=== PATIENT | female | born 1990 | race Caucasian/White ===

== ENCOUNTER → 2024-01-05 | Outpatient (CLI) | payer BC, SELFPAY ==
[2024-01-07 21:07] LABS: Chlamydia By Nucleic Acid AMP Negative (Negative); Gonococcus By Nucleic Acid AMP Negative (Negative)
== END | disposition home or self-care (01) ==
PROVIDERS: Visit Provider Obstetrics & Gynecology
DX: O09.299 Supervision of pregnancy with other poor reproductive or obstetric history, unspecified trimester (principal); Z86.32 Personal history of gestational diabetes; Z3A.00 Weeks of gestation of pregnancy not specified
CPT/HCPCS: 87086; 87491; 87591

== ENCOUNTER → 2024-01-30 | Outpatient (CLI) | payer BC, SELFPAY ==
[2024-01-30 10:55] LABS: Absolute Lymphocyte Count 1.87 X10^3/uL (0.83-4.51); Basophil# 0.04 X10^3/uL; Basophil% 0.4 % (0-1); Eosinophil# 0.13 X10^3/uL; Eosinophils% 1.4 % (0-5); Hematocrit 34.5 % (37-47); Hemoglobin 11.4 g/dL (12.0-15.0); Lymphocyte # 1.87 X10^3/ul (0.83-4.51); Lymphocyte % 19.8 % (19-41); Mean Corpuscular Hgb 28.4 pg (27.0-32.0); Mean Corpuscular Volume 85.8 fL (81-99); Mean Platelet Vol. 11.8 fl (6.2-12.0); Monocyte# 0.35 X10^3/uL; Monocyte% 3.7 % (0-10); NRBC Flagged by Analyzer 0 % (0-5); Neutrophil % 74.2 % (47-70); Platelet Count 212 K/mm3 (150-450); RBC Distribution Width CV 13.5 % (11.6-14.6); RBC Distribution Width SD 41.8 fl (35.1-43.9); Red Blood Count 4.02 M/mm3 (4.2-5.4); White Blood Count 9.4 K/mm3 (4.4-11.0)
[2024-01-30 11:11] LABS: Protein, Urine (Random) 12.5 mg/dL (<11.9); Protein:Creat Ratio 166 mg/g CRE (0-200)
[2024-01-30 11:25] LABS: ALB/GLOB Ratio 0.8 RATIO (0.9-2.4); AST(SGOT) 9 U/L (15-37); Alanine Aminotransfer ALT/SGPT 10 U/L (13-56); Albumin, Serum 3.2 g/dL (3.2-5.0); Alkaline Phosphatase 60 U/L (45-117); Anion Gap 8 (5-15); BUN 9 mg/dL (7-18); BUN/Creat Ratio 14.7 RATIO (10-20); Chloride 106 mmol/L (98-107); Creatinine, Serum 0.61 mg/dL (0.55-1.02); EST Glomerular Filtration Rate 118 mL/min (>60); Est Glom Filt Rate - Afr Amer 143 mL/min (>60); Globulin 3.9 g/dL (2.2-4.2); Glucose 146 mg/dL (74-106); Potassium 3.6 mmol/L (3.5-5.1); Protein, Total 7.1 g/dL (6.4-8.2); Sodium Level 135 mmol/L (136-145)
[2024-01-30 11:51] LABS: Hemoglobin A1c 5.2 % (3.8-5.6)
[2024-01-30 12:00] LABS: HIV - WCH Non-Reactive (Nonreactive); Hepatitis B Surface Antigen Non-Reactive (Nonreactive); Hepatitis C Antibody Non-Reactive (Nonreactive); Rubella IgG Reactive (Nonreactive); Syphilis Antibodies Non-reactive
== END | disposition home or self-care (01) ==
LOC: LAB 09:43
PROVIDERS: PCP Nurse Practitioner Family; Referring Provider Obstetrics & Gynecology; Visit Provider Obstetrics & Gynecology
DX: O09.90 Supervision of high risk pregnancy, unspecified, unspecified trimester (principal); O09.299 Supervision of pregnancy with other poor reproductive or obstetric history, unspecified trimester; Z86.32 Personal history of gestational diabetes
CPT/HCPCS: 36415; 80053; 82570; 83036; 84156; 85025; 86703; 86762; 86780; 86803; 86850; 86900; 86901; 87340

== ENCOUNTER → 2024-05-07 | Outpatient (CLI) | payer BC, SELFPAY ==
[2024-05-07 07:30] LABS: Absolute Lymphocyte Count 1.61 X10^3/uL (0.83-4.51); Absolute Neutrophil Count 7.7 X10^3/uL (2.0-7.7); Basophil# 0.02 X10^3/uL; Basophil% 0.2 % (0-1); Eosinophil# 0.07 X10^3/uL; Eosinophils% 0.7 % (0-5); Hematocrit 34.3 % (37-47); Lymphocyte # 1.61 X10^3/ul (0.83-4.51); Lymphocyte % 16.3 % (19-41); Mean Corp Hgb Conc 32.1 g/dL (32-36); Mean Corpuscular Hgb 28.4 pg (27.0-32.0); Mean Corpuscular Volume 88.6 fL (81-99); Mean Platelet Vol. 11.4 fl (6.2-12.0); Monocyte# 0.43 X10^3/uL; Monocyte% 4.3 % (0-10); NRBC Flagged by Analyzer 0 % (0-5); Neutrophil % 77.9 % (47-70); Platelet Count 181 K/mm3 (150-450); RBC Distribution Width CV 12.9 % (11.6-14.6); RBC Distribution Width SD 41.4 fl (35.1-43.9); Red Blood Count 3.87 M/mm3 (4.2-5.4); White Blood Count 9.9 K/mm3 (4.4-11.0)
[2024-05-07 07:50] LABS: Glucose GTT-Gestation. Fasting 105 mg/dL (<105)
[2024-05-07 08:28] LABS: HIV - WCH Non-Reactive (Nonreactive); Syphilis Antibodies Non-reactive
[2024-05-07 08:58] LABS: Glucose GTT-Gestational 1 Hr 250 mg/dL (<190)
[2024-05-07 11:10] LABS: Glucose GTT-Gestational 3 Hr 178 L (<145)
[2024-05-07 11:21] LABS: Glucose GTT-Gestational 2 Hr 213 mg/dL (<165)
== END | disposition home or self-care (01) ==
LOC: LAB 06:51
PROVIDERS: PCP Nurse Practitioner Family; Referring Provider Advanced Practice Midwife; Visit Provider Advanced Practice Midwife
DX: O09.92 Supervision of high risk pregnancy, unspecified, second trimester (principal); Z13.1 Encounter for screening for diabetes mellitus; Z3A.00 Weeks of gestation of pregnancy not specified
CPT/HCPCS: 36415; 82951; 82952; 85025; 86703; 86780

== ENCOUNTER → 2024-07-06 | Outpatient (CLI) | payer BC, MEDICAID, SELFPAY | END | disposition home or self-care (01) | LOC: BWCLAB 10:51 | PROVIDERS: PCP Nurse Practitioner Family; Referring Provider Obstetrics & Gynecology; Visit Provider Obstetrics & Gynecology | DX: O09.92 Supervision of high risk pregnancy, unspecified, second trimester (principal); Z3A.00 Weeks of gestation of pregnancy not specified | CPT/HCPCS: 87081 ==

== ENCOUNTER 2024-07-09 13:15 | Outpatient (CLI) | payer BC, MEDICAID, SELFPAY ==
[2024-07-09 13:30] VITALS: RESP 16; TEMP 37.2; O2SAT 98
[2024-07-09 13:34] VITALS: BP 131/74; PULSE 107; O2SAT 98
[2024-07-09 13:55] VITALS: BMI 31.5
[2024-07-09] MEDS: Lactated Ringers 1,000 ML 999 ML IV (14:00)
[2024-07-09] MEDS: Ondansetron 4 MG/2 ML Vial IV (14:14)
--- NOTE | 2024-07-09 17:03 | OB.TRI.HP_ITS ---
HPI - General General Date of Service: 07/09/24 HPI Narrative VICENTA BLANCHARD, is a 34 F who presents at 36.6 for nausea/vomiting and cramping. son with illness at home. active fetus, no contractions, no lof. Maternal Data Information FEDERICO Calculator Estimated Delivery Date Method Current WG Current Estimate 07/31/24 Ultrasound #1 36w 6d Other Estimates 08/07/24 LMP (Certain) 35w 6d PFSH PFSH Medical History Hx of vaginal delivery Seasonal allergies Home Medications ?Medication ?Instructions ?Recorded ?Last Taken ?Type epinephrine 0.3 mg/0.3 mL 0.3 mg (0.3 mL) IM X1 #2 syringes 11/06/16 Unknown Rx injection, auto-injector albuterol sulfate 90 mcg/actuation 2 puff inhalation Q6H PRN asthma 12/30/23 Unknown History aerosol inhaler multivitamin no.47-iron fum 27 1 cap PO 12/30/23 07/08/24 21:00 History mg-folate no.1 1 mg-dha 300 mg capsule (PNV-DHA) umeclidinium 62.5 mcg-vilanterol 1 inh inhalation DAILY 12/30/23 07/08/24 09:00 History 25 mcg/actuation powdr for inhalation (Anoro Ellipta) blood sugar diagnostic (Blood #120 ea 05/07/24 Unknown Rx Glucose Test strips) blood-glucose meter #1 ea 05/07/24 Unknown Rx lancets #200 ea 05/07/24 Unknown Rx aspirin 81 mg capsule 81 mg PO DAILY 07/09/24 07/08/24 21:00 History Allergy/AdvReac Type Severity Reaction Status Date / Time peanut Allergy Angioedema Verified 07/09/24 14:06 sesame seed Allergy Anaphylaxis Verified 07/09/24 14:06 tree nut (tree nuts) AdvReac Severe Anaphylaxis Verified 07/09/24 14:06 Family History Mother Diabetes Grandmother Diabetes maternal Aunt Diabetes maternal Uncle Diabetes Maternal Father Hypertension Surgical History [place] teeth extracted H/O LEEP Social History adopted: No household members: significant other number of children: 1 current occupational status: employed 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 current occupational exposures/hazards: No pets and animals: No history of recent travel: No sexually active: Yes Smoking Status: Never smoker alcohol intake: current alcohol intake frequency: holidays/special occasions only details: Not while substance use type: does not use well-balanced diet: daily or most days caffeine: Yes Type: coffee Number of servings: 1 eating out: 1-3 times/week during the past year weight has: remained stable what type of physical activity do you participate in: none morgan/advent: None seatbelt use: always do you feel safe at home: Yes additional social history: Partner [employer] History 2 Elective abortions Hx Para 1 Spontaneous abortions Hx # Term Pregnancies Ectopic pregnancies Hx # Pregnancies Multiple births # of living children 1 Past Pregnancies Del. Date Name GA/Weeks Outcome Route Bth Weight Gen Labor Lgth Anesthesia Del Locatn Provider FOB 08/18/22 Jorge 37 live - full term vacuum 7#14oz Male ep idural Doug Hernandez Delivery Date: 08/18/22 Last Updated by: Klaudia Chance HTN, GDM Visit Details Expected Delivery Route/Plan Labor Preferences- CB/BF classes: no labor support person: David labor intervention preferences: [] pain management options preferred: epidural cut cord/dad catch: cord : yes PP control planned: discussed discussed possible routes of delivery and associated risks: [] special requests: [] Plans Covid status: unvaccinated Flu vaccine: unvaccinated Tdap vaccine: got tdap first Rhogam: [] LARC form signed: [] Problem list reviewed and updated with the most current plan of care details and appropriate orders placed. Relevant counseling for the gestational age provided. Continue routine care and follow up unless otherwise noted in visit notes/problem list details OB Flowsheet Initial Weight: Not Recorded Date -?-?-?-?-?-?-?-?-?-?-?-?- EGA Weight BP Urine Prot -?-?-?-?-?-?-?-?-?-?-?-?- Glucose FHR FuHt Pres Dilation -?-?-?-?-?-?-?-?-?-?-?-?- Effaced St Visit Note 01/05/24 -?-?-?-?-?-?-?-?-?-?-?-?- 10w 2d 165 lb 131/83 -?-?-?-?-?-?-?-?-?-?-?-?- 171 -?-?-?-?-?-?-?-?-?-?-?-?- JV- CRL is off b y a week. new federico given. h/o fast labor with first baby. Declines NIPT. 02/02/24 -?-?-?-?-?-?-?-?-?-?-?-?- 14w 2d 172 lb 6 oz 126/72 Nega tive -?-?-?-?-?-?-?-?-?-?-?-?- Negative 153 -?-?-?-?-?-?-?-?-?-?-?-?- MH-No VB. Nausea improving. Denies concerns. 03/03/24 -?-?-?-?-?-?-?-?-?-?-?-?- 18w 4d 173 lb 142/83 Negative -?-?-?-?-?-?-?--?-?-?-?-?- Negative 150 -?-?-?-?-?-?-?-?-?-?-?-?- SM- n ovb lof cr salvador had anatomy scan- per patient she has previa and it's a boy 04/02/24 -?-?-?-?-?-?-?-?-?-?-?-?- 22w 6d 179 lb 126/76 Negative -?-?-?-?-?-?-?-?-?-?-?-?- Negative 145 23 -?-?-?-?-?-?-?-?-?-?-?-?- KW- no vb/lof/ct x. good fm. would like to do 3 hour gct instead of 1 hour 05/04/24 -?-?-?-?-?-?-?-?-?-?-?-?- 27w 3d 180 lb 6 oz 116/72 Nega tive -?-?-?-?-?-?-?-?-?-?-?-?- Negative 154 27 -?-?-?-?-?-?-?-?-?-?-?-?- MH-No VB, lof. G ood FM. Larc. 3hr GTT this week 05/17/24 -?-?-?-?-?-?-?-?-?-?-?-?- 29w 2d 182 lb 122/78 Negative -?-?-?-?-?-?-?-?-?-?-?-?- Negative 145 30 -?-?-?-?-?-?-?-?-?-?-?-?- KW- no vb/lof/ct x. arjun fm. BS reviewed and WNL. previa resolved. 06/03/24 -?-?-?-?-?-?-?-?-?-?-?-?- 31w 5d 184 lb 6 oz 124/71 Nega tive -?-?-?-?-?-?-?-?-?-?-?-?- Negative 156 31 -?-?-?-?-?-?-?-?-?-?-?-?- JV- log revie wed and has 10% abnormal numbers. If this goes up will need to start metfomin. pt understands. 06/14/24 -?-?-?-?-?-?-?-?-?-?-?-?- 33w 2d 183 lb 135/84 Negative -?-?-?-?-?-?-?-?-?-?-?-?- Negative 145 32 -?-?-?-?-?-?-?-?-?-?-?-?- KW- BS reviewed and doing well with controlling numbers. no vb/lof/ctx. arjun joshua. 07/02/24 -?-?-?-?-?-?-?-?-?-?-?-?- 35w 6d 184 lb 8 oz 132/79 Nega tive -?-?-?-?-?-?-?-?-?-?-?-?- Negative 115 36 -?-?-?-?-?-?-?-?-?-?-?-?- SM- no vb lof go od fm no regular ctx, BS reviewed 07/06/24 -?-?-?-?-?-?-?-?-?-?-?-?- 36w 3d 184 lb 6 oz 136/88 Nega tive -?-?-?-?-?-?-?-?-?-?-?-?- Negative 144 37 Cephalic 3 -?-?-?-?-?-?-?-?-?-?-?-?- 70 -2 JV- no lof , vaginal bleeding, or dec fm. no complaints. has another growth scan next week. Cleared by [facility] peds to deliver at [place]. will be seeing urologist outpatient 48 hrs after delivery. NST FHR Rate Baby A Baseline: 140 Variability:: Moderate Accelerations:: 15 x 15 Decelerations:: None NST Reactive:: Yes FHR Category:: Category I Uterine Activity:: irreg. Assessment & Plan (1) Nausea and vomiting during : COMMENT: s/p LR bolus and IV zofran. reactive NST, unchanged cervical exam. enc PO hydration. PLAN: Plan Patient presents for triage evaluation secondary to nausea, vomiting, diarrhea. reactive nst. unchanged cervical exam. s/p LR bolus and zofran. FHT: Moderate variability reactive no decelerations category I tracing Honalo: irreg Contractions Assessment and plan: Reactive NST, reassuring maternal and status patient discharged to home to follow-up prn and office appt. See problem list details for additional plan information. Charges/Coding Multi Select Codes Urinary/Genital Urinary/Genital CPT Codes: 92832-14 non-stress test Interp
== END 2024-07-09 15:00 | disposition home or self-care (01) ==
LOC: WPOUT 13:22 → WP 13:22
PROVIDERS: PCP Nurse Practitioner Family; Referring Provider Registered Nurse; Visit Provider Registered Nurse
DX: O21.9 Vomiting of pregnancy, unspecified (principal); Z3A.36 36 weeks gestation of pregnancy; Z79.82 Long term (current) use of aspirin
CPT/HCPCS: 96374; 96361; 59025; 59050; 99221; G0378; J2405

== ENCOUNTER 2024-07-20 18:08 | Inpatient (IN) | payer BC, MEDICAID, SELFPAY ==
[2024-07-20] VITALS (47 sets, daily range): BP systolic 117–143; BP diastolic 58–97; PULSE 85–115; RESP 16–17; TEMP 36.5–36.9; O2SAT 95–100; BMI 32.2
[2024-07-20] MEDS: Lactated Ringers 1,000 ML 50 ML IV (18:00)
[2024-07-20 18:52] LABS: Absolute Lymphocyte Count 1.73 X10^3/uL (0.83-4.51); Absolute Neutrophil Count 11.5 X10^3/uL (2.0-7.7); Basophil# 0.03 X10^3/uL; Basophil% 0.2 % (0-1); Eosinophil# 0.08 X10^3/uL; Eosinophils% 0.6 % (0-5); Hematocrit 34.5 % (37-47); Hemoglobin 11.1 g/dL (12.0-15.0); Lymphocyte # 1.73 X10^3/ul (0.83-4.51); Lymphocyte % 12.2 % (19-41); Mean Corp Hgb Conc 32.2 g/dL (32-36); Mean Corpuscular Hgb 26.9 pg (27.0-32.0); Mean Corpuscular Volume 83.7 fL (81-99); Mean Platelet Vol. 11.8 fl (6.2-12.0); Monocyte# 0.75 X10^3/uL; Monocyte% 5.3 % (0-10); NRBC Flagged by Analyzer 0 % (0-5); Neutrophil # 11.46 X10^3/uL (2.7-7.7); Platelet Count 220 K/mm3 (150-450); RBC Distribution Width SD 39.1 fl (35.1-43.9); Red Blood Count 4.12 M/mm3 (4.2-5.4); White Blood Count 14.2 K/mm3 (4.4-11.0)
--- NOTE | 2024-07-20 18:58 | HP.PCM.OB_ITS ---
HPI - General General Date of Admission: 07/20/24 HPI Narrative VICENTA BLANCHARD, is a 34 y/o @ 38 weeks 3 days who presents to L&D with rupture of membranes and mild contractions. She has gestational diabetes, controlled with diet and her fetus has pyelectasis and has been followed by MFM and pediatric urology. Per the labor and delivery nurse, she is 6 cm dilated and very stretch. She is currently sitting up in bed and appears to be in minimal distress with contractions. She is requesting to get her epidural now before the pain gets worse. Maternal Data Information FEDERICO Calculator Estimated Delivery Date Method Current WG Current Estimate 07/31/24 Ultrasound #1 38w 3d Other Estimates 08/07/24 LMP (Certain) 37w 3d PFSH PFSH Medical History Hx of vaginal delivery Seasonal allergies Home Medications ?Medication ?Instructions ?Recorded ?Last Taken ?Type epinephrine 0.3 mg/0.3 mL 0.3 mg (0.3 mL) IM X1 food allergy 11/06/16 Unknown Rx injection, auto-injector #2 syringes albuterol sulfate 90 mcg/actuation 2 puff inhalation Q6H PRN asthma 12/30/23 Unknown History aerosol inhaler multivitamin no.47-iron fum 27 1 cap PO 12/30/23 07/08/24 21:00 History mg-folate no.1 1 mg-dha 300 mg capsule (PNV-DHA) umeclidinium 62.5 mcg-vilanterol 1 inh inhalation DAILY asthma 12/30/23 07/20/24 History 25 mcg/actuation powdr for inhalation (Anoro Ellipta) blood sugar diagnostic (Blood #120 ea 05/07/24 Unknown Rx Glucose Test strips) blood-glucose meter #1 ea 05/07/24 Unknown Rx lancets #200 ea 05/07/24 Unknown Rx aspirin 81 mg capsule 81 mg PO DAILY 07/09/24 07/08/24 21:00 History Allergy/AdvReac Type Severity Reaction Status Date / Time peanut Allergy Angioedema Verified 07/20/24 18:32 sesame seed Allergy Anaphylaxis Verified 07/20/24 18:32 tree nut (tree nuts) AdvReac Severe Anaphylaxis Verified 07/20/24 18:32 Family History Mother Diabetes Grandmother Diabetes maternal Aunt Diabetes maternal Uncle Diabetes Maternal Father Hypertension Surgical History [place] teeth extracted H/O LEEP Social History adopted: No household members: significant other number of children: 1 current occupational status: employed 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 current occupational exposures/hazards: No pets and animals: No history of recent travel: No sexually active: Yes Smoking Status: Never smoker alcohol intake: current alcohol intake frequency: holidays/special occasions only details: Not while substance use type: does not use well-balanced diet: daily or most days caffeine: Yes Type: coffee Number of servings: 1 eating out: 1-3 times/week during the past year weight has: remained stable what type of physical activity do you participate in: none morgan/scientologist: None seatbelt use: always do you feel safe at home: Yes additional social history: Partner [employer] History 2 Elective abortions Hx Para 1 Spontaneous abortions Hx # Term Pregnancies Ectopic pregnancies Hx # Pregnancies Multiple births # of living children 1 Past Pregnancies Del. Date Name GA/Weeks Outcome Route Bth Weight Infant Gen Labor Lgth Anesthesia Del Locatn Provider FOB 08/18/22 Jorge 37 live - full term vacuum 7#14oz Male ep idural Doug Hernandez Delivery Date: 08/18/22 Last Updated by: Klaudia Chance HTN, GDM Visit Details Expected Delivery Route/Plan Labor Preferences- CB/BF classes: no labor support person: David labor intervention preferences: [] pain management options preferred: epidural cut cord/dad catch: cord : yes PP control planned: discussed discussed possible routes of delivery and associated risks: [] special requests: [] Plans Covid status: unvaccinated Flu vaccine: unvaccinated Tdap vaccine: got tdap first Rhogam: [] LARC form signed: [] Problem list reviewed and updated with the most current plan of care details and appropriate orders placed. Relevant counseling for the gestational age provided. Continue routine care and follow up unless otherwise noted in visit notes/problem list details OB Flowsheet Initial Weight: Not Recorded Date -?-?-?-?-?-?-?-?-?-?-?-?- EGA Weight BP Urine Prot -?-?-?-?-?-?-?-?-?-?-?-?- Glucose FHR FuHt Pres Dilation -?-?-?-?--?-?-?-?-?-?-?-?- Effaced St Visit Note 01/05/24 -?-?-?-?-?-?-?-?-?-?-?-?- 10w 2d 165 lb 131/83 -?-?-?-?-?-?-?-?-?-?-?-?- 171 -?-?-?-?-?-?-?-?-?-?-?-?- JV- CRL is off b y a week. new federico given. h/o fast labor with first baby. Declines NIPT. 02/02/24 -?-?-?-?-?-?-?-?-?-?-?-?- 14w 2d 172 lb 6 oz 126/72 Nega tive -?-?-?-?-?-?-?-?-?-?-?-?- Negative 153 -?-?-?-?-?-?-?-?-?-?-?-?- MH-No VB. Nausea improving. Denies concerns. 03/03/24 -?-?-?-?-?-?-?-?-?-?-?-?- 18w 4d 173 lb 142/83 Negative -?-?-?-?-?-?-?-?-?-?-?-?- Negative 150 -?-?-?-?-?-?-?-?-?-?-?-?- SM- n ovb lof nela franco had anatomy scan- per patient she has previa and it's a boy 04/02/24 -?-?-?-?-?-?-?-?-?-?-?-?- 22w 6d 179 lb 126/76 Negative -?-?-?-?-?-?-?-?-?-?-?-?- Negative 145 23 -?-?-?-?-?-?-?-?-?-?-?-?- KW- no vb/lof/ct x. good fm. would like to do 3 hour gct instead of 1 hour 05/04/24 -?-?-?-?-?-?-?-?-?-?-?-?- 27w 3d 180 lb 6 oz 116/72 Nega tive -?-?-?-?-?-?-?-?-?-?-?-?- Negative 154 27 -?-?-?-?-?-?-?-?-?-?-?-?- MH-No VB, lof. G ood FM. Larc. 3hr GTT this week 05/17/24 -?-?-?-?-?-?-?-?-?-?-?-?- 29w 2d 182 lb 122/78 Negative -?-?-?-?-?-?-?-?-?--?-?-?- Negative 145 30 -?-?-?-?-?-?-?-?-?-?-?-?- KW- no vb/lof/ct x. good fm. BS reviewed and WNL. previa resolved. 06/03/24 -?-?-?-?-?-?-?-?-?-?-?-?- 31w 5d 184 lb 6 oz 124/71 Nega tive -?-?-?-?-?-?-?-?-?-?-?-?- Negative 156 31 -?-?-?-?-?-?-?-?-?-?-?-?- JV- BS log revie wed and has 10% abnormal numbers. If this goes up will need to start metfomin. pt understands. 06/14/24 -?-?-?-?-?-?-?-?-?-?-?-?- 33w 2d 183 lb 135/84 Negative -?-?-?-?-?-?-?-?-?--?-?-?- Negative 145 32 -?-?-?-?-?-?-?-?-?-?-?-?- KW- BS reviewed and doing well with controlling numbers. no vb/lof/ctx. good fm. 07/02/24 -?-?-?-?-?-?-?-?-?-?-?-?- 35w 6d 184 lb 8 oz 132/79 Nega tive -?-?-?-?-?-?-?-?-?-?-?-?- Negative 115 36 -?-?-?-?-?-?-?-?-?-?-?-?- SM- no vb lof go od fm no regular ctx, BS reviewed 07/06/24 -?-?-?-?-?-?-?-?-?-?-?-?- 36w 3d 184 lb 6 oz 136/88 Nega tive -?-?-?-?-?-?-?-?-?-?-?-?- Negative 144 37 Cephalic 3 -?-?-?-?-?-?-?-?-?-?-?-?- 70 -2 JV- no lof , vaginal bleeding, or dec fm. no complaints. has another growth scan next week. Cleared by [facility] peds to deliver at [place]. will be seeing urologist outpatient 48 hrs after delivery. 07/12/24 -?-?-?-?-?-?-?-?-?-?-?-?- 37w 2d 184 lb 134/79 Negative -?-?-?-?-?-?-?-?-?-?-?-?- Negative 140 37 Cephalic -?-?-?-?-?-?-?-?-?-?-?-?- KW- no vb/lof/ct x. good fm. FMLA paper given to pt. declined need for vaginal exam today. was checked on WP on friday and was still 3 cm ROS Constitutional Constitutional: Denies change in weight, fatigue, fever(s), headache(s), poor appetite or weakness Eyes Eyes: Denies blurry vision, change in vision, seeing flashes or spots in vision ENT HEENT: Denies dizziness, headache(s), loss taste/smell or sore throat Cardiovascular Cardiovascular: Denies chest pain, dizziness, dyspnea, irregular heart rhythm, leg edema, palpitations, rapid heart rate or vomiting Respiratory/Chest Respiratory/Chest: Denies chest tightness, cough, dyspnea or breast pain Gastrointestinal Gastrointestinal: Denies abdominal pain, anorexia, constipation, cramping, diarrhea, hemorrhoids, vomiting or weight changes Genitourinary Genitourinary: Denies dysuria, flank pain, genital lesions, genital pain, urinary frequency or urinary urgency Musculoskeletal Musculoskeletal: Denies back pain, difficulty walking, joint pain, limited range of motion, muscle cramps or numbness Integumentary Integumentary: Denies lesions or unusual bruising Neurologic Neurologic: Denies abnormal movements, abnormal speech, dizziness, numbness, seizure-like activity or syncope Psychiatric Psychiatric: Denies anxiety, behavioral changes, change in appetite, change in libido, cognitive impairment, confusion, depression, difficulty concentrating, hallucinations or suicidal thoughts Endocrine Endocrinology: Denies excessive sweating, polydipsia or polyuria Hematologic/Lymphatic Hematologic/Lymphatic: Denies easy bleeding, easy bruising or lymphadenopathy Allergic/Immunologic Allergic/Immunologic: Denies itchy eyes, lip swelling, seasonal rhinorrhea, rhinitis, throat swelling, tongue swelling, eczemia, wheezing or asthma Vital Signs Vital Signs Vital Signs: 07/20/24 18:14 07/20/24 18:14 07/20/24 18:14 Temperature 98.4 F Pulse Rate 98 Blood Pressure 131/87 H BP Systolic 131 BP Diastolic 87 Weight Weight: 182 lb Body Mass Index (BMI) 32.2 Physical Exam Const alert, oriented x3, no apparent distress and healthy appearing General Appearance: cooperative; Negative for anxious HEENT normocephalic Face and Sinus: normal facial exam Eyes EOMs intact bilaterally and no scleral icterus General Eye: normal appearance of both eyes Neck full ROM and supple Lymph Lymphatic: no lymphadenopathy noted Chest Chest: abnormal inspection of the chest Resp normal respiratory effort Effort and Inspection: able to speak in complete sentences Cardio regular rate GI soft to palpation and non-tender Inspection: gravid Palpation: soft; Negative for tender external exam normal Amniotic Fluid: ROM+plus Back/Spine no CVA tenderness Extremity normal to inspection, full ROM and no clubbing, cyanosis or edema General Extremity: Negative for calf tenderness or edema Skin Lesions: no lesions Rashes: no rashes Psych mental status grossly normal Labs Labs Labs: Blood Type O POSITIVE Antibody Screen NEGATIVE Hct 34.5 % (37-47) L Hgb 11.1 g/dL (12.0-15.0) L Pap Smear Negative Syphilis Total Ab Non-reactive Rubella IgG Antibody Reactive (Nonreactive) Hep Bs Antigen Non-Reactive (Nonreactive) Hepatitis C Antibody Non-Reactive (Nonreactive) Chlamydia DNA (LEONARDO) Negative (Negative) N.gonorrhoeae DNA (LEONARDO) Negative (Negative) HIV 1&2 Antibody Non-Reactive (Nonreactive) Gest Glucose Tolerance MG/DL Assessment & Plan (1) Nausea and vomiting during : COMMENT: s/p LR bolus and IV zofran. reactive NST, unchanged cervical exam. enc PO hydration. (2) Pyelectasis of fetus on ultrasound: COMMENT: left. US Q4wk MFM; 28w:51% EFW, AC 27%. declined NIPT, see last MFM US for A/P details (3) Gestational diabetes mellitus (GDM) affecting , antepartum: COMMENT: start testing QID and bring log to next appt (4) AMA (advanced maternal age) multigravida 35+: QUALIFIERS: Trimester: second trimester Qualified Code(s): O09.522 - Supervision of elderly multigravida, second trimester COMMENT: declines genetic screening, plan 36 week growth US and delivery by 40 weeks (5) Asthma: COMMENT: Anoro Elipta daily, albuterol PRN (6) Hx of abnormal cervical Pap smear: COMMENT: +HPV, LEEP 2020 (7) History of gestational hypertension: COMMENT: basleine labs WNL, baby asa recommended. (8) H/O gestational diabetes in prior , currently : COMMENT: nl HgA1c in 1 TM (9) Supervision of high-risk : QUALIFIERS: Trimester: second trimester Qualified Code(s): O09.92 - Supervision of high risk , unspecified, second trimester COMMENT: PRR, , FEDERICO 08/07/24, boy latisha PC Jorge Partner David (10) Cystic fibrosis carrier: COMMENT: Partner is not a carrier of CF (11) : QUALIFIERS: Weeks of gestation: 36 weeks Qualified Code(s): Z3A.36 - 36 weeks gestation of COMMENT: GBS neg, declines genetic & carrier testing PLAN: Plan Patient presents IAL, plan expectant management for , pitocin PRN Pain management: plans epidural. GBS negative . Management of any complications: see above I have reviewed the [facility] and made any clinically relevant updates.
[2024-07-20] MEDS: fentaNYL-bupivacaine (epidural) 100 ML BAG EPIDURAL (19:40)
[2024-07-20 19:49] LABS: Syphilis Antibodies Non-reactive
[2024-07-20] MEDS: Lactated Ringers 1,000 ML 200 ML IV (19:49)
[2024-07-20 20:44] LABS: Bedside Glucose 89 mg/dL (74-106)
[2024-07-20 20:56] LABS: Bedside Glucose 86 mg/dL (74-106)
[2024-07-20] MEDS: Oxytocin 10 UNITS/ML Vial IM (22:32)
[2024-07-20] MEDS: Oxytocin 15 Units/NS 250ml 15 UNITS/250 ML IV.SOLN 83 UNITS IV (22:36)
--- NOTE | 2024-07-20 22:48 | EX.PCM.OBVAG ---
Assessment & Plan (1) Pyelectasis of fetus on ultrasound: COMMENT: left. US Q4wk MFM; 28w:51% EFW, AC 27%. declined NIPT, see last MFM US for A/P details (2) Gestational diabetes mellitus (GDM) affecting , antepartum: COMMENT: start testing QID and bring log to next appt (3) AMA (advanced maternal age) multigravida 35+: QUALIFIERS: Trimester: second trimester Qualified Code(s): O09.522 - Supervision of elderly multigravida, second trimester COMMENT: declines genetic screening, plan 36 week growth US and delivery by 40 weeks (4) Asthma: COMMENT: Anoro Elipta daily, albuterol PRN (5) Hx of abnormal cervical Pap smear: COMMENT: +HPV, LEEP 2020 (6) History of gestational hypertension: COMMENT: basleine labs WNL, baby asa recommended. (7) H/O gestational diabetes in prior , currently : COMMENT: nl HgA1c in 1 TM (8) Supervision of high-risk : QUALIFIERS: Trimester: second trimester Qualified Code(s): O09.92 - Supervision of high risk , unspecified, second trimester COMMENT: PRR, , FEDERICO 08/07/24, jos ealfredo PEREZ Jorge Partner David (9) Cystic fibrosis carrier: COMMENT: Partner is not a carrier of CF (10) : QUALIFIERS: Weeks of gestation: 36 weeks Qualified Code(s): Z3A.36 - 36 weeks gestation of COMMENT: GBS neg, declines genetic & carrier testing Maternal Data Information FEDERICO Calculator Estimated Delivery Date Method Current WG Current Estimate 07/31/24 Ultrasound #1 38w 3d Other Estimates 08/07/24 LMP (Certain) 37w 3d Final FEDERICO: 08/07/24 Gestational age: 38 weeks 3 days Vaginal Delivery Maternal Presentation Maternal Presentation: Active Labor and Spontaneous Rupture of Membranes Vaginal Delivery Information Procedure Performed: Spontaneous Vaginal Delivery Surgeon/Practitioner: Rocio Rivera Date of Procedure: 07/20/24 Pre-Procedure Diagnosis: 34 y/o @ 38 weeks 3 days, SROM and active labor Post-Procedure Diagnosis: 34 y/o @ 38 weeks 3 days, SROM and active labor Type of anesthesia: Epidural Estimated Blood Loss: 100cc Time of Delivery: 22:29 Findings Description of procedure: Patient began pushing and delivered the head in the EDWIN presentation. The head was delivered atraumatically and a loose nuchal cord ?1 was identified and easily reduced over the infant's head. The anterior and posterior shoulders delivered without complication followed by the rest of the and the infant was placed on the maternal abdomen. Delayed cord clamping was employed for approximately 60 seconds. Cord was clamped and cut and gentle traction was applied to the cord and the placenta delivered spontaneously immediately following it was noted to be intact with three-vessel cord. The perineum and vagina were inspected and noted to have no laceration. EBL was 100 cc. Patient and infant tolerated delivery well. Procedure findings: viable male infant Junaid Presentation: Vertex Amniotic Membrane Rupture Type: Spontaneous Amniotic Fluid Description: Clear Placental Delivery Description: Spontaneous Placenta Disposition: [facility] Specimen collected: No Cord Vessel Description: 3 Vessels Cord Entanglement: Around neck x 1, loose Infant A Gender: Male (1 minute): 9 (5 minute): 9 Delayed Cord Clamping: Yes Nipple Machine Operator solution developer: No Post Vaginal Deli Medications given after delivery: IM Pitocin Episiotomy Description: None Laceration: None Complication Complications: No Procedures Urinary/Genital [id number]: [id number] Vaginal Delivery Only
--- NOTE | 2024-07-20 22:51 | DCINST_ITS ---
Discharge Instructions Diet Discharge Diet: No restrictions DC O2, CPAP, BIPAP needs Home O2 Discharge instructions: No Dressing / Incision Discharge Activity: Return to Normal Activity, May Not Drive (while taking narcotic pain medications.) and May Shower May resume sexual activity in: 4-6 weeks Dressing / Incision Call your doctor if your incision/area has: Continuous Slow Oozing, Sudden Increased Bleeding, Increased Pain/ Swelling, Increased Redness and Foul Smelling Discharge Follow Up Care Please Follow Up With: Rocio Rivera DO When: Call [phone] to make an appointment with your doctor in 6 weeks. If you had elevated blood pressure or 4th degree laceration, you will need to be seen in 2 weeks. Test Results: Test results from this visit will be discussed in further detail at your follow- up appointment, if applicable. Discharge Plan Admission Admit Date/Time: 07/20/24 18:08 Attending Provider: Rocio Rivera Primary Care Provider: Nandini Mayorga NP Discharge Orders/Prescriptions Prescriptions: No Action PNV-DHA 27 mg iron-1 mg -300 mg capsule 1 cap PO Anoro Ellipta 62.5-25 mcg/actuation blister with device 1 inh inhalation DAILY albuterol sulfate 90 mcg/actuation HFA aerosol inhaler 2 puff inhalation Q6H PRN (Reason: asthma) epinephrine 0.3 MG syringe 0.3 mg IM X1 Qty: 2 2RF aspirin 81 mg capsule 81 mg PO DAILY (DME) Blood Glucose Test Strip See Rx Instructions .MEDSUPPLY Qty: 120 5RF Rx Instructions: As directed-fasting & 2 hr post meals (DME) blood-glucose meter Misc See Rx Instructions .MEDSUPPLY Qty: 1 0RF Rx Instructions: As directed- Test fasting and 2 hours after meals (DME) lancets Misc See Rx Instructions .MEDSUPPLY Qty: 200 5RF Rx Instructions: As directed-fasting & 2 hr post meals Referrals / Follow Up: Nandini Mayorga NP, HOTBED TRANSFER OPERATOR-C [Primary Care Provider] -
[2024-07-20 23:52] LABS: Bedside Glucose 98 mg/dL (74-106)
[2024-07-20 23:52] LABS: Bedside Glucose 93 mg/dL (74-106)
[2024-07-21] VITALS (11 sets, daily range): BP systolic 115–135; BP diastolic 60–89; PULSE 79–116; RESP 16–18; TEMP 36.6–37.1; O2SAT 97–99
[2024-07-21 06:08] LABS: Bedside Glucose 95 mg/dL (74-106)
[2024-07-21] MEDS: Acetaminophen 500 MG Tablet 1000 MG PO ×2 (08:05→23:23)
--- NOTE | 2024-07-21 08:26 | PCM.PN.OB ---
Subjective Subjective Patient doing well without complaints. Tolerating PO. Ambulating and voiding without difficulty. Feeding well. Denies chest pain, shortness of breath, calf pain/swelling, fevers, chills, lightheadedness. Objective Data Objective Data Vital Signs: Vital Signs Temp Pulse Resp BP Pulse Ox O2 Del Method 98.2 F 86 16 131/78 H 99 Room Air 07/21/24 07:32 07/21/24 07:32 07/21/24 07:32 07/21/24 07:32 07/21/24 07:32 07/21/24 07:32 Oxygen Delivery Method Room Air Weight: 182 lb Body Mass Index (BMI) 32.2 Intake & Output: Intake and Output for Last 24 Hours 07/19/24 07/20/24 07/21/24 23:59 23:59 23:59 Intake Total 1683.33 / 1683.33 250 / 250 Output Total 600 / 600 800 / 800 Balance 1083.33 / 1083.33 -550 / -550 Lab / Micro Data 07/20/24 18:30 Labs: Laboratory Results - last 24 hr 07/20/24 18:30: WBC 14.2 H, RBC 4.12 L, Hgb 11.1 L, Hct 34.5 L, MCV 83.7, MCH 26.9 L, MCHC 32.2, RDW Std Deviation 39.1, RDW Coeff of Elian 13.0, Plt Count 220, MPV 11.8, Immature Gran % (Auto) 0.700, Neut % (Auto) 81.0 H, Lymph % (Auto) 12.2 L, [place]bot % (Auto) 5.3, Eos % (Auto) 0.6, Baso % (Auto) 0.2, Absolute Neuts (auto) 11.5 H, Absolute Lymphs (auto) 1.73, Nucleated RBC % 0, Syphilis Total Ab Non-reactive, Blood Type O POSITIVE, Antibody Screen NEGATIVE 07/20/24 19:28: POC Glucose 89 07/20/24 20:35: POC Glucose 86 07/20/24 21:43: POC Glucose 93 07/20/24 22:43: POC Glucose 98 07/21/24 05:45: POC Glucose 95 ROS Constitutional Constitutional: Reports systems reviewed and no addt'l complaints, except as documented; Denies anorexia or headache(s) Cardiovascular Cardiovascular: Reports systems reviewed and no addt'l complaints, except as documented; Denies dizziness, dyspnea, nausea or tachypnea Respiratory/Chest Respiratory/Chest: Reports systems reviewed and no addt'l complaints, except as documented; Denies cough, dyspnea, shortness of breath at rest or tachypnea Gastrointestinal Gastrointestinal: Reports systems reviewed and no addt'l complaints, except as documented; Denies abdominal pain, constipation or nausea Genitourinary Genitourinary: Reports systems reviewed and no addt'l complaints, except as documented; Denies burning urination, difficulty urinating, dysuria, urinary frequency or urinary incontinence Musculoskeletal Musculoskeletal: Reports systems reviewed and no addt'l complaints, except as documented Integumentary Integumentary: Reports systems reviewed and no addt'l complaints, except as documented Neurologic Neurologic: Reports systems reviewed and no addt'l complaints, except as documented; Denies abnormal speech, dizziness or headache(s) Psychiatric Psychiatric: Reports systems reviewed and no addt'l complaints, except as documented Endocrine Endocrinology: Reports systems reviewed and no addt'l complaints, except as documented Hematologic/Lymphatic Hematologic/Lymphatic: Reports systems reviewed and no addt'l complaints, except as documented Physical Exam Const alert, oriented x3 and no apparent distress Neck full ROM Resp normal respiratory effort, normal air movement and no retractions Effort and Inspection: able to speak in complete sentences and symmetric chest movement GI soft to palpation Bladder / Kidney Exam: bladder normal to palpation Uterus Palpation: uterus fundus firm Extremity normal to inspection and full ROM Psych mental status grossly normal, thought process normal and cooperative Assessment & Plan (1) Vaginal delivery: COMMENT: ANNA PLAN: s/p PPD # 1 1. routine post delivery care 2. breast feeding- support given 3. rh positive 4. rubella immune Charges/Coding Multi Select Codes Urinary/Genital Urinary/Genital CPT Codes: No Charge
[2024-07-22 02:07] VITALS: BP 121/87; PULSE 85; RESP 16; TEMP 36.4; O2SAT 99
[2024-07-22 08:01] VITALS: BP 126/86; PULSE 84; RESP 16; TEMP 36.7; O2SAT 98
--- NOTE | 2024-07-22 08:40 | PCM.PN.OB ---
Subjective Subjective Patient doing well without complaints. Tolerating PO. Ambulating and voiding without difficulty. Feeding well. Denies chest pain, shortness of breath, calf pain/swelling, fevers, chills, lightheadedness. Objective Data Objective Data Vital Signs: Vital Signs Temp Pulse Resp BP Pulse Ox O2 Del Method 98.1 F 84 16 126/86 H 98 Room Air 07/22/24 08:01 07/22/24 08:01 07/22/24 08:01 07/22/24 08:01 07/22/24 08:01 07/22/24 08:01 Oxygen Delivery Method Room Air Weight: 182 lb Body Mass Index (BMI) 32.2 Intake & Output: Intake and Output for Last 24 Hours 07/20/24 07/21/24 07/22/24 23:59 23:59 23:59 Intake Total 1683.33 / 1683.33 250 / 250 Output Total 600 / 600 800 / 800 Balance 1083.33 / 1083.33 -550 / -550 Lab / Micro Data 07/20/24 18:30 ROS Constitutional Constitutional: Denies chills, fatigue, fever(s), poor appetite or weakness Eyes Eyes: Denies blurry vision, change in vision, seeing flashes or spots in vision ENT HEENT: Denies dizziness, headache(s), loss taste/smell or sore throat Cardiovascular Cardiovascular: Denies chest pain, dizziness, dyspnea, irregular heart rhythm, palpitations or rapid heart rate Respiratory/Chest Respiratory/Chest: Denies chest tightness, cough, dyspnea or breast pain Gastrointestinal Gastrointestinal: Denies abdominal pain, constipation or vomiting Genitourinary Genitourinary: Denies dysuria or flank pain Musculoskeletal Musculoskeletal: Denies difficulty walking, joint pain, limited range of motion or numbness Neurologic Neurologic: Denies abnormal movements, abnormal speech, dizziness, numbness, seizure-like activity or syncope Psychiatric Psychiatric: Denies anxiety, behavioral changes, change in appetite, confusion, depression or suicidal thoughts Physical Exam Const alert, oriented x3 and no apparent distress General Appearance: cooperative and comfortable Resp normal respiratory effort Cardio regular rate GI normal to inspection, nondistended, normoactive bowel sounds GI Narrative: uterus is firm below umbilicus Palpation: soft Back/Spine no CVA tenderness and thoraco-lumbar ROM normal Extremity normal to inspection, no clubbing, cyanosis or edema, no calf tenderness and no pedal edema Psych mental status grossly normal, thought process normal, cooperative, affect normal, speech normal, activity/motor behavior normal, denies homicidal ideation and denies suicidal ideation Assessment & Plan (1) Vaginal delivery: COMMENT: ANNA (2) Pyelectasis of fetus on ultrasound: COMMENT: left. US Q4wk MFM; 28w:51% EFW, AC 27%. declined NIPT, see last MFM US for A/P details PLAN: Plan s/p PPD # 2 1. routine post delivery care 2. breast feeding- support given 3. rh positive 4. rubella immune 5. dc to home today
== END 2024-07-22 12:50 | disposition home or self-care (01) | DRG 807 ==
LOC: WPOUT 18:25 → WP 18:25
PROVIDERS: Admitting Provider Obstetrics & Gynecology; PCP Nurse Practitioner Family; Visit Provider Obstetrics & Gynecology
DX: O24.420 Gestational diabetes mellitus in childbirth, diet controlled (principal); Z37.0 Single live birth; J45.909 Unspecified asthma, uncomplicated; Z3A.36 36 weeks gestation of pregnancy; O99.52 Diseases of the respiratory system complicating childbirth; O69.81X0 Labor and delivery complicated by cord around neck, without compression, not applicable or unspecified; Z14.1 Cystic fibrosis carrier; Z79.82 Long term (current) use of aspirin
CPT/HCPCS: 59025; 59050; 82962; 85025; 86780; 86850; 86900; 86901; 99221; G0378

== ENCOUNTER → 2024-09-08 | Outpatient (CLI) | payer BC, MEDICAID, SELFPAY ==
[2024-09-11 15:07] LABS: HPV APTIMA, High Risk Negative (Negative)
== END | disposition home or self-care (01) ==
LOC: LABSPEC 11:46
PROVIDERS: PCP Nurse Practitioner Family; Referring Provider Nurse Practitioner Women's Health; Visit Provider Nurse Practitioner Women's Health
DX: Z12.4 Encounter for screening for malignant neoplasm of cervix (principal); Z87.42 Personal history of other diseases of the female genital tract
CPT/HCPCS: 87624; 88175; G0145

== ENCOUNTER 2024-12-24 00:49 | Day surgery (SDC) | payer OTHER, MEDICAID, SELFPAY ==
[2024-12-24] VITALS (18 sets, daily range): BP systolic 111–156; BP diastolic 69–84; PULSE 74–113; RESP 14–18; TEMP 36.3–36.8; O2SAT 88–99; BMI 30.1
--- OUTSIDE RECORDS SUMMARY | 2024-12-24 01:15 | XMS RPT_ITS | CCD ---
Author Organization [facility] CliniSymi Care Team Providers Care Card Dealer Name Role Phone LORSON HOCKEY INSTRUCTOR-MINES SAFETY ENGINEER, [place] Primary Care Physician TAMERA JAG Attending Unavailable LORSON HOCKEY INSTRUCTOR-MINES SAFETY ENGINEER, [place] Primary Care Unavail able TAMERA, JAG Attending Unavailable LORSON HOCKEY INSTRUCTOR-MINES SAFETY ENGINEER, [facility] Care Unavail able PAYAL ROSE MD Attending Unavailable LORSON HOCKEY INSTRUCTOR-MINES SAFETY ENGINEER, [facility] Care Unavail able LORSON HOCKEY INSTRUCTOR-MINES SAFETY ENGINEER, [facility] Unavail able PAYAL ROSE MD Admitting Unavailable PAYAL ROSE MD Attending Unavailable TAMERA, JAG Attending Unavailable LORSON HOCKEY INSTRUCTOR-MINES SAFETY ENGINEER, [facility] Care Unavail able ATMERA, JAG Attending Unavailable LORSON HOCKEY INSTRUCTOR-MINES SAFETY ENGINEER, [place] Primary Care Unavail able WALTER BROUSSARD MD Attending Unavailable LORSON HOCKEY INSTRUCTOR-MINES SAFETY ENGINEER, [facility] Unavail able TAMERA, JAG Attending Unavailable LORSON HOCKEY INSTRUCTOR-MINES SAFETY ENGINEER, [facility] Care Unavail able MARGARET SHAW Attending Unavailable LORSON HOCKEY INSTRUCTOR-MINES SAFETY ENGINEER, [facility] Unavail able NO PRIMARY CAREMD Primary Care Unavailable JAYDON GREEN Attending Unavailable TIM SANCHEZ Referring Unavailable NANDINI MAYORGA Primary Care Unavailable JAYDON GREEN Attending Unavailable TIM SANCHEZ Referring Unavailable MELINA SWAIN Primary Care Unavailable MELINA SWAIN Attending Unavailable JULIETA LUA Referring UnavailMELINA [place] Admitting Unavailable MELINA SWAIN Primary Care Unavailable JULIETA LUA Referring Unavailabl ANDREW Arias Attending Unavailable MELINA SWAIN Admitting Unavailable SADIA LEPE Attending Unavailable MELINA SWAIN Admitting Unavailable JAYDON GREEN Referring Unavailable MELINA SWAIN Primary Care Unavailable JULIETA ULA Referring Unavailabl e ANDREW MEEK Attending Unavailable MELINA SWAIN Primary Care Unavailable Lorson ELECTRICAL LINEWORKER-C, [place] Primary Care Provider [phone] Lorson ELECTRICAL LINEWORKER-C, Nandini Referring Provider [phone] Charly Gallegos DO, Dr. Chan Attending Provider Mauricio CNChristy, Aminata Attending Provider [phone] Brianna MOLINA, Dr. Rendon Attending Provider Dr. Rocio Rivera DO Referring Provider Rolando CNM, Jaiden Attending Provider [phone] Rolando CNM, Jaiden Referring Provider [phone] Rolando CNM, Jaiden Other Provider [phone] Charly Gallegos DO, Dr. Chan Admit Provider [phone] Charly Gallegos DO, Dr. Chan Other Provider [phone] Laura ELECTRICAL LINEWORKER-C, Tim Attending Provider [phone] Laura ELECTRICAL LINEWORKER-C, Tim Referring Provider [phone] [place] ELECTRICAL LINEWORKER, Tim Attending Unavailable Lorson ELECTRICAL LINEWORKER, [place] Referring Unavailable Lorson ELECTRICAL LINEWORKER, [facility] Unavailable Lorson ELECTRICAL LINEWORKER, [place] Referring Unavailable Aminata Martínez Attending Unavailable Lorson ELECTRICAL LINEWORKER, [facility] Care Unavailable Rocio Rivera Consulting Unavailabl e Rocio Rivera Admitting Unavailabl e Rocio Rivera Attending Unavailabl e Lorson ELECTRICAL LINEWORKER, [facility] Unavailable Rocio Rivera Attending Unavailabl e [place] Rocio Gallegos Referring Unavailabl e Lorson ELECTRICAL LINEWORKER, [facility] Unavailable Laura ELECTRICAL LINEWORKERTim Attending Unavailable Lorson ELECTRICAL LINEWORKER, [facility] Care Unavailable Laura ELECTRICAL LINEWORKER, Tim Referring Unavailable Rocio Rivera Admitting Unavailabl e [place] Rocio Gallegos Referring Unavailabl e Rocio Rivera Attending Unavailabl e Lorson ELECTRICAL LINEWORKER, [facility] Unavailable Jaiden Marshall Referring Unavailable Jaiden Marshall Attending Unavailable Lorson ELECTRICAL LINEWORKER, [facility] Care Unavailable Aminata Martínez Attending Unavailable Marshall, Jaiden Referring Unavailable Jaiden Marshall Attending Unavailable Jaiden Marshall Consulting Unavailable Lorson ELECTRICAL LINEWORKER, [place] Primary Care Unavailable Rocio Rivera Attending Unavailabl e Lorson ELECTRICAL LINEWORKER, [place] Referring Unavailable Lorson ELECTRICAL LINEWORKER, [place] Primary Care Unavailable Lorson ELECTRICAL LINEWORKER, [place] Referring Unavailable Aminata Martínez Attending Unavailable Lorson ELECTRICAL LINEWORKER, [facility] Care Unavailable Lorson ELECTRICAL LINEWORKER, [place] Primary Care Unavailable Lorson ELECTRICAL LINEWORKER, [place] Referring Unavailable Aminata Martínez Attending Unavailable Rocio Rivera Attending Unavailabl e Vande VelRocio zhao Attending Unavailabl e Lorson ELECTRICAL LINEWORKER, [place] Referring Unavailable Lorson ELECTRICAL LINEWORKER, [facility] Care Unavailable Lorson ELECTRICAL LINEWORKER, [place] Primary Care Unavailable Lorson ELECTRICAL LINEWORKER, [place] Referring Unavailable Aminata Martínez Attending Unavailable [place] ELECTRICAL LINEWORKERTim Attending Unavailable Lorson ELECTRICAL LINEWORKER, [facility] Care Unavailable Lorson ELECTRICAL LINEWORKER, [place] Referring Unavailable [place] Rocio Gallegos Attending Unavailabl e Lorson ELECTRICAL LINEWORKER, [place] Referring Unavailable Lorson ELECTRICAL LINEWORKER, [facility] Care Unavailable Aminata Martínez Attending Unavailable Lorson ELECTRICAL LINEWORKER, [place] Primary Care Unavailable Aminata Martínez Referring Unavailable Rocio Rivera Attending Unavailabl e Vande Velde, Rocio Referring Unavailabl e Lorson ELECTRICAL LINEWORKER, [facility] Care Unavailable Lorson ELECTRICAL LINEWORKER, [place] Referring Unavailable Lorson ELECTRICAL LINEWORKER, [facility] Care Unavailable Aminata Martínez Attending Unavailable Rocio Rivera Attending Unavailabl e Care Physician, Primary Primary Care Unava ilable Lorson ELECTRICAL LINEWORKER, [place] Referring Unavailable Lorson ELECTRICAL LINEWORKER, [facility] Care Unavailable Julieta Lua Attending Unavailable Lorson ELECTRICAL LINEWORKER, [facility] Care Unavailable Lorson ELECTRICAL LINEWORKER, [place] Referring Unavailable Tim Sanchez NP Attending Unavailable Lorson ELECTRICAL LINEWORKER, [place] Primary Care Unavailable Lorson ELECTRICAL LINEWORKER, [place] Referring Unavailable Aminata Martínez Attending Unavailable Lorson ELECTRICAL LINEWORKER, [place] Referring Unavailable Lorson ELECTRICAL LINEWORKER, [place] Primary Care Unavailable Julieta Lua Attending Unavailable Lorson ELECTRICAL LINEWORKER-C, [place] Primary Care Provider [phone] Prernason ELECTRICAL LINEWORKER-C, [place] Referring Provider [phone] Aminata Martínez CNM Attending Provider Allergies Allergy Classification Reported Allergen(s) Allergy Type Date of Onset Reaction(s) Facility (12 sources) Nuts (not including peanuts) Food allergy Pharyngeal swelling (finding), Vomiting (disorder) [facility] (12 sources) Sesame seed Oil Food allergy Nausea (finding) [facility] (1 source) peanut; Translations: [PEANUT ALLERGY] Propensity to adverse reactions to drug (disorder) 4 [facility] (4 sources) sesame seed extract; Translations: [SESAME SEED] Drug Allergy 4 Anaphylaxis [facility] (1 source) tree nut, unspecified; Translations: [TREE NUT ALLERGY] Propensity to adverse reactions to drug (disorder) 4 [facility] (2 sources) peanut allergenic extract Drug Allergy 5 Angioedema [facility] (3 sources) tree nut, unspecified; Translations: [tree nut] Propensity to adverse reactions 5 Anaphylaxis [facility] (1 source) peanut allergenic extract Drug Allergy 5 [facility] Medications Current Medications Medication Drug Class(es) Dates Sig (Normalized) Sig (Original) acetaminophen 325 mg oral capsule (1 source) Start: 05-18-2021 take 1 capsule by mouth every six hours acetaminophen 325 mg oral capsule Dose : 650 mg =, Oral, q6h, # 20 cap(s), 0 Refill(s), Pharmacy: [facility], 160, cm, 05/18/21 12:15:00 EST, Height, kg, 05/18/21 12:15:00 EST, Dosing Weight Start Date: 05/18/21 Status: Ordered [id number] 200 actuat albuterol 0.09 mg/actuat metered dose inhaler (14 sources) beta2-Adrenergic Agonist Start: 12-30-2023 Albuterol Sulfate 90 mcg/actuation HFA aerosol inhaler Active 2 NMA INHALATION EVERY 6 HOURS as needed for asthma December 30, 2023 12:00am Start: 02-24-2023 take 2 puff(s) by in halation four times daily as needed for wheezing Ventolin HFA MDI (90 mcg/inh) inhalation aerosol 2 puff(s), Inhalation, QID, PRN as needed for wheezing, # 1 EA, 0 Refill(s), Pharmacy: [facility], 160, cm, 08/18/22 16:22:00 EST, Height, kg, 09/30/22 10:52:00 EDT, Dosing Weight Start Date: 02/24/23 Status: Ordered Start: 02-20-2021 take 2 puff(s) by in halation four times daily as needed for wheezing Ventolin HFA MDI (90 mcg/inh) inhalation aerosol 2 puff(s), Inhalation, QID, PRN as needed for wheezing, # 1 EA, 0 Refill(s), Pharmacy: [facility], 160, cm, 02/20/21 13:55:00 EDT, Height, kg, 02/20/21 13:55:00 EDT, Dosing Weight Start Date: 02/20/21 Status: Ordered Alcohol Swabs (3 sources) Start: 06-11-2022 Alcohol Swabs See Instructions, Dispense 100 Use 4x daily Diagnosis: Gestational Diabetes, # 100 EA, 5 Refill(s), Pharmacy: [facility], 28 weeks gestation of Gestational diabetes, 161, cm, 06/11/22 9:01:00 EST, Height, 74.3 Start Date: 06/11/22 Status: Ordered Blood Glucose Test Machine (3 sources) Start: 06-11-2022 Blood Glucose Test Machine See Instructions, Use as directed Brand type per insurance or patient preference Diagnosis: Gestational Diabetes, # 1 EA, 0 Refill(s), Pharmacy: [facility], 28 weeks gestation of Gestational diabetes, 161, cm, 06/11/22 9:0... Start Date: 06/11/22 Status: Ordered cetirizine hydrochloride 10 mg oral tablet (8 sources) Histamine-1 Receptor Antagonist Start: 02-16-2019 Zyrtec 10 mg oral tablet Dose : 10 mg = 1 tab(s), Oral, qDay, # 30 tab(s), 0 Refill(s) Start Date: 02/16/19 Status: Ordered Start: 11-06-2016 End: 07-09-2024 take 1 capsule by mouth once daily Cetirizine (Zyrtec) 10 MG capsule Discontinued 10 mg PO DAILY November 06, 2016 12:00am July 09, 2024 3:07pm EPINEPHrine (13 sources) alpha-Adrenergic Agonist, beta-Adrenergic Agonist, Catecholamine Start: 03-21-2021 EPINEPHrine 0.3 mg injectable kit use DIRECTED Inject one syringe in the outer thigh as needed for allergic reaction Start Date: 03/21/21 Status: Ordered Start: 11-06-2016 inject 0.3 mg by int ramuscular injection once Epinephrine 0.3 MG syringe Active 0.3 mg IM ONE TIME 2 November 06, 2016 12:00am {21 (Ethinyl Estradiol 0.035 MG / norgestimate 0.25 MG Oral Tablet) / 7 (Inert Ingredients 1 MG Oral Tablet) } Pack [Estill-Linyah 28 Day] (1 source) Progestin, Estrogen Start: 04-07-2023 End: 03-08-2024 take 1 tablet by mouth once daily Estill-Linyah 0.25 mg-35 mcg oral tablet Dose = 1 tab(s), Oral, qDay, # 84 tab(s), 3 Refill(s), Pharmacy: [facility], 160.2, cm, 04/07/23 8:24:00 EDT, Height, kg, 04/07/23 8:24:00 EDT, Dosing Weight Start Date: 04/07/23 Stop Date: 03/08/24 Status: Ordered ibuprofen 600 mg oral tablet (2 sources) Nonsteroidal Anti-inflammatory Drug Start: 08-18-2022 End: 09-07-2022 ibuprofen 600 mg oral tablet Dose : 600 mg = 1 tab(s), Oral, q6h, PRN for pain, Take with food or milk., X 10 day(s), # 30 tab(s), 1 Refill(s), 09/07/22 19:16:00 EST, Pharmacy: [facility], 160, cm, 08/18/22 16:22:00 EST, Height Start Date: 08/18/22 Stop Date: 09/07/22 Status: Ordered Start: 05-18-2021 IBU 600 mg ora l tablet Dose : 600 mg = 1 tab(s), Oral, q6h, # 20 tab(s), 0 Refill(s), Pharmacy: [facility], 160, cm, 05/18/21 12:15:00 EST, Height, kg, 05/18/21 12:15:00 EST, Dosing Weight Start Date: 05/18/21 Status: Ordered Estill-Linyah 0.25 mg-35 mcg oral tablet (2 sources) Start: 02-20-2021 End: 01-22-2022 take 1 tablet by mouth once daily, then take 1 tablet by mouth once daily Estill-Linyah 0.25 mg-35 mcg oral tablet Dose = 1 tab(s), Oral, qDay, TAKE 1 TABLET BY MOUTH DAILY, # 28 tab(s), 11 Refill(s), Pharmacy: [facility], 160, cm, 02/20/21 13:55:00 EDT, Height, kg, 02/20/21 13:55:00 EDT, Dosing Weight Start Date: 02/20/21 Stop Date: 01/22/22 Status: Ordered Multivit 59-Jqim-Prijrj 1-Dha (Pnv-Dha) 27 mg iron-1 mg -300 mg capsule (2 sources) Start: 12-30-2023 Multivit 87-Oirp-Rzbfbd 1-Dha (Pnv-Dha) 27 mg iron-1 mg -300 mg capsule Active 1 NMA PO December 30, 2023 12:00am NIFEdipine 30 mg oral tablet (7 sources) Dihydropyridine Calcium Channel Ilda Start: 03-18-2022 NIFEdipine (Eqv-Adalat CC) 30 mg oral tablet, extended release Dose : 30 mg = 1 tab(s), Oral, qDay, # 30 tab(s), 5 Refill(s), Pharmacy: [facility], 16 weeks gestation of Hypertension, 161, cm, 03/18/22 9:05:00 EDT, Height Start Date: 03/18/22 Status: Ordered Multivitamins with Vitamin B Complex, Vitamin C, Minerals and L-Methylfolate oral capsule (8 sources) Start: 01-21-2022 take 1 capsule by mouth once daily Multivitamins with Vitamin B Complex, Vitamin C, Minerals and L-Methylfolate oral capsule Dose = 1 cap(s), Oral, Daily, 0 Refill(s) Start Date: 01/21/22 Status: Ordered 7 actuat umeclidinium 0.0625 mg/actuat / vilanterol 0.025 mg/actuat dry powder inhaler (2 sources) Anticholinergic, beta2-Adrenergic Agonist Start: 12-30-2023 Umeclidinium-Vilan terol (Anoro Ellipta) 62.5-25 mcg/actuation blister with device Active 1 NMA INHALATION DAILY December 30, 2023 12:00am Completed/Discontinued Medications Medication Drug Class(es) Dates Sig (Normalized) Sig (Original) Arnuity Ellipta 100 mcg inhalation powder (11 sources) Start: 01-01-2022 take 1 puff(s) by inhalation once daily Arnuity Ellipta 100 mcg inhalation powder Dose : 100 mcg =, Inhalation, q24h, Inhale 1 puff once daily, # 1 EA, 11 Refill(s), Pharmacy: [facility], 161.2, cm, 01/01/22 14:49:00 EDT, Height, kg, 01/01/22 14:49:00 EDT, Dosing Weight Start Date: 01/01/22 Status: Ordered Start: 02-20-2021 take 1 puff(s) by in halation once daily Arnuity Ellipta 100 mcg inhalation powder Dose : 100 mcg =, Inhalation, q24h, Inhale 1 puff once daily, # 1 EA, 11 Refill(s), Pharmacy: [facility], 160, cm, 02/20/21 13:55:00 EDT, Height, kg, 02/20/21 13:55:00 EDT, Dosing Weight Start Date: 02/20/21 Status: Ordered aspirin 81 mg oral tablet (8 sources) Platelet Aggregation Inhibitor, Nonsteroidal Anti-inflammatory Drug Start: 07-09-2024 End: 10-21-2024 take 1 capsule by mouth once daily Aspirin 81 mg capsule Discontinued 81 mg PO DAILY July 09, 2024 1:00am October 21, 2024 11:44am Start: 04-02-2022 End: 09-29-2022 aspirin 81 mg oral tablet, c hewable Dose : 81 mg = 1 tab(s), Chewed, qDay, # 90 tab(s), 1 Refill(s), Pharmacy: [facility], 18 weeks gestation of Chronic hypertension, 161, cm, 04/02/22 9:03:00 EDT, Height Start Date: 04/02/22 Stop Date: 09/29/22 Status: Ordered Blood-Glucose Meter misc (2 sources) Start: 2024 End: 10-21-2024 Blood-Glucose Meter misc Dis continued 0 .MEDSUPPLY 2024 1:00am October 21, 2024 11:44am As directed- Test fasting and 2 hours after meals Start: 2024 Blood-Glucose Meter misc Active 0 .MEDSUPPLY 2024 1:00am As directed- Test fasting and 2 hours after meals predniSONE 20 mg oral tablet (2 sources) Start: 11-06-2016 End: 12-30-2023 take 3 tablets by mouth once daily Prednisone 20 MG tablet Discontinued 60 mg PO DAILY November 06, 2016 12:00am December 30, 2023 9:01am Problems Active Problems Problem Classification Problem Date Documented Date Episodic/Chronic Abdominal pain (1 source) Right upper quadrant pain; Translations: [Right upper quadrant pain] Episodic Allergic reactions (14 sources) Allergy to food; Translations: [Allergic reaction] 02-20-2021 Episodic Asthma (20 sources) Asthma; Translations: [Unspecified asthma, uncomplicated] Onset: 06-14-2024 02-11-2019 Chronic Comment on above: Anoro Elipta daily, albuterol PRN Contraceptive and procreative management (4 sources) Encounter for contraceptive management, unspecified; Translations: [Encounter for insertion of intrauterine contraceptive device] Onset: 10-21-2024 12-02-2024 Episodic Essential hypertension (11 sources) Hypertensive disorder; Translations: [Essential hypertension] Onset: 08-07-2022 03-26-2022 Chronic Menstrual disorders (3 sources) Missed period 01-01-2022 Chronic Nonmalignant breast conditions (5 sources) Pain of breast 09-19-2020 Episodic Other complications of (1 source) ; Translations: [Outcome of delivery, unspecified] Onset: 08-18-2022 Episodic Other complications of (8 sources) History of gestational diabetes mellitus; Translations: [Supervision of with other poor reproductive or obstetric history, unspecified trimester] 09-08-2024 Episodic Comment on above: nl HgA1c in 1 TM Other complications of (8 sources) Multigravida of advanced maternal age; Translations: [Supervision of elderly multigravida, unspecified trimester] 09-08-2024 Episodic Comment on above: declines genetic scr eening, plan 36 week growth US and delivery by 40 weeks Other complications of (8 sources) High risk ; Translations: [Supervision of high risk , unspecified, unspecified trimester] 09-08-2024 Episodic Comment on above: PRR, , NESS 5, boy junaid PC Jorge Partner David Other female genital disorders (8 sources) History of abnormal cervical Papanicolaou smear ; Translations: [Personal history of other diseases of the female genital tract] 09-08-2024 Episodic Comment on above: +HPV, LEEP 2020; neg. 2024: Other female genital disorders (2 sources) Personal history of other diseases of the female genital tract; Translations: [Personal history of other diseases of the female genital tract] Onset: 07-31-2024 Episodic Other screening for suspected conditions (not mental disorders or infectious disease) (1 source) Encounter for screening for malignant neoplasm of cervix; Translations: [Encounter for screening for malignant neoplasm of cervix] Onset: 09-15-2024 Episodic Residual codes; unclassified (1 source) Gestation period, 22 weeks; Translations: [22 weeks gestation of ] Episodic Residual codes; unclassified (3 sources) Patient encounter status; Translations: [Other specified health status] Episodic Comment on above: Yanet Residual codes; unclassified (1 source) History of complication of , childbirth and/or puerperium; Translations: [Personal history of other complications of , childbirth and the puerperium] Onset: 08-18-2022 Episodic Residual codes; unclassified (8 sources) Carrier of cystic fibrosis gene mutation; Translations: [Cystic fibrosis carrier] 09-08-2024 Episodic Comment on above: Partner is not a car rier of CF Residual codes; unclassified (8 sources) ultrasound scan abnormal; Translations: [Pyelectasis of fetus on ultrasound] 09-08-2024 Episodic Comment on above: left. US Q4wk MFM; 2 8w:51% EFW, AC 27%. declined NIPT, see last [facility] US for A/P details Residual codes; unclassified (8 sources) History of gestational hypertension; Translations: [Personal history of other complications of , childbirth and the puerperium] 09-08-2024 Episodic Unclassified (5 sources) Cancer cervix screening status 02-20-2021 Unclassified (16 sources) Patient encounter status 02-20-2021 Unclassified (2 sources) Maternal care for other (suspected) abnormality and damage, genitourinary anomalies, not applicable or unspecified; Translations: [Maternal care for other (suspected) abnormality and damage, genitourinary anomalies, not applicable or unspecified] Onset: 06-14-2024 Past or Other Problems Problem Classification Problem Date Documented Date Episodic/Chronic Diabetes or abnormal glucose tolerance complicating ; childbirth; or the puerperium (20 sources) Gestational diabetes mellitus; Translations: [Gestational diabetes mellitus complicating ] Onset: 08-07-2022 06-11-2022 Episodic Comment on above: start testing QID an d bring log to next appt Hemorrhage during ; abruptio placenta; placenta previa (5 sources) Placenta previa; Translations: [Complete placenta previa NOS or without hemorrhage, unspecified trimester] Onset: 06-14-2024 06-20-2024 Episodic Comment on above: RESOLVED. complete,p elvic rest, repeat us at 28 weeks- Immunizations and screening for infectious disease (9 sources) Rubella non-immune; Translations: [Encounter for immunization] Onset: 05-17-2024 02-05-2022 Episodic Other complications of (5 sources) Vomiting of , unspecified; Translations: [Nausea and vomiting during ] Onset: 07-16-2024 07-09-2024 Episodic Other complications of (2 sources) Supervision of elderly multigravida, second trimester; Translations: [Supervision of elderly multigravida, second trimester] Onset: 06-14-2024 Episodic Other complications of (2 sources) Supervision of with other poor reproductive or obstetric history, unspecified trimester; Translations: [Supervision of with other poor reproductive or obstetric history, unspecified trimester] Onset: 06-14-2024 Episodic Other complications of (2 sources) Supervision of high risk , unspecified, second trimester; Translations: [Supervision of high risk , unspecified, second trimester] Onset: 07-28-2024 Episodic Other complications of (1 source) Supervision of elderly multigravida, third trimester; Translations: [Supervision of elderly multigravida, third trimester] Onset: 07-31-2024 Episodic Other complications of (1 source) Supervision of elderly multigravida, unspecified trimester; Translations: [Supervision of elderly multigravida, unspecified trimester] Onset: 03-03-2024 Episodic Other complications of (1 source) Supervision of high risk , unspecified, unspecified trimester; Translations: [Supervision of high risk , unspecified, unspecified trimester] Onset: 03-03-2024 Episodic Other and delivery including normal (20 sources) ; Translations: [History of past delivery] Onset: 11-26-2021 01-07-2022 Episodic Comment on above: ANNA Quiroga GBS neg, declines ge netic & carrier testing Residual codes; unclassified (3 sources) 36 weeks gestation of ; Translations: [36 weeks gestation of ] Onset: 08-07-2022 Episodic Residual codes; unclassified (2 sources) Other specified health status; Translations: [Other specified health status] Onset: 08-07-2022 Episodic Residual codes; unclassified (2 sources) Personal history of other complications of , childbirth and the puerperium; Translations: [Personal history of other complications of , childbirth and the puerperium] Onset: 06-14-2024 Episodic Residual codes; unclassified (2 sources) Cystic fibrosis carrier; Translations: [Cystic fibrosis carrier] Onset: 06-14-2024 Episodic Residual codes; unclassified (1 source) 33 weeks gestation of ; Translations: [33 weeks gestation of ] Onset: 06-14-2024 Episodic Residual codes; unclassified (1 source) 29 weeks gestation of ; Translations: [29 weeks gestation of ] Onset: 05-17-2024 Episodic Residual codes; unclassified (1 source) 27 weeks gestation of ; Translations: [27 weeks gestation of ] Onset: 05-04-2024 Episodic Residual codes; unclassified (1 source) 18 weeks gestation of ; Translations: [18 weeks gestation of ] Onset: 03-03-2024 Episodic Residual codes; unclassified (1 source) 9 weeks gestation of ; Translations: [9 weeks gestation of ] Onset: 01-05-2024 Episodic Results Test Name Value Interpretation Reference Range Facility Processing Technician Office Visit Reporton 12-02-2024 Processing Technician Office Visit Report [facility] [address], [address] [place] [address] OFFICE VISIT Date of Service: 12/02/24 MR#: [id number] Acct: [id number] Name: VICENTA BLANCHARD Rep #: [id number] : 1990 Provider: MATEUS Lucero ams Age/Sex: 34/F Location: [facility] [place] Status: Signed Intake Vital Signs 10/21/24 11:39 12/02/24 11:19 Height 5 ft 3 in 5 ft 3 in Weight: 170 lb 171 lb 6 oz BMI 30.1 30.3 BP 132/85 H 119/85 H Intake Visit Reasons: IUD check 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 Is patient in pain?: No Allergies peanut Allergy (Verified 12/02/24 11:20) Angioedema sesame seed Allergy (Verified 12/02/24 11:20) Anaphylaxis tree nut (tree nuts) Adverse Reaction (Severe, Verified 12/02/24 11:20) Anaphylaxis Medications ???Medication ???Instructions ???Recorded ???Confirmed ???Type epinephrine 0.3 mg/0.3 mL 0.3 mg (0.3 mL) IM X1 food allergy 11/06/16 12/02/24 Rx injection, auto-injector #2 syringes albuterol sulfate 90 mcg/actuation 2 puff inhalation Q6H PRN asthma 12/30/23 12/02/24 History aerosol inhaler multivitamin no.47-iron fum 27 1 cap PO 12/30/23 History mg-folate no.1 1 mg-dha 300 mg capsule (PNV-DHA) umeclidinium 62.5 mcg-vilanterol 1 inh inhalation DAILY asthma 08/2312/02/24 History 25 mcg/actuation powdr for inhalation (Anoro Ellipta) Post menopausal: No Patient : No : No PFSH Medical History Cystic fibrosis carrier History of gestational hypertension History of gestational diabetes Hx of vaginal delivery Seasonal allergies Surgical History Jones teeth extracted H/O LEEP Family History Mother Diabetes Grandmother Diabetes maternal Aunt Diabetes maternal Uncle Diabetes Maternal Father Hypertension Social History adopted: No household members: significant other number of children: 1 current occupational status: employed current occupation: [employer] current occupational exposures/hazards: No pets and animals: No history of recent travel: No sexually active: Yes Smoking Status: Never smoker alcohol intake: current alcohol intake frequency: holidays/special occasions only details: Not while substance use type: does not use well-balanced diet: daily or most days caffeine: Yes Type: coffee Number of servings: 1 eating out: 1-3 times/week during the past year weight has: remained stable what type of physical activity do you participate in: none morgan/confucianism: None seatbelt use: always do you feel safe at home: Yes additional social history: Partner [employer] HPI IUD check Details: VICENTA BLANCHARD is a 34 year old who presents for IUD string check. No pain or bleeding with IUD. No concerns with string length-checking strings occasionally. Female Reproductive History Last Menstrual Period: 12/02/24 Questions: sexually active: Yes, dyspareunia: No and PCB: No History 2 Elective abortions Hx Para 2 Spontaneous abortions Hx # Term Pregnancies Ectopic pregnancies Hx # Pregnancies Multiple births # of living children 2 Past Pregnancies Del. Date Name GA/Weeks Outcome Route Bth Weight Gen Labor Lgth Anesthesia Del Locatn Provider FOB 08/18/22 Jorge 37 live - full term vacuum 7#14oz Male epidural Doug S eals David 07/20/24 Junaid 38 live - full term Male epidural [facility] Mary kim Charly Gallegos David Delivery Date: 08/18/22 Last Updated by: Klaudia Chance HTN, GDM Delivery Date: 07/20/24 Last Updated by: Klaudia Chance see problem list for complications. ROS Const Constitutional: Reports system reviewed and no additional complaints, except as documented Cardio Card: Reports system reviewed and no additional complaints, except as documented Resp Resp: Reports system reviewed and no additional complaints, except as documented GI GI: Reports system reviewed and no additional complaints, except as documented : Reports system reviewed and no additional complaints, except as documented; Denies difficulty voiding, dysuria or urinary frequency Skin Skin/Breast: Reports system reviewed and no additional complaints, except as documented Neuro Neuro: Reports system reviewed and no additional complaints, except as documented Psych Psych: Reports system reviewed and no additional complaints, except as documented; Denies anhedonia, anxiety or depression Exam Const General: cooperative, healthy appearing, comfortable and no acute distress Orientation: alert (more content not included)... Normal [facility] Laboratory - Chemistry and C hemistry - challengeOrdered By: Aminata Martínez on 10-21-2024 HCG ( test) Ql (U) Negative [facility] Processing Technician Office Visit Reporton 10-21-2024 Processing Technician Office Visit Report [facility] [address], [address] [place] [address] OFFICE VISIT Date of Service: 10/21/24 MR#: [id number] Acct: [id number] Name: VICENTA BLANCHARD Rep #: [id number] : 1990 Provider: MATEUS Lucero ams Age/Sex: 34/F Location: [facility] Status: Signed Intake Vital Signs 09/08/24 10:43 10/21/24 11:39 Height 5 ft 3 in 5 ft 3 in Weight: 170 lb BMI 30.1 BP 132/85 H Intake Visit Reasons: Mirena Insertion *WAIT for JACQUELINE* Chief Complaint: IUD Insertion Aluminum Boats Assembler Required: No Is patient in pain?: No Allergies peanut Allergy (Verified 10/21/24 11:37) Angioedema sesame seed Allergy (Verified 10/21/24 11:37) Anaphylaxis tree nut (tree nuts) Adverse Reaction (Severe, Verified 10/21/24 11:37) Anaphylaxis Medications ???Medication ???Instructions ???Recorded ???Confirmed ???Type epinephrine 0.3 mg/0.3 mL 0.3 mg (0.3 mL) IM X1 food allergy 11/06/16 10/21/24 Rx injection, auto-injector #2 syringes albuterol sulfate 90 mcg/actuation 2 puff inhalation Q6H PRN asthma 12/30/23 10/21/24 History aerosol inhaler multivitamin no.47-iron fum 27 1 cap PO 12/30/23 History mg-folate no.1 1 mg-dha 300 mg capsule (PNV-DHA) umeclidinium 62.5 mcg-vilanterol 1 inh inhalation DAILY asthma /08/2310/21/24 History 25 mcg/actuation powdr for inhalation (Anoro Ellipta) Is last menstrual period known: Yes Last Menstrual Period: 10/12/24 Post menopausal: No Patient : No : No PFSH PFSH Medical History Cystic fibrosis carrier History of gestational hypertension History of gestational diabetes Hx of vaginal delivery Seasonal allergies Surgical History Jones teeth extracted H/O LEEP Family History Mother Diabetes Grandmother Diabetes maternal Aunt Diabetes maternal Uncle Diabetes Maternal Father Hypertension Social History adopted: No household members: significant other number of children: 1 current occupational status: employed current occupation: [employer] current occupational exposures/hazards: No pets and animals: No history of recent travel: No sexually active: Yes Smoking Status: Never smoker alcohol intake: current alcohol intake frequency: holidays/special occasions only details: Not while substance use type: does not use well-balanced diet: daily or most days caffeine: Yes Type: coffee Number of servings: 1 eating out: 1-3 times/week during the past year weight has: remained stable what type of physical activity do you participate in: none morgan/confucianism: None seatbelt use: always do you feel safe at home: Yes additional social history: Partner [employer] History 2 Elective abortions Hx Para 2 Spontaneous abortions Hx # Term Pregnancies Ectopic pregnancies Hx # Pregnancies Multiple births # of living children 2 Past Pregnancies Del. Date Name GA/Weeks Outcome Route Bth Weight Gen Labor Lgth Anesthesia Del Locatn Provider FOB 08/18/22 Jorge 37 live - full term vacuum 7#14oz Male epidural Doug S alphonse Hernandez 07/20/24 Junaid 38 live - full term Male epidural [facility] Mary Chavira Delivery Date: 08/18/22 Last Updated by: Klaudia Chance HTN, GDM Delivery Date: 07/20/24 Last Updated by: Klaudia Chance see problem list for complications. HPI Mirena Insertion *WAIT for JACQUELINE* Details: VICENTA BLANCHARD is a 34 year old who presents for IUD insertion. Female Reproductive History Last Menstrual Period: 10/12/24 Office Procedures IUD Insertion IUD GC/Chlamydia:: not done Test: Yes Negative Consent Signed: Yes Time out checklist: patient, procedure, site marked/identified, positioning of patient, supplies available, allergies confirmed and team agrees on procedure IUD: Yes Liletta IUD inserted Time out time: 12:00 Details: Sign in Communication: Completed Sign out documentation: Completed The uterus sounded to 9 cm. After prepping the cervix with betadine and using sterile technique, the cervix was grasped with a single tooth tenaculum and the IUD was inserted without difficulty and the string was cut to 3cm from the external os of the cervix. All instruments were removed from the vagina and excellent hemostasis was noted. Procedure Summary: patient tolerated the procedure well without complication. Office Meds levonorgestrel 20.4 mcg/24 hr (up to 8 yrs) 52 mg intrauterine device Performing Provider: Aminata Martínez CNM Performing Location: B (more content not included)... Normal [facility] PAP IG HPV APTIMA 16/18,45on 09-11-2024 ADEQ Comment Normal . [facility] Comment on above: Order Comment: Speci men Comment: [id number] Comment: No. of containers..01 ThinPrep Vial Result Comment: Sati sfactory for evaluation. Endocervical and/or squamous metaplastic cells (endocervical component) are present. Performed By: #### L 3890.6005, L509.8000, L500.4710, L100.0100 #### [facility] [address] [place], [address] COMM . Normal . [facility] Comment on above: Order Comment: Speci men Comment: [id number] Comment: No. of containers..01 ThinPrep Vial Performed By: #### L 3890.6005, L509.8000, L500.4710, L100.0100 #### [facility] [address] [place], [address] COMMENT Comment Normal . [facility] Comment on above: Order Comment: Speci men Comment: [id number] Comment: No. of containers..01 ThinPrep Vial Result Comment: This liquid based ThinPrep(R) pap test was screened with the use of an image guided system. Performed By: #### L 3890.6005, L509.8000, L500.4710, L100.0100 #### [facility] [address] [place], [place], [id number] DIAG Comment Normal . [facility] Comment on above: Order Comment: Speci men Comment: [id number] Comment: No. of containers..01 ThinPrep Vial Result Comment: NEGA TIVE FOR INTRAEPITHELIAL LESION OR MALIGNANCY. Performed By: #### L 3890.6005, L509.8000, L500.4710, L100.0100 #### [facility] [address] [place], [address] HPV APTIMA, HR Negative Normal Negative [facility] Comment on above: Order Comment: Speci men Comment: [id number] Comment: No. of containers..01 ThinPrep Vial Result Comment: This nucleic acid amplification test detects fourteen high- risk HPV types (16,18,31,33,35,39,45,51,52,56,58,59,66,68) without differentiation. Performed By: #### L 3890.6005, L509.8000, L500.4710, L100.0100 #### [facility] [address] [place], [address] HPV Cheryl Rfx Comment Normal . [facility] Comment on above: Order Comment: Speci men Comment: [id number] Comment: No. of containers..01 ThinPrep Vial Result Comment: Crit ermoris not met, HPV Genotype not performed. Performed at: [facility] [address] [place], [place] [id number] Model Photographers': Tuan Dawkins MD, Phone: [phone] Performed at: - [address] [id number] Model Photographers': Shivani Crockett MD, Phone: [phone] Performed at: = - [address] [id number] Model [employer]ographers': Shivani Crockett MD, Phone: [phone] Performed By: #### L 3890.6005, L509.8000, L500.4710, L100.0100 #### [facility] [address] [place], [place], [id number] PAPSMR Comment Normal . [facility] Comment on above: Order Comment: Speci men Comment: [id number] Comment: No. of containers..01 ThinPrep Vial Result Comment: The Pap smear is a screening test designed to aid in the detection of premalignant and malignant conditions of the uterine cervix. It is not a diagnostic procedure and should not be used as the sole means of detecting cervical cancer. Both false-positive and false-negative reports do occur. Performed By: #### L 3890.6005, L509.8000, L500.4710, L100.0100 #### [facility] [address] [place], [place], [id number] PERFORM Comment Normal . [facility] Comment on above: Order Comment: Speci men Comment: [id number] Comment: No. of containers..01 ThinPrep Vial Result Comment: Ervin Martínez, Bridal Sales Consultant (ASCP) Performed By: #### L 3890.6005, L509.8000, L500.4710, L100.0100 #### [facility] [place], [address] Cervical or vaginal specimen microscopic examination by liquid based cytology (reportOrdered By: Tim Sanchez on 09-08-2024 Cytology report Cyto stain.thin prep Doc (Cvx/Vag) Comment . [facility] Comment on above: Criteria not met, HP V Genotype not performed.Performed at: [facility] [address] [place], [place] [id number] Director: Tuan Dawkins MD, Phone: [phone] at: [address] [id number] Director: Shivani Crockett MD, Phone: [phone] at: [facility] [address] [id number] Director: Shivani Crockett MD, Phone: [phone] Cervical or vagninal specime n microscopic examination by cytology stain (reported asOrdered By: Tim Sanchez on 09-08-2024 Cytology report Cyto stain Doc (Cvx/Vag) Comment . [facility] Comment on above: The Pap smear is a s creening test designed to aid in thedetection of premalignant and malignant conditions of theuterine cervix. It is not a diagnostic procedure andshould not be used as the sole means of detecting cervicalcancer. Both false-positive and false-negative reports dooccur. Clerical Office Worker Cyto stain Nom (C vx/Vag) [ID]Ordered By: Tim Sanchez on 09-08-2024 Pap Smear Performed By Comment . [facility] Comment on above: Cole Alas totechnologist (ASCP) Cytology report Cyto stain D oc (Cvx/Vag)Ordered By: Tim Sanchez on 09-08-2024 Thin Prep Pap Smear Comment . [facility] Comment on above: The Pap smear is a s creening test designed to aid in thedetection of premalignant and malignant conditions of theuterine cervix. It is not a diagnostic procedure andshould not be used as the sole means of detecting cervicalcancer. Both false-positive and false-negative reports dooccur. Cytology report Cyto stain.t hin prep Doc (Cvx/Vag)Ordered By: Tim Sanchez on 09-08-2024 HPV Genotype Special Info Comment . [facility] Comment on above: Criteria not met, HP V Genotype not performed.Performed at: [facility] [address] [place], [place] [id number] Director: Tuan Dawkins MD, Phone: [phone] at: - [address] [id number] Director: Shivani Crockett MD, Phone: [phone] at: =G - [address] [id number] Director: Shivani Crockett MD, Phone: [phone] Detection in cervical specim en of any of human papilloma virus (HPV) 16, 18, 31, 33,Ordered By: Tim Sanchez on 09-08-2024 HPV 16+18+31+33+35+39+45+51 +52+56+58+59+66+68 DNA Probe+sig amp Ql (Cvx) Negative Negative [facility] Comment on above: This nucleic acid am plification test detects fourteen high-risk HPV types (16,18,31,33,35,39,45,51,52,56,58,59,66,68)without differentiation. HPV 16+18+31+33+35+39+45+51+ 52+56+58+59+66+68 DNA Probe+sig amp Ql (Cvx)Ordered By: Tim Sanchez on 09-08-2024 Human Papillomavirus High Risk Negative Negative [facility] Comment on above: This nucleic acid am plification test detects fourteen high-risk HPV types (16,18,31,33,35,39,45,51,52,56,58,59,66,68)without differentiation. Image-guided ThinPrep PapOrd ered By: Tim Sanchez on 09-08-2024 Pap Smear Note Comment . [facility] Comment on above: This liquid based Th inPrep(R) pap test was screened withthe use of an image guided system. Image-guided liquid-based Pa pOrdered By: Tim Sanchez on 09-08-2024 Pap Smear Diagnosis Comment . [facility] Comment on above: NEGATIVE FOR INTRAEP ITHELIAL LESION OR MALIGNANCY. Laboratory - CytologyOrdered By: Tim Sanchez on 09-08-2024 Clerical Office Worker Cyto stain Nom (Cvx/Vag) [ID] Comment . [facility] Comment on above: Cole Alas totechnologist (ASCP) Laboratory - Miscellaneous t estsOrdered By: Tim Sanchez on 09-08-2024 Service comment (Unsp spec) [Interp] . . [facility] No Panel InformationOrdered By: Tim Sanchez on 09-08-2024 Pap Smear Specimen Adequacy Comment . [facility] Comment on above: Satisfactory for leeroy luation. Endocervical and/or squamous metaplasticcells (endocervical component) are present. Processing Technician Office Visit Reporton 09-08-2024 Processing Technician Office Visit Report [facility] [address], [address] [place] [address] OFFICE VISIT Date of Service: 09/08/24 MR#: [id number] Acct: [id number] Name: VICENTA BLANCHARD Rep #: [id number] : 1990 Provider: ADRIANA reese Age/Sex: 34/F Location: [facility] Status: Signed Intake Vital Signs 07/20/24 18:30 09/08/24 10:38 09/08/24 10:43 Height 5 ft 3 in 5 ft 3 in 5 ft 3 in Weight: 169 lb 8 oz BMI 30.0 BP 126/70 H Intake Visit Reasons: visit (obstetrics) Chief Complaint: 6 Week PP Aluminum Boats Assembler Required: No Is patient in pain?: No Allergies peanut Allergy (Verified 09/08/24 10:45) Angioedema sesame seed Allergy (Verified 09/08/24 10:45) Anaphylaxis tree nut (tree nuts) Adverse Reaction (Severe, Verified 09/08/24 10:45) Anaphylaxis Medications ???Medication ???Instructions ???Recorded ???Confirmed ???Type epinephrine 0.3 mg/0.3 mL 0.3 mg (0.3 mL) IM X1 food allergy 11/06/16 09/08/24 Rx injection, auto-injector #2 syringes albuterol sulfate 90 mcg/actuation 2 puff inhalation Q6H PRN asthma 12/30/23 09/08/24 History aerosol inhaler multivitamin no.47-iron fum 27 1 cap PO 12/30/23 History mg-folate no.1 1 mg-dha 300 mg capsule (PNV-DHA) umeclidinium 62.5 mcg-vilanterol 1 inh inhalation DAILY asthma 08/2309/08/24 History 25 mcg/actuation powdr for inhalation (Anoro Ellipta) blood sugar diagnostic (Blood #120 ea 05/07/24 09/08/24 Rx Glucose Test strips) blood-glucose meter #1 ea 05/07/24 09/08/24 Rx lancets #200 ea 05/07/24 09/08/24 Rx aspirin 81 mg capsule 81 mg PO DAILY 07/09/24 09/08/24 History : No PFSH Medical History Hx of vaginal delivery Seasonal allergies Surgical History Jones teeth extracted H/O LEEP Family History Mother Diabetes Grandmother Diabetes maternal Aunt Diabetes maternal Uncle Diabetes Maternal Father Hypertension Social History adopted: No household members: significant other number of children: 1 current occupational status: employed current occupation: [employer] current occupational exposures/hazards: No pets and animals: No history of recent travel: No sexually active: Yes Smoking Status: Never smoker alcohol intake: current alcohol intake frequency: holidays/special occasions only details: Not while substance use type: does not use well-balanced diet: daily or most days caffeine: Yes Type: coffee Number of servings: 1 eating out: 1-3 times/week during the past year weight has: remained stable what type of physical activity do you participate in: none morgan/confucianism: None seatbelt use: always do you feel safe at home: Yes additional social history: Partner [employer]- [employer] History 2 Elective abortions Hx Para 2 Spontaneous abortions Hx # Term Pregnancies Ectopic pregnancies Hx # Pregnancies Multiple births # of living children 2 Past Pregnancies Del. Date Name GA/Weeks Outcome Route Bth Weight Infant Gen Labor Lgth Anesthesia Del Locatn Provider FOB 08/18/22 Jorge 37 live - full term vacuum 7#14oz Male epidural Doug Hernandez 07/20/24 Junaid 38 live - full term Male epidural [facility] Mary Chavira Delivery Date: 08/18/22 Last Updated by: Klaudia Chance HTN, GDM Delivery Date: 07/20/24 Last Updated by: Klaudia Chance see problem list for complications. Depression Screen PHQ-2/9 PHQ-2 Over the last 2 weeks, how often have you been bothered by any of the following problems? 1. Little interest or pleasure in doing things: not at all 2. Feeling down, depressed, or hopeless: not at all Total score: 0 Post HPI Routine Follow-Up: Details: VICENTA BLANCHARD is a 34 year old who presents for her post visit. Feeding: Bottle Menses resumed: No [place] since delivery: No Emotional Support: Yes Last Pap:: 2-3 yr ago Control Method: IUD ROS Card Denies chest pain and Denies dyspnea Resp Denies dyspnea GI Denies bloating and Denies change in bowel habits Denies difficulty voiding Skin/Breast Denies breast mass, Denies breast pain and Denies breast skin changes Exam Const General: cooperative, no acute distress and well developed Nutritional Appearance: average body habitus Orientation: oriented x3 Chest Chest palpation inspection: abnormal inspection of the chest Breast inspection: normal inspection of the breasts Breast palpation: normal pal (more content not included)... Normal [facility] Service comment (Unsp spec) [Interp]Ordered By: Tim Sanchez on 09-08-2024 Pap Smear Comment (3) . . [facility] Bedside Glucoseon 07-21-2024 FINGERSTICK GLU 95 mg/dL Normal 74-106 [facility] Comment on above: Result Comment: CHICHI VALLADARES OF PATIENT CARE PER NURSING PROTOCOL Performed By: #### L 205.1000 #### [facility] [address] [place], [place], [id number] Glucose measurement at [facility] deOrdered By: Rocio Gallegos on 07-21-2024 Bedside Glucose (Misc Panel) 95 mg/dL 74-106 [facility] Comment on above: MANAGEMENT OF PATIEN T CARE PER NURSING PROTOCOL (ROM) Rupture Of Membraneson 07-20-2024 C-LINE PRESENT? Normal Internal QC [facility] Comment on above: Result Comment: Canc elled via OM: grossly ruptured Performed By: #### L 205.1000 #### [facility] [address] [place], [address] RECORD KIT LOT# Normal [facility] Comment on above: Result Comment: Canc elled via OM: grossly ruptured Performed By: #### L .1000 #### [facility] [address] [place], [address] ROM Normal Negative [facility] Comment on above: Result Comment: Canc elled via OM: grossly ruptured Performed By: #### L .1000 #### [facility] [address] [place], [address] Absolute neutrophil countOrd ered By: Rocio Gallegos on 07-20-2024 Neutrophils (Bld) [#/Vol] 11.5 10*3/uL High 2.0-7.7 [facility] Basophil percentageOrdered B y: Rocio Gallegos on 07-20-2024 Basophils/100 WBC (Bld) 0.2 % 0-1 W [facility] Bedside Glucoseon 07-20-2024 FINGERSTICK GLU 93 mg/dL Normal 74-106 [facility] Comment on above: Result Comment: CHICHI GEMENT OF PATIENT CARE PER NURSING PROTOCOL Performed By: #### L 205.1000 #### [facility] [address] [place], [address] FINGERSTICK GLU 98 mg/dL Normal 74-106 [facility] Comment on above: Result Comment: CHICHI GEMENT OF PATIENT CARE PER NURSING PROTOCOL Performed By: #### L 205.1000 #### [facility] [address] [place], [address] FINGERSTICK GLU 86 mg/dL Normal 74-106 [facility] Comment on above: Result Comment: CHICHI GEMENT OF PATIENT CARE PER NURSING PROTOCOL Performed By: #### L 3890.6005, L509.8000, L500.4710, L100.0100 #### [facility] [address] [place], [address] FINGERSTICK GLU 89 mg/dL Normal 74-106 [facility] Comment on above: Result Comment: CHICHI GEMENT OF PATIENT CARE PER NURSING PROTOCOL Performed By: #### L 205.1000 #### [facility] [address] [place], [address] CBC W/Diff, Automatedon 07-01 Absolute Lymph 1.73 X10 3/uL Normal 0.83-4.51 [facility] Comment on above: Performed By: #### L 3890.6005, L509.8000, L500.4710, L100.0100 #### [facility] [address] [place], [address] Absolute Neut 11.5 X10 3/uL High 2.0-7.7 [facility] Comment on above: Performed By: #### L 3890.6005, L509.8000, L500.4710, L100.0100 #### [facility] [address] [place], [address] Basophils/100 WBC (Bld) 0.2 % Normal 0-1 [facility] Comment on above: Performed By: #### L 3890.6005, L509.8000, L500.4710, L100.0100 #### [facility] [address] [place], [address] Eosinophils/100 WBC (Bld) 0.6 % Normal 0-5 [facility] Comment on above: Performed By: #### L 3890.6005, L509.8000, L500.4710, L100.0100 #### [facility] [address] [place], [address] Erythrocyte distribution width (RBC) [Ratio] 13.0 % Normal 11.6-14.6 [facility] Comment on above: Performed By: #### L 3890.6005, L509.8000, L500.4710, L100.0100 #### [facility] [address] [place], [address] Hematocrit (Bld) [Volume fraction] 34.5 % Low 37-47 [facility] Comment on above: Performed By: #### L 3890.6005, L509.8000, L500.4710, L100.0100 #### [facility] [address] [place], [address] Hemoglobin (Bld) [Mass/Vol] 11.1 g/dL Low 12.0-15.0 [facility] Comment on above: Performed By: #### L 3890.6005, L509.8000, L500.4710, L100.0100 #### [facility] [address] [place], [address] IG% 0.700 Normal 0.0-0.9 [facility] Comment on above: Result Comment: IG% - Immature Granulocytes (promyelocytes, myelocytes and metamyelocytes) > 1% indicates that a LEFT SHIFT is Present. Performed By: #### L 3890.6005, L509.8000, L500.4710, L100.0100 #### [facility] [address] [place], [address] Lymphocytes/100 WBC (Bld) 12.2 % Low 19-41 [facility] Comment on above: Performed By: #### L 3890.6005, L509.8000, L500.4710, L100.0100 #### [facility] [address] [place], [address] MCH (RBC) [Entitic mass] 26.9 pg Low 27.0-32.0 [facility] Comment on above: Performed By: #### L 3890.6005, L509.8000, L500.4710, L100.0100 #### [facility] [address] [place], [address] MCHC (RBC) [Mass/Vol] 32.2 g/dL Normal 32-36 [facility] Comment on above: Performed By: #### L 3890.6005, L509.8000, L500.4710, L100.0100 #### [facility] [address] [place], [address] MCV (RBC) [Entitic vol] 83.7 fL Normal 81-99 [facility] Comment on above: Performed By: #### L 3890.6005, L509.8000, L500.4710, L100.0100 #### [facility] [address] [place], [address] Monocytes/100 WBC (Bld) 5.3 % Normal 0-10 [facility] Comment on above: Performed By: #### L 3890.6005, L509.8000, L500.4710, L100.0100 #### [facility] [address] [place], [address] Neutrophils/100 WBC (Bld) 81.0 % High 47-70 [facility] Comment on above: Performed By: #### L 3890.6005, L509.8000, L500.4710, L100.0100 #### [facility] [address] [place], [address] Nucleated RBC (Bld) [#/Vol] 0 10*3/uL Normal 0-5 [facility] Comment on above: Performed By: #### L 3890.6005, L509.8000, L500.4710, L100.0100 #### [facility] [address] [place], [address] Platelet mean volume (Bld) [Entitic vol] 11.8 fL Normal 6.2-12.0 [facility] Comment on above: Performed By: #### L 3890.6005, L509.8000, L500.4710, L100.0100 #### [facility] [address] [place], [address] Platelets (Bld) [#/Vol] 220 10*3/uL Normal 150-450 [facility] Comment on above: Performed By: #### L 3890.6005, L509.8000, L500.4710, L100.0100 #### [facility] [address] [place], [address] RBC (Bld) [#/Vol] 4.12 10*6/uL Low 4.2-5.4 [facility] Comment on above: Performed By: #### L 3890.6005, L509.8000, L500.4710, L100.0100 #### [facility] [address] [place], [address] RDW SD 39.1 fl Normal 35.1-43.9 [facility] Comment on above: Performed By: #### L 3890.6005, L509.8000, L500.4710, L100.0100 #### [facility] [address] [place], [address] WBC (Bld) [#/Vol] 14.2 10*3/uL High 4.4-11.0 [facility] Comment on above: Performed By: #### L 3890.6005, L509.8000, L500.4710, L100.0100 #### [facility] [address] [place], [address] Discharge Instructionon 07-01 Discharge Instruction [facility] Medical Records Department [address] [place] [address] Instructions for Home/Discharge Instructions 07/20/24 2251 MR#: [id number] Acct: [id number] Name: VICENTA BLANCHARD Rep #: [id number] : 1990 34 From: Rocio Rivera DO PCP: Nandini Mayorga NP-C Status:ADM IN Discharge Instructions Diet Discharge Diet: No restrictions DC O2, CPAP, BIPAP needs Home O2 Discharge instructions: No Dressing / Incision Discharge Activity: Return to Normal Activity, May Not Drive (while taking narcotic pain medications.) and May Shower May resume sexual activity in: 4-6 weeks Dressing / Incision Call your doctor if your incision/area has: Continuous Slow Oozing, Sudden Increased Bleeding, Increased Pain/ Swelling, Increased Redness and Foul Smelling Discharge Follow Up Care Please Follow Up With: Rocio Rivera DO When: Call [phone] to make an appointment with your doctor in 6 weeks. If you had elevated blood pressure or 4th degree laceration, you will need to be seen in 2 weeks. Test Results: Test results from this visit will be discussed in further detail at your follow-up appointment, if applicable. Discharge Plan Admission Admit Date/Time: 07/20/24 18:08 Attending Provider: Rocio Rivera Primary Care Provider: Nandini Mayorga NP Discharge Orders/Prescriptions Prescriptions: No Action PNV-DHA 27 mg iron-1 mg -300 mg capsule 1 cap PO Anoro Ellipta 62.5-25 mcg/actuation blister with device 1 inh inhalation DAILY albuterol sulfate 90 mcg/actuation HFA aerosol inhaler 2 puff inhalation Q6H PRN (Reason: asthma) epinephrine 0.3 MG syringe 0.3 mg IM X1 Qty: 2 2RF aspirin 81 mg capsule 81 mg PO DAILY (DME) Blood Glucose Test Strip See Rx Instructions .MEDSUPPLY Qty: 120 5RF Rx Instructions: As directed-fasting 2 hr post meals (DME) blood-glucose meter Misc See Rx Instructions .MEDSUPPLY Qty: 1 0RF Rx Instructions: As directed- Test fasting and 2 hours after meals (DME) lancets Misc See Rx Instructions .MEDSUPPLY Qty: 200 5RF Rx Instructions: As directed-fasting 2 hr post meals Referrals / Follow Up: Nandini Mayorga NP, ELECTRICAL LINEWORKER-C [Primary Care Provider] - 07/20/24 2251 Rocio Rivera DO CC: AAMIR-C Nandini Mayorga Signed Normal [facility] Eosinophil percentageOrdered By: Rocio Gallegos on 07-20-2024 Eosinophils/100 WBC (Bld) 0.6 % 0-5 [facility] Erythrocyte distribution wid th ratioOrdered By: Rocio Gallegos on 07-20-2024 Erythrocyte distribution width (RBC) [Ratio] 13.0 % 11.6-14.6 [facility] Erythrocyte distribution wid th standard deviationOrdered By: Rocio Gallegos on 07-20-2024 Erythrocyte distribution width (RBC) [Entitic vol] 39.1 fL 35.1-43.9 [facility] H AND P Exam - OB/GYNon 07-01 H&P Exam - FILTER PULP WASHER [facility] Medical Records Department [address] [place] [address] H P Exam - FILTER PULP WASHER 07/20/24 1858 MR#: [id number] Acct: [id number] Name: VICENTA BLANCHARD Rep #: [id number] : 1990 34 From: Rocio Rivera DO PCP: ADRIANA Dotson Status:ADM IN Location: [id number] [facility] - General General Date of Admission: 07/20/24 HPI Narrative VICENTA BLANCHARD, is a 34 y/o @ 38 weeks 3 days who presents to [facility] with rupture of membranes and mild contractions. She has gestational diabetes, controlled with diet and her fetus has pyelectasis and has been followed by MFM and pediatric urology. Per the labor and delivery nurse, she is 6 cm dilated and very stretch. She is currently sitting up in bed and appears to be in minimal distress with contractions. She is requesting to get her epidural now before the pain gets worse. Maternal Data Information NESS Calculator Estimated Delivery Date Method Current WG Current Estimate 07/31/24 Ultrasound #1 38w 3d Other Estimates 08/07/24 LMP (Certain) 37w 3d PFSH PFSH Medical History Hx of vaginal delivery Seasonal allergies Home Medications ???Medication ???Instructions ???Recorded ???Last Taken ???Type epinephrine 0.3 mg/0.3 mL 0.3 mg (0.3 mL) IM X1 food allergy 11/06/16 Unknown Rx injection, auto-injector #2 syringes albuterol sulfate 90 mcg/actuation 2 puff inhalation Q6H PRN asthma 12/30/23 Unknown History aerosol inhaler multivitamin no.47-iron fum 27 1 cap PO 12/30/23 07/08/24 21:00 History mg-folate no.1 1 mg-dha 300 mg capsule (PNV-DHA) umeclidinium 62.5 mcg-vilanterol 1 inh inhalation DAILY asthma 12/30/23 07/20/24 History 25 mcg/actuation powdr for inhalation (Anoro Ellipta) blood sugar diagnostic (Blood #120 ea 05/07/24 Unknown Rx Glucose Test strips) blood-glucose meter #1 ea 05/07/24 Unknown Rx lancets #200 ea 05/07/24 Unknown Rx aspirin 81 mg capsule 81 mg PO DAILY 07/09/24 07/08/24 21:00 History Allergy/AdvReac Type Severity Reaction Status Date / Time peanut Allergy Angioedema Verified 07/20/24 18:32 sesame seed Allergy Anaphylaxis Verified 07/20/24 18:32 tree nut (tree nuts) AdvReac Severe Anaphylaxis Verified 07/20/24 18:32 Family History Mother Diabetes Grandmother Diabetes maternal Aunt Diabetes maternal Uncle Diabetes Maternal Father Hypertension Surgical History Jones teeth extracted H/O LEEP Social History adopted: No household members: significant other number of children: 1 current occupational status: employed current occupation: [employer] current occupational exposures/hazards: No pets and animals: No history of recent travel: No sexually active: Yes Smoking Status: Never smoker alcohol intake: current alcohol intake frequency: holidays/special occasions only details: Not while substance use type: does not use well-balanced diet: daily or most days caffeine: Yes Type: coffee Number of servings: 1 eating out: 1-3 times/week during the past year weight has: remained stable what type of physical activity do you participate in: none morgan/confucianism: None seatbelt use: always do you feel safe at home: Yes additional social history: Partner 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 Date Name GA/Weeks Outcome Route Bth Weight Gen Labor Lgth Anesthesia Del Locatn Provider FOB 08/18/22 Jorge 37 live - full term vacuum 7#14oz Male epidural Doug Hernandez Delivery Date: 08/18/22 Last Updated by: Klaudia Chance HTN, GDM Visit Details Expected Delivery Route/Plan Labor Preferences- CB/BF classes: no labor support person: David labor intervention preferences: [] pain management options preferred: epidural cut cord/dad catch: cord : yes PP control planned: discussed discussed possible routes of delivery and associated risks: [] special requests: [] Plans Covid status: unvaccinated Flu vaccine: unvaccinated Tdap vaccine: got tdap first Rhogam: [] LARC form signed: [] Problem list reviewed and updated with the most current plan of care details and appropriate orders placed. Relevant counseling for the gestational age provided. Continue routine care and follow up unless otherwise noted in visit notes/problem list details OB Flowsheet Initial Weight: Not Sagar (more content not included)... Normal [facility] Hematocrit Auto (Bld) [Volum e fraction]Ordered By: Rocio Gallegos on 07-20-2024 Hematocrit (Bld) [Volume fraction] 34.5 % Low 37-47 [facility] Hemoglobin measurementOrdere d By: Rocio Gallegos on 07-20-2024 Hemoglobin (Bld) [Mass/Vol] 11.1 g/dL Low 12.0-15.0 [facility] Immature granulocytes/100 WB C Auto (Bld)Ordered By: Rocio Gallegos on 07-20-2024 Immature granulocytes/100 WBC (Bld) 0.700 % 0.0-0.9 [facility] Comment on above: IG% - Immature Granu locytes (promyelocytes, myelocytes and metamyelocytes) > 1% indicates that a LEFT SHIFT is Present. L509.8000on 07-20-2024 Syphilis Abs Non-Reactive Normal [facility] Comment on above: Performed By: #### L 3890.6005, L509.8000, L500.4710, L100.0100 #### [facility] [address] [place], [address] Lymphocytes Auto (Unsp spec) [#/Vol]Ordered By: Rocio Gallegos on 07-20-2024 Lymphocytes (Bld) [#/Vol] 1.73 10*3/uL 0.83-4.51 [facility] Lymphocytes/100 WBC Auto (Un sp spec)Ordered By: Rocio Gallegos on 07-20-2024 Lymphocytes/100 WBC (Bld) 12.2 % Low 19-41 [facility] MCV (mean corpuscular volume ) determinationOrdered By: Rocio Gallegos on 07-20-2024 MCV (RBC) [Entitic vol] 83.7 fL 81-99 [facility] MR/OB.VAGDELIon 07-20-2024 [facility] Medical Records Department [address] [place] [address] OB Vaginal Delivery 07/20/24 2248 MR#: [id number] Acct: [id number] Name: COURTNEYTenaVICENTA Rep #: [id number] : 1990 34 From: Rocio Rivera DO PCP: ADRIANA Dotson Status:ADM IN Location: [id number] Assessment Plan (1) Pyelectasis of fetus on ultrasound: COMMENT: left. US Q4wk MFM; 28w:51% EFW, AC 27%. declined NIPT, see last MFM US for A/P details (2) Gestational diabetes mellitus (GDM) affecting , antepartum: COMMENT: start testing QID and bring log to next appt (3) AMA (advanced maternal age) multigravida 35+: QUALIFIERS: Trimester: second trimester Qualified Code(s): O09.522 - Supervision of elderly multigravida, second trimester COMMENT: declines genetic screening, plan 36 week growth US and delivery by 40 weeks (4) Asthma: COMMENT: Anoro Elipta daily, albuterol PRN (5) Hx of abnormal cervical Pap smear: COMMENT: +HPV, LEEP 2020 (6) History of gestational hypertension: COMMENT: basleine labs WNL, baby asa recommended. (7) H/O gestational diabetes in prior , currently : COMMENT: nl HgA1c in 1 TM (8) Supervision of high-risk : QUALIFIERS: Trimester: second trimester Qualified Code(s): O09.92 - Supervision of high risk , unspecified, second trimester COMMENT: PRR, , NESS 08/07/24, jose alfredo PEREZ Jorge Partner David (9) Cystic fibrosis carrier: COMMENT: Partner is not a carrier of CF (10) : QUALIFIERS: Weeks of gestation: 36 weeks Qualified Code(s): Z3A.36 - 36 weeks gestation of COMMENT: GBS neg, declines genetic carrier testing Maternal Data Information NESS Calculator Estimated Delivery Date Method Current WG Current Estimate 07/31/24 Ultrasound #1 38w 3d Other Estimates 08/07/24 LMP (Certain) 37w 3d Final NESS: 08/07/24 Gestational age: 38 weeks 3 days Vaginal Delivery Maternal Presentation Maternal Presentation: Active Labor and Spontaneous Rupture of Membranes Vaginal Delivery Information Procedure Performed: Spontaneous Vaginal Delivery Surgeon/Practitioner: Rocio Rivera Date of Procedure: 07/20/24 Pre-Procedure Diagnosis: 34 y/o @ 38 weeks 3 days, SROM and active labor Post-Procedure Diagnosis: 34 y/o @ 38 weeks 3 days, SROM and active labor Type of anesthesia: Epidural Estimated Blood Loss: 100cc Time of Delivery: 22:29 Findings Description of procedure: Patient began pushing and delivered the head in the EDWIN presentation. The head was delivered atraumatically and a loose nuchal cord ???1 was identified and easily reduced over the infant's head. The anterior and posterior shoulders delivered without complication followed by the rest of the and the was placed on the maternal abdomen. Delayed cord clamping was employed for approximately 60 seconds. Cord was clamped and cut and gentle traction was applied to the cord and the placenta delivered spontaneously immediately following it was noted to be intact with three- vessel cord. The perineum and vagina were inspected and noted to have no laceration. EBL was 100 cc. Patient and tolerated delivery well. Procedure findings: viable male infant Junaid Presentation: Vertex Amniotic Membrane Rupture Type: Spontaneous Amniotic Fluid Description: Clear Placental Delivery Description: Spontaneous Placenta Disposition: [facility] Specimen collected: No Cord Vessel Description: 3 Vessels Cord Entanglement: Around neck x 1, loose A Gender: Male (1 minute): 9 (5 minute): 9 Delayed Cord Clamping: Yes Aged Or Disabled Carer switchboard operator assistant: No Post Vaginal Deli Medications given after delivery: IM Pitocin Episiotomy Description: None Laceration: None Complication Complications: No Procedures Urinary/Genital 52xxx-59xxx: 40224 Vaginal Delivery Only 07/20/24 0248 Cosigner Signature (if applicable): CC: ELECTRICAL LINEWORKERCielo Mayorga; Dr. Rocio Rivera DO Signed Normal [facility] Mean corpuscular hemoglobin (MCH) determinationOrdered By: Rocio Gallegos on 07-20-2024 MCH (RBC) [Entitic mass] 26.9 pg Low 27.0-32.0 [facility] Mean corpuscular hemoglobin concentration (MCHC) determinationOrdered By: Rocio Gallegos on 07-20-2024 MCHC (RBC) [Mass/Vol] 32.2 g/dL 32-36 [facility] Mean platelet volume determi nationOrdered By: Rocio Gallegos on 07-20-2024 Platelet mean volume (Bld) [Entitic vol] 11.8 fL 6.2-12.0 [facility] Monocyte percentageOrdered B y: Rocio Gallegos on 07-20-2024 Monocytes/100 WBC (Bld) 5.3 % 0-10 [facility] Neutrophil percentageOrdered By: Rocio Gallegos on 07-20-2024 Neutrophils/100 WBC (Bld) 81.0 % High 47-70 [facility] Nucleated red blood cell per centageOrdered By: Rocio Gallegos on 07-20-2024 Nucleated RBC/100 WBC (Bld) [Ratio] 0 % 0-5 [facility] Platelet countOrdered By: Cristi kanmoi Rosy on 07-20-2024 Platelets (Bld) [#/Vol] 220 10*3/uL 150-450 [facility] RBC Auto (Bld) [#/Vol]Ordere d By: Rocio Gallegos on 07-20-2024 RBC (Bld) [#/Vol] 4.12 10*6/uL Low 4.2-5.4 [facility] Treponema sp Ab Ql (S)Ordere d By: Rocio Gallegos on 07-20-2024 Syphilis Total Antibody Non-Reactive [facility] Type AND Screenon 07-20-2024 ABO and Rh group Nom (Bld) Blood group O Rh(D) positive Normal [facility] Comment on above: Order Comment: Labor Performed By: #### L 3890.6005, L509.8000, L500.4710, L100.0100 #### [facility] [address] [facility] [place], [place], [id number] White blood cell (WBC) count Ordered By: Rocio Gallegos on 07-20-2024 WBC (Bld) [#/Vol] 14.2 10*3/uL High 4.4-11.0 [facility] Laboratory - Chemistry and C hemistry - challengeon 07-12-2024 Glucose Ql (U) Negative [facility] - Urinalysison Protein Ql (U) Negative [facility] Processing Technician Office Visit Reporton 07-12-2024 Processing Technician Office Visit Report [facility] [address], [address] [place] [address] OFFICE VISIT Date of Service: 07/12/24 MR#: [id number] Acct: [id number] Name: COURTNEYVICENTA Madsen Christy Rep #: [id number] : 1990 Provider: MATEUS Lucero ams Age/Sex: 34/F Location[facility] Status: Signed Intake Vital Signs 05/04/24 09:43 07/09/24 13:55 07/12/24 10:37 Height 5 ft 3 in 5 ft 3 in 5 ft 3 in Weight: 184 lb BMI 32.5 BP 134/79 H Blood Pressure Location Rt brachial Position Sitting Intake Visit Reasons: 37 WK OB Aluminum Boats Assembler Required: No Accompanied by: Self Is patient in pain?: No Allergies peanut Allergy (Verified 07/12/24 10:41) Angioedema sesame seed Allergy (Verified 07/12/24 10:41) Anaphylaxis tree nut (tree nuts) Adverse Reaction (Severe, Verified 07/12/24 10:41) Anaphylaxis Medications ???Medication ???Instructions ???Recorded ???Confirmed ???Type epinephrine 0.3 mg/0.3 mL 0.3 mg (0.3 mL) IM X1 #2 syringes 11/06/16 07/12/24 Rx injection, auto-injector albuterol sulfate 90 mcg/actuation 2 puff inhalation Q6H PRN asthma 12/30/23 07/12/24 History aerosol inhaler multivitamin no.47-iron fum 27 1 cap PO 12/30/23 07/12/24 History mg-folate no.1 1 mg-dha 300 mg capsule (PNV-DHA) umeclidinium 62.5 mcg-vilanterol 1 inh inhalation DAILY 12/30/23 07/12/24 History 25 mcg/actuation powdr for inhalation (Anoro Ellipta) blood sugar diagnostic (Blood #120 ea 05/07/24 07/06/24 Rx Glucose Test strips) blood-glucose meter #1 ea 05/07/24 07/06/24 Rx lancets #200 ea 05/07/24 07/06/24 Rx aspirin 81 mg capsule 81 mg PO DAILY 07/09/24 07/12/24 History Last Menstrual Period: 11/01/23 Zika: Zika virus screening: Negative : No PFSH PFSH Medical History Hx of vaginal delivery Seasonal allergies Surgical History Jones teeth extracted H/O LEEP Family History Mother Diabetes Grandmother Diabetes maternal Aunt Diabetes maternal Uncle Diabetes Maternal Father Hypertension Social History adopted: No household members: significant other number of children: 1 current occupational status: employed current occupation: [employer] current occupational exposures/hazards: No pets and animals: No history of recent travel: No sexually active: Yes Smoking Status: Never smoker alcohol intake: current alcohol intake frequency: holidays/special occasions only details: Not while substance use type: does not use well-balanced diet: daily or most days caffeine: Yes Type: coffee Number of servings: 1 eating out: 1-3 times/week during the past year weight has: remained stable what type of physical activity do you participate in: none morgan/confucianism: None seatbelt use: always do you feel safe at home: Yes additional social history: Partner [employer] History 2 Elective abortions Hx Para 1 Spontaneous abortions Hx # Term Pregnancies Ectopic pregnancies Hx # Pregnancies Multiple births # of living children 1 Past Pregnancies Del. Date Name GA/Weeks Outcome Route Bth Weight Infant Gen Labor Lgth Anesthesia Del Locatn Provider FOB 08/18/22 Jorge 37 live - full term vacuum 7#14oz Male epidural Doug Hernandez Delivery Date: 08/18/22 Last Updated by: Klaudia Chance HTN, GDM HPI 37 WK OB Details: VICENTA BLANCHARD is a 34 year old who presents for routine OB visit. OB Visit NESS Calculator Estimated Delivery Date Method Current WG Current Estimate 07/31/24 Ultrasound #1 37w 2d Other Estimates 08/07/24 LMP (Certain) 36w 2d Expected Delivery Route/Plan Labor Preferences- CB/BF classes: no labor support person: David labor intervention preferences: [] pain management options preferred: epidural cut cord/dad catch: cord : yes PP control planned: discussed discussed possible routes of delivery and associated risks: [] special requests: [] Specific Issue/Plans Covid status: unvaccinated Flu vaccine: unvaccinated Tdap vaccine: got tdap first Rhogam: [] LARC form signed: [] Problem list reviewed and updated with the most current plan of care details and appropriate orders placed. Relevant counseling for the gestational age provided. Continue routine care and follow up unless otherwise noted in visit notes/problem list details Initial Weight: Not Recorded Date -???-???-???-???-???- ???-???-???-???-???-? ??-???- EGA Weight BP Urine Prot -???-???-???-???-???- ???-???-???-???-???-? (more content not included)... Normal [facility] OB Triage Physician Noteon 0 07-09-[address] [facility] Medical Records Department [address] [place] [address] OB Triage Physician Note 07/09/24 1703 MR#: [id number] Acct: [id number] Name: VICENTA BLANCHARD Rep #: [id number] : 1990 34 From: Jaiden Marshall CNM PCP: ADRIANA Dotson Status:DEP CLI Y Location: [facility] HPI - General General Date of Service: 07/09/24 HPI Narrative VICENTA BLANCHARD, is a 34 F who presents at 36.6 for nausea/vomiting and cramping. son with illness at home. active fetus, no contractions, no lof. Maternal Data Information NESS Calculator Estimated Delivery Date Method Current WG Current Estimate 07/31/24 Ultrasound #1 36w 6d Other Estimates 08/07/24 LMP (Certain) 35w 6d PFSH PFSH Medical History Hx of vaginal delivery Seasonal allergies Home Medications ???Medication ???Instructions ???Recorded ???Last Taken ???Type epinephrine 0.3 mg/0.3 mL 0.3 mg (0.3 mL) IM X1 #2 syringes 11/06/16 Unknown Rx injection, auto-injector albuterol sulfate 90 mcg/actuation 2 puff inhalation Q6H PRN asthma 12/30/23 Unknown History aerosol inhaler multivitamin no.47-iron fum 27 1 cap PO 12/30/23 07/08/24 21:00 History mg-folate no.1 1 mg-dha 300 mg capsule (PNV-DHA) umeclidinium 62.5 mcg-vilanterol 1 inh inhalation DAILY 12/30/23 07/08/24 09:00 History 25 mcg/actuation powdr for inhalation (Anoro Ellipta) blood sugar diagnostic (Blood #120 ea 05/07/24 Unknown Rx Glucose Test strips) blood-glucose meter #1 ea 05/07/24 Unknown Rx lancets #200 ea 05/07/24 Unknown Rx aspirin 81 mg capsule 81 mg PO DAILY 07/09/24 07/08/24 21:00 History Allergy/AdvReac Type Severity Reaction Status Date / Time peanut Allergy Angioedema Verified 07/09/24 14:06 sesame seed Allergy Anaphylaxis Verified 07/09/24 14:06 tree nut (tree nuts) AdvReac Severe Anaphylaxis Verified 07/09/24 14:06 Family History Mother Diabetes Grandmother Diabetes maternal Aunt Diabetes maternal Uncle Diabetes Maternal Father Hypertension Surgical History Jones teeth extracted H/O LEEP Social History adopted: No household members: significant other number of children: 1 current occupational status: employed current occupation: [employer] current occupational exposures/hazards: No pets and animals: No history of recent travel: No sexually active: Yes Smoking Status: Never smoker alcohol intake: current alcohol intake frequency: holidays/special occasions only details: Not while substance use type: does not use well-balanced diet: daily or most days caffeine: Yes Type: coffee Number of servings: 1 eating out: 1-3 times/week during the past year weight has: remained stable what type of physical activity do you participate in: none morgan/confucianism: None seatbelt use: always do you feel safe at home: Yes additional social history: Partner [employer] History 2 Elective abortions Hx Para 1 Spontaneous abortions Hx # Term Pregnancies Ectopic pregnancies Hx # Pregnancies Multiple births # of living children 1 Past Pregnancies Del. Date Name GA/Weeks Outcome Route Bth Weight Infant Gen Labor Lgth Anesthesia Del Locatn Provider FOB 08/18/22 Jorge 37 live - full term vacuum 7#14oz Male epidural Doug Hernandez Delivery Date: 08/18/22 Last Updated by: Klaudia Chance HTN, GDM Visit Details Expected Delivery Route/Plan Labor Preferences- CB/BF classes: no labor support person: David labor intervention preferences: [] pain management options preferred: epidural cut cord/dad catch: cord : yes PP control planned: discussed discussed possible routes of delivery and associated risks: [] special requests: [] Plans Covid status: unvaccinated Flu vaccine: unvaccinated Tdap vaccine: got tdap first Rhogam: [] LARC form signed: [] Problem list reviewed and updated with the most current plan of care details and appropriate orders placed. Relevant counseling for the gestational age provided. Continue routine care and follow up unless otherwise noted in visit notes/problem list details OB Flowsheet Initial Weight: Not Recorded Date -???-???-???-???-???- ???-???-???-???-???-? ??-???- EGA Weight BP Urine Prot -???-???-???-???-???- ???-???-???-???-???-? ??-???- Glucose FHR FuHt Pres Dilation -???-???-???-???-???- ???-???-???-???-???-? ??-???- Effaced St Visit Note 01/05/24 -???-???-???-???-???- ???-???-???-???-???-? ??-???- 10w 2d 165 lb 131/83 -???-???-???-???-???- ???-???-???-???-???- (more content not included)... Normal [facility] Laboratory - Chemistry and C hemistry - challengeon 07-06-2024 Glucose Ql (U) Negative [facility] Laboratory - Urinalysison Protein Ql (U) Negative [facility] Processing Technician Office Visit Reporton 07-06-2024 Processing Technician Office Visit Report [facility] [address], [address] [place] [address] OFFICE VISIT Date of Service: 07/06/24 MR#: [id number] Acct: [id number] Name: VICENTA BLANCHARD Rep #: [id number] : 1990 Provider: Dr. Rocio Lozano DO Age/Sex: 34/F Location: [facility] Status: Signed Intake Vital Signs 05/04/24 09:43 07/02/24 13:03 07/06/24 10:09 07/06/24 10:09 Height 5 ft 3 in 5 ft 3 in 5 ft 3 in 5 ft 3 in Weight: 184 lb 6 oz BMI 32.6 BP 136/88 H Intake Visit Reasons: 36 WK OB Aluminum Boats Assembler Required: No Is patient in pain?: No Allergies peanut Allergy (Verified 07/06/24 10:07) Angioedema sesame seed Allergy (Verified 07/06/24 10:07) Anaphylaxis tree nut (tree nuts) Adverse Reaction (Severe, Verified 07/06/24 10:07) Anaphylaxis Medications ???Medication ???Instructions ???Recorded ???Confirmed ???Type cetirizine 10 mg capsule (Zyrtec) 10 mg PO DAILY 11/06/16 07/06/24 History epinephrine 0.3 mg/0.3 mL 0.3 mg (0.3 mL) IM X1 #2 syringes 11/06/16 07/06/24 Rx injection, auto-injector albuterol sulfate 90 mcg/actuation 2 puff inhalation Q6H PRN 12/30/23 07/06/24 History aerosol inhaler multivitamin no.47-iron fum 27 cap PO 12/30/23 07/06/24 History mg-folate no.1 1 mg-dha 300 mg capsule (PNV-DHA) umeclidinium 62.5 mcg-vilanterol 1 inh inhalation DAILY 12/30/23 07/06/24 History 25 mcg/actuation powdr for inhalation (Anoro Ellipta) blood sugar diagnostic (Blood #120 ea 05/07/24 07/06/24 Rx Glucose Test strips) blood-glucose meter #1 ea 05/07/24 07/06/24 Rx lancets #200 ea 05/07/24 07/06/24 Rx Last Menstrual Period: 11/01/23 Zika: Zika virus screening: Negative : No PFSH PFSH Medical History Hx of vaginal delivery Seasonal allergies Surgical History Jones teeth extracted H/O LEEP Family History Mother Diabetes Grandmother Diabetes maternal Aunt Diabetes maternal Uncle Diabetes Maternal Father Hypertension Social History adopted: No household members: significant other number of children: 1 current occupational status: employed current occupation: [employer] current occupational exposures/hazards: No pets and animals: No history of recent travel: No sexually active: Yes Smoking Status: Never smoker alcohol intake: current alcohol intake frequency: holidays/special occasions only details: Not while substance use type: does not use well-balanced diet: daily or most days caffeine: Yes Type: coffee Number of servings: 1 eating out: 1-3 times/week during the past year weight has: remained stable what type of physical activity do you participate in: none morgan/confucianism: None seatbelt use: always do you feel safe at home: Yes additional social history: Partner [employer] History 2 Elective abortions Hx Para 1 Spontaneous abortions Hx # Term Pregnancies Ectopic pregnancies Hx # Pregnancies Multiple births # of living children 1 Past Pregnancies Del. Date Name GA/Weeks Outcome Route Bth Weight Gen Labor Lgth Anesthesia Del Locatn Provider FOB 08/18/22 Jorge 37 live - full term vacuum 7#14oz Male epidural Doug S alphonse David Delivery Date: 08/18/22 Last Updated by: Klaudia Chnace HTN, GDM HPI 36 WK OB Details: VICENTA BLANCHARD is a 34 year old who presents for routine OB visit. OB Visit NSES Calculator Estimated Delivery Date Method Current WG Current Estimate 07/31/24 Ultrasound #1 36w 3d Other Estimates 08/07/24 LMP (Certain) 35w 3d Expected Delivery Route/Plan Labor Preferences- CB/BF classes: no labor support person: David labor intervention preferences: [] pain management options preferred: epidural cut cord/dad catch: cord : yes PP control planned: discussed discussed possible routes of delivery and associated risks: [] special requests: [] Specific Issue/Plans Covid status: unvaccinated Flu vaccine: unvaccinated Tdap vaccine: got tdap first Rhogam: [] LARC form signed: [] Problem list reviewed and updated with the most current plan of care details and appropriate orders placed. Relevant counseling for the gestational age provided. Continue routine care and follow up unless otherwise noted in visit notes/problem list details Initial Weight: Not Recorded Date -???-???-???-???-???- ???-???-???-???-???-? ??-???- EGA Weight BP Urine Prot -???-???-???-???-???- ???-???-???-???-???-? ??-???- Glucose FHR FuHt Pres Dilation -???-???-? (more content not included)... Normal [facility] Screening beta-hemolytic Str eptococcus cultureOrdered By: Rocio Gallegos on 07-06-2024 Group B Streptococcus Culture Group B Beta Streptococcus is not isolated. [facility] Laboratory - Chemistry and C hemistry - challengeon 07-02-2024 Glucose Ql (U) Negative [facility] Laboratory - Urinalysison Protein Ql (U) Negative [facility] Processing Technician Office Visit Reporton 07-02-2024 Processing Technician Office Visit Report [facility] [address], [address] [place] [address] OFFICE VISIT Date of Service: 07/02/24 MR#: [id number] Acct: [id number] Name: VICENTA BLANCHARD Rep #: [id number] : 1990 Provider: Dr. Julieta cortes MD Age/Sex: 34/F Location: [facility] [place] Status: Signed Intake Vital Signs 05/04/24 09:43 06/14/24 10:40 07/02/24 13:03 Height 5 ft 3 in 5 ft 3 in 5 ft 3 in Weight: 184 lb 8 oz BMI 32.6 BP 132/79 H Intake Visit Reasons: 35 WK OB Aluminum Boats Assembler Required: No Is patient in pain?: No Feel stressed/tense/nervou s/anxious/difficulty sleeping: not at all Allergies peanut Allergy (Verified 07/02/24 13:05) Angioedema sesame seed Allergy (Verified 07/02/24 13:05) Anaphylaxis tree nut (tree nuts) Adverse Reaction (Severe, Verified 07/02/24 13:05) Anaphylaxis Medications ???Medication ???Instructions ???Recorded ???Confirmed ???Type cetirizine 10 mg capsule (Zyrtec) 10 mg PO DAILY 11/06/16 07/02/24 History epinephrine 0.3 mg/0.3 mL 0.3 mg (0.3 mL) IM X1 #2 syringes 11/06/16 07/02/24 Rx injection, auto-injector albuterol sulfate 90 mcg/actuation 2 puff inhalation Q6H PRN 12/30/23 07/02/24 History aerosol inhaler multivitamin no.47-iron fum 27 cap PO 12/30/23 07/02/24 History mg-folate no.1 1 mg-dha 300 mg capsule (PNV-DHA) umeclidinium 62.5 mcg-vilanterol 1 inh inhalation DAILY 12/30/23 07/02/24 History 25 mcg/actuation powdr for inhalation (Anoro Ellipta) blood sugar diagnostic (Blood #120 ea 05/07/24 07/02/24 Rx Glucose Test strips) blood-glucose meter #1 ea 05/07/24 07/02/24 Rx lancets #200 ea 05/07/24 07/02/24 Rx Last Menstrual Period: 11/01/23 Zika: Zika virus screening: Negative : No Have you fallen in the past year?: No PFSH PFSH Medical History Hx of vaginal delivery Seasonal allergies Surgical History Jones teeth extracted H/O LEEP Family History Mother Diabetes Grandmother Diabetes maternal Aunt Diabetes maternal Uncle Diabetes Maternal Father Hypertension Social History adopted: No household members: significant other number of children: 1 current occupational status: employed current occupation: [employer] current occupational exposures/hazards: No pets and animals: No history of recent travel: No sexually active: Yes Smoking Status: Never smoker alcohol intake: current alcohol intake frequency: holidays/special occasions only details: Not while substance use type: does not use well-balanced diet: daily or most days caffeine: Yes Type: coffee Number of servings: 1 eating out: 1-3 times/week during the past year weight has: remained stable what type of physical activity do you participate in: none morgan/confucianism: None seatbelt use: always do you feel safe at home: Yes additional social history: Partner [employer] History 2 Elective abortions Hx Para 1 Spontaneous abortions Hx # Term Pregnancies Ectopic pregnancies Hx # Pregnancies Multiple births # of living children 1 Past Pregnancies Del. Date Name GA/Weeks Outcome Route Bth Weight Infant Gen Labor Lgth Anesthesia Del Locatn Provider FOB 08/18/22 Jorge 37 live - full term vacuum 7#14oz Male epidural Doug S alphonse David Delivery Date: 08/18/22 Last Updated by: Klaudia Chance HTN, GDM HPI 35 WK OB Details: VICENTA BLANCHARD is a 34 year old who presents for routine OB visit. OB Visit NESS Calculator Estimated Delivery Date Method Current WG Current Estimate 07/31/24 Ultrasound #1 36w 2d Other Estimates 08/07/24 LMP (Certain) 35w 2d Expected Delivery Route/Plan Labor Preferences- CB/BF classes: no labor support person: David labor intervention preferences: [] pain management options preferred: epidural cut cord/dad catch: cord : yes PP control planned: discussed discussed possible routes of delivery and associated risks: [] special requests: [] Specific Issue/Plans Covid status: unvaccinated Flu vaccine: unvaccinated Tdap vaccine: got tdap first Rhogam: [] LARC form signed: [] Problem list reviewed and updated with the most current plan of care details and appropriate orders placed. Relevant counseling for the gestational age provided. Continue routine care and follow up unless otherwise noted in visit notes/problem list details Initial Weight: Not Recorded Date -???-???-???-???-???- ???-???-???-???-???-? ??-???- EGA Weight BP Urine Prot -???-???-???-???-???- ? (more content not included)... Normal [facility] Laboratory - Chemistry and C hemistry - challengeon 06-14-2024 Glucose Ql (U) Negative [facility] Laboratory - Urinalysison Protein Ql (U) Negative [facility] Processing Technician Office Visit Reporton 06-14-2024 Processing Technician Office Visit Report [address], [facility] [address] [place] [address] OFFICE VISIT Date of Service: 06/14/24 MR#: [id number] Acct: [id number] Name: VICENTA BLANCHARD Rep #: [id number] : 1990 Provider: MATEUS Lucero ams Age/Sex: 34/F Location: [facility] Status: Signed Intake Vital Signs 05/04/24 09:43 06/03/24 14:39 06/14/24 10:37 06/14/24 10:40 Height 5 ft 3 in 5 ft 3 in 5 ft 3 in 5 ft 3 in Weight: 183 lb BMI 32.4 BP 135/84 H Intake Visit Reasons: 33 WK OB Aluminum Boats Assembler Required: No Is patient in pain?: No Allergies peanut Allergy (Verified 06/14/24 10:39) Angioedema sesame seed Allergy (Verified 06/14/24 10:39) Anaphylaxis tree nut (tree nuts) Adverse Reaction (Severe, Verified 06/14/24 10:39) Anaphylaxis Medications ???Medication ???Instructions ???Recorded ???Confirmed ???Type cetirizine 10 mg capsule (Zyrtec) 10 mg PO DAILY 11/06/16 06/14/24 History epinephrine 0.3 mg/0.3 mL 0.3 mg (0.3 mL) IM X1 #2 syringes 11/06/16 06/14/24 Rx injection, auto-injector albuterol sulfate 90 mcg/actuation 2 puff inhalation Q6H PRN 12/30/23 06/14/24 History aerosol inhaler multivitamin no.47-iron fum 27 cap PO 12/30/23 06/14/24 History mg-folate no.1 1 mg-dha 300 mg capsule (PNV-DHA) umeclidinium 62.5 mcg-vilanterol 1 inh inhalation DAILY 12/30/23 06/14/24 History 25 mcg/actuation powdr for inhalation (Anoro Ellipta) blood sugar diagnostic (Blood #120 ea 05/07/24 06/14/24 Rx Glucose Test strips) blood-glucose meter #1 ea 05/07/24 06/14/24 Rx lancets #200 ea 05/07/24 06/14/24 Rx Last Menstrual Period: 11/01/23 Zika: Zika virus screening: Negative : No Have you fallen in the past year?: No PFSH PFSH Medical History Hx of vaginal delivery Seasonal allergies Surgical History Jones teeth extracted H/O LEEP Family History Mother Diabetes Grandmother Diabetes maternal Aunt Diabetes maternal Uncle Diabetes Maternal Father Hypertension Social History adopted: No household members: significant other number of children: 1 current occupational status: employed current occupation: [employer] current occupational exposures/hazards: No pets and animals: No history of recent travel: No sexually active: Yes Smoking Status: Never smoker alcohol intake: current alcohol intake frequency: holidays/special occasions only details: Not while substance use type: does not use well-balanced diet: daily or most days caffeine: Yes Type: coffee Number of servings: 1 eating out: 1-3 times/week during the past year weight has: remained stable what type of physical activity do you participate in: none morgan/confucianism: None seatbelt use: always do you feel safe at home: Yes additional social history: Partner [employer] History 2 Elective abortions Hx Para 1 Spontaneous abortions Hx # Term Pregnancies Ectopic pregnancies Hx # Pregnancies Multiple births # of living children 1 Past Pregnancies Del. Date Name GA/Weeks Outcome Route Bth Weight Gen Labor Lgth Anesthesia Del Locatn Provider FOB 08/18/22 Jorge 37 live - full term vacuum 7#14oz Male epidural Doug Darneller Delivery Date: 08/18/22 Last Updated by: Klaudia Chance HTN, GDM HPI 33 WK OB Details: VICENTA BLANCHARD is a 34 year old who presents for routine OB visit. OB Visit NESS Calculator Estimated Delivery Date Method Current WG Current Estimate 07/31/24 Ultrasound #1 33w 2d Other Estimates 08/07/24 LMP (Certain) 32w 2d Expected Delivery Route/Plan Labor Preferences- CB/BF classes: no labor support person: David labor intervention preferences: [] pain management options preferred: epidural cut cord/dad catch: cord : yes PP control planned: discussed discussed possible routes of delivery and associated risks: [] special requests: [] Specific Issue/Plans Covid status: unvaccinated Flu vaccine: unvaccinated Tdap vaccine: got tdap first Rhogam: [] LARC form signed: [] Problem list reviewed and updated with the most current plan of care details and appropriate orders placed. Relevant counseling for the gestational age provided. Continue routine care and follow up unless otherwise noted in visit notes/problem list details Initial Weight: Not Recorded Date -???-???-???-???-???- ???-???-???-???-???-? ??-???- EGA Weight BP Urine Prot -???-???-???-???-???- ???-???-???-???-???-? ??-???- Glucose FHR FuHt P (more content not included)... Normal [facility] Progress Noteon 06-08-2024 Nozzleman Authentication Interface Message Text [facility] Ultrasound Consult Note Today we discussed the US findings seen on today's Ultrasound: UTD 2. Overall the patient is doing well without physical complaints. Obstetrical History OB History Para Term AB Living 2 1 1 1 SAB IAB Ectopic Multiple Live Births 1 # Outcome Date GA Lbr Suresh/2nd Weight Sex Type Anes PTL Lv 2 Current 1 Term 08/18/22 37w0d 3.572 kg M Vag-Vacuum EPI DICK No NIPT done in this No significant Surgical history Medical history Social history Medication prescriptions Review of Systems - negative unless otherwise specified above Physical Examination: General appearance - alert, well appearing, and in no distress Mental status - alert, oriented to person, place, and time Chest - No difficulty with breathing Heart - Normal Rate Abdomen - Non tender during US exam Pelvic - Deferred Extremities - no edema noted Please see US report for further detail 1. Rebollar intrauterine at 32w 3d by clinical NESS. 2. Normal growth for gestational age, EFW 1871 g (38%)and AC 20%. 3. Normal amniotic fluid index, 13.2 cm. 4. Normal placenta. 5. Urinary Tract Dilation (UTDA 2/3) with the left renal pelvic AP diameter 0.9 cm and the right is normal but enlarged and appropriately located left kidney. Dilated calyces that connect to renal pelvis. No appearance of cysts nor hyperechoic/bright renal cortex bilaterally. Ureters are not visualized to be dilated. Bladder is filled along with normal amniotic fluid index. Today we discussed The above ultrasound findings. We then went on to discuss standard urinary tract anatomy including kidneys, ureters, bladder, and urethra. We then discussed amniotic fluid cycle and importance of renal function. With the above findings and the shape of the renal pelvis suggests a partial UPJ obstruction with hydronephrosis on the left side. The hydronephrosis has remained unchanged since initial finding at 28 weeks. UPJ is the most common obstructive uropathy and is found to be bilateral in up to 30% of cases. It was discussed with the patient the likely diagnosis and current follow up recommendations for serial growth and the understanding that the dilation may worsen. However, with the current MADISON, bladder appearance, and cortical appearance the renal function appears to be preserved. Genetic testing declined but offered. We discussed slight increase in aneuploidy risk but overall low. Post UTD protocol of prophylactic antibiotics as well as renal US after 48hours, from , to determine severity. Patient will meet with urologist as well and determine need for intervention after delivery. All questions and concerns addressed. Recommendations: Vicenta Blanchard also met with our genetic counselor, see separate documentation for counseling. She met Silvia Hutton, Clinical [facility]. Silvia will continue to help coordinate and care. [facility] Plan of Care Diagnosis: UTDA 2/3 with left sided dilation of calyces, suspected UPJ obstruction. NIPT declined, Declines Genetic testing. Plan: 1. Continued obstetrical care with her primary post tensioning ironworker is recommended. 2. Follow up growth in 4 weeks. These are planned with the [facility].. 4. consultation none needed, urology consult after delivery. 5. Delivery is acceptable at a center with pediatrics and with follow up as indicated. 6. Timing of delivery: standard obstetrical indications. 7. Mode of delivery is based on the usual obstetrical indications. 8. should be started on prophylactic antibiotics for UTDA 2/3 until follow up with urology. 9. Pediatric provider to determine if additional evaluations are recommended prior to discharge. 10. Other follow up as clinically indicated. My final recommendations will be communicated back to the requesting physician by way of shared medical record or fax. Andrew Meek MD Normal [facility] - Chemistry and C hemistry - challengeon 06-03-2024 Glucose Ql (U) Negative [facility] - Urinalysison Protein Ql (U) Negative [facility] Processing Technician Office Visit Reporton 06-03-2024 Processing Technician Office Visit Report [facility] [address], [address] [place] [address] OFFICE VISIT Date of Service: 06/03/24 MR#: [id number] Acct: [id number] Name: VICENTA BLANCHARD Rep #: [id number] : 1990 Provider: Dr. Rocio Lozano DO Age/Sex: 34/F Location: [facility] [place] Status: Signed Intake Vital Signs 05/04/24 09:43 05/17/24 14:30 06/03/24 14:39 06/03/24 14:39 Height 5 ft 3 in 5 ft 3 in 5 ft 3 in 5 ft 3 in Weight: 184 lb 6 oz BMI 32.6 BP 124/71 H Intake Visit Reasons: 31 WK OB Aluminum Boats [employer]sembler Required: No Is patient in pain?: No Allergies peanut Allergy (Verified 06/03/24 14:38) Angioedema sesame seed Allergy (Verified 06/03/24 14:38) Anaphylaxis tree nut (tree nuts) Adverse Reaction (Severe, Verified 06/03/24 14:38) Anaphylaxis Medications ???Medication ???Instructions ???Recorded ???Confirmed ???Type cetirizine 10 mg capsule (Zyrtec) 10 mg PO DAILY 11/06/16 06/03/24 History epinephrine 0.3 mg/0.3 mL 0.3 mg (0.3 mL) IM X1 #2 syringes 11/06/16 06/03/24 Rx injection, auto-injector albuterol sulfate 90 mcg/actuation 2 puff inhalation Q6H PRN 12/30/23 06/03/24 History aerosol inhaler multivitamin no.47-iron fum 27 cap PO 12/30/23 06/03/24 History mg-folate no.1 1 mg-dha 300 mg capsule (PNV-DHA) umeclidinium 62.5 mcg-vilanterol 1 inh inhalation DAILY 12/30/23 06/03/24 History 25 mcg/actuation powdr for inhalation (Anoro Ellipta) blood sugar diagnostic (Blood #120 ea 05/07/24 06/03/24 Rx Glucose Test strips) blood-glucose meter #1 ea 05/07/24 06/03/24 Rx lancets #200 ea 05/07/24 06/03/24 Rx Last Menstrual Period: 11/01/23 Zika: Zika virus screening: Negative : No PFSH PFSH Medical History Hx of vaginal delivery Seasonal allergies Surgical History Jones teeth extracted H/O LEEP Family History Mother Diabetes Grandmother Diabetes maternal Aunt Diabetes maternal Uncle Diabetes Maternal Father Hypertension Social History adopted: No household members: significant other number of children: 1 current occupational status: employed current occupation: [employer] current occupational exposures/hazards: No pets and animals: No history of recent travel: No sexually active: Yes Smoking Status: Never smoker alcohol intake: current alcohol intake frequency: holidays/special occasions only details: Not while substance use type: does not use well-balanced diet: daily or most days caffeine: Yes Type: coffee Number of servings: 1 eating out: 1-3 times/week during the past year weight has: remained stable what type of physical activity do you participate in: none morgan/confucianism: None seatbelt use: always do you feel safe at home: Yes additional social history: Partner [employer] History 2 Elective abortions Hx Para 1 Spontaneous abortions Hx # Term Pregnancies Ectopic pregnancies Hx # Pregnancies Multiple births # of living children 1 Past Pregnancies Del. Date Name GA/Weeks Outcome Route Bth Weight Infant Gen Labor Lgth Anesthesia Del Locatn Provider FOB 08/18/22 Jorge 37 live - full term vacuum 7#14oz Male epidural Doug S alphonse Hernandez Delivery Date: 08/18/22 Last Updated by: Klaudia Chance HTN, GDM HPI 31 WK OB Details: VICENTA BLANCHARD is a 34 year old who presents for routine OB visit. OB Visit NESS Calculator Estimated Delivery Date Method Current WG Current Estimate 07/31/24 Ultrasound #1 31w 5d Other Estimates 08/07/24 LMP (Certain) 30w 5d Expected Delivery Route/Plan Labor Preferences- CB/BF classes: no labor support person: David labor intervention preferences: [] pain management options preferred: epidural cut cord/dad catch: cord : yes PP control planned: discussed discussed possible routes of delivery and associated risks: [] special requests: [] Specific Issue/Plans Covid status: unvaccinated Flu vaccine: unvaccinated Tdap vaccine: got tdap first Rhogam: [] LARC form signed: [] Problem list reviewed and updated with the most current plan of care details and appropriate orders placed. Relevant counseling for the gestational age provided. Continue routine care and follow up unless otherwise noted in visit notes/problem list details Initial Weight: Not Recorded Date -???-???-???-???-???- ???-???-???-???-???-? ??-???- EGA Weight BP Urine Prot -???-???-???-???-???- ???-???-???-???-???-? ??-???- Glucose FHR FuHt Pres Dilation -???-???-? (more content not included)... Normal [facility] Processing Technician Office Visit Reporton 05-17-2024 Processing Technician Office Visit Report [facility] [address], [address] [place] [address] OFFICE VISIT Date of Service: 05/17/24 MR#: [id number] Acct: [id number] Name: VICENTA BLANCHARD Rep #: [id number] : 1990 Provider: MATEUS Lucero ams Age/Sex: 34/F Location: [facility] [place] Status: Signed with Addenda ADDENDUM by Margaret Duffy RN on 05/17/24 at 1443 Office Procedure Documentation entered by Margaret Duffy RN 05/17/24 14:43: Immunizations Boostrix Tdap 2.5 Lf unit-8 mcg-5 Lf/0.5 mL intramuscular syringe Performing Provider: Aminata Martínez CNM Performing Location: [facility] Administered by: Margaret Duffy RN on 05/17/24 14:41 Dose Route Admin Location Dispensed Lot Number Expiration Date NDC Man ufacturer 0.5 mL IM Right Arm (SQ) 0.5 mL [id number] 01/28/26 52943-135-68 [employer] VIS Given Date VIS Provided VIS Publication Date 05/17/24 Single Vaccine 21 Eligibility Eligibility Date Funding Source Not Applicable Date cc: * Signed Intake Vital Signs 05/04/24 09:43 05/17/24 14:24 05/17/24 14:30 Height 5 ft 3 in 5 ft 3 in 5 ft 3 in Weight: 182 lb BMI 32.2 BP 122/78 H Intake Visit Reasons: 29 WK OB Aluminum Boats Assembler Required: No Is patient in pain?: No Allergies peanut Allergy (Verified 05/17/24 14:25) Angioedema sesame seed Allergy (Verified 05/17/24 14:25) Anaphylaxis tree nut (tree nuts) Adverse Reaction (Severe, Verified 05/17/24 14:25) Anaphylaxis Medications ???Medication ???Instructions ???Recorded ???Confirmed ???Type cetirizine 10 mg capsule (Zyrtec) 10 mg PO DAILY 11/06/16 05/17/24 History epinephrine 0.3 mg/0.3 mL 0.3 mg (0.3 mL) IM X1 #2 syringes 11/06/16 05/17/24 Rx injection, auto-injector albuterol sulfate 90 mcg/actuation 2 puff inhalation Q6H PRN 12/30/23 05/17/24 History aerosol inhaler multivitamin no.47-iron fum 27 cap PO 12/30/23 05/17/24 History mg-folate no.1 1 mg-dha 300 mg capsule (PNV-DHA) umeclidinium 62.5 mcg-vilanterol 1 inh inhalation DAILY 12/30/23 05/17/24 History 25 mcg/actuation powdr for inhalation (Anoro Ellipta) blood sugar diagnostic (Blood #120 ea 05/07/24 05/17/24 Rx Glucose Test strips) blood-glucose meter #1 ea 05/07/24 05/17/24 Rx lancets #200 ea 05/07/24 05/17/24 Rx Last Menstrual Period: 11/01/23 Zika: Zika virus screening: Negative : No Have you fallen in the past year?: No PFSH PFSH Medical History Hx of vaginal delivery Seasonal allergies Surgical History Jones teeth extracted H/O LEEP Family History Mother Diabetes Grandmother Diabetes maternal Aunt Diabetes maternal Uncle Diabetes Maternal Father Hypertension Social History adopted: No household members: significant other number of children: 1 current occupational status: employed current occupation: [employer] current occupational exposures/hazards: No pets and animals: No history of recent travel: No sexually active: Yes Smoking Status: Never smoker alcohol intake: current alcohol intake frequency: holidays/special occasions only details: Not while substance use type: does not use well-balanced diet: daily or most days caffeine: Yes Type: coffee Number of servings: 1 eating out: 1-3 times/week during the past year weight has: remained stable what type of physical activity do you participate in: none morgan/confucianism: None seatbelt use: always do you feel safe at home: Yes additional social history: Partner 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 Date Name GA/Weeks Outcome Route Bth Weight Gen Labor Lgth Anesthesia Del Locatn Provider FOB 08/18/22 Jorge 37 live - full term vacuum 7#14oz Male epidural Doug S alphonse David Delivery Date: 08/18/22 Last Updated by: Klaudia Chance HTN, GDM HPI 29 WK OB Details: VICENTA BLANCHARD is a 34 year old who presents for routine OB visit. OB Visit NESS Calculator Estimated Delivery Date Method Current WG Current Estimate 07/31/24 Ultrasound #1 29w 2d Other Estimates 08/07/24 LMP (Certain) 28w 2d Expected Delivery Route/Plan Labor Preferences- CB/BF classes: no labor support person: David labor intervention preferences: [] pain management options preferred: epidural cut cord/dad catch: cord : yes (more content not included)... Normal [facility] CBC W/Diff, Automatedon 11-0 Absolute Lymph 1.61 X10 3/uL Normal 0.83-4.51 [facility] Comment on above: Performed By: #### L 3890.6005, L509.8000, L500.4710, L100.0100 #### [facility] [address] [place], [address] Absolute Neut 7.7 X10 3/uL Normal 2.0-7.7 [facility] Comment on above: Performed By: #### L 3890.6005, L509.8000, L500.4710, L100.0100 #### [facility] [address] [place], [address] Basophils/100 WBC (Bld) 0.2 % Normal 0-1 [facility] Comment on above: Performed By: #### L 3890.6005, L509.8000, L500.4710, L100.0100 #### [facility] [address] [place], [address] Eosinophils/100 WBC (Bld) 0.7 % Normal 0-5 [facility] Comment on above: Performed By: #### L 3890.6005, L509.8000, L500.4710, L100.0100 #### [facility] [address] [place], [address] Erythrocyte distribution width (RBC) [Ratio] 12.9 % Normal 11.6-14.6 [facility] Comment on above: Performed By: #### L 3890.6005, L509.8000, L500.4710, L100.0100 #### [facility] [address] [place], [address] Hematocrit (Bld) [Volume fraction] 34.3 % Low 37-47 [facility] Comment on above: Performed By: #### L 3890.6005, L509.8000, L500.4710, L100.0100 #### [facility] [address] [place], [address] Hemoglobin (Bld) [Mass/Vol] 11.0 g/dL Low 12.0-15.0 [facility] Comment on above: Performed By: #### L 3890.6005, L509.8000, L500.4710, L100.0100 #### [facility] [address] [place], [address] IG% 0.600 Normal 0.0-0.9 [facility] Comment on above: Result Comment: IG% - Immature Granulocytes (promyelocytes, myelocytes and metamyelocytes) > 1% indicates that a LEFT SHIFT is Present. Performed By: #### L 3890.6005, L509.8000, L500.4710, L100.0100 #### [facility] [address] [place], [address] Lymphocytes/100 WBC (Bld) 16.3 % Low 19-41 [facility] Comment on above: Performed By: #### L 3890.6005, L509.8000, L500.4710, L100.0100 #### [facility] [address] [place], [address] MCH (RBC) [Entitic mass] 28.4 pg Normal 27.0-32.0 [facility] Comment on above: Performed By: #### L 3890.6005, L509.8000, L500.4710, L100.0100 #### [facility] [address] [place], [address] MCHC (RBC) [Mass/Vol] 32.1 g/dL Normal 32-36 [facility] Comment on above: Performed By: #### L 3890.6005, L509.8000, L500.4710, L100.0100 #### [facility] [address] [place], [address] MCV (RBC) [Entitic vol] 88.6 fL Normal 81-99 [facility] Comment on above: Performed By: #### L 3890.6005, L509.8000, L500.4710, L100.0100 #### [facility] [address] [place], [address] Monocytes/100 WBC (Bld) 4.3 % Normal 0-10 [facility] Comment on above: Performed By: #### L 3890.6005, L509.8000, L500.4710, L100.0100 #### [facility] [address] [place], [address] Neutrophils/100 WBC (Bld) 77.9 % High 47-70 [facility] Comment on above: Performed By: #### L 3890.6005, L509.8000, L500.4710, L100.0100 #### [facility] [address] [place], [address] Nucleated RBC (Bld) [#/Vol] 0 10*3/uL Normal 0-5 [facility] Comment on above: Performed By: #### L 3890.6005, L509.8000, L500.4710, L100.0100 #### [facility] [address] [place], [address] Platelet mean volume (Bld) [Entitic vol] 11.4 fL Normal 6.2-12.0 [facility] Comment on above: Performed By: #### L 3890.6005, L509.8000, L500.4710, L100.0100 #### [facility] [address] [place], [address] Platelets (Bld) [#/Vol] 181 10*3/uL Normal 150-450 [facility] Comment on above: Performed By: #### L 3890.6005, L509.8000, L500.4710, L100.0100 #### [facility] [address] [place], [address] RBC (Bld) [#/Vol] 3.87 10*6/uL Low 4.2-5.4 [facility] Comment on above: Performed By: #### L 3890.6005, L509.8000, L500.4710, L100.0100 #### [facility] [address] [place], [address] RDW SD 41.4 fl Normal 35.1-43.9 [facility] Comment on above: Performed By: #### L 3890.6005, L509.8000, L500.4710, L100.0100 #### [facility] [address] [place], [address] WBC (Bld) [#/Vol] 9.9 10*3/uL Normal 4.4-11.0 [facility] Comment on above: Performed By: #### L 3890.6005, L509.8000, L500.4710, L100.0100 #### [facility] [address] [place], [address] Gestational GTT 3HR 100gon 1 07-07-2023 3HR GTT- GEST. High [facility] Comment on above: Order Comment: Y Result Comment: FAST ING 105 Col: 05/07/24 0654 GLUCOSE TOLERANCE TEST FOR Reference Interval GESTATIONAL DIABETES Fasting <105 mg/dL 1 hour <190 mg/dl 2 hour <165 mg/dl 3 hour <145 mg/dl 1 HR GLU 250 H Col: 05/07/24 0803 2 HR GLU 213 H Col: 05/07/24 0900 3 HR GLU 178 H Col: 05/07/24 1000 Performed By: #### L 3890.6005, L509.8000, L500.4710, L100.0100 #### [facility] [address] [place], [address] HIV - WCHon 2024 HIV Non-Reactive Normal Nonreactive [facility] Comment on above: Performed By: #### L 3890.6005, L509.8000, L500.4710, L100.0100 #### [facility] [address] [place], [address] L509.8000on 2024 Syphilis Abs Non-Reactive Normal [facility] Comment on above: Performed By: #### L 3890.6005, L509.8000, L500.4710, L100.0100 #### [facility] [address] [place], [address] Processing Technician Office Visit Reporton 05-04-2024 Processing Technician Office Visit Report [facility] [address] [place] [address], [address] [place] [address] OFFICE VISIT Date of Service: 05/04/24 MR#: [id number] Acct: [id number] Name: VICENTA BLANCHARD Rep #: [id number] : 1990 Provider: ADRIANA reese Age/Sex: 33/F Location: [facility] [place] Status: Signed Intake Vital Signs 04/02/24 10:31 05/04/24 09:43 Height 5 ft 3 in 5 ft 3 in Weight: 180 lb 6 oz BMI 31.9 BP 116/72 Intake Visit Reasons: 25 WK OB Chief Complaint: 25 Week OB Aluminum [employer]er Required: No Is patient in pain?: No Allergies peanut Allergy (Verified 05/04/24 09:46) Angioedema sesame seed Allergy (Verified 05/04/24 09:46) Anaphylaxis tree nut (tree nuts) Adverse Reaction (Severe, Verified 05/04/24 09:46) Anaphylaxis Medications ???Medication ???Instructions ???Recorded ???Confirmed ???Type cetirizine 10 mg capsule (Zyrtec) 10 mg PO DAILY 11/06/16 05/04/24 History epinephrine 0.3 mg/0.3 mL 0.3 mg (0.3 mL) IM X1 #2 syringes 11/06/16 05/04/24 Rx injection, auto-injector albuterol sulfate 90 mcg/actuation 2 puff inhalation Q6H PRN 12/30/23 05/04/24 History aerosol inhaler multivitamin no.47-iron fum 27 cap PO 12/30/23 05/04/24 History mg-folate no.1 1 mg-dha 300 mg capsule (PNV-DHA) umeclidinium 62.5 mcg-vilanterol 1 inh inhalation DAILY 12/30/23 05/04/24 History 25 mcg/actuation powdr for inhalation (Anoro Ellipta) Last Menstrual Period: 11/01/23 Zika: Zika virus screening: Negative : No Have you fallen in the past year?: No PFSH PFSH Medical History Hx of vaginal delivery Seasonal allergies Surgical History Jones teeth extracted H/O LEEP Family History Mother Diabetes Grandmother Diabetes maternal Aunt Diabetes maternal Uncle Diabetes Maternal Father Hypertension Social History adopted: No household members: significant other number of children: 1 current occupational status: employed current occupation: [employer] current occupational exposures/hazards: No pets and animals: No history of recent travel: No sexually active: Yes Smoking Status: Never smoker alcohol intake: current alcohol intake frequency: holidays/special occasions only details: Not while substance use type: does not use well-balanced diet: daily or most days caffeine: Yes Type: coffee Number of servings: 1 eating out: 1-3 times/week during the past year weight has: remained stable what type of physical activity do you participate in: none morgan/confucianism: None seatbelt use: always do you feel safe at home: Yes additional social history: Partner [employer] History 2 Elective abortions Hx Para 1 Spontaneous abortions Hx # Term Pregnancies Ectopic pregnancies Hx # Pregnancies Multiple births # of living children 1 Past Pregnancies Del. Date Name GA/Weeks Outcome Route Bth Weight Infant Gen Labor Lgth Anesthesia Del Locatn Provider FOB 08/18/22 Jorge 37 live - full term vacuum 7#14oz Male epidural Doug Hernandez Delivery Date: 08/18/22 Last Updated by: Klaudia Chance HTN, GDM HPI 25 WK OB Details: VICENTA BLANCHARD is a 33 year old who presents for routine OB visit. OB Visit NESS Calculator Estimated Delivery Date Method Current WG Current Estimate 07/31/24 Ultrasound #1 27w 3d Other Estimates 08/07/24 LMP (Certain) 26w 3d Expected Delivery Route/Plan Labor Preferences- CB/BF classes: no labor support person: David labor intervention preferences: [] pain management options preferred: epidural cut cord/dad catch: cord : yes PP control planned: discussed discussed possible routes of delivery and associated risks: [] special requests: [] Specific Issue/Plans Covid status: unvaccinated Flu vaccine: unvaccinated Tdap vaccine: got tdap first Rhogam: [] LARC form signed: [] Problem list reviewed and updated with the most current plan of care details and appropriate orders placed. Relevant counseling for the gestational age provided. Continue routine care and follow up unless otherwise noted in visit notes/problem list details Initial Weight: Not Recorded Date -???-???-???-???-???- ???-???-???-???-???-? ??-???- EGA Weight BP Urine Prot -???-???-???-???-???- ???-???-???-???-???-? ??-???- Glucose FHR FuHt Pres Dilation -???-???-???-???-???- ???-???-???-???-???-? ??-???- Effaced St Visit Note 01/05/24 -???-???-???-???-???- ???-???-???-???-???-? ??-???- 10w 2d 165 lb 131/83 -???-???-?? (more content not included)... Normal [facility] Processing Technician Office Visit Reporton 04-02-2024 Processing Technician Office Visit Report [facility] [address], [address] [place] [address] OFFICE VISIT Date of Service: 04/02/24 MR#: [id number] Acct: [id number] Name: VICENTA BLANCHARD Rep #: [id number] : 1990 Provider: MATEUS Lucero ams Age/Sex: 33/F Location[facility] Status: Signed Intake Vital Signs 03/03/24 09:58 04/02/24 10:29 04/02/24 10:31 Height 5 ft 3 in 5 ft 3 in 5 ft 3 in Weight: 179 lb BMI 31.6 BP 126/76 H Intake Visit Reasons: 21 wk ob Al[employer]um [employer]er Required: No Is patient in pain?: No Allergies peanut Allergy (Verified 04/02/24 10:33) Angioedema sesame seed Allergy (Verified 04/02/24 10:33) Anaphylaxis tree nut (tree nuts) Adverse Reaction (Severe, Verified 04/02/24 10:33) Anaphylaxis Last Menstrual Period: 11/01/23 Zika: Zika virus screening: Negative : No Have you fallen in the past year?: No PFSH PFSH Medical History Hx of vaginal delivery Seasonal allergies Surgical History Jones teeth extracted H/O LEEP Family History Mother Diabetes Grandmother Diabetes maternal Aunt Diabetes maternal Uncle Diabetes Maternal Father Hypertension Social History adopted: No household members: significant other number of children: 1 current occupational status: employed current occupation: [employer] current occupational exposures/hazards: No pets and animals: No history of recent travel: No sexually active: Yes Smoking Status: Never smoker alcohol intake: current alcohol intake frequency: holidays/special occasions only details: Not while substance use type: does not use well-balanced diet: daily or most days caffeine: Yes Type: coffee Number of servings: 1 eating out: 1-3 times/week during the past year weight has: remained stable what type of physical activity do you participate in: none morgan/confucianism: None seatbelt use: always do you feel safe at home: Yes additional social history: Partner [employer] History 2 Elective abortions Hx Para 1 Spontaneous abortions Hx # Term Pregnancies Ectopic pregnancies Hx # Pregnancies Multiple births # of living children 1 Past Pregnancies Del. Date Name GA/Weeks Outcome Route Bth Weight Gen Labor Lgth Anesthesia Del Locatn Provider FOB 08/18/22 Jorge 37 live - full term vacuum 7#14oz Male epidural Doug Hernandez Delivery Date: 08/18/22 Last Updated by: Klaudia Chance HTN, GDM HPI 21 wk ob Details: VICENTA BLANCHARD is a 33 year old who presents for routine OB visit. OB Visit NESS Calculator Estimated Delivery Date Method Current WG Current Estimate 07/31/24 Ultrasound #1 23w 2d Other Estimates 08/07/24 LMP (Certain) 22w 2d Expected Delivery Route/Plan Labor Preferences- CB/BF classes: [] labor support person: [] labor intervention preferences: [] pain management options preferred: [] cut cord/dad catch: [] : [] PP control planned: [] discussed possible routes of delivery and associated risks: [] special requests: [] Specific Issue/Plans Covid status: unvaccinated Flu vaccine: unvaccinated Tdap vaccine: got tdap first Rhogam: [] LARC form signed: [] Problem list reviewed and updated with the most current plan of care details and appropriate orders placed. Relevant counseling for the gestational age provided. Continue routine care and follow up unless otherwise noted in visit notes/problem list details Initial Weight: Not Recorded Date -???-???-???-???-???- ???-???-???-???-???-? ??-???- EGA Weight BP Urine Prot -???-???-???-???-???- ???-???-???-???-???-? ??-???- Glucose FHR FuHt Pres Dilation -???-???-???-???-???- ???-???-???-???-???-? ??-???- Effaced St Visit Note 01/05/24 -???-???-???-???-???- ???-???-???-???-???-? ??-???- 10w 2d 165 lb 131/83 -???-???-???-???-???- ???-???-???-???-???-? ??-???- 171 -???-???-???-???-???- ???-???-???-???-???-? ??-???- JV- CRL is o ff by a week. new ness given. h/o fast labor with first baby. Declines NIPT. 02/02/24 -???-???-???-???-???- ???-???-???-???-???-? ??-???- 14w 2d 172 lb 6 oz 126/72 Negative -???-???-???-???-???- ???-???-???-???-???-? ??-???- Negative 153 -???-???-???-???-???- ???-???-???-???-???-? ??-???- MH-No VB. Na usea improving. Denies concerns. 03/03/24 -???-???-???-???-???- ???-???-???-???-???-? ??-???- 18w 4d 173 lb 142/83 Negative -???-???-???-???-???- ???-???-???-???-???-? ??-???- Negative 150 -???-???-???-???-???- ???-???-???-???-???-? ??-???- SM- n ovb anders curran had gato (more content not included)... Normal [facility] Processing Technician Office Visit Reporton 03-03-2024 Processing Technician Office Visit Report [facility] [address], [address] [place] [address] OFFICE VISIT Date of Service: 03/03/24 MR#: [id number] Acct: [id number] Name: VICENTA BLANCHARD Rep #: [id number] : 1990 Provider: Dr. Julieta cortes MD Age/Sex: 33/F Location: [facility] [place] Status: Signed Intake Vital Signs 01/05/24 14:31 02/02/24 08:22 03/03/24 09:51 03/03/24 09:58 Height 5 ft 3 in 5 ft 3 in 5 ft 3 in 5 ft 3 in Weight: 173 lb BMI 30.6 BP 142/83 H Intake Visit Reasons: 17 WK OB Aluminum Boats Assembler Required: No Is patient in pain?: No Allergies peanut Allergy (Verified 03/03/24 09:57) Angioedema sesame seed Allergy (Verified 03/03/24 09:57) Anaphylaxis tree nut (tree nuts) Adverse Reaction (Severe, Verified 03/03/24 09:57) Anaphylaxis Medications ???Medication ???Instructions ???Recorded ???Confirmed ???Type cetirizine 10 mg capsule (Zyrtec) 10 mg PO DAILY 11/06/16 03/03/24 History epinephrine 0.3 mg/0.3 mL 0.3 mg (0.3 mL) IM X1 #2 syringes 11/06/16 03/03/24 Rx injection, auto-injector albuterol sulfate 90 mcg/actuation 2 puff inhalation Q6H PRN 12/30/23 03/03/24 History aerosol inhaler multivitamin no.47-iron fum 27 cap PO 12/30/23 03/03/24 History mg-folate no.1 1 mg-dha 300 mg capsule (PNV-DHA) umeclidinium 62.5 mcg-vilanterol 1 inh inhalation DAILY 12/30/23 03/03/24 History 25 mcg/actuation powdr for inhalation (Anoro Ellipta) Last Menstrual Period: 11/01/23 Zika: Zika virus screening: Negative Have you fallen in the past year?: No PFSH PFSH Medical History Hx of vaginal delivery Seasonal allergies Surgical History Jones teeth extracted H/O LEEP Family History Mother Diabetes Grandmother Diabetes maternal Aunt Diabetes maternal Uncle Diabetes Maternal Father Hypertension Social History adopted: No household members: significant other number of children: 1 current occupational status: employed current occupation: [employer] current occupational exposures/hazards: No pets and animals: No history of recent travel: No sexually active: Yes Smoking Status: Never smoker alcohol intake: current alcohol intake frequency: holidays/special occasions only details: Not while substance use type: does not use well-balanced diet: daily or most days caffeine: Yes Type: coffee Number of servings: 1 eating out: 1-3 times/week during the past year weight has: remained stable what type of physical activity do you participate in: none morgan/confucianism: None seatbelt use: always do you feel safe at home: Yes additional social history: Partner [employer]- [employer] History 2 Elective abortions Hx Para 1 Spontaneous abortions Hx # Term Pregnancies Ectopic pregnancies Hx # Pregnancies Multiple births # of living children 1 Past Pregnancies Del. Date Name GA/Weeks Outcome Route Bth Weight Infant Gen Labor Lgth Anesthesia Del Locatn Provider FOB 08/18/22 Jorge 37 live - full term vacuum 7#14oz Male epidural Doug S alphonse Darneller Delivery Date: 08/18/22 Last Updated by: Klaudia Chance HTN, GDM HPI 17 WK OB Details: VICENTA BLANCHARD is a 33 year old who presents for routine OB visit. OB Visit NESS Calculator Estimated Delivery Date Method Current WG Current Estimate 07/31/24 Ultrasound #1 18w 4d Other Estimates 08/07/24 LMP (Certain) 17w 4d Expected Delivery Route/Plan Labor Preferences- CB/BF classes: [] labor support person: [] labor intervention preferences: [] pain management options preferred: [] cut cord/dad catch: [] : [] PP control planned: [] discussed possible routes of delivery and associated risks: [] special requests: [] Specific Issue/Plans Covid status: unvaccinated Flu vaccine: unvaccinated Tdap vaccine: got tdap first Rhogam: [] LARC form signed: [] Problem list reviewed and updated with the most current plan of care details and appropriate orders placed. Relevant counseling for the gestational age provided. Continue routine care and follow up unless otherwise noted in visit notes/problem list details Initial Weight: Not Recorded Date -???-???-???-???-???- ???-???-???-???-???-? ??-???- EGA Weight BP Urine Prot -???-???-???-???-???- ???-???-???-???-???-? ??-???- Glucose FHR FuHt Pres Dilation -???-???-???-???-???- ???-???-???-???-???-? ??-???- Effaced St Visit Note 01/05/24 -???-???-???-???-???- ???-???-???-???-???-? ??-???- 10w 2d 165 lb 131/83 -???-???-???-???-???- ???-???-???-?? (more content not included)... Normal [facility] Processing Technician Office Visit Reporton 02-02-2024 Processing Technician Office Visit Report [facility] [address] [place] [address] OFFICE VISIT Date of Service: 02/02/24 MR#: [id number] Acct: [id number] Name: VICENTA BLANCHARD Rep #: [id number] : 1990 Provider: ADRIANA reese Age/Sex: 33/F Location: [facility] [place] Status: Signed Intake Vital Signs 01/05/24 14:31 02/02/24 08:22 Height 5 ft 3 in 5 ft 3 in Weight: 172 lb 6 oz BMI 30.5 BP 126/72 H Intake Visit Reasons: 13 wk OB Chief Complaint: 13 Week OB Aluminum Boats Assembler Required: No Is patient in pain?: No Allergies peanut Allergy (Verified 02/02/24 08:22) Angioedema sesame seed Allergy (Verified 02/02/24 08:22) Anaphylaxis tree nut (tree nuts) Adverse Reaction (Severe, Verified 02/02/24 08:22) Anaphylaxis Medications ???Medication ???Instructions ???Recorded ???Confirmed ???Type cetirizine 10 mg capsule (Zyrtec) 10 mg PO DAILY 11/06/16 02/02/24 History epinephrine 0.3 mg/0.3 mL 0.3 mg (0.3 mL) IM X1 #2 syringes 11/06/16 02/02/24 Rx injection, auto-injector albuterol sulfate 90 mcg/actuation 2 puff inhalation Q6H PRN 12/30/23 02/02/24 History aerosol inhaler multivitamin no.47-iron fum 27 cap PO 12/30/23 02/02/24 History mg-folate no.1 1 mg-dha 300 mg capsule (PNV-DHA) umeclidinium 62.5 mcg-vilanterol 1 inh inhalation DAILY 12/30/23 02/02/24 History 25 mcg/actuation powdr for inhalation (Anoro Ellipta) Last Menstrual Period: 11/01/23 Zika: Zika virus screening: Negative : No PFSH PFSH Medical History Hx of vaginal delivery Seasonal allergies Surgical History Jones teeth extracted H/O LEEP Family History Mother Diabetes Grandmother Diabetes maternal Aunt Diabetes maternal Uncle Diabetes Maternal Father Hypertension Social History adopted: No household members: significant other number of children: 1 current occupational status: employed current occupation: [employer] current occupational exposures/hazards: No pets and animals: No history of recent travel: No sexually active: Yes Smoking Status: Never smoker alcohol intake: current alcohol intake frequency: holidays/special occasions only details: Not while substance use type: does not use well-balanced diet: daily or most days caffeine: Yes Type: coffee Number of servings: 1 eating out: 1-3 times/week during the past year weight has: remained stable what type of physical activity do you participate in: none morgan/confucianism: None seatbelt use: always do you feel safe at home: Yes additional social history: Partner 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 Date Name GA/Weeks Outcome Route Bth Weight [facility] Jorge 37 live - full term 7#14oz Male epidural Doug S alphonse Darneller Delivery Date: 08/18/22 Last Updated by: Klaudia Chance HTN, GDM HPI 13 wk OB Details: VICENTA BLANCHARD is a 33 year old who presents for routine OB visit. OB Visit NESS Calculator Estimated Delivery Date Method Current WG Current Estimate 07/31/24 Ultrasound #1 14w 2d Other Estimates 08/07/24 LMP (Certain) 13w 2d Expected Delivery Route/Plan Labor Preferences- CB/BF classes: [] labor support person: [] labor intervention preferences: [] pain management options preferred: [] cut cord/dad catch: [] : [] PP control planned: [] discussed possible routes of delivery and associated risks: [] special requests: [] Specific Issue/Plans Covid status: unvaccinated Flu vaccine: unvaccinated Tdap vaccine: got tdap first Rhogam: [] LARC form signed: [] Problem list reviewed and updated with the most current plan of care details and appropriate orders placed. Relevant counseling for the gestational age provided. Continue routine care and follow up unless otherwise noted in visit notes/problem list details Initial Weight: Not Recorded Date -???-???-???-???-???- ???-???-???-???-???-? ??-???- EGA Weight BP Urine Prot -???-???-???-???-???- ???-???-???-???-???-? ??-???- Glucose FHR FuHt Pres Dilation -???-???-???-???-???- ???-???-???-???-???-? ??-???- Effaced St Visit Note 01/05/24 -???-???-???-???-???- ???-???-???-???-???-? ??-???- 10w 2d 165 lb 131/83 -???-???-???-???-???- ???-???-???-???-???-? ??-???- 171 - (more content not included)... Normal [facility] CBC W/Diff, Automatedon 08-0 -2023 Absolute Lymph 1.87 X10 3/uL Normal 0.83-4.51 [facility] Comment on above: Performed By: #### L 501.0900, L3890.6300, BTS, L500.4050, L501.9985, L3890.6005, L509.8000, L509.4005, L3890.6100, L100.0100 #### [facility] [address] [place], [address] Absolute Neut 7.0 X10 3/uL Normal 2.0-7.7 [facility] Comment on above: Performed By: #### L 501.0900, L3890.6300, BTS, L500.4050, L501.9985, L3890.6005, L509.8000, L509.4005, L3890.6100, L100.0100 #### [facility] [address] [place], [address] Basophils/100 WBC (Bld) 0.4 % Normal 0-1 [facility] Comment on above: Performed By: #### L 501.0900, L3890.6300, BTS, L500.4050, L501.9985, L3890.6005, L509.8000, L509.4005, L3890.6100, L100.0100 #### [facility] [address] [place], [address] Eosinophils/100 WBC (Bld) 1.4 % Normal 0-5 [facility] Comment on above: Performed By: #### L 501.0900, L3890.6300, BTS, L500.4050, L501.9985, L3890.6005, L509.8000, L509.4005, L3890.6100, L100.0100 #### [facility] [address] [place], [address] Erythrocyte distribution width (RBC) [Ratio] 13.5 % Normal 11.6-14.6 [facility] Comment on above: Performed By: #### L 501.0900, L3890.6300, BTS, L500.4050, L501.9985, L3890.6005, L509.8000, L509.4005, L3890.6100, L100.0100 #### [facility] [address] [place], [address] Hematocrit (Bld) [Volume fraction] 34.5 % Low 37-47 [facility] Comment on above: Performed By: #### L 501.0900, L3890.6300, BTS, L500.4050, L501.9985, L3890.6005, L509.8000, L509.4005, L3890.6100, L100.0100 #### [facility] [address] [place], [address] Hemoglobin (Bld) [Mass/Vol] 11.4 g/dL Low 12.0-15.0 [facility] Comment on above: Performed By: #### L 501.0900, L3890.6300, BTS, L500.4050, L501.9985, L3890.6005, L509.8000, L509.4005, L3890.6100, L100.0100 #### [facility] [address] [place], [address] IG% 0.500 Normal 0.0-0.9 [facility] Comment on above: Result Comment: IG% - Immature Granulocytes (promyelocytes, myelocytes and metamyelocytes) > 1% indicates that a LEFT SHIFT is Present. Performed By: #### L 501.0900, L3890.6300, BTS, L500.4050, L501.9985, L3890.6005, L509.8000, L509.4005, L3890.6100, L100.0100 #### [facility] [address] [place], [address] Lymphocytes/100 WBC (Bld) 19.8 % Normal 19-41 [facility] Comment on above: Performed By: #### L 501.0900, L3890.6300, BTS, L500.4050, L501.9985, L3890.6005, L509.8000, L509.4005, L3890.6100, L100.0100 #### [facility] [address] [place], [address] MCH (RBC) [Entitic mass] 28.4 pg Normal 27.0-32.0 [facility] Comment on above: Performed By: #### L 501.0900, L3890.6300, BTS, L500.4050, L501.9985, L3890.6005, L509.8000, L509.4005, L3890.6100, L100.0100 #### [facility] [address] [place], [address] MCHC (RBC) [Mass/Vol] 33.0 g/dL Normal 32-36 [facility] Comment on above: Performed By: #### L 501.0900, L3890.6300, BTS, L500.4050, L501.9985, L3890.6005, L509.8000, L509.4005, L3890.6100, L100.0100 #### [facility] [address] [place], [address] MCV (RBC) [Entitic vol] 85.8 fL Normal 81-99 [facility] Comment on above: Performed By: #### L 501.0900, L3890.6300, BTS, L500.4050, L501.9985, L3890.6005, L509.8000, L509.4005, L3890.6100, L100.0100 #### [facility] [address] [place], [address] Monocytes/100 WBC (Bld) 3.7 % Normal 0-10 [facility] Comment on above: Performed By: #### L 501.0900, L3890.6300, BTS, L500.4050, L501.9985, L3890.6005, L509.8000, L509.4005, L3890.6100, L100.0100 #### [facility] [address] [place], [address] Neutrophils/100 WBC (Bld) 74.2 % High 47-70 [facility] Comment on above: Performed By: #### L 501.0900, L3890.6300, BTS, L500.4050, L501.9985, L3890.6005, L509.8000, L509.4005, L3890.6100, L100.0100 #### [facility] [address] [place], [address] Nucleated RBC (Bld) [#/Vol] 0 10*3/uL Normal 0-5 [facility] Comment on above: Performed By: #### L 501.0900, L3890.6300, BTS, L500.4050, L501.9985, L3890.6005, L509.8000, L509.4005, L3890.6100, L100.0100 #### [facility] [address] [place], [address] Platelet mean volume (Bld) [Entitic vol] 11.8 fL Normal 6.2-12.0 [facility] Comment on above: Performed By: #### L 501.0900, L3890.6300, BTS, L500.4050, L501.9985, L3890.6005, L509.8000, L509.4005, L3890.6100, L100.0100 #### [facility] [address] [place], [address] Platelets (Bld) [#/Vol] 212 10*3/uL Normal 150-450 [facility] Comment on above: Performed By: #### L 501.0900, L3890.6300, BTS, L500.4050, L501.9985, L3890.6005, L509.8000, L509.4005, L3890.6100, L100.0100 #### [facility] [address] [place], [address] RBC (Bld) [#/Vol] 4.02 10*6/uL Low 4.2-5.4 [facility] Comment on above: Performed By: #### L 501.0900, L3890.6300, BTS, L500.4050, L501.9985, L3890.6005, L509.8000, L509.4005, L3890.6100, L100.0100 #### [facility] [address] [place], [address] RDW SD 41.8 fl Normal 35.1-43.9 [facility] Comment on above: Performed By: #### L 501.0900, L3890.6300, BTS, L500.4050, L501.9985, L3890.6005, L509.8000, L509.4005, L3890.6100, L100.0100 #### [facility] [address] [place], [address] WBC (Bld) [#/Vol] 9.4 10*3/uL Normal 4.4-11.0 [facility] Comment on above: Performed By: #### L 501.0900, L3890.6300, BTS, L500.4050, L501.9985, L3890.6005, L509.8000, L509.4005, L3890.6100, L100.0100 #### [facility] [address] [place], [address] Comprehensive Metabolic Prof ilon 01-30-2024 Albumin [Mass/Vol] 3.2 g/dL Normal 3.2-5.0 [facility] Comment on above: Performed By: #### L 501.0900, L3890.6300, BTS, L500.4050, L501.9985, L3890.6005, L509.8000, L509.4005, L3890.6100, L100.0100 #### [facility] [address] [place], [address] Albumin/Globulin [Mass ratio] 0.8 {ratio} Low 0.9-2.4 [facility] Comment on above: Performed By: #### L 501.0900, L3890.6300, BTS, L500.4050, L501.9985, L3890.6005, L509.8000, L509.4005, L3890.6100, L100.0100 #### [facility] [address] [place], [address] ALK P 60 U/L Normal 45-117 [facility] Comment on above: Performed By: #### L 501.0900, L3890.6300, BTS, L500.4050, L501.9985, L3890.6005, L509.8000, L509.4005, L3890.6100, L100.0100 #### [facility] [address] [place], [address] ALT [Catalytic activity/Vol] 10 U/L Low 13-56 [facility] Comment on above: Performed By: #### L 501.0900, L3890.6300, BTS, L500.4050, L501.9985, L3890.6005, L509.8000, L509.4005, L3890.6100, L100.0100 #### [facility] [address] [place], [address] AST [Catalytic activity/Vol] 9 U/L Low 15-37 [facility] Comment on above: Performed By: #### L 501.0900, L3890.6300, BTS, L500.4050, L501.9985, L3890.6005, L509.8000, L509.4005, L3890.6100, L100.0100 #### [facility] [address] [place], [address] Bilirubin [Mass/Vol] 0.40 mg/dL Normal 0.20-1.00 [facility] Comment on above: Result Comment: For patients on eltrombopag therapy, use of Dimension Freedom TBIL is not recommended. Performed By: #### L 501.0900, L3890.6300, BTS, L500.4050, L501.9985, L3890.6005, L509.8000, L509.4005, L3890.6100, L100.0100 #### [facility] [address] [place], [address] BUN/CRE 14.7 RATIO Normal 10-20 [facility] Comment on above: Performed By: #### L 501.0900, L3890.6300, BTS, L500.4050, L501.9985, L3890.6005, L509.8000, L509.4005, L3890.6100, L100.0100 #### [facility] [address] [place], [address] CA,Total 9.0 mg/dL Normal 8.5-10.1 [facility] Comment on above: Performed By: #### L 501.0900, L3890.6300, BTS, L500.4050, L501.9985, L3890.6005, L509.8000, L509.4005, L3890.6100, L100.0100 #### [facility] [address] [place], [address] Chloride [Moles/Vol] 106 mmol/L Normal 98-107 [facility] Comment on above: Performed By: #### L 501.0900, L3890.6300, BTS, L500.4050, L501.9985, L3890.6005, L509.8000, L509.4005, L3890.6100, L100.0100 #### [facility] [address] [place], [address] CO2 [Moles/Vol] 21.0 mmol/L Normal 21.0-32.0 [facility] Comment on above: Performed By: #### L 501.0900, L3890.6300, BTS, L500.4050, L501.9985, L3890.6005, L509.8000, L509.4005, L3890.6100, L100.0100 #### [facility] [address] [place], [address] Creatinine [Mass/Vol] 0.61 mg/dL Normal 0.55-1.02 [facility] Comment on above: Result Comment: The validity of the calculated GFR GFRAA in patients over 70 years has not been determined. Clinical correlation is essential. Performed By: #### L 501.0900, L3890.6300, BTS, L500.4050, L501.9985, L3890.6005, L509.8000, L509.4005, L3890.6100, L100.0100 #### [facility] [address] [place], [address] EST GFR - AA 143 mL/min Normal >60 [facility] Comment on above: Result Comment: Afri can Kenyan GFR Calc Performed By: #### L 501.0900, L3890.6300, BTS, L500.4050, L501.9985, L3890.6005, L509.8000, L509.4005, L3890.6100, L100.0100 #### [facility] [address] [place], [address] GAP 8 Normal 5-15 [facility] Comment on above: Performed By: #### L 501.0900, L3890.6300, BTS, L500.4050, L501.9985, L3890.6005, L509.8000, L509.4005, L3890.6100, L100.0100 #### [facility] [address] [place], [address] GFR/1.73 sq M.predicted among non-blacks MDRD (S/P/Bld) [Vol rate/Area] 118 mL/min/{1.73_m2} Normal >60 [facility] Comment on above: Result Comment: Non- GFR Calc Performed By: #### L 501.0900, L3890.6300, BTS, L500.4050, L501.9985, L3890.6005, L509.8000, L509.4005, L3890.6100, L100.0100 #### [facility] [address] [place], [address] Globulin (S) [Mass/Vol] 3.9 g/dL Normal 2.2-4.2 [facility] Comment on above: Performed By: #### L 501.0900, L3890.6300, BTS, L500.4050, L501.9985, L3890.6005, L509.8000, L509.4005, L3890.6100, L100.0100 #### [facility] [address] [place], [address] Glucose [Mass/Vol] 146 mg/dL High 74-106 [facility] Comment on above: Result Comment: Fast ing Glucose result greater than or equal to 126 mg/dL suggests DIABETES MELLITUS per A.D.A. criteria. Performed By: #### L 501.0900, L3890.6300, BTS, L500.4050, L501.9985, L3890.6005, L509.8000, L509.4005, L3890.6100, L100.0100 #### [facility] [address] [place], [address] Potassium [Moles/Vol] 3.6 mmol/L Normal 3.5-5.1 [facility] Comment on above: Performed By: #### L 501.0900, L3890.6300, BTS, L500.4050, L501.9985, L3890.6005, L509.8000, L509.4005, L3890.6100, L100.0100 #### [facility] [address] [place], [address] Sodium [Moles/Vol] 135 mmol/L Low 136-145 [facility] Comment on above: Performed By: #### L 501.0900, L3890.6300, BTS, L500.4050, L501.9985, L3890.6005, L509.8000, L509.4005, L3890.6100, L100.0100 #### [facility] [address] [place], [address] T PROT 7.1 g/dL Normal 6.4-8.2 [facility] Comment on above: Performed By: #### L 501.0900, L3890.6300, BTS, L500.4050, L501.9985, L3890.6005, L509.8000, L509.4005, L3890.6100, L100.0100 #### [facility] [address] [place], [address] Urea nitrogen [Mass/Vol] 9 mg/dL Normal 7-18 [facility] Comment on above: Performed By: #### L 501.0900, L3890.6300, BTS, L500.4050, L501.9985, L3890.6005, L509.8000, L509.4005, L3890.6100, L100.0100 #### [facility] [address] [place], [address] HIV - WCHon 01-30-2024 HIV Non-Reactive Normal Nonreactive [facility] Comment on above: Order Comment: Reaso n for Exam: Performed By: #### L .1000 #### [facility] [address] [place], [address] Hemoglobin A1con 01-30-2024 HbA1c (Bld) [Mass fraction] 5.2 % Normal 3.8-5.6 [facility] Comment on above: Result Comment: Norm al < 5.7 % Prediabetic 5.7 - 6.4 % Diabetic >or= 6.5 % Please note range changes. Performed By: #### L .1000 #### [facility] [address] [place], [address] Hepatitis B Surface Antigeno n 01-30-2024 HEP B Surf Ag Non-Reactive Normal Nonreactive [facility] Comment on above: Order Comment: Reaso n for Exam: Performed By: #### L .1000 #### [facility] [address] [place], [address] Hepatitis C Antibodyon 01-29 Hepatitis C AB Non-Reactive Normal Nonreactive [facility] Comment on above: Order Comment: Reaso n for Exam: Result Comment: Non Reactive: < 0.8 Equivocal: >/= 0.8 to < 1.0 Reactive: >/= 1.0 The [facility] requires that a reactive/equivocal HCV antibody result be sent out for confirmation. HCV Quant by PCR testing. Performed By: #### L 205.1000 #### [facility] [address] [place], [address] L509.8000on 01-30-2024 Syphilis Abs Non-Reactive Normal [facility] Comment on above: Order Comment: Reaso n for Exam: Performed By: #### L 205.1000 #### [facility] [address] [place], [address] Protein+Creatinine Ratio,Uri neon 01-30-2024 PROT:CRE RATIO 166 mg/g CRE Normal 0-200 [facility] Comment on above: Performed By: #### L 501.0900, L3890.6300, BTS, L500.4050, L501.9985, L3890.6005, L509.8000, L509.4005, L3890.6100, L100.0100 #### [facility] [address] [place], [address] Protein (U) [Mass/Vol] 12.5 mg/dL High <11.9 [facility] Comment on above: Performed By: #### L 501.0900, L3890.6300, BTS, L500.4050, L501.9985, L3890.6005, L509.8000, L509.4005, L3890.6100, L100.0100 #### [facility] [address] [place], [address] UR CREAT 75.20 mg/dL Normal NO RANGE EST. [facility] Comment on above: Performed By: #### L 501.0900, L3890.6300, BTS, L500.4050, L501.9985, L3890.6005, L509.8000, L509.4005, L3890.6100, L100.0100 #### [facility] [address] [place], [address] Rubella IgGon 01-30-2024 Rubella IgG Reactive Normal Nonreactive [facility] Comment on above: Order Comment: Reaso n for Exam: Result Comment: Anti body Results Interpretation of Immune Status Non Reactive Presumed Non-Immune Equivocal Equivocal Reactive Presumed Immune Performed By: #### L 205.1000 #### [facility] [address] [place], [address] Type AND Screenon 01-30-2024 Ab SCREEN GEL Negative Normal [facility] Comment on above: Order Comment: PN Performed By: #### L 501.0900, L3890.6300, BTS, L500.4050, L501.9985, L3890.6005, L509.8000, L509.4005, L3890.6100, L100.0100 #### [facility] [address] [place], [address] Chlamydia/GC LEONARDO aptimaon CHLAMY,NUC ACID Negative Normal Negative [facility] Comment on above: Performed By: #### L 3890.6005, L509.8000, L500.4710, L100.0100 #### [facility] [address] [place], [address] GC BY NUC ACID Negative Normal Negative [facility] Comment on above: Result Comment: Perf ormed at: =G - [facility] [address] [place] [id number] [employer]': Shivani Crockett MD, Phone: [phone] Performed By: #### L 3890.6005, L509.8000, L500.4710, L100.0100 #### [facility] [address] [place], [address] Urine Cultureon 01-06-2024 URC Culture exhibits no growth. Normal [facility] Comment on above: Performed By: #### L 3890.6005, L509.8000, L500.4742, L100.0100 #### [facility] [address] [place], [address] Processing Technician Office Visit Reporton 01-05-2024 Processing Technician Office Visit Report [facility] [address] [place] [address] OFFICE VISIT Date of Service: 01/05/24 MR#: [id number] Acct: [id number] Name: VICENTA BLANCHARD Rep #: [id number] : 1990 Provider: Dr. Rocio Lozano DO Age/Sex: 33/F Location: [facility] Status: Signed Intake Vital Signs 11/06/16 14:57 01/05/24 14:28 01/05/24 14:31 Height 5 ft 3 in 5 ft 3 in 5 ft 3 in Weight: 165 lb BMI 29.2 BP 131/83 H Intake Visit Reasons: New OB, LMP /, NESS 08/07/24 [employer] Required: No Is patient in pain?: No Allergies peanut Allergy (Verified 01/05/24 14:29) Angioedema sesame seed Allergy (Verified 01/05/24 14:29) Anaphylaxis tree nut (tree nuts) Adverse Reaction (Severe, Verified 01/05/24 14:29) Anaphylaxis Medications ???Medication ???Instructions ???Recorded ???Confirmed ???Type cetirizine 10 mg capsule (Zyrtec) 10 mg PO DAILY 11/06/16 12/30/23 History epinephrine 0.3 mg/0.3 mL 0.3 mg (0.3 mL) IM X1 #2 syringes 11/06/16 12/30/23 Rx injection, auto-injector albuterol sulfate 90 mcg/actuation 2 puff inhalation Q6H PRN 12/30/23 12/30/23 History aerosol inhaler multivitamin no.47-iron fum 27 cap PO 12/30/23 12/30/23 History mg-folate no.1 1 mg-dha 300 mg capsule (PNV-DHA) umeclidinium 62.5 mcg-vilanterol 1 inh inhalation DAILY 12/30/23 12/30/23 History 25 mcg/actuation powdr for inhalation (Anoro Ellipta) Last Menstrual Period: 11/01/23 Zika: Zika virus screening: Negative : No Have you fallen in the past year?: No PFSH PFSH Medical History Hx of vaginal delivery Seasonal allergies Surgical History Jones teeth extracted H/O LEEP Family History Mother Diabetes Grandmother Diabetes maternal Aunt Diabetes maternal Uncle Diabetes Maternal Father Hypertension Social History adopted: No household members: significant other number of children: 1 service: No current occupational status: employed current occupation: [employer] current occupational exposures/hazards: No pets and animals: No history of recent travel: No sexually active: Yes Smoking Status: Never smoker alcohol intake: current alcohol intake frequency: holidays/special occasions only details: Not while substance use type: does not use well-balanced diet: daily or most days caffeine: Yes Type: coffee Number of servings: 1 eating out: 1-3 times/week during the past year weight has: remained stable what type of physical activity do you participate in: none morgan/confucianism: None seatbelt use: always do you feel safe at home: Yes additional social history: Partner [employer] History 2 Elective abortions Hx Para 1 Spontaneous abortions Hx # Term Pregnancies Ectopic pregnancies Hx # Pregnancies Multiple births # of living children 1 Past Pregnancies Del. Date Name GA/Weeks Outcome Route Bth Weight Gen Labor Lgth Anesthesia Del Locatn Provider FOB 08/18/22 Jorge 37 live - full term 7#14oz Male epidural Doug S alphonse David Delivery Date: 08/18/22 Last Updated by: Klaudia Chance HTN, GDM HPI New OB, LMP 5/4, NESS 08/07/24 Details: VICENTA BLANCHARD is a 33 year old who presents for New OB visit. OB Visit NESS Calculator Estimated Delivery Date Method Current WG Current Estimate 07/31/24 Ultrasound #1 10w 2d Other Estimates 08/07/24 LMP (Certain) 9w 2d Comments: HIV: Urine Culture: Sequential Screen: NIPT Screen: Estimated Due Date: 08/07/24 Expected Delivery Route/Plan Labor Preferences- CB/BF classes: [] labor support person: [] labor intervention preferences: [] pain management options preferred: [] cut cord/dad catch: [] : [] PP control planned: [] discussed possible routes of delivery and associated risks: [] special requests: [] Specific Issue/Plans Covid status: unvaccinated Flu vaccine: unvaccinated Tdap vaccine: got tdap first Rhogam: [] LARC form signed: [] Problem list reviewed and updated with the most current plan of care details and appropriate orders placed. Relevant counseling for the gestational age provided. Continue routine care and follow up unless otherwise noted in visit notes/problem list details Initial Weight: Not Recorded Date -???-???-???-???-???- ???-???-???-???-???-? ??-???- EGA Weight BP Urine Prot -???-???-???-???-???- ???-???-???-???-???-? ??-???- Glucose FHR FuHt Pres Dilation -???-???-???-???-???- ???-???-???-???-???-? ??-?? (more content not included)... Normal [facility] Pulper Cytology Reporton 2022 Pulper Cytology Report . Pathology Reports Accession: Collected Date/Time: Received Date/Time: Pathologist: [id number] 04/07/2023 08:36 EDT 04/07/2023 18:00 EDT MD MALENA MYLES Pulper Cytology Report SPECIMEN: Specimen Description: Liquid Prep w/ HPV Specimen: Cervical/Endocervical Screening or Diagnostic: Screening RELEVANT HISTORY: LMP: 02/2023 Other clinical information: hx of LEEP/HGSIL SPECIMEN ADEQUACY: SATISFACTORY FOR EVALUATION Endocervical/Transfor mational zone component present INTERPRETATION/RESULT S: NEGATIVE FOR INTRAEPITHELIAL LESION OR MALIGNANCY SUGGESTIONS/EDUCATION AL NOTES: This case has been reviewed for 10% QA rescreen HIGH RISK HPV TESTING: Event Code Result HPV Interp See Interp HPVN HPV Interp Text: High Risk HPV Typing: NEGATIVE HPV types 16, 18, 31, 33, 35, 39, 45, 51, 52, 56, 58, 59, 66 and 68 DNA were undetectable or below the pre-set threshold. The wilda High-Risk HPV DNA Test is not intended for use as a screening device for Pap normal women under age 30 and is not intended to substitute for regular Pap screening. The wilda High-Risk HPV DNA Test is designed to augment existing methods for the detection of cervical disease and should be used in conjunction with clinical information derived from other diagnostic and screening tests, physical examinations and full medical history in accordance with appropriate patient management procedures. NOTE: A negative result does not preclude the presence of HPV infection because results depend on adequate specimen collection, absence of inhibitors and sufficient DNA to be detected. As of: 04/10/23 15:29 EDT COMMENT: This Pap Test was successfully processed and evaluated with the assistance of the AppFirstPrep Test Imaging System. Pathology Reports Accession: Collected Date/Time: Received Date/Time: Pathologist: [id number] 04/07/2023 08:36 EDT 04/07/2023 18:00 EDT MD MALENA MYLES Electronically Signed by Pathology report verified by [facility] Screened by: ESTELLE Electronically signed by MALENA MYLES MD Sign-Out Date: 04/10/2023 16:18 Performing Lab: [facility], [address] [place] [address] Pathology Dept Disclaimer The Pap test is a screening test for cervical cancer. As evidenced by published data, it is subject to both inherent false negative and false positive results. Your patient's results should be interpreted in context with pertinent clinical history including gynecological examination. Normal [facility] ([place]) HPVon 04-10-2023 HPV Interp Normal See Interp HPVN [facility] ([place]) Comment on above: Order Comment: Order placed by AP_HPV_ORDER rule from [id number] Result Comment: High Risk HPV Typing: NEGATIVE HPV types 16, 18, 31, 33, 35, 39, 45, 51, 52, 56, 58, 59, 66 and 68 DNA were undetectable or below the pre-set threshold. The wilda High-Risk HPV DNA Test is not intended for use as a screening device for Pap normal women under age 30 and is not intended to substitute for regular Pap screening. The wilda High-Risk HPV DNA Test is designed to augment existing methods for the detection of cervical disease and should be used in conjunction with clinical information derived from other diagnostic and screening tests, physical examinations and full medical history in accordance with appropriate patient management procedures. NOTE: A negative result does not preclude the presence of HPV infection because results depend on adequate specimen collection, absence of inhibitors and sufficient DNA to be detected. See [facility] HPVN Performed By: #### G BSPCR #### [place] [address] HPV Source Cervix Normal [facility] ([place]) Comment on above: Order Comment: Order placed by AP_HPV_ORDER rule from [id number] Performed By: #### G BSPCR #### [place] [address] LABORATORYOrdered By: Ricardo Parker on 04-07-2023 HPV Inter High Risk HPV Typing : NEGATIVEHPV types 16, 18, 31, 33, 35, 39, 45, 51, 52, 56, 58, 59, 66 and 68 DNA wereundetectable or below the pre-set threshold.The wilda High-Risk HPV DNA Test is not intended for use as a screening device forPap normal women under age 30 and is not intended to substitute for regular Papscreening.The wilda High-Risk HPV DNA Test is designed to augment existing methods for thedetection of cervical disease and should be used in conjunction with clinicalinformation derived from other diagnostic and screening tests, physical examinationsand full medical history in accordance with appropriate patient managementprocedures. NOTE: A negative result does not preclude the presence of HPV infection because resultsdepend on adequate specimen collection, absence of inhibitors and sufficientDNA to be detected. Invalid Interpretation Code See Inter HPVN AH Auto Viro/Sero SS Specimen source Nom (Unsp spec) Cervix (04/07/23 8:36 AM) Invalid Interpretation Code AH Auto Viro/Sero SS RPRon 08-20-2022 Reagin Ab RPR Ql (S) Non-Reactive Normal Non-Reactive [facility] ([place]) Comment on above: Result Comment: The RPR test is a non-treponemal assay useful as an aid in the diagnosis of primary and secondary syphilis. It converts to positive generally within 2 weeks after the appearance of a lesion. This test is also useful for monitoring response to antibiotic therapy. A positive RPR screening test will be followed by the FTA ABS test. False positive RPR tests may occur in 1) patients with underlying autoimmune disorders, 2) elderly patients, 3) , and 4) other conditions with abnormal serum globulins. Performed By: #### G BSPCR #### [address] [address] HHon 08-19-2022 Hematocrit (Bld) [Volume fraction] 32.8 % Low 37.0-47.0 [facility] ([place]) Comment on above: Performed By: #### G BSPCR #### [address] [address] Hgb 11.1 G/dL Low 12.0-16.0 [facility] ([place]) Comment on above: Performed By: #### G BSPCR #### [address] [address] LABORATORYOrdered By: Kamryn Maynard on 08-19-2022 Hematocrit (Bld) [Volume fraction] 32.8 % Invalid Interpretation Code 37.0 - 47.0 % AO Workflow SS Hemoglobin (Bld) [Mass/Vol] 11.1 G/dL Invalid Interpretation Code 12.0 - 16.0 G/dL AO Workflow SS .Auto Diffon 08-18-2022 Basophil, Absolute 0.1 10 3/mcL Normal 0.0-0.2 [facility] ([place]) Comment on above: Performed By: #### G BSPCR #### [address] [address] Basophils/100 WBC (Bld) 0.4 % Normal 0.0-2.5 [facility] ([place]) Comment on above: Performed By: #### G BSPCR #### [address] [address] Eosinophil, Absolute 0.1 10 3/mcL Normal 0.0-0.4 [facility] ([place]) Comment on above: Performed By: #### G BSPCR #### [address] [address] Eosinophils/100 WBC (Bld) 0.9 % Normal 0.0-7.0 [facility] ([place]) Comment on above: Performed By: #### G BSPCR #### [address] [address] Lymphocyte, Absolute 2.9 10 3/mcL Normal 0.8-3.9 [facility] ([place]) Comment on above: Performed By: #### G BSPCR #### [address] [address] Lymphocytes/100 WBC (Bld) 18.3 % Normal 10.0-50.0 [facility] ([place]) Comment on above: Performed By: #### G BSPCR #### [address] [address] Monocyte, Absolute 0.7 10 3/mcL Normal 0.2-1.0 [facility] ([place]) Comment on above: Performed By: #### G BSPCR #### [address] [address] Monocytes/100 WBC (Bld) 4.4 % Normal 1.7-13.0 [facility] ([place]) Comment on above: Performed By: #### G BSPCR #### [address] [address] Neutrophils/100 WBC (Bld) 76.0 % Normal 37.0-80.0 [facility] ([place]) Comment on above: Performed By: #### G BSPCR #### [address] [address] .NEUABSon 08-18-2022 Neutrophil, Absolute 11.9 10 3/mcL High 2.9-6.2 [facility] ([place]) Comment on above: Performed By: #### G BSPCR #### [address] [address] CBCon 08-18-2022 Erythrocyte distribution width (RBC) [Ratio] 14.5 % Normal 11.5-14.5 [facility] ([place]) Comment on above: Performed By: #### G BSPCR #### [address] [address] Hematocrit (Bld) [Volume fraction] 37.8 % Normal 37.0-47.0 [facility] ([place]) Comment on above: Performed By: #### G BSPCR #### [address] [address] Hgb 12.7 G/dL Normal 12.0-16.0 [facility] ([place] Comment on above: Performed By: #### Sandra BSPCR #### [address] [address] MCH (RBC) [Entitic mass] 28.6 pg Normal 27.0-31.2 [facility] ([place] Comment on above: Performed By: #### G BSPCR #### [address] [address] MCHC 33.7 G/dL Normal 33.0-37.0 [facility] ([place] Comment on above: Performed By: #### G BSPCR #### [address] [address] MCV (RBC) [Entitic vol] 85.1 fL Normal 80.0-94.0 [facility] ([place]) Comment on above: Performed By: #### G BSPCR #### [address] [address] Platelet 203 10 3/mcL Normal 130-400 [facility] ([place]) Comment on above: Performed By: #### G BSPCR #### [address] [address] Platelet mean volume (Bld) [Entitic vol] 10.1 fL Normal 7.4-10.4 [facility] ([place]) Comment on above: Performed By: #### G BSPCR #### [address] [address] RBC 4.44 10 6/mcL Normal 4.20-5.40 [facility] ([place]) Comment on above: Performed By: #### G BSPCR #### [address] [address] WBC 15.7 10 3/mcL High 4.6-10.8 [facility] ([place]) Comment on above: Performed By: #### G BSPCR #### [address] [address] Gel ABOon 08-18-2022 ABO/Rh Interp Positive Invalid Interpretation Code [facility] ([place]) Comment on above: Performed By: #### G BSPCR #### [address] [address] Gel ABSon 08-18-2022 Antibody Screen Gel Negative Normal [facility] ([place]) Comment on above: Performed By: #### G BSPCR #### [address] [address] LABORATORYOrdered By: Victoria Tanner on 08-18-2022 ABO/Rh Interp Positive Invalid Interpretation Code AO BB SS Antibody Screen Gel Negative ABSC (08/18/22 4:22 PM) Invalid Interpretation Code AO BB SS Basophil, Absolute 0.1 103/mcL Invalid Interpretation Code 0.0 - 0.2 10^3/mcL AO Workflow SS Basophils/100 WBC (Bld) 0.4 % Invalid Interpretation Code 0.0 - 2.5 % AO Workflow SS Eosinophil, Absolute 0.1 103/mcL Invalid Interpretation Code 0.0 - 0.4 10^3/mcL AO Workflow SS Eosinophils/100 WBC (Bld) 0.9 % Invalid Interpretation Code 0.0 - 7.0 % AO Workflow SS Erythrocyte distribution width (RBC) [Ratio] 14.5 % Invalid Interpretation Code 11.5 - 14.5 % AO Workflow SS Hematocrit (Bld) [Volume fraction] 37.8 % Invalid Interpretation Code 37.0 - 47.0 % AO Workflow SS Hemoglobin (Bld) [Mass/Vol] 12.7 G/dL Invalid Interpretation Code 12.0 - 16.0 G/dL AO Workflow SS Lymphocyte, Absolute 2.9 103/mcL Invalid Interpretation Code 0.8 - 3.9 10^3/mcL AO Workflow SS Lymphocytes/100 WBC (Bld) 18.3 % Invalid Interpretation Code 10.0 - 50.0 % AO Workflow SS MCH (RBC) [Entitic mass] 28.6 pg Invalid Interpretation Code 27.0 - 31.2 pg AO Workflow SS MCHC 33.7 G/dL Invalid Interpretation Code 33.0 - 37.0 G/dL AO Workflow SS MCV (RBC) [Entitic vol] 85.1 fL Invalid Interpretation Code 80.0 - 94.0 fL AO Workflow SS Monocyte, Absolute 0.7 103/mcL Invalid Interpretation Code 0.2 - 1.0 10^3/mcL AO Workflow SS Monocytes/100 WBC (Bld) 4.4 % Invalid Interpretation Code 1.7 - 13.0 % AO Workflow SS Neutrophil, Absolute 11.9 103/mcL Invalid Interpretation Code 2.9 - 6.2 10^3/mcL AO Workflow SS Neutrophils/100 WBC (Bld) 76.0 % Invalid Interpretation Code 37.0 - 80.0 % AO Workflow SS Platelet mean volume (Bld) [Entitic vol] 10.1 fL Invalid Interpretation Code 7.4 - 10.4 fL AO Workflow SS Platelets (Bld) [#/Vol] 203 103/mcL Invalid Interpretation Code 130 - 400 10^3/mcL AO Workflow SS RBC (Bld) [#/Vol] 4.44 106/mcL Invalid Interpretation Code 4.20 - 5.40 10^6/mcL AO Workflow SS WBC (Bld) [#/Vol] 15.7 103/mcL Invalid Interpretation Code 4.6 - 10.8 10^3/mcL AO Workflow SS LABORATORYOrdered By: Ruby Wade on 08-18-2022 Reagin Ab RPR Ql (S) Non-Reactive (08/18/22 4:22 PM) Invalid Interpretation Code Non-Reactive Man Viro/Sero SS GBSPCRon 08-08-2022 Group B Strep (PCR) Negative Normal Negative [facility] ([place]) Comment on above: Performed By: #### G BSPCR #### [address] [address] Group B Strep PCR Int Normal [facility] ([place]) Comment on above: Result Comment: Grou p B Streptococcus DNA not detected by real-time PCR. A negative result does not rule out the possibility of Group B streptococcus. Assay should be used as an adjunct to clinical observations and other information available to the physician. The test is not intended to differentiate carriers of Group B streptococcus from those with streptococcal disease. See Below Performed By: #### G BSPCR #### [address] [address] .Auto Diffon 08-07-2022 Basophil, Absolute 0.0 10 3/mcL Normal 0.0-0.2 [facility] ([place]) Comment on above: Performed By: #### A PO CARCAMO, CBC #### [address] [address] Basophils/100 WBC (Bld) 0.2 % Normal 0.0-2.5 [facility] ([place]) Comment on above: Performed By: #### A PO CARCAMO, CBC #### [address] [address] Eosinophil, Absolute 0.1 10 3/mcL Normal 0.0-0.4 [facility] ([place]) Comment on above: Performed By: #### A PO CARCAMO, CBC #### [address] [address] Eosinophils/100 WBC (Bld) 1.1 % Normal 0.0-7.0 [facility] ([place]) Comment on above: Performed By: #### A PO CARCAMO, CBC #### [address] [address] Lymphocyte, Absolute 2.1 10 3/mcL Normal 0.8-3.9 [facility] ([place]) Comment on above: Performed By: #### A PO CARCAMO, CBC #### [address] [address] Lymphocytes/100 WBC (Bld) 18.0 % Normal 10.0-50.0 [facility] ([place]) Comment on above: Performed By: #### A PO CARCAMO, CBC #### [address] [address] Monocyte, Absolute 0.5 10 3/mcL Normal 0.2-1.0 [facility] ([place]) Comment on above: Performed By: #### A PO CARCAMO, CBC #### [address] [address] Monocytes/100 WBC (Bld) 4.1 % Normal 1.7-13.0 [facility] ([place]) Comment on above: Performed By: #### A PO CARCAMO, CBC #### [address] [address] Neutrophils/100 WBC (Bld) 76.6 % Normal 37.0-80.0 [facility] ([place]) Comment on above: Performed By: #### A PO CARCAMO, CBC #### [address] [address] .NEUABSon 08-07-2022 Neutrophil, Absolute 9.0 10 3/mcL High 2.9-6.2 [facility] ([place]) Comment on above: Performed By: #### A PO CARCAMO, CBC #### [address] [address] CBCon 08-07-2022 Erythrocyte distribution width (RBC) [Ratio] 14.4 % Normal 11.5-14.5 [facility] ([place]) Comment on above: Performed By: #### A DONAPO, CBC #### [address] [address] Hematocrit (Bld) [Volume fraction] 36.7 % Low 37.0-47.0 [facility] ([place]) Comment on above: Performed By: #### A PO CARCAMO, CBC #### [address] [address] Hgb 12.3 G/dL Normal 12.0-16.0 [facility] ([place]) Comment on above: Performed By: #### A PO CARCAMO, CBC #### [address] [address] MCH (RBC) [Entitic mass] 28.8 pg Normal 27.0-31.2 [facility] ([place] Comment on above: Performed By: #### A PO CARCAMO, CBC #### [address] [address] MCHC 33.6 G/dL Normal 33.0-37.0 [facility] ([place] Comment on above: Performed By: #### A PO CARCAMO, CBC #### [address] [address] MCV (RBC) [Entitic vol] 85.8 fL Normal 80.0-94.0 [facility] ([place]) Comment on above: Performed By: #### A PO CARCAMO, CBC #### [address] [address] Platelet 222 10 3/mcL Normal 130-400 [facility] ([place] Comment on above: Performed By: #### A PO CARCAMO, CBC #### [address] [address] Platelet mean volume (Bld) [Entitic vol] 10.2 fL Normal 7.4-10.4 [facility] ([place] Comment on above: Performed By: #### A PO CARCAMO, CBC #### [address] [address] RBC 4.28 10 6/mcL Normal 4.20-5.40 [facility] ([place] Comment on above: Performed By: #### A PO CARCAMO, CBC #### [address] [address] WBC 11.8 10 3/mcL High 4.6-10.8 [facility] ([place] Comment on above: Performed By: #### A PO CARCAMO, CBC #### [address] [address] LABORATORYOrdered By: Brittany Denise on 08-07-2022 Group B Strep PCR Int Group B Streptococ cus DNA not detected by real-time PCR. A negative result does not rule out the possibility of Group B streptococcus. Assay should be used as an adjunct to clinical observations and other information available to the physician. The test is not intended to differentiate carriers of Group B streptococcus from those with streptococcal disease. Invalid Interpretation Code AO Auto Urine SS S. agalactiae DNA LEONARDO+probe Ql (Unsp spec) Negative *NA* (08/07/22 4:52 PM) Invalid Interpretation Code Negative AO Auto Urine SS GL1on 06-07-2022 Glucose [Mass/Vol] 255 mg/dL High 120-190 [facility] ([place] Comment on above: Performed By: #### G L3, GL1, GL2, GLF #### [place] [address] GL2on 06-07-2022 Glucose [Mass/Vol] 194 mg/dL High 70-165 [facility] ([place] Comment on above: Performed By: #### G L3, GL1, GL2, GLF #### [address] [address] GL3on 06-07-2022 Glucose [Mass/Vol] 62 mg/dL Low 70-145 [facility] ([place] Comment on above: Performed By: #### G L3, GL1, GL2, GLF #### [address] [address] GLFon 06-07-2022 Glucose [Mass/Vol] 113 mg/dL High 83-110 [facility] ([place] Comment on above: Performed By: #### G L3, GL1, GL2, GLF #### [address] [address] [id number] 05-28-2022 Glucose [Mass/Vol] 205 mg/dL High 70-140 [facility] ([place] Comment on above: Performed By: #### G LU1P #### [address] [address] LABORATORYOrdered By: Guy Salazar on 11-29-2022 Glucose [Mass/Vol] 205 mg/dL Invalid Interpretation Code 70 - 140 mg/dL AO ADM SS LABORATORYOrdered By: Brittany Denise on 01-01-2022 [place] [address].8 m[IU]/mL Invalid Interpretation Code AO ADM SS LABORATORYOrdered By: Victoria Tanner on 05-18-2021 ABO/Rh Interp Positive Invalid Interpretation Code AO BB SS Antibody Screen Gel Negative ABSC (05/18/21 12:13 PM) Invalid Interpretation Code AO BB SS HCG ( test) Ql Negative (05/18/21 12:13 PM) Invalid Interpretation Code AO Manual Urine SS test (u) int Not detected Invalid Interpretation Code AO Manual Urine SS LABORATORYOrdered By: Arpita Velasquez on 05-08-2021 ABO/Rh Interp Positive Invalid Interpretation Code AO BB SS Antibody Screen Gel Negative ABSC (05/08/21 1:31 PM) Invalid Interpretation Code AO BB SS Basophil, Absolute 0.00 103/mcL Invalid Interpretation Code 0.00 - 0.19 10^3/mcL AO Auto Heme SS Basophils/100 WBC (Bld) 0.5 % Invalid Interpretation Code 0.0 - 2.5 % AO Auto Heme SS Eosinophil, Absolute 0.60 103/mcL Invalid Interpretation Code 0.00 - 0.40 10^3/mcL AO Auto Heme SS Eosinophils/100 WBC (Bld) 8.2 % Invalid Interpretation Code 0.0 - 7.0 % AO Auto Heme SS Erythrocyte distribution width (RBC) [Ratio] 12.8 % Invalid Interpretation Code 11.5 - 14.5 % AO Auto Heme SS Hematocrit (Bld) [Volume fraction] 39.4 % Invalid Interpretation Code 37.0 - 47.0 % AO Auto Heme SS Hemoglobin (Bld) [Mass/Vol] 13.3 G/dL Invalid Interpretation Code 12.0 - 16.0 G/dL AO Auto Heme SS Lymphocyte, Absolute 2.20 103/mcL Invalid Interpretation Code 0.77 - 3.85 10^3/mcL AO Auto Heme SS Lymphocytes/100 WBC (Bld) 29.6 % Invalid Interpretation Code 10.0 - 50.0 % AO Auto Heme SS MCH (RBC) [Entitic mass] 29.5 pg Invalid Interpretation Code 27.0 - 31.2 pg AO Auto Heme SS MCHC (RBC) [Mass/Vol] 33.8 G/dL Invalid Interpretation Code 33.0 - 37.0 G/dL AO Auto Heme SS MCV (RBC) [Entitic vol] 87.3 fL Invalid Interpretation Code 80.0 - 94.0 fL AO Auto Heme SS Monocyte, Absolute 0.40 103/mcL Invalid Interpretation Code 0.15 - 1.00 10^3/mcL AO Auto Heme SS Monocytes/100 WBC (Bld) 4.9 % Invalid Interpretation Code 1.7 - 13.0 % AO Auto Heme SS Neutrophil, Absolute 4.30 103/mcL Invalid Interpretation Code 2.85 - 6.16 10^3/mcL AO Auto Heme SS Neutrophils/100 WBC (Bld) 56.8 % Invalid Interpretation Code 37.0 - 80.0 % AO Auto Heme SS Platelet mean volume (Bld) [Entitic vol] 9.7 fL Invalid Interpretation Code 7.4 - 10.4 fL AO Auto Heme SS Platelets (Bld) [#/Vol] 267 103/mcL Invalid Interpretation Code 130 - 400 10^3/mcL AO Auto Heme SS RBC (Bld) [#/Vol] 4.51 106/mcL Invalid Interpretation Code 4.20 - 5.40 10^6/mcL AO Auto Heme SS WBC (Bld) [#/Vol] 7.50 103/mcL Invalid Interpretation Code 4.60 - 10.80 10^3/mcL AO Auto Heme SS Vital Signs Date Time Vital Sign Value Performing Clinician Facility 12-02-2024 11:19-0400 Body height 160.02 cm Nandini WRIGHT Work Phone: [facility] 12-02-2024 11:19-0400 Body mass index (BMI) [Ratio] 30.3 kg/m2 Nandini WRIGHT Work Phone: [facility] 12-02-2024 11:19-0400 Body weight 77.73 kg Nandini WRIGHT Work Phone: [facility] 12-02-2024 11:19-040 Diastolic blood pressure 85 mm[Hg] Nandini WRIGHT Work Phone: [facility] 12-02-2024 11:19-0400 Systolic blood pressure 119 mm[Hg] Nandini WRIGHT Work Phone: [facility] 10-21-2024 11:39-0400 Body mass index (BMI) [Ratio] 30.1 kg/m2 Nandini Mayorga [employer] Work Phone: [facility] 10-21-2024 11:39-0400 Body weight 77.11 kg Nandini Mayorga [employer] Work Phone: [facility] 10-21-2024 11:39-0400 Diastolic blood pressure 85 mm[Hg] Nandini Mayorga [employer] Work Phone: [facility] 10-21-2024 11:39-0400 Systolic blood pressure 132 mm[Hg] Nandini Mayorga [employer] Work Phone: [facility] 09-08-2024 10:43-0400 Body height 160.02 cm Nandini Mayorga [employer] Work Phone: [facility] 09-08-2024 10:38-0400 Body mass index (BMI) [Ratio] 30 kg/m2 Nandini Mayorga [employer] Work Phone: [facility] 09-08-2024 10:38-0400 Body weight 76.88 kg Nandini Mayorga [employer] Work Phone: [facility] 09-08-2024 10:38-0400 Diastolic blood pressure 70 mm[Hg] Nandini Mayorga [employer] Work Phone: [facility] 09-08-2024 10:38-0400 Systolic blood pressure 126 mm[Hg] Nandini Mayorga [employer] Work Phone: [facility] 07-22-2024 08:01-0500 Body temperature 98.1 [degF] Nandini Mayorga [employer] Work Phone: [facility] 07-22-2024 08:01-0500 Diastolic blood pressure 86 mm[Hg] Nandini Mayorga [employer] Work Phone: [facility] 07-22-2024 08:01-0500 Heart rate 84 /min Nandini Mayorga [employer] Work Phone: [facility] 07-22-2024 08:01-0500 Respiratory rate 16 /min Nandini Mayorga [employer] Work Phone: [facility] 07-22-2024 08:01-0500 SaO2% (BldA) [Mass fraction] 98 % Nandini Mayorga [employer] Work Phone: [facility] 07-22-2024 08:01-0500 Systolic blood pressure 126 mm[Hg] Nandini Mayorga [employer] Work Phone: [facility] 07-20-2024 18:30-0500 Body mass index (BMI) [Ratio] 32.2 kg/m2 Nandini Mayorga [employer] Work Phone: [facility] 07-20-2024 18:30-0500 Body weight 82.55 kg Nandini Mayorga [employer] Work Phone: [facility] 07-12-2024 10:37-0500 Body mass index (BMI) [Ratio] 32.5 kg/m2 Nandini Mayorga [employer] Work Phone: [facility] 07-12-2024 10:37-0500 Body weight 83.46 kg Nandini Mayorga [employer] Work Phone: [facility] 07-12-2024 10:37-0500 Diastolic blood pressure 79 mm[Hg] Nandini Mayorga [employer] Work Phone: [facility] 07-12-2024 10:37-0500 Systolic blood pressure 134 mm[Hg] Nandini Mayorga [employer] Work Phone: [facility] 07-09-2024 13:55-0500 Body mass index (BMI) [Ratio] 31.5 kg/m2 Nandini Mayorga [employer] Work Phone: [facility] 07-09-2024 13:55-0500 Body weight 80.7 kg Nandini Mayorga [employer] Work Phone: [facility] 07-09-2024 13:34-0500 Diastolic blood pressure 74 mm[Hg] Nandini Mayorga [employer] Work Phone: [facility] 07-09-2024 13:34-0500 Heart rate 107 /min Nandini Mayorga [employer] Work Phone: [facility] 07-09-2024 13:34-0500 SaO2% (BldA) [Mass fraction] 98 % Nandini Mayorga [employer] Work Phone: [facility] 07-09-2024 13:34-0500 Systolic blood pressure 131 mm[Hg] Nandini Mayorga [employer] Work Phone: [facility] 07-09-2024 13:30-0500 Body temperature 99 [degF] Nandini Mayorga [employer] Work Phone: [facility] 07-09-2024 13:30-0500 Respiratory rate 16 /min Nandini Mayorga [employer] Work Phone: [facility] 07-06-2024 10:09-0500 Body mass index (BMI) [Ratio] 32.6 kg/m2 aNndini Mayorga [employer] Work Phone: [facility] 07-06-2024 10:09-0500 Body weight 83.63 kg Nandini Mayorga [employer] Work Phone: [facility] 07-06-2024 10:09-0500 Diastolic blood pressure 88 mm[Hg] Nandini Mayorga [employer] Work Phone: [facility] 07-06-2024 10:09-0500 Systolic blood pressure 136 mm[Hg] Nandini Mayorga [employer] Work Phone: [facility] 07-02-2024 13:03-0500 Body mass index (BMI) [Ratio] 32.6 kg/m2 Nandini Mayorga [employer] Work Phone: [facility] 07-02-2024 13:03-0500 Body weight 83.68 kg Nandini Mayorga [employer] Work Phone: [facility] 07-02-2024 13:03-0500 Diastolic blood pressure 79 mm[Hg] Nandini Lorson [employer] Work Phone: [facility] 07-02-2024 13:03-0500 Systolic blood pressure 132 mm[Hg] Nandini Lorson [employer] Work Phone: [facility] 06-14-2024 10:37-0500 Body mass index (BMI) [Ratio] 32.4 kg/m2 Nandini Lorson [employer] Work Phone: [facility] 06-14-2024 10:37-0500 Body weight 83 kg Nandini Lorson [employer] Work Phone: [facility] 06-14-2024 10:37-0500 Diastolic blood pressure 84 mm[Hg] Nandini Lorson [employer] Work Phone: [facility] 06-14-2024 10:37-0500 Systolic blood pressure 135 mm[Hg] Nandini Lorson [employer] Work Phone: [facility] 06-03-2024 14:39-0500 Body mass index (BMI) [Ratio] 32.6 kg/m2 Nandini Lorson [employer] Work Phone: [facility] 06-03-2024 14:39-0500 Body weight 83.63 kg Nandini Lorson [employer] Work Phone: [facility] 06-03-2024 14:39-0500 Diastolic blood pressure 71 mm[Hg] Nandini Lorson [employer] Work Phone: [facility] 06-03-2024 14:39-0500 Systolic blood pressure 124 mm[Hg] Nandini Lorson [employer] Work Phone: [facility] 08-20-2022 07:46-0500 Body temperature 98.24 [degF] PAYAL ROSE MD [facility] 08-20-2022 07:46-0500 Diastolic Blood Pressure Non-Invasive 78 1 PAYAL ROSE MD [facility] 08-20-2022 07:46-0500 Heart rate 96 /min PAYAL ROSE MD [facility] 08-20-2022 07:46-0500 Respiratory rate 16 /min PAYAL ROSE MD [facility] 08-20-2022 07:46-0500 Systolic Blood Pressure Non-Invasive 145 1 PAYAL ROSE MD [facility] 08-19-2022 23:00-0500 Diastolic Blood Pressure Non-Invasive 85 1 PAYAL ROSE MD [facility] 08-19-2022 23:00-0500 Heart rate 92 /min PAYAL ROSE MD [facility] 08-19-2022 23:00-0500 Systolic Blood Pressure Non-Invasive 137 1 PAYAL ROSE MD [facility] 08-19-2022 17:43-0500 Body temperature 98.24 [degF] PAYAL ROSE MD [facility] 08-19-2022 17:43-0500 Diastolic Blood Pressure Non-Invasive 82 1 PAYAL ROSE MD [facility] 08-19-2022 17:43-0500 Heart rate 100 /min PAYAL ROSE MD [facility] 08-19-2022 17:43-0500 Respiratory rate 18 /min PAYAL ROSE MD [facility] 08-19-2022 17:43-0500 Systolic Blood Pressure Non-Invasive 140 1 PAYAL ROSE MD [facility] 08-18-2022 16:22-0500 Body height 160 cm PAYAL ROSE MD [facility] 08-18-2022 16:22-0500 Body weight 84.1 kg PAYAL ROSE MD [facility] 08-18-2022 16:22-0500 Body weight 32.85 kg/m2 PAYAL ROSE MD [facility] 07-09-2022 10:05-0500 Body height 160.02 cm JAG PHILIP MD [facility] 07-09-2022 10:05-0500 Body weight 84.54 kg JAG PHILIP MD [facility] 07-09-2022 10:05-0500 Body weight 33.02 kg/m2 JAG PHILIP MD [facility] 07-09-2022 09:38-0500 Body height 160 cm WALTER BROUSSARD MD [facility] 07-09-2022 09:38-0500 Body weight 33.01 kg/m2 WALTER BROUSSARD MD [facility] 07-09-2022 09:38-0500 Body weight 84.5 kg WALTER BROUSSARD MD [facility] 05-18-2021 15:11-0500 Diastolic Blood Pressure NBP 78 1 JAG PHILIP MD [facility] 05-18-2021 15:11-0500 Heart rate 91 /min JAG PHILIP MD [facility] 05-18-2021 15:11-0500 Systolic Blood Pressure NBP 131 1 JAG PHILIP MD [facility] 05-18-2021 14:58-0500 Heart rate 93 /min JAG PHILIP MD [facility] 05-18-2021 14:57-0500 Heart rate 98 /min JAG PHILIP MD [facility] 05-18-2021 14:43-0500 Respiratory rate 14 /min JAG PHILIP MD [facility] 05-18-2021 14:30-0500 Diastolic Blood Pressure NBP 76 1 JAG PHILIP MD [facility] 05-18-2021 14:30-0500 Respiratory rate 16 /min JAG PHILIP MD [facility] 05-18-2021 14:30-0500 Systolic Blood Pressure NBP 132 1 JAG PHILIP MD [facility] 05-18-2021 14:25-0500 Diastolic Blood Pressure NBP 75 1 JAG PHILIP MD [facility] 05-18-2021 14:25-0500 Respiratory rate 15 /min JAG PHILIP MD [facility] 05-18-2021 14:25-0500 Systolic Blood Pressure NBP 129 1 JAG PHILIP MD [facility] 05-18-2021 14:15-0500 Body temperature 98.6 [degF] JAG PHILIP MD [facility] 05-18-2021 12:14-0500 Body height 160 cm JAG PHILIP MD [facility] 05-18-2021 12:14-0500 Body temperature 99.86 [degF] JAG PHILIP MD [facility] 05-18-2021 12:14-0500 Body weight 64.9 kg JAG PHILIP MD [facility] 05-18-2021 12:14-0500 Diastolic blood pressure 85 mm[Hg] JAG PHILIP MD [facility] 05-18-2021 12:14-0500 Heart rate 90 /min JAG PHILIP MD [facility] 05-18-2021 12:14-0500 Systolic blood pressure 147 mm[Hg] JAG PHILIP MD [facility] 05-08-2021 13:12-0500 Body height 160 cm JAG PHILIP MD [facility] 05-08-2021 13:12-0500 Body weight 64.9 kg JAG PHILIP MD [facility] 05-08-2021 13:12-0500 Body weight 25.35 kg/m2 JAG PHILIP MD [facility] 05-08-2021 13:12-0500 diastolic 58 mm[Hg] JAG PHILIP MD [facility] 05-08-2021 13:12-0500 Heart rate 113 /min JAG PHILIP MD [facility] 05-08-2021 13:12-0500 systolic 154 mm[Hg] JAG PHILIP MD [facility] Encounters Encounter Date Encounter Type Care Provider Facility Start: 12-02-2024 End: 12-02-2024 Patient encounter procedure Aminata HAZEL -[facility] Work Phone: Start: 12-02-2024 End: 12-02-2024 ambulatory Nandini Mayorga NP [place] Start: 10-21-2024 End: 10-21-2024 Patient encounter procedure Aminata Martínez [facility] -[facility] Work Phone: Start: 10-21-2024 End: 10-21-2024 ambulatory Nandini Mayorga NP [facility] Start: 09-08-2024 End: 09-08-2024 ambulatory Nandini Mayorga [employer] Work Phone: [facility] Work Phone: Start: 09-08-2024 End: 09-08-2024 Patient encounter procedure Tim Sanchez [employer] -Laboratory, Specimen Work Phone: Start: 09-08-2024 End: 09-08-2024 Patient encounter procedure Tim Sanchez [employer] -[facility] Work Phone: Start: 09-08-2024 End: 09-08-2024 ambulatory Nandini Mayorga [employer] Facility:[facility] Start: 09-08-2024 End: 09-08-2024 ambulatory Tim Sanchez [employer] Facility:[facility] Start: 07-22-2024 ambulatory Rocio Pena cility:[facility] Start: 07-22-2024 Non-patient / Non-visit Dr. Cristi Rivera DO [facility] Start: 07-21-2024 Non-patient / Non-visit Aminata [facility] Start: 07-20-2024 Non-patient / Non-visit Dr. Cristi Rivera DO [facility] Start: 07-20-2024 ambulatory Rocio Pena cility:[facility] Start: 07-20-2024 End: 07-22-2024 Evaluation and management of inpatient Dr. Rocio Rivera DO -[facility] Work Phone: Start: 07-12-2024 End: 07-12-2024 Patient encounter procedure Aminata Martínez [facility] Work Phone: Start: 07-12-2024 End: 07-12-2024 ambulatory Nandini Mayorga [employer] Facility:[facility] Start: 07-09-2024 ambulatory Jaiden Marshall Facilit y:[facility] Start: 07-09-2024 Non-patient / Non-visit Jaidenray Ansari rachel [facility] Start: 07-09-2024 End: 07-09-2024 ambulatory Jaiden Marshall Facility:[facility] Start: 07-09-2024 End: 07-09-2024 Patient encounter procedure Jaiden Rolando [facility] Work Phone: Start: 07-08-2024 End: 07-08-2024 ambulatory JULIETA LUA [facility] Start: 07-06-2024 End: 07-06-[address] Rocio Rivera DO [facility] Work Phone: Start: 07-06-2024 End: 07-06-2024 ambulatory Rocio Rivera Facility:[facility] Start: 07-06-2024 End: 07-06-2024 ambulatory Rocio Rivera Facility:[facility] Start: 07-02-2024 End: 07-02-[address] Julieta Lua MD -[facility] Work Phone: Start: 07-02-2024 End: 07-02-2024 ambulatory Nandini Mayorga [employer] Facility:[facility] Start: 06-14-2024 End: 06-14-2024 Patient encounter procedure Aminata Martínez CNM -[facility] Work Phone: Start: 06-14-2024 End: 06-14-2024 ambulatory Nandini Mayorga [employer] Facility:[facility] Start: 06-08-2024 End: 06-08-2024 ambulatory SADIA MCKINLEYKaren [facility] Start: 06-08-2024 End: 06-08-20[facility] Start: 06-03-2024 End: 06-03-[address] Rocio Rivera DO -[facility] Work Phone: Start: 06-03-2024 End: 06-03-2024 ambulatory Rocio Rivera Facility:[facility] Start: 05-17-2024 End: 05-17-2024 ambulatory Nandini Mayorga NP Facility:[facility] Start: 05-11-2024 End: 05-11-2024 ambulatory NANDINI MAYORGA [facility] Start: 2024 End: 2024 ambulatory Aminata Martínez Facility:[facility] Start: 05-04-2024 End: 05-04-2024 ambulatory Tim Sanchez NP Facility:[facility] Start: 04-02-2024 End: 04-02-2024 ambulatory Nandini Mayorga [employer] Facility:[facility] Start: 03-03-2024 End: 03-03-2024 ambulatory Nandini Mayorga [employer] Facility:[facility] Start: 03-02-2024 End: 03-02-2024 ambulatory MD NGUYEN [facility] Start: 02-02-2024 End: 02-02-2024 ambulatory Tim Sanchez AAMIR Facility:[facility] Start: 01-30-2024 End: 01-30-2024 ambulatory Rocio Rivera Facility:[facility] Start: 01-05-2024 End: 01-05-2024 ambulatory Rocio Rivera Facility:[facility] Start: 01-05-2024 End: 01-05-2024 ambulatory Rociothomas Parks Rosy Facility:[facility] Start: 04-07-2023 End: 04-12-2023 ambulatory PAYAL ROSE MD Facility:[facility] Start: 04-07-2023 End: 04-12-2023 Encounter for gynecological examination (general) (routine) without abnormal findings PAYAL ROSE MD Facility:[facility] Start: 04-07-2023 End: 04-11-2023 Outreach Lab PAYAL ROSE MD [facility] Start: 08-18-2022 End: 08-20-2022 Evaluation and management of inpatient NANDINI MAYORGA [employer] Facility:[facility] Start: 08-18-2022 End: 08-20-2022 Evaluation and management of inpatient PAYAL ROSE MD [facility] Start: 08-07-2022 End: 08-12-2022 ambulatory JAG PHILIP Facility:[facility] Start: 08-07-2022 End: 08-11-2022 Outreach Lab JAG PHILIP MD [facility] Start: 08-07-2022 End: 08-08-2022 ambulatory JAG PHILIP Facility:[facility] Start: 08-06-2022 End: 08-07-2022 ambulatory WALTER BROUSSARD MD Facility:[facility] Start: 08-06-2022 End: 08-06-2022 Patient encounter procedure WALTER BROUSSARD MD [facility] Start: 07-09-2022 End: 07-10-2022 ambulatory JAG TAMERA Facility:[facility] Start: 07-09-2022 End: 07-09-2022 Patient encounter procedure JAG PHILIP MD [facility] Start: 07-08-2022 End: 07-09-2022 ambulatory MARGARET SHAW Facility:[facility] Start: 06-07-2022 End: 06-08-2022 ambulatory JAG PHILIP Facility:[facility] Start: 05-28-2022 End: 05-29-2022 ambulatory JAG TAMERA Facility:[facility] Start: 05-28-2022 End: 05-28-2022 Patient encounter procedure JAG PHILIP MD [facility] Start: 04-02-2022 End: 04-02-2022 Patient encounter procedure JAG PHILIP MD [facility] Start: 03-18-2022 End: 03-18-2022 Patient encounter procedure JAG PHILIP MD [facility] Start: 01-29-2022 End: 01-29-2022 Patient encounter procedure JAG PHILIP MD [facility] Start: 01-01-2022 End: 01-01-2022 Patient encounter procedure NANDINI MAYORGA 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 This liquid based Th inPrep(R) pap test was screened withthe use of an image guided system. Start: 07-06-2024 Beta-hemolytic Strep tococcus culture Nandini Mayorga NP-C Work Phone: Start: 04-30-2021 Loop electrosurgical excision procedure JAG PHILIP MD Lacrimal canaliculus structure (body structure) JAG PHILIP MD Comment on above: SX, Manipulation of wrist joint JAG PHILIP MD Comment on above: RIGHT Plan of Treatment Date Care Activity Detail Author Start: 07-22-2024 Patient discharge [facility] Start: 07-20-2024 Documentation procedure [facility] Start: 07-20-2024 Administration of medication [facility] Start: 07-20-2024 Application of ice c ollar, cap or bag [facility] Start: 07-20-2024 Catheterization of vein [facility] Start: 07-20-2024 Introduction of urin kenny catheter [facility] Start: 07-20-2024 Measuring intake and output [facility] Start: 07-20-2024 Notification of physician [facility] Start: 07-20-2024 Procedure discontinued [facility] Start: 07-20-2024 Provision of activit y privileges [facility] Start: 07-20-2024 Vital signs measurements [facility] Start: 07-20-2024 End: 07-20-2024 [facility] Start: 07-20-2024 Admission procedure [facility] Start: 07-09-2024 Iv infusion hydratio n each additional hour HYDRATE IV INFUSION ADD-ON [facility] Start: 07-09-2024 Ther proph/dx njx iv push single/1st sbst/drug THER/PROPH/DIAG INJ IV PUSH [facility] Start: 07-09-2024 Nonstress test [facility] Start: 07-09-2024 Obstetric monitoring [facility] Start: 07-09-2024 Vital signs measurements [facility] Start: 07-09-2024 [facility] Start: 07-09-2024 Catheterization of vein [facility] Start: 07-09-2024 Patient discharge [facility] Patient Education [facility] Work Phone: Patient referral [facility] Work Phone: [facility] Immunizations Immunization Date Immunization Notes Care Provider Fa cility 05-17-2024 tetanus toxoid, redu teresa diphtheria toxoid, and acellular pertussis vaccine, adsorbed Nandini WRIGHT Work Phone: [facility] 07-31-2022 tetanus toxoid, redu teresa diphtheria toxoid, and acellular pertussis vaccine, adsorbed; Translations: [Boostrix (Tdap)] WALTER BROUSSARD MD [facility] 10-30-2015 tetanus and diphther ia toxoids, adsorbed, preservative free, for adult use (5 Lf of tetanus toxoid and 2 Lf of diphtheria toxoid) JAG PHILIP MD [facility] 02-20-1995 diphtheria, tetanus toxoids and acellular pertussis vaccine JAG PHILIP MD [facility] 02-20-1995 measles/mumps/rubell a virus vaccine JAG PHILIP MD [facility] 02-20-1995 poliovirus vaccine, inactivated JAG PHILIP MD [facility] 12-02-1990 diphtheria, tetanus toxoids and acellular pertussis vaccine JAG PHILIP MD [facility] 12-02-1990 poliovirus vaccine, inactivated JAG PHILIP MD [facility] 08-20-1990 haemophilus influenz ae type b vaccine, PRP-T conjugate JAG PHILIP MD [facility] 08-20-1990 measles/mumps/rubell a virus vaccine JAG PHILIP MD [facility] 05-13-1990 haemophilus influenz ae type b vaccine, PRP-T conjugate JAG PHILIP MD [facility] 1989 diphtheria, tetanus toxoids and acellular pertussis vaccine JAG PHILIP MD [facility] 1989 diphtheria, tetanus toxoids and acellular pertussis vaccine JAG PHILIP MD [facility] 1989 poliovirus vaccine, inactivated JAG PHILIP MD [facility] 1989 diphtheria, tetanus toxoids and acellular pertussis vaccine JAG PHILIP MD [facility] 1989 poliovirus vaccine, inactivated JAG PHILIP MD [facility] Payers Date Payer Category Payer Unknown [id number] 2023 Self-pay 2016 Unknown [id number] 1989 Unknown [id number] 2.16.8 40.1.276217.3.579.2.627 1989 Unknown [id number] 2.16.8 40.1.914077.3.579.2.627 1989 Unknown [id number] 2.16.8 40.1.642797.3.579.2.627 1989 Unknown [id number] 2.16.8 40.1.332666.3.579.2.627 1989 Unknown [id number] 2.16.8 40.1.913115.3.579.2.627 1989 Unknown [id number] 2.16.8 40.1.849245.3.579.2.627 1989 Unknown [id number] 2.16.8 40.1.690419.3.579.2.627 1989 Unknown [id number] 2.16.8 40.1.564102.3.579.2.627 1989 Unknown [id number] 2.16.8 40.1.995956.3.579.2.627 1989 Unknown [id number] 2.16 840.1.139350.3.579.2.479 1989 Unknown [id number] 2.16 840.1.586804.3.579.2.479 1989 Unknown [id number] 2.16 840.1.553336.3.579.2.479 1989 Unknown [id number] 2.16 840.1.864338.3.579.2.479 1989 Unknown [id number] 2.16. 840.1.246563.3.579.2.479 1989 Unknown [id number] 2.16 840.1.669916.3.579.2.479 Unknown [id number] 2.16.8 40.1.454299.3.579.2.462 Unknown [id number] 2.16.8 40.1.437658.3.579.2.462 Unknown [id number] 2.16.8 40.1.564626.3.579.2.462 Unknown [id number] 2.16.8 40.1.655417.3.579.2.462 Unknown [id number] 2.16.8 40.1.797375.3.579.2.462 Unknown [id number] 2.16.8 40.1.470822.3.579.2.462 Unknown [id number] 2.16.8 40.1.915463.3.579.2.462 Unknown [id number] 2.16.8 40.1.064444.3.579.2.462 Unknown [id number] 2.16.8 40.1.791558.3.579.2.462 Unknown [id number] 2.16.8 40.1.124028.3.579.2.462 Unknown [id number] 2.16.8 40.1.757717.3.579.2.462 Unknown [id number] 2.16.8 40.1.100442.3.579.2.462 Unknown [id number] 2.16.8 40.1.001229.3.579.2.462 Unknown [id number] 2.16.8 40.1.987832.3.579.2.462 Unknown [id number] 2.16.8 40.1.490711.3.579.2.462 Unknown [id number] 2.16.8 40.1.204656.3.579.2.462 Unknown [id number] 2.16.8 40.1.441839.3.579.2.462 Unknown [id number] 2.16.8 40.1.524369.3.579.2.462 Unknown [id number] 2.16.8 40.1.921730.3.579.2.462 Unknown [id number] 2.16.8 40.1.482463.3.579.2.462 Unknown [id number] 2.16.8 40.1.893086.3.579.2.462 Unknown [id number] 2.16.8 40.1.858547.3.579.2.462 Unknown [id number] 2.16.8 40.1.100060.3.579.2.462 Unknown [id number] 2.16.8 40.1.709875.3.579.2.462 Unknown [id number] 2.16.8 40.1.618012.3.579.2.462 Unknown [id number] 2.16.8 40.1.625899.3.579.2.462 Social History Date Type Detail Facility Start: 09-19-2020 End: 07-20-2024 Never smoked tobacco (finding) [facility] Start: 1990 Sex Assigned At Female A [facility] Patient currentl y [facility] Start: 09-15-2024 Sex Female (finding) [facility] Medical Equipment Procedure Code Equipment Code Equipment Origin al Text Equipment Identifier Dates See Instructions , Dispense 100 Use 4x daily Diagnosis: Gestational Diabetes, # 100 EA, 5 Refill(s), Pharmacy: [facility] #[facility], 28 weeks gestation of Gestational diabetes, 161, cm, 06/11/22 9:01:00 EST, Height, 74.3 Start: 06-11-2022 See Instructions , Dispense 100 Use 4x daily Diagnosis: Gestational Diabetes, # 100 EA, 5 Refill(s), Pharmacy: [facility] #30, 28 weeks gestation of Gestational diabetes, 161, cm, 06/11/22 9:01:00 EST, Height, 74.3 Start: 06-11-2022 See Instructions , Dispense 100 Use 4x daily Diagnosis: Gestational Diabetes, # 100 EA, 5 Refill(s), Pharmacy: [facility] #[facility], 28 weeks gestation of Gestational diabetes, 161, cm, 06/11/22 9:01:00 EST, Height, 74.3 Start: 06-11-2022 See Instructions , Dispense 100 Use 4x daily Diagnosis: Gestational Diabetes, # 100 EA, 5 Refill(s), Pharmacy: [facility] #[facility], 28 weeks gestation of Gestational diabetes, 161, cm, 06/11/22 9:01:00 EST, Height, 74.3 Start: 06-11-2022 See Instructions , Dispense 100 Use 4x daily Diagnosis: Gestational Diabetes, # 100 EA, 5 Refill(s), Pharmacy: [facility] #[facility], 28 weeks gestation of Gestational diabetes, 161, cm, 06/11/22 9:01:00 EST, Height, 74.3 Start: 06-11-2022 See Instructions , Dispense 100 Use 4x daily Diagnosis: Gestational Diabetes, # 100 EA, 5 Refill(s), Pharmacy: [facility] #30, 28 weeks gestation of Gestational diabetes, 161, cm, 06/11/22 9:01:00 EST, Height, 74.3 Start: 06-11-2022 Blood Sugar Diagnostic (Blood Glucose Test) strip Start: 2024 [facility] Start: 2024 Blood Sugar Diagnostic (Blood Glucose Test) strip Start: 2024 End: 10-21-2024 [facility] Start: 2024 End: 10-21-2024 Goals Date Patient Goal Desired Activity /State Functional Status Date Assessment Result Facility 08-20-2022 Functional Status Rooming in [facility] 08-20-2022 Functional Status [facility] 08-20-2022 Functional Status [facility] 08-19-2022 Functional Status [facility] 08-18-2022 Functional Status Good [facility] Mental Status Date Assessment Result Facility 08-20-2022 Mental Status Orientation Oriented x 4 [facility] 08-19-2022 Mental Status [facility] Clinical Notes 04-11-2021 to 12-02-2024 Note Date & Type Note Facility 12-02-2024 Progress note [facility] 09-08-2024 Note [facility] Pap Smear Specimen Adequacy September 08, 2024 11:59pm Comment . Satisfactory for evaluation. Endocervical and/or squamous metaplasticcells (endocervical component) are present. Comment on above: Satisfactory for leeroy luation. Endocervical and/or squamous metaplasticcells (endocervical component) are present. 09-08-2024 Evaluation note Diagnosis Onset Date Resolution Routine Follow-Up noneactive September 08, 2024 10:33am Contraception management acute October 21, 2024 11:33am IUD check up acute December 02 11:14am [facility] Work Phone: [phone] NoteNicole Sparr is here for consultation at the request of Melina Swain MD for: Hydronephrosis History of Presenting Problem: Visit with Mom and Dad. Hx of left hydro. First noted at 28 weeks. Amniotic fluid is normal. Anticipated due date is 07/31/24. Planning to deliver in [place]. Anticipated sex (based on US) is male. Mom is interested in in circumcision. Local OB: Tim Sanchez ([place]) Planned freight flagman: Maryjo Gemrain ([facility]) Past Medical History: Past Medical History: Diagnosis Date Treatment Center Plan of Care Gestational diabetes Vaginal Pap smear, abnormal Past Surgical History: Past Surgical History: Procedure Laterality Date LEEP WISDOM TOOTH EXTRACTION Family History: No family history of anomalies. Social History: Lives at home with parents. Medications: Outpatient Encounter Medications as of 06/08/2024 Medication Sig Dispense Refill albuterol 108 (90 Base) MCG/ACT inhaler Inhale 2 Puffs into the lungs every 4 hours as needed ARNUITY ELLIPTA 100 MCG/ACT inhaler INHALE 1 PUFF BY MOUTH EVERY 24 HOURS Vit w/In-Bjdzsygod-VO (PNV PO) Take 1 Tablet by mouth daily aspirin 81 MG chewable tablet Take 1 Tablet (81 mg) by mouth daily No facility-administered encounter medications on file as of 06/08/2024. Allergies: Allergies Allergen Reactions Peanut Allergy Anaphylaxis Sesame Seed Anaphylaxis Tree Nut Allergy Anaphylaxis Review of Systems: A comprehensive review of systems was negative. No cardiac, respiratory/airway or bleeding disorders identified. Physical Exam: Vitals: 06/08/24 1251 Weight: 81.1 kg Height: 160 cm General: Well appearing, alert Eyes: Conjunctivae normal ENT: Ears normal, no nasal discharge Neck: Neck supple, trachea normal Resp: Normal effort, no wheezing Heart: no cyanosis Lymphatic: No obvious lymphadenopathy Abdomen: Gravid uterus Musculoskeletal: Normocephalic head, anticipated range of motion, no deformity or edema Neurologic: grossly expected sensation and strength Skin: good color, warm and dry Laboratory Testing: I personally reviewed all labs noted in [facility], as well as those listed below. No results found for this visit on 06/08/24. No results found for: CREATININE, BUN, NA, K, CL, CO2 No results found for: URINECULT Imaging: I personally reviewed and interpreted all imaging studies noted in [facility], as well as relevant imaging listed below. US @ 28 weeks Left kidney with pelvocaliectasis; AP 11 mm, UTD A2-3 Assessment & Plan: Vicenta was seen today for hydronephrosis. Diagnoses and all orders for this visit: Pyelectasis of fetus on ultrasound - AMB Referral To Urology Today we discussed the various etiologies of hydronephrosis, including physiologic dilation (a variant of normal anatomy), vesicoureteral reflux, and obstruction. We reviewed the natural history of hydronephrosis, including the possibility of resolution or worsening. We discussed the tests that may be considered after . We will continue to monitor the patient with serial ultrasounds and may consider further workup with a VCUG or MAG-3 Renal Lasix Scan in the future should the hydronephrosis worsen or the child develops UTI, pain, or other symptoms. All questions were answered and mom expressed understanding. Parents are planning for circumcision. I support this decision. We discussed the benefit of decreased risk of UTI in the first 6 to 12 months of life. I have ordered a RBUS to be done after (>48 hrs to 1 month). This will be done in the office at next visit. Parents will call to schedule follow-up appt once baby is born [facility]ADIA LEPE [facility] Evaluation note* Diagnosis Onset Date Resolution Status Admit Date Asthma acute June 03, 2024 2:36pm Hx of abnormal cervical Pap smear acute June 03 2:36pm AMA (advanced maternal age) multigravida 35+ resolved June 03, 024 2:36pm Gestational diabetes mellitus (GDM) affecting , antepartum resolved June 032023 2:36pm H/O gestational diabetes in prior , currently resolved June 03 2:36pm Placenta previa antepartum resolved June 03, 2024 2:36pm resolved June 03, 2024 2:36pm Pyelectasis of fetus on ultrasound resolved May 2:36pm Supervision of high-risk resolved June 03 2:36pm Cystic fibrosis carrier inactive D ecember 2023 2:36pm History of gestational hypertension inactive June 03 2:36pm Asthma acute June 14, 2024 10:30am Hx of abnormal cervical Pap smear acute June 14, 2 024 10:30am AMA (advanced maternal age) multigravida 35+ resolved June 14, 2024 10:30am Gestational diabetes mellitus (GDM) affecting , antepartum resolved May 302023 10:30am H/O gestational diabetes in prior , currently resolved June 14, 024 10:30am Placenta previa antepartum resolved June 14, 2024 10:30am resolved June 14, 2024 10:30am Pyelectasis of fetus on ultrasound resolved May 10:30am Supervision of high-risk resolved June 14 024 10:30am Cystic fibrosis carrier inactive D ecember 2023 10:30am History of gestational hypertension inactive June 14, 2 024 10:30am Asthma acute July 02, 2 025 1:00pm Hx of abnormal cervical Pap smear acute July 02 1:00pm AMA (advanced maternal age) multigravida 35+ resolved July 02 1:00pm Gestational diabetes mellitus (GDM) affecting , antepartum resolved June 1:00pm H/O gestational diabetes in prior , currently resolved July 02 1:00pm resolved July 02, 2 025 1:00pm Pyelectasis of fetus on ultrasound resolved July 02, 2024 1:00pm Supervision of high-risk resolved July 02 1:00pm Cystic fibrosis carrier inactive J anuary 2024 1:00pm History of gestational hypertension inactive July 02 1:00pm Asthma acute July 06 9:58am Hx of abnormal cervical Pap smear acute July 06 9:58am AMA (advanced maternal age) multigravida 35+ resolved July 06 9:58am Gestational diabetes mellitus (GDM) affecting , antepartum resolved June 9:58am H/O gestational diabetes in prior , currently resolved July 06 9:58am resolved July 06 9:58am Pyelectasis of fetus on ultrasound resolved July 06, 2024 9:58am Supervision of high-risk resolved July 06 9:58am Cystic fibrosis carrier inactive J anuary 2024 9:58am History of gestational hypertension inactive July 06 9:58am Nausea and vomiting during deleted July 09 1:15pm Asthma acute July 12, 2024 10:33am Hx of abnormal cervical Pap smear acute July 12 10:33am AMA (advanced maternal age) multigravida 35+ resolved July 12 10:33am Gestational diabetes mellitus (GDM) affecting , antepartum resolved July 122024 10:33am H/O gestational diabetes in prior , currently resolved July 12 10:33am resolved July 12, 2024 10:33am Pyelectasis of fetus on ultrasound resolved June 10:33am Supervision of high-risk resolved July 12 10:33am Cystic fibrosis carrier inactive J anuary 2024 10:33am History of gestational hypertension inactive July 12 10:33am Nausea and vomiting during deleted July 12 10:33am Asthma acute July 20, 2024 6:08pm Hx of abnormal cervical Pap smear acute July 20 6:08pm AMA (advanced maternal age) multigravida 35+ resolved July 20 6:08pm Gestational diabetes mellitus (GDM) affecting , antepartum resolved July 202024 6:08pm H/O gestational diabetes in prior , currently resolved July 20 6:08pm resolved July 20, 2024 6:08pm Pyelectasis of fetus on ultrasound resolved June 6:08pm Supervision of high-risk resolved July 20 6:08pm Vaginal delivery resolved July 20, 2024 6:08pm Cystic fibrosis carrier inactive J an2024 6:08pm History of gestational hypertension inactive July 20 6:08pm Nausea and vomiting during deleted July 20 6:08pm Routine Follow-Up noneact piotr September 08, 2024 10:33am [facility] Work Phone: [phone]) 151-847610-12-2023 Note SATISFACTORY FOR EVALUATION Endocervical/Transformational zone component present [facility] 10-12-2023 Note SATISFACTORY FOR EVALUATION Endocervical/Transformational zone component present [facility] 10-12-2023 Note SATISFACTORY FOR EVALUATION Endocervical/Transformational zone component present [facility] 10-12-2023 Note SATISFACTORY FOR EVALUATION Endocervical/Transformational zone component present [facility] 10-12-2023 Note SATISFACTORY FOR EVALUATION Endocervical/Transformational zone component present [facility] 10-12-2023 Note SATISFACTORY FOR EVALUATION Endocervical/Transformational zone component present [facility] 10-12-2023 Note SATISFACTORY FOR EVALUATION Endocervical/Transformational zone component present [facility] 10-12-2023 Note SATISFACTORY FOR EVALUATION Endocervical/Transformational zone component present [facility] 10-12-2023 Note SATISFACTORY FOR EVALUATION Endocervical/Transformational zone component present [facility] 02-21-2023 Evaluation + Plan noteExtracted from: Title:Clinical Document Author:JAG PHILIP MD Date:08/20/22 Subjective Comfortable with oral Motrin Lochia small. Baby is nursing well. . Objective Looks very well. Independent in room. CVS: RRR Lungs: CTA B Abdomen: Soft, uterus firm at U- 2 Extremities: Nontender with 1+ edema VITALS [id number](kg) 08/20 07:4636.8--9616----08/18 84.1 08/19 23:0036.8--9218---- 08/19 20:54 RA 08/19 17:4336.8--11246--YV 08/19 10:0036.8--59864--OX 24 Hr Tmax: 36.8 at 08/20 07:46 36 Hr Tmax: 36.8 at 08/20 07:46 Vital Signs are the last 5 in the past 48 hours. Weights display the last 5 within 7 days. Initial Wt: 08/18 84.1 kg 185 lb Current Wt: 08/18 84.1 kg 185 lb LABS 08/19 05:35 Hgb: 11.1 L Hct: 32.8 L Medications Active Inpt Meds: tetanus/diphth/pertuss (Tdap) adult/adol (Boostrix (Tdap)) Start: 08/18/22 23:00:00 EST, Dose = 0.5 mL, Susp, Intramuscular, Vaccine, 08/18/22 22:51:00 EST Active PRN Meds: RHo (D) immune globulin (Rhophylac) Start: 08/18/22 22:51:00 EST, Dose = 300 mcg, = 2 mL, Intramuscular, AsDirected, PRN, if Rh factor neg per policy, 1 dose(s), Stop: Limited # of times, 08/18/22 22:51:00 EST acetaminophen-hydrocodone (Kelliher 325- 5 mg oral tablet) Start: 08/18/22 22:51:00 EST, Dose = 1 tab(s), Tab, Oral, q6h, PRN, Pain, scale 4-6, 08/18/22 22:51:00 EST acetaminophen-hydrocodone (Kelliher 325- 5 mg oral tablet) Start: 08/18/22 22:51:00 EST, Dose = 2 tab(s), Tab, Oral, q6h, PRN, Pain, scale 7-10, 08/18/22 22:51:00 EST acetaminophen (Tylenol) Start: 08/18/22 22:51:00 EST, Dose = 650 mg, = 2 tab(s), Oral, q6h, PRN, Pain, scale 1-3, 0, 08/18/22 22:51:00 EST benzocaine topical (Dermoplast topical spray) Start: 08/18/22 22:51:00 EST, Dose = 1 spray(s), [place], Perineum, q1h, PRN, Other (see order comments), 08/18/22 22:51:00 EST benzocaine topical (Americaine Hemorrhoidal 20% rectal ointment) Start: 08/18/22 22:51:00 EST, Dose = 1 joanie, Ointment, Perineum, AsDirected, PRN, to perineal sutures, 08/18/22 22:51:00 EST bisacodyl (Dulcolax Laxative) Start: 08/18/22 22:51:00 EST, Dose = 10 mg, = 1 supp, Rectal, qDay, PRN, Constipation, 08/18/22 22:51:00 EST carboprost (Hemabate) Start: 08/18/22 22:51:00 EST, Dose = 250 mcg, = 1 mL, Intramuscular, Once, PRN, Other (see order comments), 08/18/22 22:51:00 EST citric acid-sodium citrate (Bicitra) Start: 08/18/22 22:51:00 EST, Dose = 30 mL, Soln, Oral, AsDirected, PRN, Gastric Upset, 08/18/22 22:51:00 EST docusate (Colace) Start: 08/18/22 22:51:00 EST, Dose = 100 mg, = 1 cap(s), Oral, BID, PRN, Constipation, 08/18/22 22:51:00 EST glycerin-witch arash topical (glycerin-witch arash 50% topical pad) Start: 08/18/22 22:51:00 EST, Dose = 1 joanie, Pad, Topical, AsDirected, PRN, Hemorrhoids, 0, 08/18/22 22:51:00 EST hydrocortisone topical (Anusol-HC 25 mg rectal suppository) Start: 08/18/22 22:51:00 EST, Dose = 25 mg, = 1 supp, Rectal, BID, PRN, hemorrhoidal discomfort, 08/18/22 22:51:00 EST hydrocortisone-pramoxine topical (Analpram-HC 2.5%-1% rectal cream) Start: 08/18/22 22:51:00 EST, Dose = 1 joanie, Cream, Perineum, q1h, PRN, hemorrhoidal or perineal discomfort, 08/18/22 22:51:00 EST ibuprofen (Motrin) Start: 08/18/22 22:51:00 EST, Dose = 600 mg, = 1 tab(s), Oral, q6h, PRN, uterine cramping, 08/18/22 22:51:00 EST lanolin topical (Lansinoh for Breast Feeding Mothers) Start: 08/18/22 22:51:00 EST, 7 g, Dose = 1 EA, Topical, AsDirected, PRN, Other (see order comments), Apply to: nipple area, Ointment, 08/18/22 22:51:00 EST lidocaine (Xylocaine HCl 1% injectable solution) Start: 08/18/22 22:51:00 EST, Dose = 20 mg, = 2 mL, Perineum, AsDirected, PRN, to perineal sutures, 1 dose(s), Stop: Limited # of times, 08/18/22 22:51:00 EST methylergonovine (Methergine) Start: 08/18/22 22:51:00 EST, Dose = 0.2 mg, = 1 mL, Intramuscular, Once, PRN, Other (see order comments), 08/18/22 22:51:00 EST miSOPROStol (Cytotec) Start: 08/18/22 22:51:00 EST, Dose = 1,000 mcg, = 5 tab(s), Rectal, Once, PRN, Other (see order comments), 0, 08/18/22 22:51:00 EST oxytocin (Pitocin) Start: 08/18/22 22:51:00 EST, Dose = 20 unit(s), = 2 mL, Intramuscular, Once, PRN, Other (see order comments), 0, 08/18/22 22:51:00 EST simethicone (Mylicon) Start: 08/18/22 22:51:00 EST, Dose = 80 mg, = 1 tab(s), Chewed, TID, PRN, Dyspepsia, 08/18/22 22:51:00 EST sodium biphosphate-sodium phosphate (Fleet Enema) Start: 08/18/22 22:51:00 EST, Dose = 133 mL, Enema, Rectal, qDay, PRN, Constipation, 08/18/22 22:51:00 EST zolpidem (Ambien) Start: 08/18/22 22:51:00 EST, Dose = 5 mg, = 1 tab(s), Oral, qHS, PRN, Sleep, 08/18/22 22:51:00 EST One Time Meds: None Active IV Meds: oxytocin 20 unit(s) + LR Premix Diluent 1,000 mL (Oxytocin for IV (mL/hr) 20 unit(s) + LR Premix Diluent 1,000 mL) Start: 08/18/22 22:51:00 EST, Rate: 999 mL/hr, 08/18/22 22:51:00 EST oxytocin 20 unit(s) + LR Premix Diluent 1,000 mL (Oxytocin for IV (mL/hr) 20 unit(s) + LR Premix Diluent 1,000 mL) Start: 08/18/22 22:51:00 EST, Rate: 125 mL/hr, 08/18/22 22:51:00 EST Problems (7) Asthma (605137079) Chronic hypertension (9772321781) Food allergy (0308227524) Gestational diabetes, diet controlled (05576333) (114537889) Rubella non-immune (253362347) Status post vacuum-assisted vaginal delivery (136211252) ASSESSMENT/PLAN: PPD #1 after vacuum delivery. Doing well. Baby ready for discharge too. Home , Fe, Ibuprofen. Extracted from: Title:Clinical Document Author:PAYAL ROSE MD Date:08/18/22 [place] ADMISSION HISTORY AN D PHYSICIAL CHIEF COMPLAINT:Contraction pains HISTORY OF PRESENT ILLNESS: 32 year old at 37w6d ega with complaints of strong contractions since about 1 pm today. Thinks she passed mucus plug earlier today. Unsure if had SROM. complicated by hypertension and well controlled GDM. GBS negative on screening. REVIEW OF SYSTEMS:Strong contractions. Otherwise good movement and otherwise ROS unremarkable. ACTIVE PROBLEMS: (6) Asthma (812671725) Chronic hypertension (0961487814) Food allergy (8323069136) Gestational diabetes, diet controlled (71845652) (823449157) Rubella non-immune ([id number]) MEDICATIONS: Active Inpt Meds: influenza virus vaccine, inactivated (FluLaval PF Quadrivalent ) Start: 08/18/22 19:00:00 EST, Dose = 0.5 mL, Susp, Intramuscular, Vaccine, 1 dose(s), OBU, 08/18/22 18:20:00 EST Active PRN Meds: Lactated Ringers Infusion (LR 500 mL Bolus) Start: 08/18/22 16:19:00 EST, Dose = 500 mL, Soln, IV Bolus, AsDirected, PRN, Other (see order comments), Rate: 125 mL/hr, hour(s), 08/18/22 16:19:00 EST carboprost (Hemabate) Start: 08/18/22 16:19:00 EST, Dose = 250 mcg, = 1 mL, Intramuscular, Once, PRN, Other (see order comments), 08/18/22 16:19:00 EST citric acid-sodium citrate (Bicitra) Start: 08/18/22 16:19:00 EST, Dose = 30 mL, Soln, Oral, AsDirected, PRN, Gastric Upset, 0, 08/18/22 16:19:00 EST lidocaine (Xylocaine HCl 1% injectable solution) Start: 08/18/22 16:19:00 EST, Dose = 20 mg, = 2 mL, Perineum, AsDirected, PRN, to perineal sutures, 1 dose(s), Stop: Limited # of times, 08/18/22 16:19:00 EST methylergonovine (Methergine) Start: 08/18/22 16:19:00 EST, Dose = 0.2 mg, = 1 mL, Intramuscular, Once, PRN, Other (see order comments), 08/18/22 16:19:00 EST miSOPROStol (Cytotec) Start: 08/18/22 16:19:00 EST, Dose = 1,000 mcg, = 5 tab(s), Rectal, Once, PRN, Other (see order comments), 0, 08/18/22 16:19:00 EST naloxone (Narcan) Start: 08/18/22 18:09:00 EST, Dose = 0.1 mg, = 0.25 mL, IV Push, AsDirected, PRN, Control symptoms, 08/18/22 18:09:00 EST naloxone (Narcan) Start: 08/18/22 18:09:00 EST, Dose = 0.4 mg, = 1 mL, IV Push, AsDirected, PRN, Control symptoms, 08/18/22 18:09:00 EST ondansetron (Zofran) Start: 08/18/22 16:19:00 EST, Dose = 4 mg, = 2 mL, IV Push, q4h, PRN, Nausea, 08/18/22 16:19:00 EST ondansetron (Zofran) Start: 08/18/22 18:09:00 EST, Dose = 4 mg, = 2 mL, IV Push, q4h, PRN, Nausea/Vomiting, 2 dose(s), Stop: Limited # of times, 08/18/22 18:09:00 EST oxytocin (Pitocin) Start: 08/18/22 16:19:00 EST, Dose = 20 unit(s), = 2 mL, Intramuscular, Once, PRN, Other (see order comments), 0, 08/18/22 16:19:00 EST terbutaline (Brethine) Start: 08/18/22 16:19:00 EST, Dose = 0.25 mg, = 0.25 mL, Subcutaneous, AsDirected, PRN, Other (see order comments), 08/18/22 16:19:00 EST tranexamic acid (tranexamic acid 1 g / 100 mL 0.7% NaCl PMX) Start: 08/18/22 16:19:00 EST, Dose = 1 gram(s), = 100 mL, IV Piggyback, AsDirected, PRN, Other (see order comments), Rate: 300 mL/hr, Infuse over: 20 minute(s), 0, 08/18/22 16:19:00 EST One Time Meds: (Completed) nalbuphine (Nubain) Start: 08/18/22 16:21:00 EST, Dose = 10 mg, = 1 mL, IV Push, Once, STAT, Stop: 08/18/22 16:21:00 EST, 08/18/22 16:21:00 EST Active IV Meds: Lactated Ringers Infusion 1,000 mL (LR 1,000 mL) Start: 08/18/22 16::00 EST, Rate: 125 mL/hr, 08/18/22 16:19:00 EST bupivacaine-fentanyl 100 mL (Marcaine-Sublimaze 0.125%-2 mcg/mL EPIDURAL 100 mL 100 mL) start date 08/18/22 18:09:00 EST, 100 mL, Epidural, 11 mL/hr, 2 mL Demand Dose, 10 minute Lockout, 18 mL/hr Max hourly rate, 08/18/22 18:09:00 EST oxytocin 20 unit(s) + LR Premix Diluent 1,000 mL (Oxytocin for IV (mL/hr) 20 unit(s) + LR Premix Diluent 1,000 mL) Start: 08/18/22 16:19:00 EST, Rate: 999 mL/hr, 08/18/22 16:19:00 EST ALLERGIES: (2) Nuts Sesame seed Oil FAMILY HISTORY:Noncontributory to this admission SOCIAL HISTORY: Nonsmoker, no alcohol use, no toxic habits. Stable home with good support. PHYSICAL EXAM: VITALS: [id number](kg) 08/18 17:56----[id number]/19 84.1 08/18 17:46----[id number] 08/18 17:0236.3--9622--RA 08/18 16:26----101----RA 08/18 16:1036.3--[id number] 24 Hr Tmax: 36.3 at 08/18 17:02 36 Hr Tmax: 36.3 at 08/18 17:02 Vital Signs are the last 5 in the past 48 hours. Weights display the last 5 within 7 days. Initial Wt: 08/18 84.1 kg 185 lb Current Wt: 08/18 84.1 kg 185 lb GENERAL:Appears well HEENT:Normocephalic CARDIOVASCULAR:RRR normal BP RESPIRATORY:Clear B/L ABDOMEN:Gravid c/w dating. Vertex CERVIX: 6cm on admission EXREMETIES:No significant edema NEUROLOGICAL:Intact PSYCHIATRIC:No signs of acute depression or anxiety LABS: 36hr Labs 08/18 1622 ABO/Rh InterpSee Flowsheet Antibody ScreenSee Flowsheet Hct37.8 Hgb12.7 MCH28.6 MCHC33.7 MCV85.1 MPV10.1 Mddsokwu927 RBC4.44 RDW14.5 WBC15.7H Lymphocyte %18.3 Monocyte %4.4 Neutrophil %76.0 Eosinophil %0.9 Basophil %0.4 Neutrophil, Bakrspqj13.9H Lymphocyte, Absolute2.9 Monocyte, Absolute0.7 Eosinophil, Absolute0.1 Basophil, Absolute0.1 DIAGNOSTICS:Cat 1 FHR tracing IMPRESSION:Active labor PLAN: Had epidural placed. Limited effect thus far. Cervix rechecked and now FD 0 station. Will start pushing efforts. Future Scheduled Tests Laboratory* Glucose Tolerance Test 3 Hour (AO) 06/07/22 * Panel (AO) 01/21/22 * Urinalysis 01/21/22 * Urine Culture 01/21/22 * HIV 1/2 Ab 01/21/22 * Urine Drug Screen 01/21/22 * [facility] Lab Send out (Blood Specimens) 01/21/22 * [facility] Lab Send out (Blood Specimens) 01/21/22 Radiology* US OB Limited/Transvaginal 01/21/22 * US OB Limited/Transvaginal 08/06/22 [facility] 02-19-2023 Note Obstetrics Progress Note: Has now been pushing for about 2 hours. Contractions q 3-4 minutes. Some progress with head at +1 station. Very comfortable with epidural though which may be hampering efforts. FHR tracing Cat 1. Will continue pushing and will assist if can bring head to +2 station. Digitally Signed by PAYAL ROSE MD on 08/18/2022 09:25 PM [facility]02-19-2023 Hospital Discharge instructions Patient Education 08/18/2022 19:18:04 Care After Vaginal Delivery Care After Vaginal Delivery This sheet gives you information about how to care for yourself from the time you deliver your babyto up to 6 12 weeks after delivery ( period). Your health care provider may also give youmore specific instructions. If you have problems or questions, contact your health care provider. Follow these instructions at home: Vaginal bleeding It is normal to have vaginal bleeding (lochia) after delivery. Wear a sanitary pad for vaginal bleeding and discharge. ?During the first week after delivery, the amount and appearance of lochia is often similar to a menstrual period. ?Over the next few weeks, it will gradually decrease to a dry, yellow-brown discharge. ?For most women, lochia stops completely by 4 6 weeks after delivery. Vaginal bleeding can vary from woman to woman. Change your sanitary pads frequently. Watch for any changes in your flow, such as: ?A sudden increase in volume. ?A change in color. ?Large blood clots. If you pass a blood clot from your vagina, save it and call your health care provider to discuss. Do not flush blood clots down the toilet before talking with your health care provider. Do not use tampons or douches until your health care provider says this is safe. If you are not , your period should return 6 8 weeks after delivery. If you are feeding your child breast milk only (exclusive ), your period may not return until you stop . Perineal care Keep the area between the vagina and the anus (perineum) clean and dry as told by your health care provider. Use medicated pads and pain-relieving sprays and creams as directed. If you had a cut in the perineum (episiotomy) or a tear in the vagina, check the area for signs of infection until you are healed. Check for: ?More redness, swelling, or pain. ?Fluid or blood coming from the cut or tear. ?Warmth. ?Pus or a bad smell. You may be given a squirt bottle to use instead of wiping to clean the perineum area after you go to the bathroom. As you start healing, you may use the squirt bottle before wiping yourself. Make sure to wipe gently. To relieve pain caused by an episiotomy, a tear in the vagina, or swollen veins in the anus (hemorrhoids), try taking a warm sitz bath 2 3 times a day. A sitz bath is a warm water bath that is taken while you are sitting down. The water should only come up to your hips and should cover your buttocks. Breast care Within the first few days after delivery, your breasts may feel heavy, full, and uncomfortable (breast engorgement). Milk may also leak from your breasts. Your health care provider can suggest ways to help relieve the discomfort. Breast engorgement should go away within a few days. If you are : ?Wear a bra that supports your breasts and fits you well. ?Keep your nipples clean and dry. Apply creams and ointments as told by your health care provider. ?You may need to use breast pads to absorb milk that leaks from your breasts. ?You may have uterine contractions every time you breastfeed for up to several weeks after delivery. Uterine contractions help your uterus return to its normal size. ?If you have any problems with , work with your health care provider or specialty sales consultant. If you are not : ?Avoid touching your breasts a lot. Doing this can make your breasts produce more milk. ?Wear a good-fitting bra and use cold packs to help with swelling. ?Do not squeeze out (express) milk. This causes you to make more milk. Intimacy and sexuality Ask your health care provider when you can engage in sexual activity. This may depend on: ?Your risk of infection. ?How fast you are healing. ?Your comfort and desire to engage in sexual activity. You are able to get after delivery, even if you have not had your period. If desired, talkwith your health care provider about methods of control (contraception). Medicines Take maoa-mlq-pinepqg and prescription medicines only as told by your health care provider. If you were prescribed an antibiotic medicine, take it as told by your health care provider. Do notstop taking the antibiotic even if you start to feel better. Activity Gradually return to your normal activities as told by your health care provider. Ask your health care provider what activities are safe for you. Rest as much as possible. Try to rest or take a nap while your baby is sleeping. Eating and drinking Drink enough fluid to keep your urine pale yellow. Eat high-fiber foods every day. These may help prevent or relieve constipation. High-fiber foods include: ?Whole grain cereals and breads. ?Brown rice. ?Beans. ?Fresh fruits and vegetables. Do not try to lose weight quickly by cutting back on calories. Take your vitamins until your checkup or until your health care provider tells you it is okay to stop. Lifestyle Do not use any products that contain nicotine or tobacco, such as cigarettes and e-cigarettes. If you need help quitting, ask your health care provider. Do not drink alcohol, especially if you are . General instructions Keep all follow-up visits for you and your baby as told by your health care provider. Most women visit their health care provider for a checkup within the first 3 6 weeks after delivery. Contact a health care provider if: You feel unable to cope with the changes that your child brings to your life, and these feelings donot go away. You feel unusually sad or worried. Your breasts become red, painful, or hard. You have a fever. You have trouble holding urine or keeping urine from leaking. You have little or no interest in activities you used to enjoy. You have not breastfed at all and you have not had a menstrual period for 12 weeks after delivery. You have stopped and you have not had a menstrual period for 12 weeks after you stopped . You have questions about caring for yourself or your baby. You pass a blood clot from your vagina. Get help right away if: You have chest pain. You have difficulty breathing. You have sudden, severe leg pain. You have severe pain or cramping in your lower abdomen. You bleed from your vagina so much that you fill more than one sanitary pad in one hour. Bleeding should not be heavier than your heaviest period. You develop a severe headache. You faint. You have blurred vision or spots in your vision. You have bad-smelling vaginal discharge. You have thoughts about hurting yourself or your baby. If you ever feel like you may hurt yourself or others, or have thoughts about taking your own life,get help right away. You can go to the nearest emergency department or call: Your local emergency services (911 in the [place] A suicide crisis helpline, such as the National Suicide Prevention Lifeline at . Thisis open 24 hours a day. Summary The period of time right after you deliver your up to 6 12 weeks after delivery is called the period. Gradually return to your normal activities as told by your health care provider. Keep all follow-up visits for you and your baby as told by your health care provider. This information is not intended to replace advice given to you by your health care provider. Make sure you discuss any questions you have with your health care provider. Document Released: 04/12/2008 Document Revised: 06/19/2018 Document Reviewed: 03/30/2018 [employer] Patient Education 2020 [employer]. 08/18/2022 19:17:50 7b- Depression and Blues (03/2020)(CUSTOM) Doug Depression and Blues All mothers are at risk of developing depression or the blues. These mood changes can occur right after giving , or they may occur many months after giving . blues or depression can be mild or severe. Additionally, depression can goaway rather quickly, or it can be a long-term condition. CAUSES Raised hormone levels and the rapid drop in those levels are thought to be a main cause of depression and blues. A number of hormones change during and after . Estrogenand progesterone usually decrease right after delivery. The levels of thyroid hormone and various cortisol steroids also rapidly drop. Other factors that play a role in these mood changes include major life events and genetics. RISK FACTORS If you have any of the following risks for blues or depression, know what symptoms to watch out for during the period. Risk factors that may increase the likelihood of getting blues or depression include: Having a personal or family history of depression. Having depression while being . Having premenstrual mood issues or mood issues related to oral contraceptives. Having a lot of life stress. Having marital conflict. Lacking a social support network. Having health problems, such as diabetes. SIGNS AND SYMPTOMS Symptoms of blues include: Brief changes in mood, such as going from extreme happiness to sadness. Decreased concentration. Difficulty sleeping. Crying spells, tearfulness. Irritability. Anxiety. Symptoms of depression typically begin within the first month after giving . These symptoms include: Difficulty sleeping or excessive sleepiness. Marked weight loss. Agitation. Feelings of worthlessness. Lack of interest in activity or food. psychosis is a very serious condition and can be dangerous. Fortunately, it is rare. Displaying any of the following symptoms is cause for immediate medical attention. Symptoms of psychosis include: Hallucinations and delusions. Bizarre or disorganized behavior. Confusion or disorientation. DIAGNOSIS A diagnosis is made by an evaluation of your symptoms. There are no medical or lab tests that lead to a diagnosis, but there are various questionnaires that a health care provider may use to identifythose with blues, depression, or psychosis. Often, a screening tool called the [place] Depression Scale is used to diagnose depression in the period. TREATMENT blues usually goes away on its own in 1 2 weeks. Social support is often all that is needed. You will be encouraged to get adequate sleep and rest. Occasionally, you may be given medicinesto help you sleep. depression requires treatment because it can last several months or longer if it is not treated. Treatment may include individual or group therapy, medicine, or both to address any social,physiological, and psychological factors that may play a role in the depression. Regular exercise, a healthy diet, rest, and social support may also be strongly recommended. psychosis is more serious and needs treatment right away. Hospitalization is often needed. HOME CARE INSTRUCTIONS Get as much rest as you can. Exercise regularly. Some women find yoga and walking to be beneficial. Eat a balanced and nourishing diet. Do little things that you enjoy. Have a cup of tea, take a bubble bath, read your favorite magazine, or listen to your favorite music. Avoid alcohol. Ask for help with manager retail, cooking, grocery shopping, or running errands as needed. Do nottry to do everything. Talk to people close to you about how you are feeling. Get support from your partner, family members, and friends. Try to stay positive in how you think. Think about the things you are grateful for. Do not spend a lot of time alone. Only take xiwa-ipj-xsfibqc or prescription medicine as directed by your health care provider. Keep all your appointments. Let your health care provider know if you have any concerns. SEEK MEDICAL CARE IF: You are having a reaction to or problems with your medicine. SEEK IMMEDIATE MEDICAL CARE IF: You have suicidal feelings. You think you may harm yourself or someone else. MAKE SURE YOU: Understand these instructions. Will watch your condition. Will get help right away if you are not doing well or get worse. Resource: [facility] Patient Information 2015 [employer] [facility]. This information is not intended to replace advicegiven to you by your health care provider. Make sure you discuss any questions you have with your health care provider. 08/18/2022 19:17:34 and Mastitis and Mastitis Mastitis is inflammation of the breast tissue. It can occur in women who are . This can make painful. Mastitis will sometimes go away on its own, especially if it is not caused by an infection (non-infectious mastitis). Your health care provider will help determine if medical treatment is needed. Treatment may be needed if the condition is caused by a bacterial infection (infectious mastitis). What are the causes? This condition is often associated with a blocked milkduct, which can happen when too much milk builds up in the breast. Causes of excess milk in the breast can include: Poor latch-on. If your baby is not latched onto the breast properly, he or she may not empty your breast completely while . Allowing too much time to pass between feedings. Wearing a bra or other clothing that is too tight. This puts extra pressure on the milk ducts so milk does not flow through them as it should. Milk remaining in the breast because it is overfilled (engorged). Stress and fatigue. Mastitis can also be caused by a bacterial infection. Bacteria may enter the breast tissue through cuts, cracks, or openings in the skin near the nipple area. Cracks in the skin are often caused whenyour baby does not latch on properly to the breast. What are the signs or symptoms? Symptoms of this condition include: Swelling, redness, tenderness, and pain in an area of the breast. This usually affects the upper part of the breast, toward the armpit region. In most cases, it affects only one breast. In some cases, it may occur on both breasts at the same time and affect a larger portion of breast tissue. Swelling of the glands under the arm on the same side. Fatigue, headache, and flu-like muscle aches. Fever. Rapid pulse. Symptoms usually last 2 to 5 days. Breast pain and redness are at their worst on day 2 and day 3, and they usually go away by day 5. If an infection is left to progress, a collection of pus (abscess)may develop. How is this diagnosed? This condition can be diagnosed based on your symptoms and a physical exam. You may also have tests, such as: Blood tests to determine if your body is fighting a bacterial infection. Mammogram or ultrasound tests to rule out other problems or diseases. Fluid tests. If an abscess has developed, the fluid in the abscess may be removed with a needle. The fluid may be analyzed to determine if bacteria are present. Breast milk may be cultured and tested for bacteria. How is this treated? This condition will sometimes go away on its own. Your health care provider may choose to wait 24 hours after first seeing you to decide whether treatment is needed. If treatment is needed, it may include: Strategies to manage . This includes continuing to breastfeed or pump in order to allow adequate milk flow, using breast massage, and applying heat or cold to the affected area. Self-care such as rest and increased fluid intake. Medicine for pain. Antibiotic medicine to treat a bacterial infection. This is usually taken by mouth. If an abscess has developed, it may be treated by removing fluid with a needle. Follow these instructions at home: Medicines Take ejzh-pdh-iopvhdp and prescription medicines only as told by your health care provider. If you were prescribed an antibiotic medicine, take it as told by your health care provider. Do notstop taking the antibiotic even if you start to feel better. General instructions Do not wear a tight or underwire bra. Wear a soft, supportive bra. Increase your fluid intake, especially if you have a fever. Get plenty of rest. For : Continue to empty your breasts as often as possible, either by or using an electric breast pump. This will lower the pressure and the pain that comes with it. Ask your health care provider if changes need to be made to your or pumping routine. Keep your nipples clean and dry. During , empty the first breast completely before going to the other breast. If your baby is not emptying your breasts completely, use a breast pump to empty your breasts. Use breast massage during feeding or pumping sessions. If directed, apply moist heat to the affected area of your breast right before or pumping. Use the heat source that your health care provider recommends. If directed, put ice on the affected area of your breast right after or pumping: ?Put ice in a plastic bag. ?Place a towel between your skin and the bag. ?Leave the ice on for 20 minutes. If you go back to work, pump your breasts while at work to stay in time with your nursing schedule. Do not allow your breasts to become engorged. Contact a health care provider if: You have pus-like discharge from the breast. You have a fever. Your symptoms do not improve within 2 days of starting treatment. Your symptoms return after you have recovered from a breast infection. Get help right away if: Your pain and swelling are getting worse. You have pain that is not controlled with medicine. You have a red line extending from the breast toward your armpit. Summary Mastitis is inflammation of the breast tissue. It is often caused by a blocked milk duct or bacteria. This condition may be treated with hot and cold compresses, medicines, self- care, and certain strategies. If you were prescribed an antibiotic medicine, take it as told by your health care provider. Do notstop taking the antibiotic even if you start to feel better. Continue to empty your breasts as often as possible either by or using an electric breast pump. This information is not intended to replace advice given to you by your health care provider. Make sure you discuss any questions you have with your health care provider. Document Released: 10/11/2005 Document Revised: 03/05/2019 Document Reviewed: 06/17/2017 [employer] Patient Education 2020 [employer]. Follow Up Care 08/18/2022 16:08:24 With:ROSE MOLINA, PAYAL Cole Address: [address] [place] [address] [facility] [phone] When: Unknown Comments:Please schedule an initial visit in the office for three weeks after delivery. [facility] 02-19-2023 Note [place] ADMISSION HISTORY AND PHYSICIAL CHIEF COMPLAINT:Contraction pains HISTORY OF PRESENT ILLNESS: 32 year old at 37w6d ega with complaints of strong contractions since about 1 pm today. Thinks she passed mucus plug earlier today. Unsure if had SROM. complicated by hypertension and well controlled GDM. GBS negative on screening. REVIEW OF SYSTEMS:Strong contractions. Otherwise good movement and otherwise ROS unremarkable. ACTIVE PROBLEMS: (6) Asthma (099299204) Chronic hypertension (8269437234) Food allergy (6181717461) Gestational diabetes, diet controlled (61756433) ([id number]) Rubella non-immune ([id number]) MEDICATIONS: Active Inpt Meds: influenza virus vaccine, inactivated (FluLaval PF Quadrivalent ) Start: 08/18/22 19:00:00 EST, Dose = 0.5 mL, Susp, Intramuscular, Vaccine, 1 dose(s), OBU, 08/18/22 18:20:00 EST Active PRN Meds: Lactated Ringers Infusion (LR 500 mL Bolus) Start: 08/18/22 16:19:00 EST, Dose = 500 mL, Soln, IV Bolus, AsDirected, PRN, Other (see order comments), Rate: 125 mL/hr, hour(s), 08/18/22 16:19:00 EST carboprost (Hemabate) Start: 08/18/22 16:19:00 EST, Dose = 250 mcg, = 1 mL, Intramuscular, Once, PRN, Other (see order comments), 08/18/22 16:19:00 EST citric acid-sodium citrate (Bicitra) Start: 08/18/22 16:19:00 EST, Dose = 30 mL, Soln, Oral, AsDirected, PRN, Gastric Upset, 0, 08/18/22 16:19:00 EST lidocaine (Xylocaine HCl 1% injectable solution) Start: 08/18/22 16:19:00 EST, Dose = 20 mg, = 2 mL, Perineum, AsDirected, PRN, to perineal sutures, 1 dose(s), Stop: Limited # of times, 08/18/22 16:19:00 EST methylergonovine (Methergine) Start: 08/18/22 16:19:00 EST, Dose = 0.2 mg, = 1 mL, Intramuscular, Once, PRN, Other (see order comments), 08/18/22 16:19:00 EST miSOPROStol (Cytotec) Start: 08/18/22 16:19:00 EST, Dose = 1,000 mcg, = 5 tab(s), Rectal, Once, PRN, Other (see order comments), 0, 08/18/22 16:19:00 EST naloxone (Narcan) Start: 08/18/22 18:09:00 EST, Dose = 0.1 mg, = 0.25 mL, IV Push, AsDirected, PRN,Control symptoms, 08/18/22 18:09:00 EST naloxone (Narcan) Start: 08/18/22 18:09:00 EST, Dose = 0.4 mg, = 1 mL, IV Push, AsDirected, PRN, Control symptoms, 08/18/22 18:09:00 EST ondansetron (Zofran) Start: 08/18/22 16:19:00 EST, Dose = 4 mg, = 2 mL, IV Push, q4h, PRN, Nausea, 08/18/22 16:19:00 EST ondansetron (Zofran) Start: 08/18/22 18:09:00 EST, Dose = 4 mg, = 2 mL, IV Push, q4h, PRN, Nausea/Vomiting, 2 dose(s), Stop: Limited # of times, 08/18/22 18:09:00 EST oxytocin (Pitocin) Start: 08/18/22 16:19:00 EST, Dose = 20 unit(s), = 2 mL, Intramuscular, Once, PRN, Other (see order comments), 0, 08/18/22 16:19:00 EST terbutaline (Brethine) Start: 08/18/22 16:19:00 EST, Dose = 0.25 mg, = 0.25 mL, Subcutaneous, AsDirected, PRN, Other (see order comments), 08/18/22 16:19:00 EST tranexamic acid (tranexamic acid 1 g / 100 mL 0.7% NaCl PMX) Start: 08/18/22 16:19:00 EST, Dose = 1gram(s), = 100 mL, IV Piggyback, AsDirected, PRN, Other (see order comments), Rate: 300 mL/hr, Infuse over: 20 minute(s), 0, 08/18/22 16:19:00 EST One Time Meds: (Completed) nalbuphine (Nubain) Start: 08/18/22 16:21:00 EST, Dose = 10 mg, = 1 mL, IV Push, Once, STAT, Stop: 08/18/22 16:21:00 EST, 08/18/22 16:21:00 EST Active IV Meds: Lactated Ringers Infusion 1,000 mL (LR 1,000 mL) Start: 08/18/22 16:19:00 EST, Rate: 125 mL/hr, 08/18/22 16:19:00 EST bupivacaine-fentanyl 100 mL (Marcaine-Sublimaze 0.125%-2 mcg/mL EPIDURAL 100 mL 100 mL) start date 08/18/22 18:09:00 EST, 100 mL, Epidural, 11 mL/hr, 2 mL Demand Dose, 10 minute Lockout, 18 mL/hr Maxhourly rate, 08/18/22 18:09:00 EST oxytocin 20 unit(s) + LR Premix Diluent 1,000 mL (Oxytocin for IV (mL/hr) 20 unit(s) + LR Premix Diluent 1,000 mL) Start: 08/18/22 16:19:00 EST, Rate: 999 mL/hr, 08/18/22 16:19:00 EST ALLERGIES: (2) Nuts Sesame seed Oil FAMILY HISTORY:Noncontributory to this admission SOCIAL HISTORY: Nonsmoker, no alcohol use, no toxic habits. Stable home with good support. PHYSICAL EXAM: VITALS: [id number](kg) 08/18 17:56----[id number]/19 84.1 08/18 17:46----[id number] 08/18 17:0236.3--9622--RA 08/18 16:26----101----RA 08/18 16:1036.3--105290ZP 24 Hr Tmax: 36.3 at 08/18 17:02 36 Hr Tmax: 36.3 at 08/18 17:02 Vital Signs are the last 5 in the past 48 hours. Weights display the last 5 within 7 days. Initial Wt: 08/18 84.1 kg 185 lb Current Wt: 08/18 84.1 kg 185 lb GENERAL:Appears well HEENT:Normocephalic CARDIOVASCULAR:RRR normal BP RESPIRATORY:Clear B/L ABDOMEN:Gravid c/w dating. Vertex CERVIX: 6cm on admission EXREMETIES:No significant edema NEUROLOGICAL:Intact PSYCHIATRIC:No signs of acute depression or anxiety LABS: 36hr Labs 08/18 1622 ABO/Rh InterpSee Flowsheet Antibody ScreenSee Flowsheet Hct37.8 Hgb12.7 MCH28.6 MCHC33.7 MCV85.1 MPV10.1 Lattbuzi673 RBC4.44 RDW14.5 WBC15.7H Lymphocyte %18.3 Monocyte %4.4 Neutrophil %76.0 Eosinophil %0.9 Basophil %0.4 Neutrophil, Jdpvntii51.9H Lymphocyte, Absolute2.9 Monocyte, Absolute0.7 Eosinophil, Absolute0.1 Basophil, Absolute0.1 DIAGNOSTICS:Cat 1 FHR tracing IMPRESSION:Active labor PLAN: Had epidural placed. Limited effect thus far. Cervix rechecked and now FD 0 station. Will start pushing efforts. 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 Family's history: negative. Health Status Allergies: Allergic Reactions (Selected) Severity Not Documented Nuts- Vomiting and swelling of throat. Sesame seed Oil- Hives and nausea., Allergies (2) ActiveReaction NutsVomiting Sesame seed OilHives Current medications: (Selected) Inpatient Medications Ordered Bicitra: 30 mL, Oral, AsDirected, PRN: Gastric Upset Brethine: 0.25 mg, 0.25 mL, Subcutaneous, AsDirected, PRN: Other (see order comments) Cytotec: 1,000 mcg, 5 tab(s), Rectal, Once, PRN: Other (see order comments) Hemabate: 250 mcg, 1 mL, Intramuscular, Once, PRN: Other (see order comments) LR 1,000 mL: 125 mL/hr, Intravenous LR 500 mL Bolus: 500 mL, IV Bolus, AsDirected, PRN: Other (see order comments) Methergine: 0.2 mg, 1 mL, Intramuscular, Once, PRN: Other (see order comments) Oxytocin for IV (mL/hr) 20 unit(s) + LR Premix Diluent 1,000 mL: 999 mL/hr, Intravenous Pitocin: 20 unit(s), 2 mL, Intramuscular, Once, PRN: Other (see order comments) Xylocaine HCl 1% injectable solution: 20 mg, 2 mL, Perineum, AsDirected, PRN: to perineal sutures Zofran: 4 mg, 2 mL, IV Push, q4h, PRN: Nausea tranexamic acid 1 g / 100 mL 0.7% NaCl PMX: 1 gram(s), 100 mL, 300 mL/hr, IV Piggyback, AsDirected,PRN: Other (see order comments) Prescriptions Prescribed Alcohol Swabs: See Instructions, Dispense 100 Use 4x daily Diagnosis: Gestational Diabetes, 100 EA,5 Refill(s) Arnuity Ellipta 100 mcg inhalation powder: 100 mcg, Inhalation, q24h, Inhale 1 puff once daily, 1 EA, 11 Refill(s) Blood Glucose Test Machine: See Instructions, Use as directed Brand type per insurance or patient preference Diagnosis: Gestational Diabetes, 1 EA, 0 Refill(s) Blood Glucose Test Strips: See Instructions, Dispense 100 Use 4x daily Diagnosis: Gestational Diabetes, 100 EA, 5 Refill(s) Lancets: See Instructions, Dispense 100 Use 4x daily Diagnosis: Gestational Diabetes, 100 EA, 5 Refill(s) NIFEdipine (Eqv-Adalat CC) 30 mg oral tablet, extended release: 30 mg, 1 tab(s), Oral, qDay, 30 tab(s), 5 Refill(s) Ventolin HFA MDI (90 mcg/inh) inhalation aerosol: 2 puff(s), Inhalation, QID, PRN: as needed for wheezing, 1 EA, 0 Refill(s) aspirin 81 mg oral tablet, chewable: 81 mg, 1 tab(s), Chewed, qDay, for 90 day(s), 90 tab(s), 1 Refill(s) Documented Medications Documented EPINEPHrine 0.3 mg injectable kit: use DIRECTED Inject one syringe in the outer thigh as needed for allergic reaction Multivitamins with Vitamin B Complex, Vitamin C, Minerals and L- Methylfolate oral capsule...: 1 cap(s), Oral, Daily, 0 Refill(s), Medications (12) Active Scheduled: (0) Continuous: (2) Lactated Ringers 1,000 mL 1,000 mL, Intravenous, 125 mL/hr Oxytocin 20 units in Lactated Ringers 1000 mL 20 unit(s) + LR Premix Diluent 1,000 mL 1,000 mL, Intravenous, 999 mL/hr PRN: (10) carboprost 250 mcg/ml 1mL ampule 250 mcg 1 mL, Intramuscular, Once citric acid-sodium citrate 334 mg-500 mg/5 mL (30 mL) Kat UD 30 mL, Oral, AsDirected Lactated Ringers Injection 500 mL * Bolus * 500 mL, IV Bolus, AsDirected lidocaine 1% (MPF) 2 mL vial pf 20 mg 2 mL, Perineum, AsDirected methylergonovine 0.2 mg/mL (1 mL) ampule 0.2 mg 1 mL, Intramuscular, Once misoprostol 200 mcg tablet 1,000 mcg 5 tab(s), Rectal, Once ondansetron 2 mg/ 1 mL 2 mL INJ 4 mg 2 mL, IV Push, q4h oxytocin 10 units/mL 1 mL vial 20 unit(s) 2 mL, Intramuscular, Once terbutaline 1 mg/ml vial 0.25 mg 0.25 mL, Subcutaneous, AsDirected tranexamic acid PMX 1 gram(s) 100 mL, IV Piggyback, AsDirected Problem list: Medical Food allergy / SNOMED CT 5619185520 / Confirmed Asthma / SNOMED CT 455615113 / Confirmed Gestational diabetes, diet controlled / SNOMED CT 01679813 / Confirmed Chronic hypertension / SNOMED CT 9164215514 / Confirmed / SNOMED CT 705176610 / Confirmed Rubella non-immune / SNOMED CT 467937268 / Confirmed, Active Problems (6) Asthma Chronic hypertension Food allergy Gestational diabetes, diet controlled Rubella non-immune Histories Past Medical History: Resolved Breast pain, left (947854542): Resolved. Screening for cervical cancer (8951085884): Resolved. Well woman exam (320089170): Resolved. control counseling (463620438): Resolved. Screening for STD (sexually transmitted disease) (360081956): Resolved. Missed menses (84460956): Resolved. Gestational diabetes (20190414): Resolved. Family History: FH: Early menopause Mother Ovarian cyst Mother Diabetes mellitus Grandparent Hypertension Father Diabetes Mother Grandparent Procedure history: LEEP (55938112) in the month of 04/2021 at 31 Years. Tear duct (1941271862). Comments: 05/08/2021 13:08 Nichole Hernandez RN SX, INFANT Wrist manipulation ([id number]). Comments: 05/08/2021 13:08 Nichole Hernandez RN RIGHT Social History Social & Psychosocial Habits Alcohol 02/16/2019 Use: Current Frequency: 1-2 times per month 01/07/2022 Use: Past Comment: no alcohol since confirmation - 01/07/2022 09:56 - Luna Maxwell LPN Substance Abuse 02/11/2019 Use: Never Tobacco 09/19/2020 Tobacco Use: Never (less than 100 in l Exposure to Tobacco Smoke Lives in non-smoking home Home/Environment 09/19/2020 Living situation: Home/Independent Nutrition/Health 02/11/2019 Caffeine intake amount: coffee and carbonated beverages, 2 servings daily . Physical Examination Vital Signs 08/18/2022 17:56 EST Heart Rate Monitored 84 bpm Respiratory Rate 20 br/min Systolic Blood Pressure Non-Invasive 124 mmHg Diastolic Blood Pressure Non-Invasive 70 mmHg 08/18/2022 17:46 EST Heart Rate Monitored 88 bpm Respiratory Rate 20 br/min Systolic Blood Pressure Non-Invasive 146 mmHg HI Diastolic Blood Pressure Non-Invasive 79 mmHg 08/18/2022 17:02 EST Temperature Oral 36.3 DegC Heart Rate Monitored 96 bpm Respiratory Rate 22 br/min HI Systolic Blood Pressure Non-Invasive 143 mmHg HI Diastolic Blood Pressure Non-Invasive 83 mmHg 08/18/2022 16:26 EST Heart Rate Monitored 101 bpm HI Systolic Blood Pressure Non-Invasive 144 mmHg HI Diastolic Blood Pressure Non-Invasive 86 mmHg 08/18/2022 16:10 EST Temperature Oral 36.3 DegC Heart Rate Monitored 82 bpm Respiratory Rate 22 br/min HI Systolic Blood Pressure Non-Invasive 153 mmHg HI Diastolic Blood Pressure Non-Invasive 86 mmHg Vital Signs(last 24 hrs) Last Charted Temp Oral36.3 DegC (AUG 18 17:02) Heart Rate Npjkocnpo88 bpm (AUG 18 17:56) Resp Rate 20 br/min (AUG 18 17:56) EOY516 mmHg (AUG 18 17:56) DBP70 mmHg (AUG 18 17:56) BMI32.85 (AUG 18 16:22) Measurements from flowsheet : Measurements 08/18/2022 16:22 EST Height 160 cm Admission Weight 84.1 kg Kiefer Body Weight 52.38 kg BSA Admission 1.87 Body Mass Index 32.85 kg/m2 Pain assessment: Pain Assessment 08/18/2022 17:46 EST Primary Pain Location Abdomen Primary Pain Intensity 10 Primary Pain Quality Contraction Pain Scale Type 0-10 Pain scale 08/18/2022 17:02 EST Primary Pain Location Abdomen Primary Pain Intensity 7 Primary Pain Quality Contraction Primary Pain Pharma Intervention Other: pt request epidural Pain Scale Type 0-10 Pain scale 08/18/2022 16:10 EST Primary Pain Location Abdomen Primary Pain Intensity 5 Primary Pain Quality Contraction Primary Pain Pharma Intervention Refused interventions Pain Scale Type 0-10 Pain scale . General: Alert and oriented, Moderate distress. Airway: Normal temporomandibular joint mobility. Mallampati classification: II (soft palate, fauces, uvula visible). Dentition Evaluation: Denies loose/chipped teeth. Respiratory: Lungs are clear to auscultation. Cardiovascular: Normal rate, Regular rhythm. Neurologic: Alert, Oriented. Review / Management Results review: Labs (Last four charted values) WBC H 15.7(AUG 18) Hgb 12.7(AUG 18) Hct 37.8(AUG 18) Plt 203(AUG 18) , Lab results 08/18/2022 17:56 EST Heart Rate Monitored 84 bpm Respiratory Rate 20 br/min Systolic Blood Pressure Non-Invasive 124 mmHg Diastolic Blood Pressure Non-Invasive 70 mmHg Oxygen Therapy Room air Oxygen Saturation 99 % Antecubital Right 08/18/2022 18 gauge Peripheral IV Activity: Assessed Peripheral IV Dressing Condition: Clean, Dry, Intact Peripheral IV Dressing Activity: Transparent dressing Peripheral IV Line Status/Patency: Continuous infusion Peripheral IV Site Condition: No complications Peripheral IV Equipment: IV Pump 08/18/2022 17:46 EST Notify date/time 08/18/2022 17:44 Provider Notified PAYAL ROSE MD Notification Method Phone Information Communicated Nurse communication Details Communicated updated on pt cervical exam Notification Outcome Orders not received Person Reporting Result(s) sincere lobato rn Details of Results Received provider stated coming in Results Read Back Yes Patient Information Note anesthesia in room Heart Rate Monitored 88 bpm Respiratory Rate 20 br/min Systolic Blood Pressure Non-Invasive 146 mmHg HI Diastolic Blood Pressure Non-Invasive 79 mmHg Primary Pain Location Abdomen Primary Pain Intensity 10 Primary Pain Quality Contraction Pain Scale Type 0-10 Pain scale Oxygen Therapy Room air Oxygen Saturation 98 % Uterine Contraction Monitoring Method External toco Uterine Contraction Frequency 2-3 Uterine Contraction Duration 40-60 Uterine Contraction Intensity, Ext Palp Moderate Uterine Resting Tone, External Soft Uterine Activity Regular contractions Baby A FHR Baseline: 125 bpm FHR Baseline Variability: Moderate variability FHR Accelerations: Present FHR Deceleration: Absent FHR Interpretation Category: Category One FHR Monitoring Method: External US transducer 08/18/2022 17:45 EST Epidural Patient Position Side of bed, leaning forward with support Epidural Placed By SUSAN LOPEZ APRN-PRODUCTION BROACHING MACHINE OPERATOR Epidural Test Dose Time 08/18/2022 17:54 Epidural Bolus, Anesthesia 08/18/2022 17:56 Epidural Care Patient Response pt tolerated well Station Calculation -1 Antecubital Right 08/18/2022 18 gauge Peripheral IV Activity: Assessed Peripheral IV Dressing Condition: Clean, Dry, Intact Peripheral IV Dressing Activity: Transparent dressing Peripheral IV Line Status/Patency: Continuous infusion Peripheral IV Site Condition: No complications Peripheral IV Equipment: IV Pump Standard Safety Safety level maintained, Precautions maintained 08/18/2022 17:40 EST Cervix Dilation 9 cm Cervix Effacement 100 Station -1 Cervical Consistency Soft Cervical Position Anterior Presenting Part Vertex Vaginal Exam Performed By Sincere Lobato RN John's Score 12 Station Calculation -1 Baby A Membrane Status: S.R.O.M. ROM Date, Time: 08/18/2022 10:00 Amniotic Fluid Amount: Moderate amount Amniotic Fluid Color/Descrip: Clear Amniotic Fluid Odor: None 08/18/2022 17:26 EST Cervix Dilation 7 cm Cervix Effacement 90 Station -1 Cervical Consistency Soft Cervical Position Anterior Presenting Part Vertex Vaginal Exam Performed By Sincere Lobato RN John's Score 12 Station Calculation -1 08/18/2022 17:02 EST Temperature Oral 36.3 DegC Heart Rate Monitored 96 bpm Respiratory Rate 22 br/min HI Systolic Blood Pressure Non-Invasive 143 mmHg HI Diastolic Blood Pressure Non-Invasive 83 mmHg Primary Pain Location Abdomen Primary Pain Intensity 7 Primary Pain Quality Contraction Primary Pain Pharma Intervention Other: pt request epidural Pain Scale Type 0-10 Pain scale Heart Rhythm Regular Murmur Auscultated No Dorsalis Pedis Pulse, Left 2+ Normal Dorsalis Pedis Pulse, Right 2+ Normal Generalized Bilateral Edema Ratin+ trace/2mm Pedal edema Bilateral Edema Ratin+ trace/2mm Respirations Unlabored Respiratory Pattern Regular Breath Sounds Auscultated Anterior and posterior All Lobes Breath Sounds Clear, Equal Cough None Oxygen Therapy Room air Abdomen Description Soft, Rounded Swallowing Disorder None Bowel Sounds All Quadrants Present Urinary Elimination Voiding, no difficulties Uterine Contraction Monitoring Method External toco Uterine Contraction Frequency 3-4 Uterine Contraction Duration 40-60 Uterine Contraction Intensity, Ext Palp Moderate Uterine Resting Tone, External Soft Uterine Activity Regular contractions Baby A FHR Baseline: 125 bpm FHR Baseline Variability: Moderate variability FHR Accelerations: Present FHR Deceleration: Present FHR Deceleration Description: Variable FHR Deceleration Intervention: IV Bolus FHR Monitoring Method: External US transducer Support Person Present Support Person Involvement Supportive/involved Patient feelings/concerns Discusses care, feelings, concerns Skin Temperature Warm Skin Description [place], Dry Skin Integrity Intact Sensory Perception Alfonzo No impairment Moisture Alfonzo Rarely moist Activity Alfonzo Walks frequently Mobility Alofnzo No limitations Nutrition Alfonzo Adequate Friction and Shear Alfonzo No apparent problem Alfonzo Score 22 Hospital Acquired Pressure Injury Risk None/minimal risk (score 19-23) Antecubital Right 08/18/2022 18 gauge Peripheral IV Activity: Assessed Peripheral IV Dressing Condition: Clean, Dry, Intact Peripheral IV Dressing Activity: Transparent dressing Peripheral IV Line Status/Patency: Continuous infusion Peripheral IV Site Condition: No complications Peripheral IV Equipment: PRN Adaptor Neurological Symptoms Patient denies Strength All Extremities Strong Tone All Extremities Normal Pederson Screen Daily History of Fall in Last 3 Months Pederson No Presence of Secondary Diagnosis Pederson No Use of Ambulatory Aid Pederson None, bedrest, wheelchair, nurse IV/PRN Adapter Fall Risk Pederson Yes Gait Weak or Impaired Fall Risk Pederson Normal, bedrest, immobile Mental Status Fall Risk Pederson Oriented to own ability Pederson Fall Risk Score 20 Violence Risk Confused No Violence Risk Irritable No Violence Risk Boisterous No Violence Risk Verbal Threats No Violence Risk Physical Threats No Violence Risk Attacking Objects No Violence Risk Predictor Score 0 Violence Risk Intervention None Violence Risk Current Interventions None Ambulation Repositions self Activity Status ADL Awake Assistive Device None Ambulation Patient Effort Good Standard Safety Safety level maintained, Precautions maintained Appetite Fair 08/18/2022 16:44 EST Recommendation - Action Systemic inflammatory response syndrome 08/18/2022 16:43 EST nalbuphine 10 mg mg 08/18/2022 16:26 EST Heart Rate Monitored 101 bpm HI Systolic Blood Pressure Non-Invasive 144 mmHg HI Diastolic Blood Pressure Non-Invasive 86 mmHg 08/18/2022 16:22 EST WBC 15.7 10^3/mcL HI RBC 4.44 10^6/mcL Hgb 12.7 G/dL Hct 37.8 % MCV 85.1 fL MCH 28.6 pg MCHC 33.7 G/dL RDW 14.5 % Platelet 203 10^3/mcL MPV 10.1 fL Neutrophil % 76.0 % Lymphocyte % 18.3 % Monocyte % 4.4 % Eosinophil % 0.9 % Basophil % 0.4 % Neutrophil, Absolute 11.9 10^3/mcL HI Lymphocyte, Absolute 2.9 10^3/mcL Monocyte, Absolute 0.7 10^3/mcL Eosinophil, Absolute 0.1 10^3/mcL Basophil, Absolute 0.1 10^3/mcL ABO/Rh Interp O POS Antibody Screen Gel Negative ABSC Designated Person #1 We May Share [facility] THEA VALDEZr - [phone] Designated Person #1 Relationship Mother Privacy Restrictions Requested None Height 160 cm Admission Weight 84.1 kg Kiefer Body Weight 52.38 kg BSA Admission 1.87 Body Mass Index 32.85 kg/m2 Expected Outcome Live Patient Type Inpatient Thrombosis Risk Factors (1) or post- less than 1 month Thrombosis Risk Factor Add'l Assessment (1) Varicose veins or current swollen legs (greater than 1 p Thrombosis Risk Score 2 Status Yes Cervix Dilation 6 cm Cervix Effacement 80 Station -1 Cervical Consistency Soft Cervical Position Mid Presenting Part Vertex Vaginal Exam Performed By Sincere Lobato RN Blood Type, External O positive Rubella, External Immune HIV Antibodies, External Unknown Group B Strep, External Negative Group B Strep Date Performed 08/07/2022 Hepatitis B, External Negative Hepatitis B Date Performed 02/04/2022 RPR, External Nonreactive John's Score 11 Station Calculation -1 PPH Risk Low risk for hemorrhage PPH Low Risk Factors Rebollar , Less than 4 previous deliveries, Unscarred uterus, Absence of hemorrhage history Feeding Breast milk Anesthesia/Pain Medication During Labor Epidural/Spinal Circumcision Yes Baby For Adoption No Surrogate No Discharge [place] Physician addie roe [facility] Participant No Safe Sleep Environment for Baby Yes Safe Sleep Environment Outside Home Yes Maternal Transport No Antecubital Right 08/18/2022 18 gauge Peripheral IV Activity: Insert new site Peripheral IV Dressing Condition: Clean, Dry, Intact Peripheral IV Dressing Activity: Applied, Transparent dressing Peripheral IV Line Status/Patency: Flushes easily, 10ml normal saline flush Peripheral IV Site Condition: No complications Peripheral IV Equipment: Extension set, [place], PRN Adaptor Thoughts of Harming Others - History No Thoughts of Suicide - History No Coping Effective Emotional Abuse History Denies Physical Abuse History Denies Sexual Abuse Denies Hospital Clergy to Visit Patient Verbalizes No Spiritual Needs Financial Concerns Re: Hospital/Disch No Living Situation Home independently Current Home Treatments None Professional Skilled Services None Special Services and Community Resources None Advanced Directives No - refuses information Infectious Disease Symptoms Patient states no symptoms Infectious Disease Recent Exposure No Alcohol and Drug Use No Employee of Institutional Living No Health Care Employee No History of Exposure to TB No History of Positive Chest X-Ray for TB No History of Positive TB Skin Test No Homeless No Known Immunosuppression No Recent Immigrant No Resident of Institutional Living No Bloody Sputum No Fatigue No Fever No Loss of Appetite No Night Sweats No Persistent Cough > 3 Weeks No Weight Loss No Safety Brochure Information Reviewed Yes Doug Carmichael Video Viewed Previously viewed Teaching Evaluation No further teaching needed Preferred Written Language Ug[place]an Preferred Spoken Language Ug[place]an Chief Complaint stated in labor since 1000 Mode of Arrival Ambulatory Information Given by Patient, Spouse Patient's Current Physicians JAIDEN MAYORGA Emergency Contact Number Thea Blanchard [phone] Belongings At Bedside None Personal Home Medications Received No home medications were brought in Belongings Sent Home None Belongings Sent To Security None Discharge To, Anticipated Home independently Other Anticipated Needs After Discharge No Anticoagulants Taken In Past 6 Wks. Yes (Modified) Anticoagulant Taken Other: baby aspirin 81mg daily Prev Test Positive/Diagnosis w/COVID-19 No Current Quarantine/Isolated any Illness No Any Contact with Sick Animals/Birds No Traveled Anywhere in Last 30 Days No Influenza Vaccine Need No prior receipt of vaccine Influenza Risk Factors age 6 months and older Influenza Vaccine Contraindications None Forego Influenza Vaccination None No Able To Drink Order Detail Yes Able To Sign Consents Order Detail Yes Code Status Order Detail Full code IV Order Detail Yes Dialysis Schedule Order Detail N/A Has Diabetes Order Detail No Isolation Precautions Order Detail None Nurse Collect Order Detail 0 Oxygen Order Detail No Order Detail Yes Prior Valve Replacement Order Detail No Transport Mode Order Detail Ambulatory Anesthesia/Transfusions Prior anesthesia Admission Note-Nursing Patient History OB (Modified) 08/18/2022 16:12 EST Uterine Contraction Monitoring Method External toco Uterine Resting Tone, External Soft Baby A FHR Monitoring Method: External US transducer, Doppler ultrasound Heart Tone: 150 08/18/2022 16:10 EST Temperature Oral 36.3 DegC Heart Rate Monitored 82 bpm Respiratory Rate 22 br/min HI Systolic Blood Pressure Non-Invasive 153 mmHg HI Diastolic Blood Pressure Non-Invasive 86 mmHg Primary Pain Location Abdomen Primary Pain Intensity 5 Primary Pain Quality Contraction Primary Pain Pharma Intervention Refused interventions Pain Scale Type 0-10 Pain scale Heart Rhythm Regular Oxygen Therapy Room air Oxygen Saturation 99 % Patient Position, OB Left tilt Baby A Membrane Status: Intact Neurological Symptoms Patient denies Strength All Extremities Strong Tone All Extremities Normal Ambulation Ambulation in Room Activity Status ADL Awake Assistive Device None Ambulation Patient Effort Good Standard Safety ID band on, Allergy Band on, Call device within reach, Bed in low position, Wheels locked, Upper/Half-Length side-rails up, Phone within reach, personal items within reach, Hazards removed from floor, Non-Slip footwear RN Coordination of Care 7am-7pm . Assessment and Plan [place] [employer] (ASA) physical status classification: Class III. Anesthetic Preoperative Plan Anesthetic technique: Epidural. Regional: Epidural. Postoperative pain management: Per surgeon. Risks discussed: nausea, vomiting, headache, hypotension, allergic reaction, serious complications. Informed consent: signed by patient. Digitally Signed by SUSAN LOPEZ on 08/18/2022 06:09 PM [facility]01-10-2023 Note Dietitian provided medical nutrition therapy services via a telehealth online video visit. Patient authorized consent for dietitian services. Gestational Diabetes MNT Nutrition Assessment: Food intake, amount of carbohydrates Nutrition Diagnosis: Inconsistent carbohydrate related to food and nutrition knowledge deficit as evidence by patient 24-hour recall, presenting with consumption of extra-large portion of CHO foods at some meals/snacks, periodically skipping meals, eating meals/snacks at sporadic times throughoutthe day. Nutrition Intervention: The dietitian provided gestational diabetes medical nutrition therapy (MNT)using the plate method, provided appropriate portion sizes using food models and measuring cups, and provided individualized meal planning methods. Goals: Patient will count carbohydrates at all meals and snacks, eating regularly schedule meals, aiming for 30 grams of carbohydrate at Breakfast and 45-60 grams at Lunch/Dinner meals, and 15-20 grams for snacks. Patient agreed to goals. Monitor and Evaluate: Will monitor and evaluate patient goals PRN or at follow- up appointment. [id number] The cheese packer provided diabetes self-management education via telehealth online video visit. Patient authorized consent for diabetes educations.Patient seen today for telehealth for gestational diabetes self-management education. Patient was instructed on the disease process, factors of control, goals of therapy, role of home glucose monitoring, and the role of diabetes medications to better assist patient with making decisions regarding diet and physical activity. Reviewed her use of the glucometer and instructions for proper lancet disposal. Reviewed and discussed diabetes medications, timing of dose and side effect. Educated patient on treatment and symptoms of hypoglycemia and hy perglycemia. She discussed multiple benefits of counting carbohydrates with the dietitian and we went over getting regular physical activity. Provided target blood sugar ranges according to meal timing. She was also instructed on all the risk factors of gestational diabetes. She will be sent her information via email. She will follow up with her provider. [facility]01-10-2023 Note Diabetes Education Telehealth Entered On: 07/09/2022 10:05 EST Performed On: 07/09/2022 10:04 EST by Annabella Lackey RN Diabetes Self Management Education Additional Session Learner/s Present : Patient Barriers to Learning : None evident Teaching Method : Demonstration, Electronic, Explanation, Teach-back, Video/Educational TV Annabella Lackey RN - 07/09/2022 10:04 EST DCP GENERIC CODE Diabetes Disease Process/Treatment : Comprehends thao points Nutritional Management : Comprehends thao points Physical Activity : Comprehends thao points Medication Safety : Comprehends thao points Diabetes Ed Blood Glucose Monitoring : Comprehends thao points Diabetes Acute Complications : Comprehends thao points Diabetes Chronic Complications : Comprehends thao points Strategies To Promote Health : Comprehends thao points Strategies For Psychosocial Issues : Comprehends thao points Gestational Diabetes : Comprehends thao points Annabella Lackey RN - 07/09/2022 10:04 EST Time Spent With Patient Diabetes Education/MNTOutpatient Diabetes Education Unit : 1 Annabella Lackey RN - 07/09/2022 10:04 EST [facility]12-09-2022 Evaluation + Plan note Future Scheduled Tests Laboratory* Glucose Tolerance Test 3 Hour (AO) 06/07/22 Radiology* US OB Limited/Transvaginal 08/06/22 [facility] 11-19-2021 Hospital Discharge instructions Patient Education 05/18/2021 14:39:39 Nausea and Vomiting, Adult, Trwt-yb-Ekdw Nausea and Vomiting, Adult Nausea is feeling sick to your stomach or feeling that you are about to throw up (vomit). Vomiting is when food in your stomach is thrown up and out of the mouth. Throwing up can make you feel weak. It can also make you lose too much water in your body (get dehydrated). If you lose too much water in your body, you may: Feel tired. Feel thirsty. Have a dry mouth. Have cracked lips. Go pee (urinate) less often. Older adults and people with other diseases or a weak body defense system (immune system) are at higher risk for losing too much water in the body. If you feel sick to your stomach and you throw up, it is important to follow instructions from your doctor about how to take care of yourself. Follow these instructions at home: Watch your symptoms for any changes. Tell your doctor about them. Follow these instructions to carefor yourself at home. Eating and drinking Take an ORS (oral rehydration solution). This is a drink that is sold at pharmacies and stores. Drink clear fluids in small amounts as you are able, such as: ?Water. ?Ice chips. ?Fruit juice that has water added (diluted fruit juice). ?Low-calorie sports drinks. Eat bland, mjiu-vb-fnqygn foods in small amounts as you are able, such as: ?Bananas. ?Applesauce. ?Rice. ?Low-fat (lean) meats. ?[place]. ?Crackers. Avoid drinking fluids that have a lot of sugar or caffeine in them. This includes energy drinks, sports drinks, and soda. Avoid alcohol. Avoid spicy or fatty foods. General instructions Take usrx-fqq-vfmynft and prescription medicines only as told by your doctor. Drink enough fluid to keep your pee (urine) pale yellow. Wash your hands often with soap and water. If you cannot use soap and water, use hand truck and transport mechanic. Make sure that all people in your home wash their hands well and often. Rest at home while you get better. Watch your condition for any changes. Take slow and deep breaths when you feel sick to your stomach. Keep all follow-up visits as told by your doctor. This is important. Contact a doctor if: Your symptoms get worse. You have new symptoms. You have a fever. You cannot drink fluids without throwing up. You feel sick to your stomach for more than 2 days. You feel light-headed or dizzy. You have a headache. You have muscle cramps. You have a rash. You have pain while peeing. Get help right away if: You have pain in your chest, neck, arm, or jaw. You feel very weak or you pass out (faint). You throw up again and again. You have throw up that is bright red or looks like black coffee grounds. You have bloody or black poop (stools) or poop that looks like tar. You have a very bad headache, a stiff neck, or both. You have very bad pain, cramping, or bloating in your belly (abdomen). You have trouble breathing. You are breathing very quickly. Your heart is beating very quickly. Your skin feels cold and clammy. You feel confused. You have signs of losing too much water in your body, such as: ?Dark pee, very little pee, or no pee. ?Cracked lips. ?Dry mouth. ?Sunken eyes. ?Sleepiness. ?Weakness. These symptoms may be an emergency. Do not wait to see if the symptoms will go away. Get medical help right away. Call your local emergency services (911 in the [place] Do not drive yourself to the hospital. Summary Nausea is feeling sick to your stomach or feeling that you are about to throw up (vomit). Vomiting is when food in your stomach is thrown up and out of the mouth. Follow instructions from your doctor about eating and drinking to keep from losing too much water in your body. Take ruxd-lkv-hpfewwr and prescription medicines only as told by your doctor. Contact your doctor if your symptoms get worse or you have new symptoms. Keep all follow-up visits as told by your doctor. This is important. This information is not intended to replace advice given to you by your health care provider. Make sure you discuss any questions you have with your health care provider. Document Released: 12/02/2008 Document Revised: 10/08/2019 Document Reviewed: 11/24/2018 [employer] Patient Education 2020 [employer]. 05/18/2021 14:39:33 Hand Washing, Obty-bz-Jlpp Hand Washing Germs such as bacteria, viruses, and parasites are found everywhere. They can be in the air and water. They can also be on surfaces like food, door handles, and your skin. Every day, your hands touchgerms. Many of these germs can make you and your family sick. Washing your hands is one of the bestways to lower your risk of getting and sharing germs. When should I wash my hands? You should wash your hands whenever you think they are dirty. You should also wash your hands: Before: ?Visiting a baby or anyone with a weakened disease-fighting system (immunesystem). ?Putting in and taking out contact lenses. After: ?Using the bathroom or helping someone else use the bathroom. ?Working or playing outside. ?Touching or taking out the garbage. ?Touching anything dirty around your home. ?Sneezing, coughing, or blowing your nose. ?Using a phone, including your mobile phone. ?Touching an animal, animal food, animal poop, or its toys or leash. ?Touching money. ?Using household truck repair service estimator or poisonous chemicals. ?Handling dirty clothes, bedding, or rags. ?Using public transportation. ?Going shopping, especially if you use a shopping cart or basket. ?Shaking hands. ?Handling livestock, such as cows or sheep. Before and after: ?Preparing food. ?Eating. ?Visiting or taking care of someone who is sick. This includes touching used tissues, toys, and clothes. ?Changing a bandage (dressing). ?Taking care of an injury or wound. ?Giving or taking medicine. ?Preparing a bottle for a baby. ?Feeding a baby or young child. ?Changing a diaper. What is the right way to wash my hands? 1.Wet your hands with clean, running water. Turn off the water or move your hands out of the running water. 2.Apply liquid soap or bar soap to your hands. 3.Rub your hands together quickly to create lather. 4.Keep rubbing your hands together for at least 20 seconds. Thoroughly scrub all parts of your hands. This includes scrubbing under your fingernails and between your fingers. 5.Rinse your hands with clean, running water. Do this until all the soap is gone. 6.Dry your hands using an air dryer or a clean paper or cloth towel, or let your hands air-dry. Do not use your clothing or a dirty towel to dry your hands. If you are in a public restroom, use your towel: To turn off the water faucet. To open the bathroom door. How can I clean my hands if I do not have soap and water? If soap and clean water are not available, use a hand-washing wipe, spray, or gel (hand truck and transport mechanic).Use one that contains at least 60% alcohol. If you are handling food, gels are not recommended as areplacement for hand washing with soap and water. To use these products, follow the directions on the product, and: Apply enough product to cover your hands. Make sure you wipe, rub, or spray the product so that it reaches every part of your hands and wrists. Include the backs of your hands, between your fingers, and under your fingernails. Rub the product onto your hands until it dries. Summary Every day, your hands touch germs. Many of these germs can make you and your family sick. Washing your hands is one of the best ways to lower your risk of getting and sharing germs. If soap and clean water are not available, use a hand-washing wipe, spray, or gel. This information is not intended to replace advice given to you by your health care provider. Make sure you discuss any questions you have with your health care provider. Document Released: 05/29/2009 Document Revised: 03/25/2018 Document Reviewed: 03/25/2018 [employer] Patient Education 2020 [employer]. 05/18/2021 14:39:27 Deep Vein Thrombosis Deep Vein Thrombosis Deep vein thrombosis (DVT) is a condition in which a blood clot forms in a deep vein, such as a lower leg, thigh, or arm vein. A clot is blood that has thickened into a gel or solid. This condition is dangerous. It can lead to serious and even life-threatening complications if the clot travels to the lungs and causes a blockage (pulmonary embolism). It can also damage veins in the leg. This can result in leg pain, swelling, discoloration, and sores (post-thrombotic syndrome). What are the causes? This condition may be caused by: A slowdown of blood flow. Damage to a vein. A condition that causes blood to clot more easily, such as an inherited clotting disorder. What increases the risk? The following factors may make you more likely to develop this condition: Being overweight. Being older, especially over age 60. Sitting or lying down for more than four hours. Being in the hospital. Lack of physical activity (sedentary lifestyle). , being in childbirth, or having recently given . Taking medicines that contain estrogen, such as medicines to prevent . Smoking. A history of any of the following: ?Blood clots or a blood clotting disease. ?Peripheral vascular disease. ?Inflammatory bowel disease. ?Cancer. ?Heart disease. ?Genetic conditions that affect how your blood clots, such as Factor V Leiden mutation. ?Neurological diseases that affect your legs (leg paresis). ?A recent injury, such as a car accident. ?Major or lengthy surgery. ?A central line placed inside a large vein. What are the signs or symptoms? Symptoms of this condition include: Swelling, pain, or tenderness in an arm or leg. Warmth, redness, or discoloration in an arm or leg. If the clot is in your leg, symptoms may be more noticeable or worse when you stand or walk. Some people may not develop any symptoms. How is this diagnosed? This condition is diagnosed with: A medical history and physical exam. Tests, such as: ?Blood tests. These are done to check how well your blood clots. ?Ultrasound. This is done to check for clots. ?Venogram. For this test, contrast dye is injected into a vein and X-rays are taken to check for any clots. How is this treated? Treatment for this condition depends on: The cause of your DVT. Your risk for bleeding or developing more clots. Any other medical conditions that you have. Treatment may include: Taking a blood thinner (anticoagulant). This type of medicine prevents clots from forming. It may be taken by mouth, injected under the skin, or injected through an IV (catheter). Injecting clot-dissolving medicines into the affected vein (catheter-directed thrombolysis). Having surgery. Surgery may be done to: ?Remove the clot. ?Place a filter in a large vein to catch blood clots before they reach the lungs. Some treatments may be continued for up to six months. Follow these instructions at home: If you are taking blood thinners: Take the medicine exactly as told by your health care provider. Some blood thinners need to be taken at the same time every day. Do not skip a dose. Talk with your health care provider before you take any medicines that contain aspirin or NSAIDs. These medicines increase your risk for dangerous bleeding. Ask your health care provider about foods and drugs that could change the way the medicine works (may interact). Avoid those things if your health care provider tells you to do so. Blood thinners can cause easy bruising and may make it difficult to stop bleeding. Because of this: ?Be very careful when using knives, scissors, or other sharp objects. ?Use an electric razor instead of a blade. ?Avoid activities that could cause injury or bruising, and follow instructions about how to preventfalls. Wear a medical alert bracelet or carry a card that lists what medicines you take. General instructions Take rrys-zwo-hinmcah and prescription medicines only as told by your health care provider. Return to your normal activities as told by your health care provider. Ask your health care provider what activities are safe for you. Wear compression stockings if recommended by your health care provider. Keep all follow-up visits as told by your health care provider. This is important. How is this prevented? To lower your risk of developing this condition again: For 30 or more minutes every day, do an activity that: ?Involves moving your arms and legs. ?Increases your heart rate. When traveling for longer than four hours: ?Exercise your arms and legs every hour. ?Drink plenty of water. ?Avoid drinking alcohol. Avoid sitting or lying for a long time without moving your legs. If you have surgery or you are hospitalized, ask about ways to prevent blood clots. These may include taking frequent walks or using anticoagulants. Stay at a healthy weight. If you are a woman who is older than age 35, avoid unnecessary use of medicines that contain estrogen, such as some control pills. Do not use any products that contain nicotine or tobacco, such as cigarettes and e-cigarettes. Thisis especially important if you take estrogen medicines. If you need help quitting, ask your health care provider. Contact a health care provider if: You miss a dose of your blood thinner. Your menstrual period is heavier than usual. You have unusual bruising. Get help right away if: You have: ?New or increased pain, swelling, or redness in an arm or leg. ?Numbness or tingling in an arm or leg. ?Shortness of breath. ?Chest pain. ?A rapid or irregular heartbeat. ?A severe headache or confusion. ?A cut that will not stop bleeding. There is blood in your vomit, stool, or urine. You have a serious fall or accident, or you hit your head. You feel light-headed or dizzy. You cough up blood. These symptoms may represent a serious problem that is an emergency. Do not wait to see if the symptoms will go away. Get medical help right away. Call your local emergency services (911 in the [place] Do not drive yourself to the hospital. Summary Deep vein thrombosis (DVT) is a condition in which a blood clot forms in a deep vein, such as a lower leg, thigh, or arm vein. Symptoms can include swelling, warmth, pain, and redness in your leg or arm. This condition may be treated with a blood thinner (anticoagulant medicine), medicine that is injected to dissolve blood clots,compression stockings, or surgery. If you are prescribed blood thinners, take them exactly as told. This information is not intended to replace advice given to you by your health care provider. Make sure you discuss any questions you have with your health care provider. Document Released: 06/16/2006 Document Revised: 05/29/2018 Document Reviewed: 11/14/2017 [employer] Patient Education 2020 [employer]. 05/18/2021 14:39:20 General Anesthesia, Adult, Care After General Anesthesia, Adult, Care After This sheet gives you information about how to care for yourself after your procedure. Your health care provider may also give you more specific instructions. If you have problems or questions, contact your health care provider. What can I expect after the procedure? After the procedure, the following side effects are common: Pain or discomfort at the IV site. Nausea. Vomiting. Sore throat. Trouble concentrating. Feeling cold or chills. Weak or tired. Sleepiness and fatigue. Soreness and body aches. These side effects can affect parts of the body that were not involved in surgery. Follow these instructions at home: For at least 24 hours after the procedure: Have a responsible adult stay with you. It is important to have someone help care for you until youare awake and alert. Rest as needed. Do not: ?Participate in activities in which you could fall or become injured. ?Drive. ?Use heavy machinery. ?Drink alcohol. ?Take sleeping pills or medicines that cause drowsiness. ?Make important decisions or sign legal documents. ?Take care of children on your own. Eating and drinking Follow any instructions from your health care provider about eating or drinking restrictions. When you feel hungry, start by eating small amounts of foods that are soft and easy to digest (bland), such as toast. Gradually return to your regular diet. Drink enough fluid to keep your urine pale yellow. If you vomit, rehydrate by drinking water, juice, or clear broth. General instructions If you have sleep apnea, surgery and certain medicines can increase your risk for breathing problems. Follow instructions from your health care provider about wearing your sleep device: ?Anytime you are sleeping, including during daytime naps. ?While taking prescription pain medicines, sleeping medicines, or medicines that make you drowsy. Return to your normal activities as told by your health care provider. Ask your health care provider what activities are safe for you. Take hhlz-abh-jyygqbf and prescription medicines only as told by your health care provider. If you smoke, do not smoke without supervision. Keep all follow-up visits as told by your health care provider. This is important. Contact a health care provider if: You have nausea or vomiting that does not get better with medicine. You cannot eat or drink without vomiting. You have pain that does not get better with medicine. You are unable to pass urine. You develop a skin rash. You have a fever. You have redness around your IV site that gets worse. Get help right away if: You have difficulty breathing. You have chest pain. You have blood in your urine or stool, or you vomit blood. Summary After the procedure, it is common to have a sore throat or nausea. It is also common to feel tired. Have a responsible adult stay with you for the first 24 hours after general anesthesia. It is important to have someone help care for you until you are awake and alert. When you feel hungry, start by eating small amounts of foods that are soft and easy to digest (bland), such as toast. Gradually return to your regular diet. Drink enough fluid to keep your urine pale yellow. Return to your normal activities as told by your health care provider. Ask your health care provider what activities are safe for you. This information is not intended to replace advice given to you by your health care provider. Make sure you discuss any questions you have with your health care provider. Document Released: 09/22/2001 Document Revised: 06/19/2018 Document Reviewed: 01/30/2018 [employer] Patient Education 2020 [employer]. 05/18/2021 14:39:14 Loop Electrosurgical Excision Procedure Loop Electrosurgical Excision Procedure Loop electrosurgical excision procedure (LEEP) is the cutting and removal (excision) of tissue fromthe cervix. The cervix is the bottom part of the uterus that opens into the vagina. The tissue thatis removed from the cervix is examined to see if there are precancerous cells or cancer cells present. LEEP may be done when: You have abnormal bleeding from your cervix. You have an abnormal Pap test result. Your health care provider finds an abnormality on your cervix during a pelvic exam. LEEP typically only takes a few minutes and is often done in the health care provider's office. Theprocedure is safe for women who are trying to get . However, the procedure is usually not done during a menstrual period or during . Tell a health care provider about: Any allergies you have. All medicines you are taking, including vitamins, herbs, eye drops, creams, and odbu-qir-ungqvbh medicines. Any blood disorders you have. Any medical conditions you have, including current or past vaginal infections such as herpes or sexually-transmitted infections (STIs). Whether you are or may be . Whether or not you are having vaginal bleeding on the day of the procedure. What are the risks? Generally, this is a safe procedure. However, problems may occur, including: Infection. Bleeding. Allergic reactions to medicines. Changes or scarring in the cervix. Increased risk of early () labor in future pregnancies. What happens before the procedure? Ask your health care provider about: ?Changing or stopping your regular medicines. This is especially important if you are taking diabetes medicines or blood thinners. ?Taking medicines such as aspirin and ibuprofen. These medicines can thin your blood. Do not take these medicines unless your health care provider tells you to take them. ?Taking zpmu-inp-wjhyqjo medicines, vitamins, herbs, and supplements. Your health care provider may recommend that you take pain medicine before the procedure. Ask your health care provider if you should plan to have someone take you home after the procedure. What happens during the procedure? An instrument called a speculum will be placed in your vagina. This will allow your health care provider to see your cervix. You will be given a medicine to numb the area (local anesthetic). The medicine will be injected into your cervix and the surrounding area. A solution will be applied to your cervix. This solution will help the health care provider find the abnormal cells that need to be removed. A thin wire loop will be passed through your vagina. The wire will be used to burn (cauterize) the cervical tissue with an electrical current. You may feel faint during the procedure. Tell your health care provider right away if you feel thisway. The abnormal cervical tissue will be removed. Any open blood vessels will be cauterized to prevent bleeding. A paste may be applied to the cauterized area of your cervix to help prevent bleeding. The sample of cervical tissue will be examined under a microscope. The procedure may vary among health care providers and hospitals. What can I expect after the procedure? After the procedure, it is common to have: Mild abdominal cramps that are similar to menstrual cramps. These may last for up to 1 week. A small amount of pink-tinged or bloody vaginal discharge, including light to moderate bleeding, for 1 2 weeks. A dark-colored discharge coming from your vagina. This is from the paste that was used on the cervix to prevent bleeding. It is up to you to get the results of your procedure. Ask your health care provider, or the department that is doing the procedure, when your results will be ready. Follow these instructions at home: Take payw-emc-ckhnxnd and prescription medicines only as told by your health care provider. Return to your normal activities as told by your health care provider. Ask your health care provider what activities are safe for you. Do not put anything in your vagina for 2 weeks after the procedure or until your health care provider says that it is okay. This includes tampons, creams, and douches. Do not have sex until your health care provider approves. Keep all follow-up visits as told by your health care provider. This is important. Contact a health care provider if you: Have a fever or chills. Feel unusually weak. Have vaginal bleeding that is heavier or longer than a normal menstrual cycle. A sign of this can be soaking a pad with blood or bleeding with clots. Develop a bad smelling vaginal discharge. Have severe abdominal pain or cramping. Summary Loop electrosurgical excision procedure (LEEP) is the removal of tissue from the cervix. The removed tissue will be checked for precancerous cells or cancer cells. LEEP typically only takes a few minutes and is often done in the health care provider's office. Do not put anything in your vagina for 2 weeks after the procedure or until your health care provider says that it is okay. This includes tampons, creams, and douches. Keep all follow-up visits as told by your health care provider. Ask your health care provider, or the department that is doing the procedure, when your results will be ready. This information is not intended to replace advice given to you by your health care provider. Make sure you discuss any questions you have with your health care provider. Document Released: 09/06/2003 Document Revised: 07/09/2019 Document Reviewed: 07/09/2019 [employer] Patient Education 2020 [employer]. 05/18/2021 14:30:14 Cervical Conization, Care After Cervical Conization, Care After This sheet gives you information about how to care for yourself after your procedure. Your health care provider may also give you more specific instructions. If you have problems or questions, contact your health care provider. What can I expect after the procedure? After the procedure, it is common to have: A groggy feeling, if you were given medicine to make you fall asleep (general anesthetic). Cramps that feel similar to menstrual cramps. Bloody discharge or light to moderate bleeding. Dark discharge. This discharge may look similar to coffee grounds. This is from the paste that was applied to the cervix to control bleeding. Follow these instructions at home: Medicines Take fsol-udq-ruucgqx and prescription medicines only as told by your health care provider. Do not take aspirin until your health care provider says it is okay. Aspirin can cause bleeding. If you are taking pain medicine: ?You may need to prevent or treat constipation. To do this, your health care provider may recommendthat you: ?Drink enough fluid to keep your urine clear or pale yellow. ?Take hsxc-fnz-ghucesa or prescription medicines. ?Eat foods that are high in fiber, such as fresh fruits and vegetables, whole grains, bran, and beans. ?Limit foods that are high in fat and processed sugars, such as fried and sweet foods. ?Do not drive or use heavy machinery. General instructions You may resume your normal diet unless your health care provider advises you not to do so. Take showers for the first week. Do not take baths, swim, or use hot tubs until your health care provider says it is okay. Do not douche, use tampons, or have sex until your health care provider says it is okay. Avoid activities that require great effort, such as exercises and heavy lifting, for at least 7 14 days. Keep all follow-up visits as told by your health care provider. This is important. Contact a health care provider if: You develop a rash. You are dizzy or lightheaded. You feel nauseous or you vomit. You develop a bad smelling discharge from your vagina. Get help right away if: You have blood clots or bleeding that is heavier than a normal period. Bleeding that soaks a pad inless than 1 hour is considered heavy bleeding. In this case, place two large tampons as high as youcan, and contact the DrJerrell at [phone] You have a fever. You have increasing cramps. You faint. You have pain when you urinate. You have severe or worsening pain. Your pain is not relieved when you take medicine. You have bloody urine. You vomit. Summary After the procedure, it is common to have cramps and dark or bloody discharge from your vagina. Do not douche, use tampons, or have sex until your health care provider says it is okay. Follow all other activity restrictions as told by your health care provider. This information is not intended to replace advice given to you by your health care provider. Make sure you discuss any questions you have with your health care provider. Document Released: 06/16/2006 Document Revised: 05/29/2018 Document Reviewed: 06/18/2017 [employer]. Follow Up Care 04/18/2021 09:57:11 With:JAG PHILIP MD Address: [phone] When: Unknown Comments:CALL DR PHILIP WITH ANY CONCERNS OR QUESTIONS AND FOR A FOLLOW UP APPOINTMENT. GO TO THE EMERGENCY ROOM WITH ANY URGENT MATTERS. With:JAG PHILIP Address: [address] [facility] [address] [address] [facility] [place] [address]- [phone] Business (1) When:Within 1 Week(s) [facility] 11-19-2021 Evaluation + Plan noteExtracted from: Title:Clinical Document Author:JAG PHILIP MD Date:05/18/21 [place] ADMISSION HISTORY A [place] PHYSICIAL CHIEF COMPLAINT: Presenting for LEEP procedure HISTORY OF PRESENT ILLNESS: 31 y.o. 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 REVIEW OF SYSTEMS: Negative ACTIVE PROBLEMS: (7) Asthma (524569010) control counseling (109118415) Breast pain, left (603186723) Food allergy (0834067232) Screening for cervical cancer (9507252769) Screening for STD (sexually transmitted disease) (183011040) Well woman exam (208283945) MEDICATIONS: Active Inpt Meds: cefOXitin (Mefoxin) Start: 05/18/21 6:00:00 EST, Dose = 2 gram(s), IV Piggyback, PREOP pharm, Stop: 05/18/21 23:59:00 EST, Rate: 200 mL/hr, Infuse over: 30 minute(s), 0 Active PRN Meds: None One Time Meds: None Active IV Meds: Lactated Ringers Infusion 1,000 mL (LR 1,000 mL) Start: 05/18/21 12:07:00 EST, Rate: 20 mL/hr Lactated Ringers Infusion 1,000 mL (LR 1,000 mL) Start: 05/18/21 6:00:00 EST, Stop date 05/18/21 23:59:00 EST, Rate: 20 mL/hr ALLERGIES: (2) Nuts Sesame seed Oil 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 PHYSICAL EXAM: VITALS: SwjadzFaxcQJRaenaKKBbS8RZS5OkynMl(kg) 05/18 12:1437.7147/[id number]/19 64.9 24 Hr Tmax: 37.7 at 05/18 12:14 36 Hr Tmax: 37.7 at 05/18 12:14 Vital Signs are the last 5 in the past 48 hours. Weights display the last 5 within 7 days. Initial Wt: 05/18 64.9 kg 143 lb Current Wt: 05/18 64.9 kg 143 lb GENERAL: YWF in NAD HEENT:wnl CARDIOVASCULAR:RRR RESPIRATORY:CTAB ABDOMEN: flat, nontender EXREMETIES:NT, no edema NEUROLOGICAL:grossly wnl PSYCHIATRIC:wnl LABS: No 36hr Lab Data DIAGNOSTICS: IMPRESSION: ANDREW II including endecervix Nulliparity PLAN: LEEP procedure with top hat. Future Scheduled Tests Laboratory* Pathology Tissue Request 04/11/21 [facility] 10-13-2021 Evaluation + Plan note Future Appointments Future Scheduled Tests Laboratory* Pathology Tissue Request 04/11/21 [facility] 10-13-2021 Evaluation + Plan note Future Scheduled Tests Laboratory* hCG, quantitative(AO) 01/03/22 * Pathology Tissue Request 04/11/21 [facility] Evaluation + Plan note Future Appointments Appointment Date:02/11/2022 11:15:00 AM Scheduled Provider:JAG PHILIP MD Location:[facility] Appointment Type: OV OB Routine Follow Up Future Scheduled Tests Laboratory* Panel (AO) 01/21/22 * Pathology Tissue Request 04/11/21 * Urinalysis 01/21/22 * Thyroid Stimulating Hormone 01/21/22 * Urine Culture 01/21/22 * A1C Hemoglobin 01/21/22 * Hepatitis C Antibody IgG 01/21/22 * HIV 1/2 Ab 01/21/22 * Vitamin D Level 01/21/22 * Urine Drug Screen 01/21/22 * Complete Metabolic Panel 01/21/22 * MISC Lab Send out (Blood Specimens) 01/21/22 * MISC Lab Send out (Blood Specimens) 01/21/22 Radiology* US OB Limited/Transvaginal 01/21/22 [facility] Evaluation + Plan note Future Appointments Appointment Date:03/26/2022 10:00:00 AM Scheduled Provider:JAG PHILIP MD Location:[facility] Appointment Type: OV Appointment Date:04/02/2022 07:30:00 AM Scheduled Provider: Location:[facility] Appointment Type:US OB > 14 wks Future Scheduled Tests Laboratory* Panel (AO) 01/21/22 * Pathology Tissue Request 04/11/21 * Urinalysis 01/21/22 * Urinalysis 03/18/22 * Thyroid Stimulating Hormone 03/18/22 * Urine Culture 01/21/22 * Creatinine, 24 Hour Urine 03/18/22 * HIV 1/2 Ab 01/21/22 * Urine Drug Screen 01/21/22 * Complete Metabolic Panel 03/18/22 * MISC Lab Send out (Blood Specimens) 01/21/22 * MISC Lab Send out (Blood Specimens) 01/21/22 Radiology* US OB Limited/Transvaginal 01/21/22 * US OB > 14 weeks 04/02/22 [facility] Evaluation + Plan note Future Appointments Appointment Date:04/30/2022 08:30:00 AM Scheduled Provider:JAG PHILIP MD Location:[facility] Appointment Type: OV Future Scheduled Tests Laboratory* Panel (AO) 01/21/22 * Pathology Tissue Request 04/11/21 * Urinalysis 01/21/22 * Urine Culture 01/21/22 * HIV 1/2 Ab 01/21/22 * Urine Drug Screen 01/21/22 * MISC Lab Send out (Blood Specimens) 01/21/22 * MISC Lab Send out (Blood Specimens) 01/21/22 Radiology* US OB Limited/Transvaginal 01/21/22 [facility] Evaluation + Plan note Future Appointments Appointment Date:06/11/2022 09:00:00 AM Scheduled Provider:JAG PHILIP MD Location:[facility] Appointment Type: OV OB Routine Follow Up Future Scheduled Tests Laboratory* Panel (AO) 01/21/22 * Urinalysis 01/21/22 * Urine Culture 01/21/22 * HIV 1/2 Ab 01/21/22 * Urine Drug Screen 01/21/22 * MISC Lab Send out (Blood Specimens) 01/21/22 * MISC Lab Send out (Blood Specimens) 01/21/22 Radiology* US OB Limited/Transvaginal 01/21/22 [facility] Evaluation + Plan note Future Appointments Appointment Date:07/17/2022 08:45:00 AM Scheduled Provider:MARGARET SHAW Location:[facility] Appointment Type: OV OB Routine Follow Up Appointment Date:08/06/2022 10:30:00 AM Scheduled Provider: Location:[facility] Appointment Type:US OB > 14 wks Future Scheduled Tests Laboratory* Glucose Tolerance Test 3 Hour (AO) 06/07/22 * Panel (AO) 01/21/22 * Urinalysis 01/21/22 * Urine Culture 01/21/22 * HIV 1/2 Ab 01/21/22 * Urine Drug Screen 01/21/22 * MISC Lab Send out (Blood Specimens) 01/21/22 * MISC Lab Send out (Blood Specimens) 01/21/22 Radiology* US OB Limited/Transvaginal 01/21/22 * US OB Limited/Transvaginal 08/06/22 * US OB > 14 weeks 08/06/22 [facility] Evaluation + Plan note Future Appointments Appointment Date:08/07/2022 11:15:00 AM Scheduled Provider:JAG PHILIP MD Location:[facility] Appointment Type:[facility] OB Routine Follow Up Future Scheduled Tests Laboratory* Glucose Tolerance Test 3 Hour (AO) 06/07/22 * Panel (AO) 01/21/22 * Urinalysis 01/21/22 * Urine Culture 01/21/22 * HIV 1/2 Ab 01/21/22 * Urine Drug Screen 01/21/22 * MISC Lab Send out (Blood Specimens) 01/21/22 * MISC Lab Send out (Blood Specimens) 01/21/22 Radiology* US OB Limited/Transvaginal 01/21/22 * US OB Limited/Transvaginal 08/06/22 [facility] Evaluation + Plan note Future Appointments Appointment Date:08/14/2022 08:45:00 AM Scheduled Provider:JAG PHILIP MD Location:[facility] Appointment Type:[facility] OB Routine Follow Up Future Scheduled Tests Laboratory* Glucose Tolerance Test 3 Hour (AO) 06/07/22 * Panel (AO) 01/21/22 * Urinalysis 01/21/22 * Urine Culture 01/21/22 * HIV 1/2 Ab 01/21/22 * Urine Drug Screen 01/21/22 * MISC Lab Send out (Blood Specimens) 01/21/22 * MISC Lab Send out (Blood Specimens) 01/21/22 Radiology* US OB Limited/Transvaginal 01/21/22 * US OB Limited/Transvaginal 08/06/22 [facility] Hospital course Narrative No data available for this section [facility] Hospital Discharge instructions No data available for this section [facility] Progress note No data available for this section [facility] Prohkess note Author Aminata Martínez [facility] Note Date/Time December 02, 2024 11:26 am [facility] [address], [address] [place] [address] OFFICE VISIT Date of Service: 12/02/24 MR#: [id number] Acct: [id number] Name: VICENTA BLANCHARD Rep #: [id number] : 1990 Provider: MATEUS Martínez Age/Sex: 34/F Location: [facility] Status: Signed Intake Vital Signs 10/21/24 11:39 12/02/24 11:19 Height 5 ft 3 in 5 ft 3 in Weight: 170 lb 171 lb 6 oz BMI 30.1 30.3 BP 132/85 H 119/85 H Intake Visit Reasons: IUD check 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 Is patient in pain?: No Allergies peanut Allergy (Verified 12/02/24 11:20) Angioedema sesame seed Allergy (Verified 12/02/24 11:20) Anaphylaxis tree nut (tree nuts) Adverse Reaction (Severe, Verified 12/02/24 11:20) Anaphylaxis Medications ?Medication ?Instructions ?Recorded ?Confirmed ?Type epinephrine 0.3 mg/0.3 mL 0.3 mg (0.3 mL) IM X1 food a llergy 11/06/16 12/02/24 Rx injection, auto-injector #2 syringes albuterol sulfate 90 mcg/actuation 2 puff inhalation Q 6H PRN asthma 12/30/23 12/02/24 History aerosol inhaler multivitamin no.47-iron fum 27 1 cap PO 0708/2312/02/24 History mg-folate no.1 1 mg-dha 300 mg capsule (PNV-DHA) umeclidinium 62.5 mcg-vilanterol 1 inh inhalation JENNA Y asthma 12/30/23 12/02/24 History 25 mcg/actuation powdr for inhalation (Anoro Ellipta) Post menopausal: No Patient : No : No PFSH Medical History Cystic fibrosis carrier History of gestational hypertension History of gestational diabetes Hx of vaginal delivery Seasonal allergies Surgical History Jones teeth extracted H/O LEEP Family History Mother Diabetes Grandmother Diabetes maternal Aunt Diabetes maternal Uncle Diabetes Maternal Father Hypertension Social History adopted: No household members: significant other number of children: 1 current occupational status: employed current occupation: [employer] current occupational exposures/hazards: No pets and animals: No history of recent travel: No sexually active: Yes Smoking Status: Never smoker alcohol intake: current alcohol intake frequency: holidays/special occasions only details: Not while substance use type: does not use well-balanced diet: daily or most days caffeine: Yes Type: coffee Number of servings: 1 eating out: 1-3 times/week during the past year weight has: remained stable what type of physical activity do you participate in: none morgan/confucianism: None seatbelt use: always do you feel safe at home: Yes 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 No pain or bleeding with IUD. No concerns with string length-checking strings occasionally. Female Reproductive History Last Menstrual Period: 12/02/24 Questions: sexually active: Yes, dyspareunia: No and PCB: No History 2 Elective abortions Hx Para 2 Spontaneous abortions Hx # Term Pregnancies Ectopic pregnancies Hx # Pregnancies Multiple births # of living children 2 Past Pregnancies Del. Date Name GA/Weeks Outcome Route Bth Weight Gen Labor Lgth Anesthesia Del Locatn Provider FOB 08/18/22 Jorge 37 live - full term vacuum 7#14oz Male ep idural Doug Sealtrent David 07/20/24 Junaid 38 live - full term Male epidur al H Rocio Rivera David Delivery Date: 08/18/22 Last Updated by: Klaudia Chance HTN, GDM Delivery Date: 07/20/24 Last Updated by: Klaudia Chance see problem list for complications. ROS Const Constitutional: Reports system reviewed and no additional complaints, except as documented Cardio Card: Reports system reviewed and no additional complaints, except as documented Resp Resp: Reports system reviewed and no additional complaints, except as documented GI GI: Reports system reviewed and no additional complaints, except as documented : Reports system reviewed and no additional complaints, except as documented; Denies difficulty voiding, dysuria or urinary frequency Skin Skin/Breast: Reports system reviewed and no additional complaints, except as documented Neuro Neuro: Reports system reviewed and no additional complaints, except as documented Psych Psych: Reports system reviewed and no additional complaints, except as documented; Denies anhedonia, anxiety or depression Exam Const General: cooperative, healthy appearing, comfortable and no acute distress Orientation: alert, awake and oriented x3 Resp Effort & Inspection: normal respiratory effort, able to speak in complete sentences and symmetric chest movement GI Inspection: normal to inspection Palpation: soft Rectal Exam: visual inspection normal External Female Exam: normal external appearance and normal appearance of the urethra Urethra: normal appearance of the urethra Speculum Exam - Vagina: normal appearance of the vagina and normal vaginal discharge Speculum Exam - Cervix: normal appearance of the cervix (strings noted) and nontender Bimanual Exam- Vagina & Uterus: normal bimanual exam, normal palpation and No tender Bimanual Exam- Adnexa, other: normal Pelvic Support: normal Skin General: no rashes or lesions noted Neuro General: patient alert, patient awake and patient oriented x3 Cognition: normal cognition Speech: speech normal Gait: normal gait Extrem General: normal to inspection and full ROM Psych Appearance: grossly normal and well kempt Mental Status: mental status grossly normal Affect: normal affect Speech and Movement: speech and movement normal Attitude: cooperative Thought Process: normal Thought Content: normal Judgment: judgment good Coding Level of Care Code Off vis,est,level 3 Diagnoses IUD check up Z30.431 Assessment and Plan Assessment and Plan (1) IUD check up: Status: Acute Plan: doing well-strings noted RTO annual/prn 12/02/24 1126 <Electronically signed by Amniata newman CNM> Date _ Aminata Martínez CNM Cosigner Signature: Date (if applicable) CC: ~ [facility] Work Phone: Reason for referral (narrative)No reason for referral information availableWMercy [facility] Work Phone: Summary Purpose Family History Relationship Condition Age at Onset Recorded Date/T laura mother Diabetes mellitus Unknown grandmother Diabetes mellitus Unknown aunt Diabetes mellitus Unknown uncle Diabetes mellitus Unknown father Hypertension Unknown No Family History Records Found Advance Directives Advance Directive Response Recorded Date/ Time Living Will No November 06, 2016 3 :02pm Power of Custody Assistant No November 06, 2016 3:02pm Living Will No July 20 7:18pm Power of Custody Assistant No July 20, 2024 7:18pm Chief Complaint and Reason for Visit Chief Complaint Admit Date 31 WK OB June 03, 2024 2 :36pm 33 WK OB June 14, 2024 10:30am 35 WK OB July 02, 2024 1: 00pm 36 WK OB July 06, 2024 9: 58am NAUSEA/VOMITTING July 09, 2024 1 :15pm NAUSEA/VOMITTING July 09, 2024 5 :03pm 37 WK OB July 12, 2024 1 0:33am VAGINAL DELIVERY July 20, 2024 6 :08pm LABOR AND DELIVERY July 20, 2024 6 :58pm VAGINAL DELIVERY July 21, 2024 8 :26am VAGINAL DELIVERY July 22, 2024 8 :40am visit (obstetrics) August 10:33am Reason for Visit Admit Date Asthma June 03, 2024 2 :36pm Hx of abnormal cervical Pap smear Decemb er 2023 2:36pm AMA (advanced maternal age) multigravida 35+ June 03, 2024 2:36pm Gestational diabetes mellitu s (GDM) affecting , antepartum June 03, 2024 2:36pm H/O gestational diabetes in prior , currently June 03, 2024 2:36pm Placenta previa antepartum June 03, 2024 2:36pm June 03, 2024 2 :36pm Pyelectasis of fetus on ultraso und June 03, 2024 2:36pm Supervision of high-risk Decem jc 2023 2:36pm Cystic fibrosis carrier June 03 2:36pm History of gestational hypertension Dece mber 2023 2:36pm Asthma June 14, 2024 10:30am Hx of abnormal cervical Pap smear Decemb er 2023 10:30am AMA (advanced maternal age) multigravida 35+ June 14, 2024 10:30am Gestational diabetes mellitu s (GDM) affecting , antepartum June 14, 2024 10:30am H/O gestational diabetes in prior , currently June 14, 2024 10:30am Placenta previa antepartum May 10:30am June 14, 2024 10:30am Pyelectasis of fetus on ultraso und June 14, 2024 10:30am Supervision of high-risk Decem jc 2023 10:30am Cystic fibrosis carrier June 14, 2 024 10:30am History of gestational hypertension Dece mber 2023 10:30am Asthma July 02, 2024 1: 00pm Hx of abnormal cervical Pap smear 2024 1:00pm AMA (advanced maternal age) multigravida 35+ July 02, 2024 1:00pm Gestational diabetes mellitu s (GDM) affecting , antepartum July 02, 2024 1:00pm H/O gestational diabetes in prior , currently July 02, 2024 1:00pm July 02, 2024 1: 00pm Pyelectasis of fetus on ultraso und July 02, 2024 1:00pm Supervision of high-risk 2024 1:00pm Cystic fibrosis carrier July 02 1:00pm History of gestational hypertension Maynor 2024 1:00pm Asthma July 06, 2024 9: 58am Hx of abnormal cervical Pap smear 2024 9:58am AMA (advanced maternal age) multigravida 35+ July 06, 2024 9:58am Gestational diabetes mellitu s (GDM) affecting , antepartum July 06, 2024 9:58am H/O gestational diabetes in prior , currently July 06, 2024 9:58am July 06, 2024 9: 58am Pyelectasis of fetus on ultraso und July 06, 2024 9:58am Supervision of high-risk Junua ry 2024 9:58am Cystic fibrosis carrier July 06 9:58am History of gestational hypertension Maynor [email or web address] 9:58am Nausea and vomiting during Je 2024 1:15pm Asthma July 12, 2024 1 0:33am Hx of abnormal cervical Pap smear y 2024 10:33am AMA (advanced maternal age) multigravida 35+ July 12, 2024 10:33am Gestational diabetes mellitu s (GDM) affecting , antepartum July 12, 2024 10:33am H/O gestational diabetes in prior , currently July 12, 2024 10:33am July 12, 2024 1 0:33am Pyelectasis of fetus on ultraso und July 12, 2024 10:33am Supervision of high-risk ry 2024 10:33am Cystic fibrosis carrier July 12 10:33am History of gestational hypertension 2024 10:33am Nausea and vomiting during Jun 10:33am Asthma July 20, 2024 6 :08pm Hx of abnormal cervical Pap smear y 2024 6:08pm AMA (advanced maternal age) multigravida 35+ July 20, 2024 6:08pm Gestational diabetes mellitu s (GDM) affecting , antepartum July 20, 2024 6:08pm H/O gestational diabetes in prior , currently July 20, 2024 6:08pm July 20, 2024 6 :08pm Pyelectasis of fetus on ultraso und July 20, 2024 6:08pm Supervision of high-risk 2024 6:08pm Vaginal delivery July 20, 2024 6 :08pm Cystic fibrosis carrier July 20 6:08pm History of gestational hypertension 2024 6:08pm Nausea and vomiting during Jun 6:08pm Routine Follow-Up September 08, 2024 10:33am Chief Complaint Admit Date visit (obstetrics) August 10:33am Mirena Insertion *WAIT for JACQUELINE* October 21, 2024 11:33am IUD check December 02, 2024 11:14 am Reason for Visit Admit Date Routine Follow-Up September 08, 2024 10:33am Contraception management October 21 11:33am IUD check up December 02, 2024 11:14 am Additional Source Comments Care Team (unrecognized sect ion and content) Care Team Personnel Name: NANDINI MAYORGA APRN-MELLO Position: P4 Advanced Practice Nurse Med Service: Active Provider Member Role: Primary Care Physician Address: Address: [address] [place] [id number]- [place] Care Team Related Persons Name: SPARR, THEA Care Team Personnel Name: NANDINI MAYORGA HOCKEY INSTRUCTOR-MINES SAFETY ENGINEER Position: P4 Advanced Practice Nurse Med Service: Active Provider Member Role: Primary Care Physician Address: Address: [address] [place] [address]- [place] Care Team Related Persons Name: SPARR, THEA Care Team Personnel Name: NANDINI MAYORGA HOCKEY INSTRUCTOR-MINES SAFETY ENGINEER Position: P4 Advanced Practice Nurse Med Service: Active Provider Member Role: Primary Care Physician Address: Address: [address] [place] [address]- [place] Care Team Related Persons Name: SPARR, THEA Care Team Personnel Name: NANDINI MAYORGA HOCKEY INSTRUCTOR-MINES SAFETY ENGINEER Position: P4 Advanced Practice Nurse Med Service: Active Provider Member Role: Primary Care Physician Address: Address: [address] [place] [address]- Care Team Related Persons Name: SPARR, THEA Care Team Personnel Name: NANDINI MAYORGA HOCKEY INSTRUCTOR-MINES SAFETY ENGINEER Position: P4 Advanced Practice Nurse Member Role: Primary Care Physician Address: Address: [address] [place] [address]- [place] Care Team Related Persons Name: SPARR, THEA Care Team Personnel Name: NANDINI MAYORGA HOCKEY INSTRUCTOR-MINES SAFETY ENGINEER Position: P4 Advanced Practice Nurse Member Role: Primary Care Physician Address: Address: [address] [place] [phone]- [place] Care Team Related Persons Name: SPARR, THEA Care Team Personnel Name: NANDINI MAYORGA HOCKEY INSTRUCTOR-MINES SAFETY ENGINEER Position: P4 Advanced Practice Nurse Member Role: Primary Care Physician Address: Address: [address] [place] [address]- [place] Care Team Related Persons Name: SPARR, THEA Care Team Personnel Name: NANDINI MAYORGA HOCKEY INSTRUCTOR-MINES SAFETY ENGINEER Position: P4 Advanced Practice Nurse Member Role: Primary Care Physician Address: Address: [address] [place] [phone]- [place] Care Team Related Persons Name: SPARR, THEA Care Team Personnel Name: NANDINI MAYORGA HOCKEY INSTRUCTOR-MINES SAFETY ENGINEER Position: P4 Advanced [place] Member Role: Primary Care Physician Address: Address: [address] [place] [address] [address] [facility] [place], [place] [address] Care Team Related Persons Name: JORGE BENEDICT Address: Home [address] [place] [phone] [place] Name: THEA BLANCHARD Patient Care team informatio n (unrecognized section and content) Team Status: Active Member Role Status Dates Dr. Rickie Castillo MD Family Provider Active Nandini Mayorga ELECTRICAL LINEWORKER, ELECTRICAL LINEWORKER-C Primary Care Provider Active Team Status: Inactive Member Role Status Dates Nandini Mayorga ELECTRICAL LINEWORKER, ELECTRICAL LINEWORKER-C Primary Care Provider Active Start: June 03, 2024 End: June 03, 2024 Nandini Mayorga ELECTRICAL LINEWORKER, ELECTRICAL LINEWORKER-C Referring Provider Active Start: June 03, 2024 End: June 03, 2024 Dr. Rocio Rivera , Attending Provider Activ e Start: June 03, 2024 End: June 03, 2024 Team Status: Inactive Member Role Status Dates Nandini Mayorga ELECTRICAL LINEWORKER, ELECTRICAL LINEWORKER-C Primary Care Provider Active Start: June 14, 2024 End: June 14, 2024 Nandini Mayorga ELECTRICAL LINEWORKER, ELECTRICAL LINEWORKER-C Referring Provider Active Start: June 14, 2024 End: June 14, 2024 Aminata Martínez CNM Attending Provider Active S tart: June 14, 2024 End: June 14, 2024 Team Status: Inactive Member Role Status Dates Nandini Mayorga NP, ELECTRICAL LINEWORKER-C Primary Care Provider Active Start: July 02, 2024 End: July 02, 2024 Nandini Mayorga ELECTRICAL LINEWORKER, ELECTRICAL LINEWORKER-C Referring Provider Active Start: July 02, 2024 End: July 02, 2024 Dr. Julieta Lua MD Attending Provider Active Start: July 02, 2024 End: July 02, 2024 Team Status: Inactive Member Role Status Dates Nandini Mayorga NP, ELECTRICAL LINEWORKER-C Primary Care Provider Active Start: July 06, 2024 End: July 06, 2024 Nandini Mayorga ELECTRICAL LINEWORKER, ELECTRICAL LINEWORKER-C Referring Provider Active Start: July 06, 2024 End: July 06, 2024 Dr. Rocio Rivera , Attending Provider Activ e Start: July 06, 2024 End: July 06, 2024 Team Status: Inactive Member Role Status Dates Nandini Lorson ELECTRICAL LINEWORKER, ELECTRICAL LINEWORKER-C Primary Care Provider Active Start: July 06, 2024 End: July 06, 2024 Dr. Rocio Rivera DO Attending Provider Activ e Start: July 06, 2024 End: July 06, 2024 Dr. Rocio Rivera DO Referring Provider Activ e Start: July 06, 2024 End: July 06, 2024 Team Status: Inactive Member Role Status Dates Nandini Mayorga ELECTRICAL LINEWORKER, ELECTRICAL LINEWORKER-C Primary Care Provider Active Start: July 09, 2024 End: July 09, 2024 Jaiden Marshall CNM Attending Provider Active Start: July 09, 2024 End: July 09, 2024 Jaiden Marshall CNM Referring Provider Active Start: July 09, 2024 End: July 09, 2024 Team Status: Active Member Role Status Dates Nandini Mayorga ELECTRICAL LINEWORKER, ELECTRICAL LINEWORKER-C Primary Care Provider Active Start: July 09, 2024 Jaiden Marshall CNM Attending Provider Active Start: July 09, 2024 Jaiden Marshall CNM Referring Provider Active Start: July 09, 2024 Jaiden Marshall CNM Other Provider Active Star t: July 09, 2024 Team Status: Inactive Member Role Status Dates Nandini Mayorga ELECTRICAL LINEWORKER, ELECTRICAL LINEWORKER-C Primary Care Provider Active Start: July 12, 2024 End: July 12, 2024 Nandini Mayorga ELECTRICAL LINEWORKER, ELECTRICAL LINEWORKER-C Referring Provider Active Start: July 12, 2024 End: July 12, 2024 Aminata Martínez CNM Attending Provider Active S tart: July 12, 2024 End: July 12, 2024 Team Status: Inactive Member Role Status Dates Nandini Mayorga NP, ELECTRICAL LINEWORKER-C Primary Care Provider Active Start: July 20, 2024 End: July 22, 2024 Dr. Rocio Rivera , Admit Provider Active Start: July 20, 2024 End: July 22, 2024 Dr. Rocio Rivera DO Attending Provider Activ e Start: July 20, 2024 End: July 22, 2024 Team Status: Active Member Role Status Dates Nandini Mayorga ELECTRICAL LINEWORKER, ELECTRICAL LINEWORKER-C Primary Care Provider Active Start: July 20, 2024 Dr. Rocio Rivera DO Admit Provider Active Start: July 20, 2024 Dr. Rocio Rivera DO Attending Provider Activ e Start: July 20, 2024 Dr. Rocio Rivera DO Other Provider Active Start: July 20, 2024 Team Status: Active Member Role Status Dates Nandini Mayorga NP, ELECTRICAL LINEWORKER-C Primary Care Provider Active Start: July 21, 2024 Dr. Rocio Rivera DO Admit Provider Active Start: July 21, 2024 Dr. Rocio Rivera DO Other Provider Active Start: July 21, 2024 Aminata Martínez CNM Attending Provider Active S tart: July 21, 2024 Team Status: Active Member Role Status Dates Nandini Mayorga NP, ELECTRICAL LINEWORKER-C Primary Care Provider Active Start: July 22, 2024 Dr. Rocio Rivera , Admit Provider Active Start: July 22, 2024 Dr. Rocio Rivera DO Attending Provider Activ e Start: July 22, 2024 Dr. Rocio Rivera DO Other Provider Active Start: July 22, 2024 Team Status: Inactive Member Role Status Dates Nandini Mayorga ELECTRICAL LINEWORKER, ELECTRICAL LINEWORKER-C Primary Care Provider Active Start: September 08, 2024 End: September 08, 2024 Nandini Mayorga NP, ELECTRICAL LINEWORKER-C Referring Provider Active Start: September 08, 2024 End: September 08, 2024 Tim Sanchez ELECTRICAL LINEWORKER, ELECTRICAL LINEWORKER-C Attending Provider Active Start: September 08, 2024 End: September 08, 2024 Team Status: Inactive Member Role Status Dates Nandini Mayorga NP, ELECTRICAL LINEWORKER-C Primary Care Provider Active Start: September 08, 2024 End: September 08, 2024 Tim Sanchez ELECTRICAL LINEWORKER, ELECTRICAL LINEWORKER-C Attending Provider Active Start: September 08, 2024 End: September 08, 2024 Tim Sanchez ELECTRICAL LINEWORKER, ELECTRICAL LINEWORKER-C Referring Provider Active Start: September 08, 2024 End: September 08, 2024 Team Status: Inactive Member Role Status Dates Nandini Mayorga NP, ELECTRICAL LINEWORKER-C Primary Care Provider Active Start: October 21, 2024 End: October 21, 2024 Nandini Mayorga NP, ELECTRICAL LINEWORKER-C Referring Provider Active Start: October 21, 2024 End: October 21, 2024 Aminata Martínez CNM Attending Provider Active S tart: October 21, 2024 End: October 21, 2024 Team Status: Inactive Member Role Status Dates Nandini Mayorga ELECTRICAL LINEWORKER, ELECTRICAL LINEWORKER-C Primary Care Provider Active Start: December 02, 2024 End: December 02, 2024 Nandini Mayorga NP, ELECTRICAL LINEWORKER-C Referring Provider Active Start: December 02, 2024 End: December 02, 2024 Aminata Martínez CNM Attending Provider Active S tart: December 02, 2024 End: December 02, 2024 INFORMATION SOURCE (unrecogn ized section and content) DATE CREATED AUTHOR 04/18/2023 [facility] ([place]) DATE CREATED AUTHOR AUTHOR'S ORGANIZ ATION 07/27/2024 [facility] DATE CREATED AUTHOR AUTHOR'S ORGANIZ ATION 12/03/2024 [facility] Goals (unrecognized section and content) Goals may be documented in a n alternate section FOR RECORDS PERTAINING TO PATIENTS WHO ARE OR HAVE BEEN ENROLLED IN A CHEMICAL DEPENDENCY/SUBSTANCEABUSE PROGRAM, SOME INFORMATION MAY BE OMITTED. This clinical summary was aggregated from multiple sources. Caution should be exercised in using it in the provision of clinical care. This summary normalizes information from multiple sources, and as a consequence, information in this document may materially change the coding, format and clinical context of patient data. In addition, data may be omitted in some cases. CLINICAL DECISIONS SHOULD BE BASED ON THE PRIMARY CLINICAL RECORDS. [facility]. provides no warranty or guarantee of the accuracy or completeness of information in this document.
--- NOTE | 2024-12-24 01:48 | CT_ITS ---
PROCEDURE: ABDOMEN/PELVIS W IV CONT ONLY 12/24/2024 REASON FOR EXAM: ABDOMINAL PAIN TECHNIQUE: ABDOMEN/PELVIS W IV CONT ONLY Coronal and Sagittal reconstruction series were provided. CONTRAST: Isovue-350 VOLUME: 100 mL One or more dose reduction techniques were used (e.g., Automated exposure control, adjustment of the mA and/or kV according to patient size, use of iterative reconstruction technique. RADIATION DOSE SUMMARY: CTDlvol: 15.33 mGy DLP: 842 mGycm COMPARISON: None. FINDINGS: The tip of the appendix is mildly enlarged, thickened and enhancing measuring 8.2 mm in its largest transverse dimension, suspicious for mild changes of early acute inflammatory changes in the tip of the appendix. No evidence of perforation or abscess formation. Left ovarian cyst measuring 3.2 cm. Unremarkable intrauterine device. Diffuse thickening of the stomach suggestive of gastritis. Scattered fluid-filled small bowels, probably enteritis. Fat containing umbilical hernia without incarceration. Minimal amount of free fluid in the pelvic cul-de-sac, probably physiologic. The visualized lung bases are unremarkable. Normal liver. Normal gallbladder and extrahepatic biliary system. Normal spleen. Normal pancreas. Normal bilateral adrenal glands. Normal size of the right kidney. There is no right renal mass. There are no right renal calculi. There is no right hydronephrosis. Normal visualized right ureter. Normal size of the left kidney. There is no left renal mass. There are no left renal calculi. There is no left hydronephrosis. Normal visualized left ureter. Normal colon. Normal abdominal aorta. Normal inferior vena cava. Normal retroperitoneum. Normal urinary bladder. There is no pelvic mass lesion or lymphadenopathy. Normal abdominal wall. Normal osseous structures. CT/Abdomen/Pelvis W IV Cont ONLY IMPRESSION: The tip of the appendix is mildly enlarged, thickened and enhancing measuring 8 .2 mm in its largest transverse dimension, suspicious for mild changes of early acute inflammatory changes in the tip of t he appendix. No evidence of perforation or abscess formation. Left ovarian cyst measuring 3.2 cm. Unremarkable intrauterine device. Diffuse thickening of the stomach suggestive of gastritis. Scattered fluid-filled small bowels, probably enteritis. Fat containing umbilical hernia without incarceration. Minimal amount of free fluid in the pelvic cul-de-sac, probably physiologic. [facility]
--- NOTE | 2024-12-24 01:50 | EX.ED.DYSGE1 ---
HPI History of Present Illness Chief Complaint: Abd Pain Narrative Narrative: Chief complaint and HPI: Abdominal pain. 34-year-old female with no significant past medical history presents for evaluation of abdominal pain. Patient states about an hour prior to arrival she woke up out of a deep sleep with diffuse abdominal pain. Associated symptom is nausea and vomiting. She denies any fever, chills, shortness of breath, chest pain, dysuria, hematuria. She states that her last menstrual cycle was 3 weeks ago and she does not believe herself to be . She denies any daily NSAID or alcohol abuse. Review of systems: See HPI Medications: As listed on the chart Allergies: As listed on the chart PFSH: Per chart Vital signs: As listed on the chart. Reviewed. Physical exam: Gen: A&O x3, NAD Head: Normocephalic, atraumatic Eyes: No sclera icterus, conjunctiva clear ENT: Moist mucous membranes Neck: Trachea midline, No JVD CV: RRR, no murmurs, no peripheral edema Resp: Lungs CTA BL, no w/r/c GI: Abd soft, non-distended, tender to palpation diffuse, + voluntary guarding, no rebound or rigidity : No CVA tenderness Musc: Full ROM, no deformity Skin: Warm, dry Neuro: Alert, oriented, grossly intact, sensation intact Psych: Cooperative, appropriate mood and affect [facility] Medical History Cystic fibrosis carrier History of gestational hypertension History of gestational diabetes Hx of vaginal delivery Seasonal allergies Home Medications ?Medication ?Instructions ?Recorded ?Last Taken ?Type epinephrine 0.3 mg/0.3 mL 0.3 mg (0.3 mL) IM X1 food allergy 11/06/16 Unknown Rx injection, auto-injector #2 syringes albuterol sulfate 90 mcg/actuation 2 puff inhalation Q6H PRN asthma 12/30/23 Unknown History aerosol inhaler umeclidinium 62.5 mcg-vilanterol 1 inh inhalation DAILY asthma 12/30/23 07/20/24 History 25 mcg/actuation powdr for inhalation (Anoro Ellipta) Allergy/AdvReac Type Severity Reaction Status Date / Time peanut Allergy Angioedema Verified 12/24/24 00:50 sesame seed Allergy Anaphylaxis Verified 12/24/24 00:50 tree nut (tree nuts) AdvReac Severe Anaphylaxis Verified 12/24/24 00:50 Family History Mother Diabetes Grandmother Diabetes maternal Aunt Diabetes maternal Uncle Diabetes Maternal Father Hypertension Surgical History [place] teeth extracted H/O LEEP Social History adopted: No household members: significant other number of children: 1 current occupational status: employed 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 current occupational exposures/hazards: No pets and animals: No history of recent travel: No sexually active: Yes Smoking Status: Never smoker alcohol intake: current alcohol intake frequency: holidays/special occasions only details: Not while substance use type: does not use well-balanced diet: daily or most days caffeine: Yes Type: coffee Number of servings: 1 eating out: 1-3 times/week during the past year weight has: remained stable what type of physical activity do you participate in: none morgan/caodaism: None seatbelt use: always do you feel safe at home: Yes additional social history: Partner [facility] EXAM Physical Exam Const Vital Signs: 12/24/24 00:50 12/24/24 02:50 12/24/24 04:00 Temperature 97.6 F L Temperature Source Temporal Pulse Rate 112 H 74 97 Respiratory Rate 18 16 18 Blood Pressure 156/77 H 142/78 H 118/75 Blood Pressure Mean 103 99 89 Pulse Ox 98 97 98 Oxygen Delivery Method Room Air Room Air Room Air MDM MDM MDM Narrative Medical decision making narrative: 34-year-old female with no significant past medical history presents for evaluation of abdominal pain. Patient states about an hour prior to arrival she woke up out of a deep sleep with diffuse abdominal pain. Associated symptom is nausea and vomiting. Differential diagnosis includes but is not limited to appendicitis, gastritis, PUD, cholecystitis, gastroenteritis, UTI, . NS bolus, Zofran, morphine ordered for symptoms. Abdominal pain workup ordered including CT abdomen pelvis. CBC without leukocytosis. Patient has baseline anemia of 11.5. Platelets unremarkable. CMP unremarkable without significant electrolyte abnormality or TWILA. No transaminitis. Lipase unremarkable. Serum negative. UA negative for UTI. CT abdomen pelvis shows findings for early acute tip appendicitis. No evidence of perforation or abscess. Left ovarian cyst. Diffuse thickening of the stomach suggestive of gastritis. Scattered fluid-filled small bowels probably enteritis. Fat-containing umbilical hernia without incarceration. On reevaluation, patient states her pain is improved however it is reoccurring. 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 Given concern for appendicitis, general surgery was consulted. Plan is for a OR in the morning. Zosyn and Protonix ordered. Maintenance fluid added and patient n.p.o. until surgery. Patient was updated of all results and the plan. She confirmed understanding. Impression: 1. Early acute tip appendicitis 2. Gastritis Lab Data Labs: Laboratory Results - last 24 hr 12/24/24 12/24/24 01:11 03:39 WBC 10.0 RBC 4.12 L Hgb 11.5 L Hct 34.7 L MCV 84.2 MCH 27.9 MCHC 33.1 RDW Std Deviation 37.7 RDW Coeff of Elian 12.4 Plt Count 214 MPV 11.5 Immature Gran % (Auto) 0.200 Neut % (Auto) 77.6 H Lymph % (Auto) 16.1 L [place] % (Auto) 5.4 Eos % (Auto) 0.6 Baso % (Auto) 0.1 Absolute Neuts (auto) 7.8 H Absolute Lymphs (auto) 1.61 Nucleated RBC % 0 Sodium 139 Potassium 4.0 Chloride 106 Carbon Dioxide 21.2 Anion Gap 12 BUN 14 Creatinine 0.71 Est GFR (MDRD) Non-Af 114 BUN/Creatinine Ratio 19.2 Glucose 102 H Calcium 9.2 Total Bilirubin 0.39 AST 17 ALT 17 Alkaline Phosphatase 65 Total Protein 6.8 Albumin 4.0 Globulin 2.8 Albumin/Globulin Ratio 1.5 Lipase 12 L Serum , Qual NEGATIVE Urine Color Yellow Urine Clarity Clear Urine pH 7.0 Ur Specific [place] 1.010 Urine Protein Negative Urine Glucose (UA) Normal Urine Ketones 15 H Urine Occult Blood Negative Urine Nitrite Negative Urine Bilirubin Negative Urine Urobilinogen Normal Ur Leukocyte Esterase Negative Urine RBC 0 SEEN Urine WBC 0 SEEN Ur Squamous Epith Cells 0 SEEN Urine Bacteria 0 SEEN Urine Mucus 0 SEEN Radiography Diagnostic Testing: Clinical Impression(s) from Imaging Studies Abdomen/Pelvis CT 12/24/24 01:48 IMPRESSION: The tip of the appendix is mildly enlarged, thickened and enhancing measuring 8.2 mm in its largest transverse dimension, suspicious for mild changes of early acute inflammatory changes in the tip of the appendix. No evidence of perforation or abscess formation. Left ovarian cyst measuring 3.2 cm. Unremarkable intrauterine device. Diffuse thickening of the stomach suggestive of gastritis. Scattered fluid-filled small bowels, probably enteritis. Fat containing umbilical hernia without incarceration. Minimal amount of free fluid in the pelvic cul-de-sac, probably physiologic. Reading Location: [place] [address] Discharge Plan Triage Chief Complaint: Abd Pain ED Provider: Scottie Garcia Dx/Rx/DC Orders Prescriptions: No Action umeclidinium-vilanterol [Anoro Ellipta] 62.5-25 mcg/actuation blister with device 1 inh inhalation DAILY albuterol sulfate 90 mcg/actuation HFA aerosol inhaler 2 puff inhalation Q6H PRN (Reason: asthma) epinephrine 0.3 MG syringe 0.3 mg IM X1 Qty: 2 2RF Primary Care Provider: Nandini Mayorga NP Referrals: Nandini Mayorga NP, [employer]BE[employer] HAZARD ABATEMENT WORKER-C [Primary Care Provider] - Print Language: Amharic
[2024-12-24] MEDS: 0.9% Normal Saline (1000mL) 1,000 ML 999 ML IV (01:53)
[2024-12-24] MEDS: Ondansetron 4 MG/2 ML Vial IV (01:53)
[2024-12-24] MEDS: Morphine 4 MG/ML Syringe IV (01:53)
[2024-12-24 02:00] LABS: Absolute Lymphocyte Count 1.61 X10^3/uL (0.83-4.51); Absolute Neutrophil Count 7.8 X10^3/uL (2.0-7.7); Basophil# 0.01 X10^3/uL; Basophil% 0.1 % (0-1); Eosinophil# 0.06 X10^3/uL; Eosinophils% 0.6 % (0-5); Hematocrit 34.7 % (37-47); Hemoglobin 11.5 g/dL (12.0-15.0); Lymphocyte # 1.61 X10^3/ul (0.83-4.51); Lymphocyte % 16.1 % (19-41); Mean Corp Hgb Conc 33.1 g/dL (32-36); Mean Corpuscular Hgb 27.9 pg (27.0-32.0); Mean Corpuscular Volume 84.2 fL (81-99); Mean Platelet Vol. 11.5 fl (6.2-12.0); Monocyte# 0.54 X10^3/uL; Monocyte% 5.4 % (0-10); NRBC Flagged by Analyzer 0 % (0-5); Neutrophil # 7.75 X10^3/uL (2.7-7.7); Neutrophil % 77.6 % (47-70); Platelet Count 214 K/mm3 (150-450); RBC Distribution Width CV 12.4 % (11.6-14.6); RBC Distribution Width SD 37.7 fl (35.1-43.9); Red Blood Count 4.12 M/mm3 (4.2-5.4)
[2024-12-24 02:13] LABS: Internal QC Validated? YES +Cl - CLEAR BKGD; Pregnancy, Serum, hCG Quali. NEGATIVE Negative; Record Kit Lot#, Serum Preg. 947241
[2024-12-24 02:22] LABS: ALB/GLOB Ratio 1.5 RATIO (0.9-2.4); AST(SGOT) 17 U/L (<=31); Alanine Aminotransfer ALT/SGPT 17 U/L (<=34); Alkaline Phosphatase 65 U/L (35-104); Anion Gap 12 (5-15); BUN 14 mg/dL (4-19); BUN/Creat Ratio 19.2 RATIO (10-20); Calcium,Total 9.2 mg/dL (7.6-11.0); Carbon Dioxide 21.2 mmol/L (21.0-32.0); Chloride 106 mmol/L (98-108); Creatinine, Serum 0.71 mg/dL (0.70-1.20); EST Glomerular Filtration Rate 114 (>60); Globulin 2.8 g/dL (2.2-4.2); Glucose 102 mg/dL (70-99); Lipase 12 U/L (13-75); Protein, Total 6.8 g/dL (5.9-8.4); Sodium Level 139 mmol/L (133-145); Total Bilirubin 0.39 mg/dL (0.00-1.30)
[2024-12-24 03:51] LABS: Bacteria 0 SEEN /hpf (None Seen); Mucous, Urine 0 SEEN /hpf (<or=2+); Red Blood Cells-Urine 0 SEEN /hpf (0-5); Squamous Epithelial Cells - UA 0 SEEN /hpf (5-10); White Blood Cells 0 SEEN /hpf (0-5)
[2024-12-24 03:53] LABS: Color, Urine Yellow (Yellow); Glucose, Dipstick Normal (Normal); Ketone-Dipstick 15 mg/dl (Negative); Leukocyte Esterase-Dipstick Negative /ul (Negative); Nitrite-Dipstick Negative (Negative); Occult Blood-Urine Negative /ul (Negative); Protein-Dipstick Negative (Negative); Urine Bilirubin Dipstick Negative (Negative); Urine Clarity Clear (Clear); Urine Urobilinogen Normal (Normal)
--- NOTE | 2024-12-24 04:24 | PCM.HP.STD ---
HPI - General General Date of Service: 12/24/24 HPI Narrative VICENTA BLANCHARD, is a 34 F who presents to the ER due to generalized abdominal pain. Patient states pain started about 1130 last night with nausea and vomiting. Patient states pain continued to get worse. Patient had a CT abdomen pelvis with dilated tip of the appendix suspicious for acute appendicitis. Patient did get Zosyn IV in the ER. White blood count is within normal limits with a left shift. ON LICENSE OF [facility] Medical History Cystic fibrosis carrier History of gestational hypertension History of gestational diabetes Hx of vaginal delivery Seasonal allergies Home Medications ?Medication ?Instructions ?Recorded ?Last Taken ?Type epinephrine 0.3 mg/0.3 mL 0.3 mg (0.3 mL) IM X1 food allergy 11/06/16 Unknown Rx injection, auto-injector #2 syringes albuterol sulfate 90 mcg/actuation 2 puff inhalation Q6H PRN asthma 12/30/23 Unknown History aerosol inhaler umeclidinium 62.5 mcg-vilanterol 1 inh inhalation DAILY asthma 12/30/23 07/20/24 History 25 mcg/actuation powdr for inhalation (Anoro Ellipta) Allergy/AdvReac Type Severity Reaction Status Date / Time peanut Allergy Angioedema Verified 12/24/24 00:50 sesame seed Allergy Anaphylaxis Verified 12/24/24 00:50 tree nut (tree nuts) AdvReac Severe Anaphylaxis Verified 12/24/24 00:50 Family History Mother Diabetes Grandmother Diabetes maternal Aunt Diabetes maternal Uncle Diabetes Maternal Father Hypertension Surgical History [place] teeth extracted H/O LEEP Social History adopted: No household members: significant other number of children: 1 current occupational status: employed current occupation: [employer] current occupational exposures/hazards: No pets and animals: No history of recent travel: No sexually active: Yes Smoking Status: Never smoker alcohol intake: current alcohol intake frequency: holidays/special occasions only details: Not while substance use type: does not use well-balanced diet: daily or most days caffeine: Yes Type: coffee Number of servings: 1 eating out: 1-3 times/week during the past year weight has: remained stable what type of physical activity do you participate in: none morgan/nondenominational: None seatbelt use: always do you feel safe at home: Yes additional social history: Partner David- Car [employer] Vital Signs Vital Signs Vital Signs: 12/24/24 00:50 12/24/24 02:50 12/24/24 04:00 Temperature 97.6 F L Temperature Source Temporal Pulse Rate 112 H 74 97 Respiratory Rate 18 16 18 Blood Pressure 156/77 H 142/78 H 118/75 Blood Pressure Mean 103 99 89 Pulse Ox 98 97 98 Oxygen Delivery Method Room Air Room Air Room Air Physical Exam Const alert, oriented x3 and no apparent distress HEENT normocephalic and head/scalp atraumatic Resp normal respiratory effort Cardio regular rate GI soft to palpation; Negative for non-distended Palpation: tender RLQ; Negative for guarding Extremity no clubbing, cyanosis or edema Neuro CN's II-XII intact bilaterally Psych mental status grossly normal Results Lab / Micro Data 12/24/24 01:11 12/24/24 01:11 Labs: Laboratory Results - last 24 hr 12/24/24 01:11: WBC 10.0, RBC 4.12 L, Hgb 11.5 L, Hct 34.7 L, MCV 84.2, MCH 27.9, MCHC 33.1, RDW Std Deviation 37.7, RDW Coeff of Elian 12.4, Plt Count 214, MPV 11.5, Immature Gran % (Auto) 0.200, Neut % (Auto) 77.6 H, Lymph % (Auto) 16.1 L, [place] % (Auto) 5.4, Eos % (Auto) 0.6, Baso % (Auto) 0.1, Absolute Neuts (auto) 7.8 H, Absolute Lymphs (auto) 1.61, Nucleated RBC % 0, Sodium 139, Potassium 4.0, Chloride 106, Carbon Dioxide 21.2, Anion Gap 12, BUN 14, Creatinine 0.71, Est GFR (MDRD) Non-Af 114, BUN/Creatinine Ratio 19.2, Glucose 102 H, Calcium 9.2, Total Bilirubin 0.39, AST 17, ALT 17, Alkaline Phosphatase 65, Total Protein 6.8, Albumin 4.0, Globulin 2.8, Albumin/Globulin Ratio 1.5, Lipase 12 L, Serum , Qual NEGATIVE 12/24/24 03:39: Urine Color Yellow, Urine Clarity Clear, Urine pH 7.0, Ur Specific [place] 1.010, Urine Protein Negative, Urine Glucose (UA) Normal, Urine Ketones 15 H, Urine Occult Blood Negative, Urine Nitrite Negative, Urine Bilirubin Negative, Urine Urobilinogen Normal, Ur Leukocyte Esterase Negative, Urine RBC 0 SEEN, Urine WBC 0 SEEN, Ur Squamous Epith Cells 0 SEEN, Urine Bacteria 0 SEEN, Urine Mucus 0 SEEN Imaging Radiology Impression Abdomen/Pelvis CT 12/24/24 01:48 IMPRESSION: The tip of the appendix is mildly enlarged, thickened and enhancing measuring 8.2 mm in its largest transverse dimension, suspicious for mild changes of early acute inflammatory changes in the tip of the appendix. No evidence of perforation or abscess formation. Left ovarian cyst measuring 3.2 cm. Unremarkable intrauterine device. Diffuse thickening of the stomach suggestive of gastritis. Scattered fluid-filled small bowels, probably enteritis. Fat containing umbilical hernia without incarceration. Minimal amount of free fluid in the pelvic cul-de-sac, probably physiologic. Reading Location: [place] [id number] Assessment & Plan Assessment/Plan (1) Acute appendicitis: PLAN: Plan 1. Discussed procedure laparoscopic appendectomy, possible open along with the risk but not limited to bleeding, infection/abscess, injury to another organ (small bowel, colon, etc.), adhesion, hernia at incision sites, and anesthesia. Patient's pain is more upper umbilical question if this is due to location of the appendix difficult to appreciate appendix to the base but does appear that the tip is dilated in the presacral region. Patient is aware that even the appendix appears normal will be removing during surgery. Patient and her no further questions time. Hattie Ramos M.D. Pager: [phone] [facility] [address] [place] [address], [address] [place] [id number] Office: [phone]
--- OUTSIDE RECORDS SUMMARY | 2024-12-24 04:45 | XMS RPT_ITS | CCD ---
Author Organization [facility] CliniSymt Care Team Providers Care Preforming Machine Operator Name Role Phone [facility] 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, [place] Primary Care Physician TAMERA JAG Attending Unavailable [facility] 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, [place] Primary Care Unavail able TAMERA, JAG Attending Unavailable [facility] 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, [facility] Care Unavail able PAYAL ROSE MD Attending Unavailable [facility] 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, [facility] Care Unavail able [facility] 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, [facility] Unavail able PAYAL ROSE MD Admitting Unavailable PAYAL ROSE MD Attending Unavailable TAMERA, JAG Attending Unavailable [facility] 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, [facility] Care Unavail able TAMERA, JAG Attending Unavailable [facility] 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, [place] Primary Care Unavail able WALTER BROUSSARD MD Attending Unavailable [facility] 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, [facility] Unavail able TAMERA, JAG Attending Unavailable [facility] 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, [facility] Care Unavail able MARGARET SHAW Attending Unavailable [facility] 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, [facility] Unavail able NO PRIMARY CAREMD Primary Care [...] Primary Care Unavailable JULIETA LUA Referring Unavailabl e ANDREW MEEK Attending Unavailable MELINA SWAIN Primary Care Unavailable Lorson STRIP WINDER-C, [place] Primary Care Provider [phone] [place]on STRIP WINDER-C, Nandini Referring Provider [phone] Charly Gallegos DO, Dr. Chan Attending Provider Mauricio CNChristy, Aminata Attending Provider [phone] Brianna MOLINA, Dr. Rendon Attending Provider [phone] Dr. Rocio Rivera DO Referring Provider Rolando CNM, Jaiden Attending Provider [phone] Rolando CNM, Jaiden Referring Provider [phone] Rolando CNM, Jaiden Other Provider [phone] Charly Gallegos DO, Dr. Chan Admit Provider [phone] Charly Gallegos DO, Dr. Chan Other Provider [phone] Laura STRIP WINDER-C, Tim Attending Provider [phone] Laura STRIP WINDER-C, Tim Referring Provider [phone] [place] STRIP WINDER, Tim Attending Unavailable Lorson STRIP WINDER, [place] Referring Unavailable Lorson STRIP WINDER, [facility] Unavailable Lorson STRIP WINDER, [place] Referring Unavailable Aminata Martínez Attending Unavailable L[place]on STRIP WINDER, [facility] Care Unavailable Rocio Rivera Consulting Unavailabl e Rocio Rivera Admitting Unavailabl e Rocio Rivera Attending Unavailabl e [place]on STRIP WINDER, [facility] Unavailable Rocio Rivera Attending Unavailabl e [place] Rocio Gallegos Referring Unavailabl e L[place]on STRIP WINDER, [facility] Unavailable Laura STRIP WINDERTim Attending Unavailable L[place]on STRIP WINDER, [facility] Care Unavailable Laura STRIP WINDER, Tim Referring Unavailable Rocio Rivera Admitting Unavailabl e [place] Rocio Gallegos Referring Unavailabl e Rocio Rivera Attending Unavailabl e [place]on STRIP WINDER, [facility] Unavailable Jaiden Marshall Referring Unavailable Jaiden Marshall Attending Unavailable [place]on STRIP WINDER, [facility] Care Unavailable Aminata Martínez Attending Unavailable Marshall, Jaiden Referring Unavailable Jaiden Marshall Attending Unavailable Jaiden Marshall Consulting Unavailable L[place]on STRIP WINDER, [place] Primary Care Unavailable Rocio Rivera Attending Unavailabl e L[place]on STRIP WINDER, [place] Referring Unavailable L[place]on STRIP WINDER, [place] Primary Care Unavailable L[place]on STRIP WINDER, [place] Referring Unavailable Aminata Martínez Attending Unavailable L[place]on STRIP WINDER, [facility] Care Unavailable L[place]on STRIP WINDER, [place] Primary Care Unavailable L[place]on STRIP WINDER, [place] Referring Unavailable Aminata Martínez Attending Unavailable Rocio Rivera Attending Unavailabl e Vande VelRocio zhao Attending Unavailabl e L[place]on STRIP WINDER, [place] Referring Unavailable L[place]on STRIP WINDER, [facility] Care Unavailable L[place]on STRIP WINDER, [place] Primary Care Unavailable L[place]on STRIP WINDER, [place] Referring Unavailable Aminata Martínez Attending Unavailable [place] STRIP WINDERTim Attending Unavailable Lorson STRIP WINDER, [facility] Care Unavailable L[place]on STRIP WINDER, [place] Referring Unavailable [place] Rocio Gallegos Attending Unavailabl e L[place]on STRIP WINDER, [place] Referring Unavailable Lorson STRIP WINDER, [facility] Care Unavailable Aminata Martínez Attending Unavailable L[place]on STRIP WINDER, [place] Primary Care Unavailable Aminata Martínez Referring Unavailable Rocoi Rivera Attending Unavailabl e Vande Velde, Rocio Referring Unavailabl e L[place]on STRIP WINDER, [facility] Care Unavailable L[place]on STRIP WINDER, [place] Referring Unavailable L[place]on STRIP WINDER, [facility] Care Unavailable Aminata Martínez Attending Unavailable Rocio Rivera Attending Unavailabl e Care Physician, Primary Primary Care Unava ilable L[place]on STRIP WINDER, [place] Referring Unavailable L[place]on STRIP WINDER, [facility] Care Unavailable Julieta Lua Attending Unavailable [place]on STRIP WINDER, [facility] Care Unavailable [place]on STRIP WINDER, [place] Referring Unavailable Tim Sanchez NP Attending Unavailable [place]on STRIP WINDER, [place] Primary Care Unavailable [place]on STRIP WINDER, [place] Referring Unavailable Aminata Martínez Attending Unavailable [place] STRIP WINDER, [place] Referring Unavailable L[place]on STRIP WINDER, [place] Primary Care Unavailable Julieta Lua Attending Unavailable [place] STRIP WINDER-C, [place] Primary Care Provider [phone] Prernason STRIP WINDER-C, [place] Referring Provider [phone] Aminata Martínez CNM Attending Provider Allergies Allergy Classification Reported Allergen(s) Allergy Type Date of Onset Reaction(s) Facility (12 sources) Nuts (not including peanuts) Food allergy Pharyngeal swelling (finding), Vomiting (disorder) [facility] (12 sources) Sesame seed Oil Food allergy Nausea (finding) [facility] (1 source) peanut; Translations: [PEANUT ALLERGY] Propensity to adverse reactions to drug (disorder) 4 [facility] Repository (4 sources) sesame seed extract; Translations: [SESAME SEED] Drug Allergy 4 Anaphylaxis [facility] Repository (1 source) tree nut, unspecified; Translations: [TREE NUT ALLERGY] Propensity to adverse reactions to drug (disorder) 4 [facility] Repository (2 sources) peanut allergenic extract Drug Allergy 5 Angioedema [facility] (3 sources) tree nut, unspecified; Translations: [tree nut] Propensity to adverse reactions 5 Anaphylaxis [facility] (1 source) peanut allergenic extract Drug Allergy 5 [facility] Repository Medications Current Medications Medication Drug Class(es) Dates Sig (Normalized) Sig (Original) acetaminophen 325 mg oral capsule (1 source) Start: 05-18-2021 take 1 capsule by mouth every six hours acetaminophen 325 mg oral capsule Dose : 650 mg =, Oral, q6h, # 20 cap(s), 0 Refill(s), Pharmacy: [facility], 160, cm, 05/18/21 12:15:00 EST, Height, kg, 05/18/21 12:15:00 EST, Dosing Weight Start Date: 05/18/21 Status: Ordered [id number] 200 actuat albuterol 0.09 mg/actuat metered dose [...] wheezing, # 1 EA, 0 Refill(s), Pharmacy: [facility], 160, cm, 08/18/22 16:22:00 EST, Height, kg, 09/30/22 10:52:00 EDT, Dosing Weight Start Date: 02/24/23 Status: Ordered Start: 02-20-2021 take 2 puff(s) by in halation four times daily as needed for wheezing Ventolin HFA MDI (90 mcg/inh) inhalation aerosol 2 puff(s), Inhalation, QID, PRN as needed for wheezing, # 1 EA, 0 Refill(s), Pharmacy: [facility], 160, cm, 02/20/21 13:55:00 EDT, Height, kg, 02/20/21 13:55:00 EDT, Dosing Weight Start Date: 02/20/21 Status: Ordered Alcohol Swabs (3 sources) Start: 06-11-2022 Alcohol Swabs See Instructions, Dispense 100 Use 4x daily Diagnosis: Gestational Diabetes, # 100 EA, 5 Refill(s), Pharmacy: [facility], 28 weeks gestation of Gestational diabetes, 161, cm, 06/11/22 9:01:00 EST, Height, 74.3 Start Date: 06/11/22 Status: Ordered Blood Glucose Test Machine (3 sources) Start: 06-11-2022 Blood Glucose Test Machine See Instructions, Use as directed Brand type per insurance or patient preference Diagnosis: Gestational Diabetes, # 1 EA, 0 Refill(s), Pharmacy: [facility], 28 weeks gestation of Gestational diabetes, [...] Ingredients 1 MG Oral Tablet) } Pack [Mcdonough-Linyah 28 Day] (1 source) Progestin, Estrogen Start: 04-07-2023 End: 03-08-2024 take 1 tablet by mouth once daily Mcdonough-Linyah 0.25 mg-35 mcg oral tablet Dose = 1 tab(s), Oral, qDay, # 84 tab(s), 3 Refill(s), Pharmacy: [facility], 160.2, cm, 04/07/23 8:24:00 EDT, Height, [...] tab(s), 1 Refill(s), 09/07/22 19:16:00 EST, Pharmacy: [facility], 160, cm, 08/18/22 16:22:00 EST, Height Start Date: 08/18/22 Stop Date: 09/07/22 Status: Ordered Start: 05-18-2021 IBU 600 mg ora l tablet Dose : 600 mg = 1 tab(s), Oral, q6h, # 20 tab(s), 0 Refill(s), Pharmacy: [facility], 160, cm, 05/18/21 12:15:00 EST, Height, kg, 05/18/21 12:15:00 EST, Dosing Weight Start Date: 05/18/21 Status: Ordered Mcdonough-Linyah 0.25 mg-35 mcg oral tablet (2 sources) Start: 02-20-2021 End: 01-22-2022 take 1 tablet by mouth once daily, then take 1 tablet by mouth once daily Mcdonough-Linyah 0.25 mg-35 mcg oral tablet Dose = 1 tab(s), Oral, qDay, TAKE 1 TABLET BY MOUTH DAILY, # 28 tab(s), 11 Refill(s), Pharmacy: [facility], 160, cm, 02/20/21 13:55:00 EDT, Height, kg, 02/20/21 13:55:00 EDT, Dosing Weight Start Date: 02/20/21 Stop Date: 01/22/22 Status: Ordered Multivit 35-Xrso-Lqobgc 1-Dha (Pnv-Dha) 27 mg iron-1 mg -300 mg capsule (2 sources) Start: 12-30-2023 Multivit 03-Sopo-Lzohpd 1-Dha (Pnv-Dha) 27 mg iron-1 mg -300 mg capsule Active 1 NMA PO December 30, 2023 12:00am NIFEdipine 30 mg oral tablet (7 sources) Dihydropyridine Calcium Channel Ilda Start: 03-18-2022 NIFEdipine (Eqv-Adalat CC) 30 mg oral tablet, extended release Dose : 30 mg = 1 tab(s), Oral, qDay, # 30 tab(s), 5 Refill(s), Pharmacy: [facility], 16 weeks gestation of Hypertension, 161, [...] daily, # 1 EA, 11 Refill(s), Pharmacy: [facility], 161.2, cm, 01/01/22 14:49:00 EDT, Height, kg, 01/01/22 14:49:00 EDT, Dosing Weight Start Date: 01/01/22 Status: Ordered Start: 02-20-2021 take 1 puff(s) by in halation once daily Arnuity Ellipta 100 mcg inhalation powder Dose : 100 mcg =, Inhalation, q24h, Inhale 1 puff once daily, # 1 EA, 11 Refill(s), Pharmacy: [facility], 160, cm, 02/20/21 13:55:00 EDT, Height, [...] qDay, # 90 tab(s), 1 Refill(s), Pharmacy: [facility], 18 weeks gestation of Chronic hypertension, [...] EFW, AC 27%. declined NIPT, see last [facility] US for A/P details Residual codes; [...] Test Name Value Interpretation Reference Range Facility Transit Manager Office Visit Reporton 12-02-2024 Transit Manager Office Visit Report [facility] [address], [address] [place] [address] OFFICE VISIT Date of Service: 12/02/24 MR#: [id number] Acct: [id number] Name: VICENTA BLANCHARD Rep #: [id number] : 1990 Provider: MATEUS Lucero ams Age/Sex: 34/F [place] [facility] [place]: Signed Intake Vital Signs 10/21/24 11:39 12/02/24 11:19 Height 5 ft 3 in 5 ft 3 in Weight: 170 lb 171 lb 6 oz BMI 30.1 30.3 BP 132/85 H 119/85 H Intake Visit Reasons: IUD check Chief Complaint: IUD Check Sheet Pile Hammer Operator Required: No Is patient in pain?: No [...] of vaginal delivery Seasonal allergies Surgical History [place] teeth extracted H/O LEEP Family History Mother Diabetes Grandmother Diabetes maternal Aunt Diabetes maternal Uncle Diabetes Maternal Father Hypertension Social History adopted: No household members: significant other number of children: 1 current occupational status: employed 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 Normal [facility] Laboratory - Chemistry and C hemistry - challengeOrdered By: Aminata Martínez on 10-21-2024 HCG ( test) Ql (U) Negative [facility] Transit Manager Office Visit Reporton 10-21-2024 Transit Manager Office Visit Report [facility] [address], [address] [place] [address] OFFICE VISIT Date of Service: 10/21/24 MR#: [id number] Acct: [id number] Name: VICENTA BLANCHARD Rep #: [id number] : 1990 Provider: MATEUS Lucero ams Age/Sex: 34/F [place] [facility] [place]: Signed Intake Vital Signs 09/08/24 10:43 10/21/24 11:39 Height 5 ft 3 in 5 ft 3 in Weight: 170 lb BMI 30.1 BP 132/85 H Intake Visit Reasons: Mirena Insertion *WAIT for JACQUELINE* Chief Complaint: IUD Insertion Sheet Pile Hammer Operator Required: No Is patient in pain?: No [...] of vaginal delivery Seasonal allergies Surgical History [place] teeth extracted H/O LEEP Family History Mother Diabetes Grandmother Diabetes maternal Aunt Diabetes maternal Uncle Diabetes Maternal Father Hypertension Social History adopted: No household members: significant other number of children: 1 current occupational status: employed 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 Normal [facility] PAP IG HPV APTIMA 16/18,45on 09-11-2024 ADEQ Comment Normal . [facility] Comment on above: Order Comment: Speci men Comment: [id number] Comment: No. of containers..01 ThinPrep Vial Result Comment: Sati sfactory for evaluation. Endocervical and/or squamous metaplastic cells (endocervical component) are present. Performed By: #### L 3890.6005, L509.8000, L500.4710, L100.0100 #### [facility] [address] [place], [address] COMM . Normal . [facility] Comment on above: Order Comment: Speci men Comment: [id number] Comment: No. of containers..01 ThinPrep Vial Performed By: #### L 3890.6005, L509.8000, L500.4710, L100.0100 #### [facility] [address] [place], [address] COMMENT Comment Normal . [facility] Comment on above: Order Comment: Speci men Comment: [id number] Comment: No. of containers..01 ThinPrep Vial Result Comment: This liquid based ThinPrep(R) pap test was screened with the use of an image guided system. Performed By: #### L 3890.6005, L509.8000, L500.4710, L100.0100 #### [facility] [address] [place], [place], [id number] DIAG Comment Normal . [facility] Comment on above: Order Comment: Speci men Comment: [id number] Comment: No. of containers..01 ThinPrep Vial Result Comment: NEGA TIVE FOR INTRAEPITHELIAL LESION OR MALIGNANCY. Performed By: #### L 3890.6005, L509.8000, L500.4710, L100.0100 #### [facility] [address] [place], [address] HPV APTIMA, HR Negative Normal Negative [facility] Comment on above: Order Comment: Speci men Comment: [id number] Comment: No. of containers..01 ThinPrep Vial Result Comment: This nucleic acid amplification test detects fourteen high- risk HPV types (16,18,31,33,35,39,45,51,52,56,58,59,66,68) without differentiation. Performed By: #### L 3890.6005, L509.8000, L500.4710, L100.0100 #### [facility] [address] [place], [address] HPV Cheryl Rfx Comment Normal . [facility] Comment on above: Order Comment: Speci men Comment: [id number] Comment: No. of containers..01 ThinPrep Vial Result Comment: Crit ermoris not met, HPV Genotype not performed. Performed at: [facility] [address] [address] [place], [place] [id number] Crane Crew Supervisor: Tuan Dawkins MD, Phone: [phone] Performed at: - [address] [id number] Crane Crew Supervisor: Shivani Crockett MD, Phone: [phone] Performed at: = - [address] [id number] Crane Crew Supervisor: Shivani Crockett MD, Phone: [phone] Performed By: #### L 3890.6005, L509.8000, L500.4710, L100.0100 #### [facility] [address] [place], [place], [id number] PAPSMR Comment Normal . [facility] Comment on above: Order Comment: Speci men Comment: [id number] Comment: No. of containers..01 ThinPrep Vial Result [...] #### L 3890.6005, L509.8000, L500.4710, L100.0100 #### [facility] [address] [place], [place], [id number] PERFORM Comment Normal . [facility] Comment on above: Order Comment: Speci men Comment: [id number] Comment: No. of containers..01 ThinPrep Vial Result Comment: Ervin Martínez, Soap Mixer (ASCP) Performed By: #### L 3890.6005, L509.8000, L500.4710, L100.0100 #### [facility] [place], [address] Cervical or vaginal specimen microscopic examination by liquid based cytology (reportOrdered By: Tim Sanchez on 09-08-2024 Cytology report Cyto stain.thin prep Doc (Cvx/Vag) Comment . [facility] Comment on above: Criteria not met, HP V Genotype not performed.Performed at: [facility] [id number] [place], [place] [id number] Director: Tuan Dawkins MD, Phone: [phone] at: [address] [id number] Director: Shivani Crockett MD, Phone: [phone] at: [facility] [id number] Director: Shivani Crockett MD, Phone: [phone] Cervical or vagninal specime n microscopic examination by cytology stain (reported asOrdered By: Tim Sanchez on 09-08-2024 Cytology report Cyto stain Doc (Cvx/Vag) Comment . [facility] Comment on above: The Pap smear is a s creening test designed to aid in thedetection of premalignant and malignant conditions of theuterine cervix. It is not a diagnostic procedure andshould not be used as the sole means of detecting cervicalcancer. Both false-positive and false-negative reports dooccur. Angledozer Operator Cyto stain Nom (C vx/Vag) [ID]Ordered By: Tim Sanchez on 09-08-2024 Pap Smear Performed By Comment . [facility] Comment on above: Cole Alas totechnologist (ASCP) Cytology report Cyto stain D oc (Cvx/Vag)Ordered By: Tim Sanchez on 09-08-2024 Thin Prep Pap Smear Comment . [facility] Comment on above: The Pap smear is [...] 09-08-2024 HPV Genotype Special Info Comment . [facility] Comment on above: Criteria not met, HP V Genotype not performed.Performed at: [facility] [address] [place], [place] [id number] Director: Tuan Dawkins MD, Phone: [phone] at: - [address] [id number] Director: Shivani Crockett MD, Phone: [phone] at: =G - [facility] [id number] Director: Shivani Crockett MD, Phone: [phone] Detection in cervical specim en of any of human papilloma virus (HPV) 16, 18, 31, 33,Ordered By: Tim Sanchez on 09-08-2024 HPV 16+18+31+33+35+39+45+51 +52+56+58+59+66+68 DNA Probe+sig amp Ql (Cvx) Negative Negative [facility] Comment on above: This nucleic acid am plification test detects fourteen high-risk HPV types (16,18,31,33,35,39,45,51,52,56,58,59,66,68)without differentiation. HPV 16+18+31+33+35+39+45+51+ 52+56+58+59+66+68 DNA Probe+sig amp Ql (Cvx)Ordered By: Tim Sanchez on 09-08-2024 Human Papillomavirus High Risk Negative Negative [facility] Comment on above: This nucleic acid am plification test detects fourteen high-risk HPV types (16,18,31,33,35,39,45,51,52,56,58,59,66,68)without differentiation. Image-guided ThinPrep PapOrd ered By: Tim Sanchez on 09-08-2024 Pap Smear Note Comment . [facility] Comment on above: This liquid based Th inPrep(R) pap test was screened withthe use of an image guided system. Image-guided liquid-based Pa pOrdered By: Tim Sanchez on 09-08-2024 Pap Smear Diagnosis Comment . [facility] Comment on above: NEGATIVE FOR INTRAEP ITHELIAL LESION OR MALIGNANCY. Laboratory - CytologyOrdered By: Tim Sanchez on 09-08-2024 Angledozer Operator Cyto stain Nom (Cvx/Vag) [ID] Comment . [facility] Comment on above: Cole Alas totechnologist (ASCP) Laboratory - Miscellaneous t estsOrdered By: Tim Sanchez on 09-08-2024 Service comment (Unsp spec) [Interp] . . [facility] No Panel InformationOrdered By: Tim Sanchez on 09-08-2024 Pap Smear Specimen Adequacy Comment . [facility] Comment on above: Satisfactory for leeroy luation. Endocervical and/or squamous metaplasticcells (endocervical component) are present. Transit Manager Office Visit Reporton 09-08-2024 Transit Manager Office Visit Report [facility] [address], [address] [place] [address] OFFICE VISIT Date of Service: 09/08/24 MR#: [id number] Acct: [id number] Name: VICENTA BLANCHARD Rep #: [id number] : 1990 Provider: ADRIANA reese Age/Sex: 34/F [place] [facility] [place]: Signed Intake Vital Signs 07/20/24 18:30 09/08/24 10:38 09/08/24 10:43 Height 5 ft 3 in 5 ft 3 in 5 ft 3 in Weight: 169 lb 8 oz BMI 30.0 BP 126/70 H Intake Visit Reasons: visit (obstetrics) Chief Complaint: 6 Week PP Sheet Pile Hammer Operator Required: No Is patient in pain?: No [...] of vaginal delivery Seasonal allergies Surgical History [place] teeth extracted H/O LEEP Family History Mother Diabetes Grandmother Diabetes maternal Aunt Diabetes maternal Uncle Diabetes Maternal Father Hypertension Social History adopted: No household members: significant other number of children: 1 current occupational status: employed 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 Feeding: Bottle Menses resumed: No [place] since delivery: No Emotional Support: Yes Last [...] normal pal (more content not included)... Normal [facility] Service comment (Unsp spec) [Interp]Ordered By: Tim Sanchez on 09-08-2024 Pap Smear Comment (3) . . [facility] Bedside Glucoseon 07-21-2024 FINGERSTICK GLU 95 mg/dL Normal 74-106 [facility] Comment on above: Result Comment: CHICHI VALLADARES OF PATIENT CARE PER NURSING PROTOCOL Performed By: #### L 205.1000 #### [facility] [place] [address] [place], [place], [id number] Glucose measurement at [facility] deOrdered By: Rocio Gallegos on 07-21-2024 Bedside Glucose (Misc Panel) 95 mg/dL 74-106 [facility] Comment on above: MANAGEMENT OF PATIEN T CARE PER NURSING PROTOCOL (ROM) Rupture Of Membraneson 07-20-2024 C-LINE PRESENT? Normal Internal QC [facility] Comment on above: Result Comment: Canc elled via OM: grossly ruptured Performed By: #### L 205.1000 #### [facility] [address] [place], [address] RECORD KIT LOT# Normal [facility] Comment on above: Result Comment: Canc elled via OM: grossly ruptured Performed By: #### L .1000 #### [facility] [address] [place], [address] ROM Normal Negative [facility] Comment on above: Result Comment: Canc elled via OM: grossly ruptured Performed By: #### L .1000 #### [facility] [address] [place], [address] Absolute neutrophil countOrd ered By: Rocio Gallegos on 07-20-2024 Neutrophils (Bld) [#/Vol] 11.5 10*3/uL High 2.0-7.7 [facility] Basophil percentageOrdered B y: Rocio Gallegos on 07-20-2024 Basophils/100 WBC (Bld) 0.2 % 0-1 [facility] Bedside Glucoseon 07-20-2024 FINGERSTICK GLU 93 mg/dL Normal 74-106 [facility] Comment on above: Result Comment: CHICHI GEMENT OF PATIENT CARE PER NURSING PROTOCOL Performed By: #### L 205.1000 #### [facility] [address] [place], [address] FINGERSTICK GLU 98 mg/dL Normal 74-106 [facility] Comment on above: Result Comment: CHICHI GEMENT OF PATIENT CARE PER NURSING PROTOCOL Performed By: #### L 205.1000 #### [facility] [address] [place], [address] FINGERSTICK GLU 86 mg/dL Normal 74-106 [facility] Comment on above: Result Comment: CHICHI GEMENT OF PATIENT CARE PER NURSING PROTOCOL Performed By: #### L 3890.6005, L509.8000, L500.4710, L100.0100 #### [facility] [address] [place], [address] FINGERSTICK GLU 89 mg/dL Normal 74-106 [facility] Comment on above: Result Comment: CHICHI GEMENT OF PATIENT CARE PER NURSING PROTOCOL Performed By: #### L 205.1000 #### [facility] [address] [place], [address] CBC W/Diff, Automatedon 07-01 Absolute Lymph 1.73 X10 3/uL Normal 0.83-4.51 [facility] Comment on above: Performed By: #### L 3890.6005, L509.8000, L500.4710, L100.0100 #### [facility] [address] [place], [address] Absolute Neut 11.5 X10 3/uL High 2.0-7.7 [facility] Comment on above: Performed By: #### L 3890.6005, L509.8000, L500.4710, L100.0100 #### [facility] [address] [place], [address] Basophils/100 WBC (Bld) 0.2 % Normal 0-1 [facility] Comment on above: Performed By: #### L 3890.6005, L509.8000, L500.4710, L100.0100 #### [facility] [address] [place], [address] Eosinophils/100 WBC (Bld) 0.6 % Normal 0-5 [facility] Comment on above: Performed By: #### L 3890.6005, L509.8000, L500.4710, L100.0100 #### [facility] [address] [place], [address] Erythrocyte distribution width (RBC) [Ratio] 13.0 % Normal 11.6-14.6 [facility] Comment on above: Performed By: #### L 3890.6005, L509.8000, L500.4710, L100.0100 #### [facility] [address] [place], [address] Hematocrit (Bld) [Volume fraction] 34.5 % Low 37-47 [facility] Comment on above: Performed By: #### L 3890.6005, L509.8000, L500.4710, L100.0100 #### [facility] [address] [place], [address] Hemoglobin (Bld) [Mass/Vol] 11.1 g/dL Low 12.0-15.0 [facility] Comment on above: Performed By: #### L 3890.6005, L509.8000, L500.4710, L100.0100 #### [facility] [address] [place], [address] IG% 0.700 Normal 0.0-0.9 [facility] Comment on above: Result Comment: IG% - Immature Granulocytes (promyelocytes, myelocytes and metamyelocytes) > 1% indicates that a LEFT SHIFT is Present. Performed By: #### L 3890.6005, L509.8000, L500.4710, L100.0100 #### [facility] [address] [place], [address] Lymphocytes/100 WBC (Bld) 12.2 % Low 19-41 [facility] Comment on above: Performed By: #### L 3890.6005, L509.8000, L500.4710, L100.0100 #### [facility] [address] [place], [address] MCH (RBC) [Entitic mass] 26.9 pg Low 27.0-32.0 [facility] Comment on above: Performed By: #### L 3890.6005, L509.8000, L500.4710, L100.0100 #### [facility] [address] [place], [address] MCHC (RBC) [Mass/Vol] 32.2 g/dL Normal 32-36 [facility] Comment on above: Performed By: #### L 3890.6005, L509.8000, L500.4710, L100.0100 #### [facility] [address] [place], [address] MCV (RBC) [Entitic vol] 83.7 fL Normal 81-99 [facility] Comment on above: Performed By: #### L 3890.6005, L509.8000, L500.4710, L100.0100 #### [facility] [address] [place], [address] Monocytes/100 WBC (Bld) 5.3 % Normal 0-10 [facility] Comment on above: Performed By: #### L 3890.6005, L509.8000, L500.4710, L100.0100 #### [facility] [address] [place], [address] Neutrophils/100 WBC (Bld) 81.0 % High 47-70 [facility] Comment on above: Performed By: #### L 3890.6005, L509.8000, L500.4710, L100.0100 #### [facility] [address] [place], [address] Nucleated RBC (Bld) [#/Vol] 0 10*3/uL Normal 0-5 [facility] Comment on above: Performed By: #### L 3890.6005, L509.8000, L500.4710, L100.0100 #### [facility] [address] [place], [address] Platelet mean volume (Bld) [Entitic vol] 11.8 fL Normal 6.2-12.0 [facility] Comment on above: Performed By: #### L 3890.6005, L509.8000, L500.4710, L100.0100 #### [facility] [address] [place], [address] Platelets (Bld) [#/Vol] 220 10*3/uL Normal 150-450 [facility] Comment on above: Performed By: #### L 3890.6005, L509.8000, L500.4710, L100.0100 #### [facility] [address] [place], [address] RBC (Bld) [#/Vol] 4.12 10*6/uL Low 4.2-5.4 [facility] Comment on above: Performed By: #### L 3890.6005, L509.8000, L500.4710, L100.0100 #### [facility] [address] [place], [address] RDW SD 39.1 fl Normal 35.1-43.9 [facility] Comment on above: Performed By: #### L 3890.6005, L509.8000, L500.4710, L100.0100 #### [facility] [address] [place], [address] WBC (Bld) [#/Vol] 14.2 10*3/uL High 4.4-11.0 [facility] Comment on above: Performed By: #### L 3890.6005, L509.8000, L500.4710, L100.0100 #### [facility] [address] [place], [address] Discharge Instructionon 07-01 Discharge Instruction [facility] Medical Records Department [address] [place] [address] Instructions for Home/Discharge Instructions 07/20/24 2251 MR#: [id number] Acct: [id number] Name: VICENTA BLANCHARD Rep #: [id number] : 1990 34 From: Rocio Rivera DO [...] Up With: Rocio Rivera DO When: Call [phone] to make an appointment with your doctor [...] Referrals / Follow Up: Nandini Mayorga NP, STRIP WINDER-C [Primary Care Provider] - 07/20/24 2251 Rocio Rivera DO CC: AAMIR-C Nandini Mayorga Signed Normal [facility] Eosinophil percentageOrdered By: Rocio Gallegos on 07-20-2024 Eosinophils/100 WBC (Bld) 0.6 % 0-5 [facility] Erythrocyte distribution wid th ratioOrdered By: Rocio Gallegos on 07-20-2024 Erythrocyte distribution width (RBC) [Ratio] 13.0 % 11.6-14.6 [facility] Erythrocyte distribution wid th standard deviationOrdered By: Rocio Gallegos on 07-20-2024 Erythrocyte distribution width (RBC) [Entitic vol] 39.1 fL 35.1-43.9 [facility] H AND P Exam - OB/GYNon 07-01 H&P Exam - SPRAY I PAINTER [facility] Medical Records Department [address] [place] [address] H P Exam - SPRAY I PAINTER 07/20/24 1858 MR#: [id number] Acct: [id number] Name: VICENTA BLANCHARD Rep #: [id number] : 1990 34 From: Rocio Rivera DO PCP: ADRIANA Dotson Status:ADM IN Location: RI636-3 [facility] - General General Date of Admission: 07/20/24 HPI Narrative VICENTA BLANCHARD, is a 34 y/o @ 38 weeks 3 days who presents to [facility] with rupture of membranes and mild contractions. 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 Normal [facility] Hematocrit Auto (Bld) [Volum e fraction]Ordered By: Rocio Gallegos on 07-20-2024 Hematocrit (Bld) [Volume fraction] 34.5 % Low 37-47 [facility] Hemoglobin measurementOrdere d By: Rocio Gallegos on 07-20-2024 Hemoglobin (Bld) [Mass/Vol] 11.1 g/dL Low 12.0-15.0 [facility] Immature granulocytes/100 WB C Auto (Bld)Ordered By: Rocio Gallegos on 07-20-2024 Immature granulocytes/100 WBC (Bld) 0.700 % 0.0-0.9 [facility] Comment on above: IG% - Immature Granu locytes (promyelocytes, myelocytes and metamyelocytes) > 1% indicates that a LEFT SHIFT is Present. L509.8000on 07-20-2024 Syphilis Abs Non-Reactive Normal [facility] Comment on above: Performed By: #### L 3890.6005, L509.8000, L500.4710, L100.0100 #### [facility] [address] [place], [address] Lymphocytes Auto (Unsp spec) [#/Vol]Ordered By: Rocio Gallegos on 07-20-2024 Lymphocytes (Bld) [#/Vol] 1.73 10*3/uL 0.83-4.51 [facility] Lymphocytes/100 WBC Auto (Un sp spec)Ordered By: Rocio Gallegos on 07-20-2024 Lymphocytes/100 WBC (Bld) 12.2 % Low 19-41 [facility] MCV (mean corpuscular volume ) determinationOrdered By: Rocio Gallegos on 07-20-2024 MCV (RBC) [Entitic vol] 83.7 fL 81-99 [facility] MR/OB.VAGDELIon 07-20-2024 [facility] Medical Records Department [address] [place] [address] OB Vaginal Delivery 07/20/24 2248 MR#: [id number] Acct: [id number] Name: COURTNEYTenaVICENTA Rep #: [id number] : 1990 34 From: Rocio Rivera DO PCP: ADRIANA Dotson Status:ADM IN Location: HB170-4 Assessment Plan (1) Pyelectasis of fetus on [...] (5 minute): 9 Delayed Cord Clamping: Yes Diamond Driller transit clerk: No Post Vaginal Deli Medications given after delivery: IM Pitocin Episiotomy Description: None Laceration: None Complication Complications: No Procedures Urinary/Genital 52xxx-59xxx: 14154 Vaginal Delivery Only 07/20/24 6009 Cosigner Signature (if applicable): CC: STRIP WINDERCielo Mayorga; Dr. Rocio Rivera DO Signed Normal [facility] Mean corpuscular hemoglobin (MCH) determinationOrdered By: Rocio Gallegos on 07-20-2024 MCH (RBC) [Entitic mass] 26.9 pg Low 27.0-32.0 [facility] Mean corpuscular hemoglobin concentration (MCHC) determinationOrdered By: Rocio Gallegos on 07-20-2024 MCHC (RBC) [Mass/Vol] 32.2 g/dL 32-36 [facility] Mean platelet volume determi nationOrdered By: Rocio Gallegos on 07-20-2024 Platelet mean volume (Bld) [Entitic vol] 11.8 fL 6.2-12.0 [facility] Monocyte percentageOrdered B y: Rocio Gallegos on 07-20-2024 Monocytes/100 WBC (Bld) 5.3 % 0-10 [facility] Neutrophil percentageOrdered By: Rocio Gallegos on 07-20-2024 Neutrophils/100 WBC (Bld) 81.0 % High 47-70 [facility] Nucleated red blood cell per centageOrdered By: Rocio Gallegos on 07-20-2024 Nucleated RBC/100 WBC (Bld) [Ratio] 0 % 0-5 [facility] Platelet countOrdered By: Cristi kanmoi Rosy on 07-20-2024 Platelets (Bld) [#/Vol] 220 10*3/uL 150-450 [facility] RBC Auto (Bld) [#/Vol]Ordere d By: Rocio Gallegos on 07-20-2024 RBC (Bld) [#/Vol] 4.12 10*6/uL Low 4.2-5.4 [facility] Treponema sp Ab Ql (S)Ordere d By: Rocio Gallegos on 07-20-2024 Syphilis Total Antibody Non-Reactive [facility] Type AND Screenon 07-20-2024 ABO and Rh group Nom (Bld) Blood group O Rh(D) positive Normal [facility] Comment on above: Order Comment: Labor Performed By: #### L 3890.6005, L509.8000, L500.4710, L100.0100 #### [facility] [address] [facility] [place], [place], [address] White blood cell (WBC) count Ordered By: Rocio Gallegos on 07-20-2024 WBC (Bld) [#/Vol] 14.2 10*3/uL High 4.4-11.0 [facility] Laboratory - Chemistry and C hemistry - challengeon 07-12-2024 Glucose Ql (U) Negative [facility] Laboratory - Urinalysison Protein Ql (U) Negative [facility] Transit Manager Office Visit Reporton 07-12-2024 Transit Manager Office Visit Report [facility] [address], [address] [place] [address] OFFICE VISIT Date of Service: 07/12/24 MR#: [id number] Acct: [id number] Name: COURTNEYVICENTA Madsen Christy Rep #: [id number] : 1990 Provider: MATEUS Lucero ams Age/Sex: 34/F Location: [facility] Status: Signed Intake Vital Signs 05/04/24 09:43 07/09/24 13:55 07/12/24 10:37 Height 5 ft 3 in 5 ft 3 in 5 ft 3 in Weight: 184 lb BMI 32.5 BP 134/79 H Blood Pressure Location Rt brachial Position Sitting Intake Visit Reasons: 37 WK 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: No Accompanied by: Self Is patient [...] of vaginal delivery Seasonal allergies Surgical History [place] teeth extracted H/O LEEP Family History Mother Diabetes Grandmother Diabetes maternal Aunt Diabetes maternal Uncle Diabetes Maternal Father Hypertension Social History adopted: No household members: significant other number of children: 1 current occupational status: employed 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 (more content not included)... Normal [facility] OB Triage Physician Noteon 0 07-09-2024 OB Triage Physician Note [facility] Medical Records Department [address] [place] [address] OB Triage Physician Note 07/09/24 1703 MR#: [id number] Acct: [id number] Name: VICENTA BLANCHARD Rep #: [id number] : 1990 34 From: Jaiden Marshall CNM PCP: ADRIANA Dotson Status:DEP CLI Y Location: [facility] HPI - General General Date of [...] Uncle Diabetes Maternal Father Hypertension Surgical History [place] teeth extracted H/O LEEP Social History adopted: No household members: significant other number of children: 1 current occupational status: employed 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 Normal [facility] Laboratory - Chemistry and C hemistry - challengeon 07-06-2024 Glucose Ql (U) Negative [facility] Laboratory - Urinalysison Protein Ql (U) Negative [facility] Transit Manager Office Visit Reporton 07-06-2024 Transit Manager Office Visit Report [facility] [address], [address] [place] [address] OFFICE VISIT Date of Service: 07/06/24 MR#: [id number] Acct: [id number] Name: VICENTA BLANCHARD Rep #: [id number] : 1990 Provider: Dr. Rocio Lozano DO Age/Sex: 34/F Location: [facility] Status: Signed Intake Vital Signs 05/04/24 09:43 07/02/24 13:03 07/06/24 10:09 07/06/24 10:09 Height 5 ft 3 in 5 ft 3 in 5 ft 3 in 5 ft 3 in Weight: 184 lb 6 oz BMI 32.6 BP 136/88 H Intake Visit Reasons: 36 WK 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: No Is patient in pain?: No [...] of vaginal delivery Seasonal allergies Surgical History [place] teeth extracted H/O LEEP Family History Mother Diabetes Grandmother Diabetes maternal Aunt Diabetes maternal Uncle Diabetes Maternal Father Hypertension Social History adopted: No household members: significant other number of children: 1 current occupational status: employed 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 (more content not included)... Normal [facility] Screening beta-hemolytic Str eptococcus cultureOrdered By: Rocio Gallegos on 07-06-2024 Group B Streptococcus Culture Group B Beta Streptococcus is not isolated. [facility] Laboratory - Chemistry and C hemistry - challengeon 07-02-2024 Glucose Ql (U) Negative [facility] Laboratory - Urinalysison Protein Ql (U) Negative [facility] Transit Manager Office Visit Reporton 07-02-2024 Transit Manager Office Visit Report [facility] [address], [address] [place] [address] OFFICE VISIT Date of Service: 07/02/24 MR#: [id number] Acct: [id number] Name: VICENTA BLANCHARD Rep #: [id number] : 1990 Provider: Dr. Julieta cortes MD Age/Sex: 34/F [place] [facility] Status: Signed Intake Vital Signs 05/04/24 09:43 06/14/24 10:40 07/02/24 13:03 Height 5 ft 3 in 5 ft 3 in 5 ft 3 in Weight: 184 lb 8 oz BMI 32.6 BP 132/79 H Intake Visit Reasons: 34 WK 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: No Is patient in pain?: No [...] of vaginal delivery Seasonal allergies Surgical History [place] teeth extracted H/O LEEP Family History Mother Diabetes Grandmother Diabetes maternal Aunt Diabetes maternal Uncle Diabetes Maternal Father Hypertension Social History adopted: No household members: significant other number of children: 1 current occupational status: employed 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 (more content not included)... Normal [facility] Laboratory - Chemistry and C hemistry - challengeon 06-14-2024 Glucose Ql (U) Negative [facility] Laboratory - Urinalysison Protein Ql (U) Negative [facility] Transit Manager Office Visit Reporton 06-14-2024 Transit Manager Office Visit Report [address], [facility] [address] [place] [address] OFFICE VISIT Date of Service: 06/14/24 MR#: [id number] Acct: [id number] Name: VICENTA BLANCHARD Rep #: [id number] : 1990 Provider: MATEUS Lucero ams Age/Sex: 34/F [place] [facility] Status: Signed Intake Vital Signs 05/04/24 09:43 06/03/24 14:39 06/14/24 10:37 06/14/24 10:40 Height 5 ft 3 in 5 ft 3 in 5 ft 3 in 5 ft 3 in Weight: 183 lb BMI 32.4 BP 135/84 H Intake Visit Reasons: 33 WK 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: No Is patient in pain?: No [...] of vaginal delivery Seasonal allergies Surgical History [place] teeth extracted H/O LEEP Family History Mother Diabetes Grandmother Diabetes maternal Aunt Diabetes maternal Uncle Diabetes Maternal Father Hypertension Social History adopted: No household members: significant other number of children: 1 current occupational status: employed 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 Date Name GA/Weeks Outcome Route Bth Weight Gen Labor Lgth Anesthesia Del Locatn Provider FOB 08/18/22 Jorge 37 live - full term vacuum 7#14oz Male epidural oDug [place] Delivery Date: 08/18/22 Last Updated by: [...] FuHt P (more content not included)... Normal [facility] Progress Noteon 06-08-2024 Elementary Secretary Authentication Interface Message Text [facility] Ultrasound Consult Note Today we discussed [...] for counseling. She met Silvia Hutton, Clinical Target Protection Specialist [facility]. Silvia will continue to help coordinate and care. 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 NIPT declined, Declines Genetic testing. Plan: 1. Continued obstetrical care with her primary leather toggler is recommended. 2. Follow up growth in 4 weeks. These are planned with the [facility].. 4. consultation none needed, urology consult after [...] record or fax. Andrew Meek MD Normal [facility] Laboratory - Chemistry and C hemistry - challengeon 06-03-2024 Glucose Ql (U) Negative [facility] Laboratory - Urinalysison Protein Ql (U) Negative [facility] Transit Manager Office Visit Reporton 06-03-2024 Transit Manager Office Visit Report [facility] [address], [address] [place] [address] OFFICE VISIT Date of Service: 06/03/24 MR#: [id number] Acct: [id number] Name: VICENTA BLANCHARD Rep #: [id number] : 1990 Provider: Dr. Rocio Lozano DO Age/Sex: 34/F [place] [facility] Status: Signed Intake Vital Signs 05/04/24 09:43 05/17/24 14:30 06/03/24 14:39 06/03/24 14:39 Height 5 ft 3 in 5 ft 3 in 5 ft 3 in 5 ft 3 in Weight: 184 lb 6 oz BMI 32.6 BP 124/71 H Intake Visit Reasons: 31 WK 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: No Is patient in pain?: No [...] of vaginal delivery Seasonal allergies Surgical History [place] teeth extracted H/O LEEP Family History Mother Diabetes Grandmother Diabetes maternal Aunt Diabetes maternal Uncle Diabetes Maternal Father Hypertension Social History adopted: No household members: significant other number of children: 1 current occupational status: employed 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 (more content not included)... Normal [facility] Transit Manager Office Visit Reporton 05-17-2024 Transit Manager Office Visit Report [facility] [address], [address] [place] [address] OFFICE VISIT Date of Service: 05/17/24 MR#: [id number] Acct: [id number] Name: VICENTA BLANCHARD Rep #: [id number] : 1990 Provider: MATEUS Lucero ams Age/Sex: 34/F [place] [facility] [place]: Signed with Addenda ADDENDUM by Margaret Duffy RN on 05/17/24 at 1443 Office Procedure Documentation entered by Margaret Duffy RN 05/17/24 14:43: Immunizations Boostrix Tdap 2.5 Lf unit-8 mcg-5 Lf/0.5 mL intramuscular syringe Performing Provider: Aminata Martínez CNM Performing Location: [facility] Administered by: Margaret Duffy RN on 05/17/24 14:41 Dose Route Admin Location Dispensed Lot Number Expiration Date NDC Man ufacturer 0.5 mL IM Right Arm (SQ) 0.5 mL [id number] 01/28/26 [id number] [employer] VIS Given Date VIS Provided VIS Publication Date 05/17/24 Single Vaccine 21 Eligibility Eligibility Date Funding Source Not Applicable Date cc: * Signed Intake Vital Signs 05/04/24 09:43 05/17/24 14:24 05/17/24 14:30 Height 5 ft 3 in 5 ft 3 in 5 ft 3 in Weight: 182 lb BMI 32.2 BP 122/78 H Intake Visit Reasons: 29 WK 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: No Is patient in pain?: No [...] of vaginal delivery Seasonal allergies Surgical History [place] teeth extracted H/O LEEP Family History Mother Diabetes Grandmother Diabetes maternal Aunt Diabetes maternal Uncle Diabetes Maternal Father Hypertension Social History adopted: No household members: significant other number of children: 1 current occupational status: employed 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 Normal [facility] CBC W/Diff, Automatedon 11-0 Absolute Lymph 1.61 X10 3/uL Normal 0.83-4.51 [facility] Comment on above: Performed By: #### L 3890.6005, L509.8000, L500.4710, L100.0100 #### [facility] [address] [place], [address] Absolute Neut 7.7 X10 3/uL Normal 2.0-7.7 [facility] Comment on above: Performed By: #### L 3890.6005, L509.8000, L500.4710, L100.0100 #### [facility] [address] [place], [address] Basophils/100 WBC (Bld) 0.2 % Normal 0-1 [facility] Comment on above: Performed By: #### L 3890.6005, L509.8000, L500.4710, L100.0100 #### [facility] [address] [place], [address] Eosinophils/100 WBC (Bld) 0.7 % Normal 0-5 [facility] Comment on above: Performed By: #### L 3890.6005, L509.8000, L500.4710, L100.0100 #### [facility] [address] [place], [address] Erythrocyte distribution width (RBC) [Ratio] 12.9 % Normal 11.6-14.6 [facility] Comment on above: Performed By: #### L 3890.6005, L509.8000, L500.4710, L100.0100 #### [facility] [address] [place], [address] Hematocrit (Bld) [Volume fraction] 34.3 % Low 37-47 [facility] Comment on above: Performed By: #### L 3890.6005, L509.8000, L500.4710, L100.0100 #### [facility] [address] [place], [address] Hemoglobin (Bld) [Mass/Vol] 11.0 g/dL Low 12.0-15.0 [facility] Comment on above: Performed By: #### L 3890.6005, L509.8000, L500.4710, L100.0100 #### [facility] [address] [place], [address] IG% 0.600 Normal 0.0-0.9 [facility] Comment on above: Result Comment: IG% - Immature Granulocytes (promyelocytes, myelocytes and metamyelocytes) > 1% indicates that a LEFT SHIFT is Present. Performed By: #### L 3890.6005, L509.8000, L500.4710, L100.0100 #### [facility] [address] [place], [address] Lymphocytes/100 WBC (Bld) 16.3 % Low 19-41 [facility] Comment on above: Performed By: #### L 3890.6005, L509.8000, L500.4710, L100.0100 #### [facility] [address] [place], [address] MCH (RBC) [Entitic mass] 28.4 pg Normal 27.0-32.0 [facility] Comment on above: Performed By: #### L 3890.6005, L509.8000, L500.4710, L100.0100 #### [facility] [address] [place], [address] MCHC (RBC) [Mass/Vol] 32.1 g/dL Normal 32-36 [facility] Comment on above: Performed By: #### L 3890.6005, L509.8000, L500.4710, L100.0100 #### [facility] [address] [place], [address] MCV (RBC) [Entitic vol] 88.6 fL Normal 81-99 [facility] Comment on above: Performed By: #### L 3890.6005, L509.8000, L500.4710, L100.0100 #### [facility] [address] [place], [address] Monocytes/100 WBC (Bld) 4.3 % Normal 0-10 [facility] Comment on above: Performed By: #### L 3890.6005, L509.8000, L500.4710, L100.0100 #### [facility] [address] [place], [address] Neutrophils/100 WBC (Bld) 77.9 % High 47-70 [facility] Comment on above: Performed By: #### L 3890.6005, L509.8000, L500.4710, L100.0100 #### [facility] [address] [place], [address] Nucleated RBC (Bld) [#/Vol] 0 10*3/uL Normal 0-5 [facility] Comment on above: Performed By: #### L 3890.6005, L509.8000, L500.4710, L100.0100 #### [facility] [address] [place], [address] Platelet mean volume (Bld) [Entitic vol] 11.4 fL Normal 6.2-12.0 [facility] Comment on above: Performed By: #### L 3890.6005, L509.8000, L500.4710, L100.0100 #### [facility] [address] [place], [address] Platelets (Bld) [#/Vol] 181 10*3/uL Normal 150-450 [facility] Comment on above: Performed By: #### L 3890.6005, L509.8000, L500.4710, L100.0100 #### [facility] [address] [place], [address] RBC (Bld) [#/Vol] 3.87 10*6/uL Low 4.2-5.4 [facility] Comment on above: Performed By: #### L 3890.6005, L509.8000, L500.4710, L100.0100 #### [facility] [address] [place], [address] RDW SD 41.4 fl Normal 35.1-43.9 [facility] Comment on above: Performed By: #### L 3890.6005, L509.8000, L500.4710, L100.0100 #### [facility] [address] [place], [address] WBC (Bld) [#/Vol] 9.9 10*3/uL Normal 4.4-11.[address] [facility] Comment on above: Performed By: #### L 3890.6005, L509.8000, L500.4710, L100.0100 #### [facility] [address] [place], [address] Gestational GTT 3HR 100gon 1 07-07-2023 3HR GTT- GEST. High [facility] Comment on above: Order Comment: Y Result [...] #### L 3890.6005, L509.8000, L500.4710, L100.0100 #### [facility] [address] [place], [address] HIV - WCHon 2024 HIV Non-Reactive Normal Nonreactive [facility] Comment on above: Performed By: #### L 3890.6005, L509.8000, L500.4710, L100.0100 #### [facility] [address] [place], [address] L509.8000on 2024 Syphilis Abs Non-Reactive Normal [facility] Comment on above: Performed By: #### L 3890.6005, L509.8000, L500.4710, L100.0100 #### [facility] [address] [place], [address] Transit Manager Office Visit Reporton 05-04-2024 Transit Manager Office Visit Report [facility] [address] [place] [address], [address] [place] [address] OFFICE VISIT Date of Service: 05/04/24 MR#: [id number] Acct: [id number] Name: VICENTA BLANCHARD Rep #: [id number] : 1990 Provider: ADRIANA reese Age/Sex: 33/F [place] [facility] [place]: Signed Intake Vital Signs 04/02/24 10:31 05/04/24 09:43 Height 5 ft 3 in 5 ft 3 in Weight: 180 lb 6 oz BMI 31.9 BP 116/72 Intake Visit Reasons: 25 WK OB Chief Complaint: 25 Week 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: No Is patient in pain?: No [...] of vaginal delivery Seasonal allergies Surgical History [place] teeth extracted H/O LEEP Family History Mother Diabetes Grandmother Diabetes maternal Aunt Diabetes maternal Uncle Diabetes Maternal Father Hypertension Social History adopted: No household members: significant other number of children: 1 current occupational status: employed 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 (more content not included)... Normal [facility] Transit Manager Office Visit Reporton 04-02-2024 Transit Manager Office Visit Report [facility] [address], [address] [place] [address] OFFICE VISIT Date of Service: 04/02/24 MR#: [id number] Acct: [id number] Name: VICENTA BLANCHARD Rep #: [id number] : 1990 Provider: MATEUS Lucero ams Age/Sex: 33/F Location: [facility] [place] Status: Signed Intake Vital Signs 03/03/24 09:58 04/02/24 10:29 04/02/24 10:31 Height 5 ft 3 in 5 ft 3 in 5 ft 3 in Weight: 179 lb BMI 31.6 BP 126/76 H Intake Visit Reasons: 21 wk ob Sheet Pile Hammer Operator Required: No Is patient in pain?: No Allergies peanut Allergy (Verified 04/02/24 10:33) Angioedema sesame seed Allergy (Verified 04/02/24 10:33) Anaphylaxis tree nut (tree nuts) Adverse Reaction (Severe, Verified 04/02/24 10:33) Anaphylaxis Last Menstrual Period: 11/01/23 Zika: Zika virus screening: Negative : No Have you fallen in the past year?: No PFSH PFSH Medical History Hx of vaginal delivery Seasonal allergies Surgical History [place] teeth extracted H/O LEEP Family History Mother Diabetes Grandmother Diabetes maternal Aunt Diabetes maternal Uncle Diabetes Maternal Father Hypertension Social History adopted: No household members: significant other number of children: 1 current occupational status: employed 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 Normal [facility] Transit Manager Office Visit Reporton 03-03-2024 Transit Manager Office Visit Report [facility] [address], [address] [place] [address] OFFICE VISIT Date of Service: 03/03/24 MR#: [id number] Acct: [id number] Name: VICENTA BLANCHARD Rep #: [id number] : 1990 Provider: Dr. 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: No Is patient in pain?: No [...] of vaginal delivery Seasonal allergies Surgical History [place] teeth extracted H/O LEEP Family History Mother Diabetes Grandmother Diabetes maternal Aunt Diabetes maternal Uncle Diabetes Maternal Father Hypertension Social History adopted: No household members: significant other number of children: 1 current occupational status: employed 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 (more content not included)... Normal [facility] Transit Manager Office Visit Reporton 02-02-2024 Transit Manager Office Visit Report [facility] 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: No Is patient in pain?: No [...] of vaginal delivery Seasonal allergies Surgical History [place] teeth extracted H/O LEEP Family History Mother Diabetes Grandmother Diabetes maternal Aunt Diabetes maternal Uncle Diabetes Maternal Father Hypertension Social History adopted: No household members: significant other number of children: 1 current occupational status: employed 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 Date Name GA/Weeks Outcome Route Bth Weight Infant Gen [facility] 08[facility]18/22 Jorge 37 live - [...] 171 - (more content not included)... Normal [facility] CBC W/Diff, Automatedon 08-0 -2023 Absolute Lymph 1.87 X10 3/uL Normal 0.83-4.51 [facility] Comment on above: Performed By: #### L 501.0900, L3890.6300, BTS, L500.4050, L501.9985, L3890.6005, L509.8000, L509.4005, L3890.6100, L100.0100 #### [facility] [address] [place], [address] Absolute Neut 7.0 X10 3/uL Normal 2.0-7.7 [facility] Comment on above: Performed By: #### L 501.0900, L3890.6300, BTS, L500.4050, L501.9985, L3890.6005, L509.8000, L509.4005, L3890.6100, L100.0100 #### [facility] [address] [place], [address] Basophils/100 WBC (Bld) 0.4 % Normal 0-1 [facility] Comment on above: Performed By: #### L 501.0900, L3890.6300, BTS, L500.4050, L501.9985, L3890.6005, L509.8000, L509.4005, L3890.6100, L100.0100 #### [facility] [address] [place], [address] Eosinophils/100 WBC (Bld) 1.4 % Normal 0-5 [facility] Comment on above: Performed By: #### L 501.0900, L3890.6300, BTS, L500.4050, L501.9985, L3890.6005, L509.8000, L509.4005, L3890.6100, L100.0100 #### [facility] [address] [place], [address] Erythrocyte distribution width (RBC) [Ratio] 13.5 % Normal 11.6-14.6 [facility] Comment on above: Performed By: #### L 501.0900, L3890.6300, BTS, L500.4050, L501.9985, L3890.6005, L509.8000, L509.4005, L3890.6100, L100.0100 #### [facility] [address] [place], [address] Hematocrit (Bld) [Volume fraction] 34.5 % Low 37-47 [facility] Comment on above: Performed By: #### L 501.0900, L3890.6300, BTS, L500.4050, L501.9985, L3890.6005, L509.8000, L509.4005, L3890.6100, L100.0100 #### [facility] [address] [place], [address] Hemoglobin (Bld) [Mass/Vol] 11.4 g/dL Low 12.0-15.0 [facility] Comment on above: Performed By: #### L 501.0900, L3890.6300, BTS, L500.4050, L501.9985, L3890.6005, L509.8000, L509.4005, L3890.6100, L100.0100 #### [facility] [address] [place], [address] IG% 0.500 Normal 0.0-0.9 [facility] Comment on above: Result Comment: IG% - Immature Granulocytes (promyelocytes, myelocytes and metamyelocytes) > 1% indicates that a LEFT SHIFT is Present. Performed By: #### L 501.0900, L3890.6300, BTS, L500.4050, L501.9985, L3890.6005, L509.8000, L509.4005, L3890.6100, L100.0100 #### [facility] [address] [place], [address] Lymphocytes/100 WBC (Bld) 19.8 % Normal 19-41 [facility] Comment on above: Performed By: #### L 501.0900, L3890.6300, BTS, L500.4050, L501.9985, L3890.6005, L509.8000, L509.4005, L3890.6100, L100.0100 #### [facility] [address] [place], [address] MCH (RBC) [Entitic mass] 28.4 pg Normal 27.0-32.0 [facility] Comment on above: Performed By: #### L 501.0900, L3890.6300, BTS, L500.4050, L501.9985, L3890.6005, L509.8000, L509.4005, L3890.6100, L100.0100 #### [facility] [address] [place], [address] MCHC (RBC) [Mass/Vol] 33.0 g/dL Normal 32-36 [facility] Comment on above: Performed By: #### L 501.0900, L3890.6300, BTS, L500.4050, L501.9985, L3890.6005, L509.8000, L509.4005, L3890.6100, L100.0100 #### [facility] [address] [place], [address] MCV (RBC) [Entitic vol] 85.8 fL Normal 81-99 [facility] Comment on above: Performed By: #### L 501.0900, L3890.6300, BTS, L500.4050, L501.9985, L3890.6005, L509.8000, L509.4005, L3890.6100, L100.0100 #### [facility] [address] [place], [address] Monocytes/100 WBC (Bld) 3.7 % Normal 0-10 [facility] Comment on above: Performed By: #### L 501.0900, L3890.6300, BTS, L500.4050, L501.9985, L3890.6005, L509.8000, L509.4005, L3890.6100, L100.0100 #### [facility] [address] [place], [address] Neutrophils/100 WBC (Bld) 74.2 % High 47-70 [facility] Comment on above: Performed By: #### L 501.0900, L3890.6300, BTS, L500.4050, L501.9985, L3890.6005, L509.8000, L509.4005, L3890.6100, L100.0100 #### [facility] [address] [place], [address] Nucleated RBC (Bld) [#/Vol] 0 10*3/uL Normal 0-5 [facility] Comment on above: Performed By: #### L 501.0900, L3890.6300, BTS, L500.4050, L501.9985, L3890.6005, L509.8000, L509.4005, L3890.6100, L100.0100 #### [facility] [address] [place], [address] Platelet mean volume (Bld) [Entitic vol] 11.8 fL Normal 6.2-12.0 [facility] Comment on above: Performed By: #### L 501.0900, L3890.6300, BTS, L500.4050, L501.9985, L3890.6005, L509.8000, L509.4005, L3890.6100, L100.0100 #### [facility] [address] [place], [address] Platelets (Bld) [#/Vol] 212 10*3/uL Normal 150-450 [facility] Comment on above: Performed By: #### L 501.0900, L3890.6300, BTS, L500.4050, L501.9985, L3890.6005, L509.8000, L509.4005, L3890.6100, L100.0100 #### [facility] [address] [place], [address] RBC (Bld) [#/Vol] 4.02 10*6/uL Low 4.2-5.4 [facility] Comment on above: Performed By: #### L 501.0900, L3890.6300, BTS, L500.4050, L501.9985, L3890.6005, L509.8000, L509.4005, L3890.6100, L100.0100 #### [facility] [address] [place], [address] RDW SD 41.8 fl Normal 35.1-43.9 [facility] Comment on above: Performed By: #### L 501.0900, L3890.6300, BTS, L500.4050, L501.9985, L3890.6005, L509.8000, L509.4005, L3890.6100, L100.0100 #### [facility] [address] [place], [address] WBC (Bld) [#/Vol] 9.4 10*3/uL Normal 4.4-11.[address] [facility] Comment on above: Performed By: #### L 501.0900, L3890.6300, BTS, L500.4050, L501.9985, L3890.6005, L509.8000, L509.4005, L3890.6100, L100.0100 #### [facility] [address] [place], [address] Comprehensive Metabolic Prof ilon 01-30-2024 Albumin [Mass/Vol] 3.2 g/dL Normal 3.2-5.[address] [facility] Comment on above: Performed By: #### L 501.0900, L3890.6300, BTS, L500.4050, L501.9985, L3890.6005, L509.8000, L509.4005, L3890.6100, L100.0100 #### [facility] [address] [place], [address] Albumin/Globulin [Mass ratio] 0.8 {ratio} Low 0.9-2.4 [facility] Comment on above: Performed By: #### L 501.0900, L3890.6300, BTS, L500.4050, L501.9985, L3890.6005, L509.8000, L509.4005, L3890.6100, L100.0100 #### [facility] [address] [place], [address] ALK P 60 U/L Normal 45-117 [facility] Comment on above: Performed By: #### L 501.0900, L3890.6300, BTS, L500.4050, L501.9985, L3890.6005, L509.8000, L509.4005, L3890.6100, L100.0100 #### [facility] [address] [place], [address] ALT [Catalytic activity/Vol] 10 U/L Low 13-56 [facility] Comment on above: Performed By: #### L 501.0900, L3890.6300, BTS, L500.4050, L501.9985, L3890.6005, L509.8000, L509.4005, L3890.6100, L100.0100 #### [facility] [address] [place], [address] AST [Catalytic activity/Vol] 9 U/L Low 15-37 [facility] Comment on above: Performed By: #### L 501.0900, L3890.6300, BTS, L500.4050, L501.9985, L3890.6005, L509.8000, L509.4005, L3890.6100, L100.0100 #### [facility] [address] [place], [address] Bilirubin [Mass/Vol] 0.40 mg/dL Normal 0.20-1.00 [facility] Comment on above: Result Comment: For patients on eltrombopag therapy, use of Dimension Hamill TBIL is not recommended. Performed By: #### L 501.0900, L3890.6300, BTS, L500.4050, L501.9985, L3890.6005, L509.8000, L509.4005, L3890.6100, L100.0100 #### [facility] [address] [place], [address] BUN/CRE 14.7 RATIO Normal 10-20 [facility] Comment on above: Performed By: #### L 501.0900, L3890.6300, BTS, L500.4050, L501.9985, L3890.6005, L509.8000, L509.4005, L3890.6100, L100.0100 #### [facility] [address] [place], [address] CA,Total 9.0 mg/dL Normal 8.5-10.1 [facility] Comment on above: Performed By: #### L 501.0900, L3890.6300, BTS, L500.4050, L501.9985, L3890.6005, L509.8000, L509.4005, L3890.6100, L100.0100 #### [facility] [address] [place], [address] Chloride [Moles/Vol] 106 mmol/L Normal 98-107 [facility] Comment on above: Performed By: #### L 501.0900, L3890.6300, BTS, L500.4050, L501.9985, L3890.6005, L509.8000, L509.4005, L3890.6100, L100.0100 #### [facility] [address] [place], [address] CO2 [Moles/Vol] 21.0 mmol/L Normal 21.0-32.0 [facility] Comment on above: Performed By: #### L 501.0900, L3890.6300, BTS, L500.4050, L501.9985, L3890.6005, L509.8000, L509.4005, L3890.6100, L100.0100 #### [facility] [address] [place], [address] Creatinine [Mass/Vol] 0.61 mg/dL Normal 0.55-1.02 [facility] Comment on above: Result Comment: The validity of the calculated GFR GFRAA in patients over 70 years has not been determined. Clinical correlation is essential. Performed By: #### L 501.0900, L3890.6300, BTS, L500.4050, L501.9985, L3890.6005, L509.8000, L509.4005, L3890.6100, L100.0100 #### [facility] [address] [place], [address] EST GFR - AA 143 mL/min Normal >60 [facility] Comment on above: Result Comment: Afri can [place] GFR Calc Performed By: #### L 501.0900, L3890.6300, BTS, L500.4050, L501.9985, L3890.6005, L509.8000, L509.4005, L3890.6100, L100.0100 #### [facility] [address] [place], [address] GAP 8 Normal 5-15 [facility] Comment on above: Performed By: #### L 501.0900, L3890.6300, BTS, L500.4050, L501.9985, L3890.6005, L509.8000, L509.4005, L3890.6100, L100.0100 #### [facility] [address] [place], [address] GFR/1.73 sq M.predicted among non-blacks MDRD (S/P/Bld) [Vol rate/Area] 118 mL/min/{1.73_m2} Normal >60 [facility] Comment on above: Result Comment: Non- GFR Calc Performed By: #### L 501.0900, L3890.6300, BTS, L500.4050, L501.9985, L3890.6005, L509.8000, L509.4005, L3890.6100, L100.0100 #### [facility] [address] [place], [address] Globulin (S) [Mass/Vol] 3.9 g/dL Normal 2.2-4.2 [facility] Comment on above: Performed By: #### L 501.0900, L3890.6300, BTS, L500.4050, L501.9985, L3890.6005, L509.8000, L509.4005, L3890.6100, L100.0100 #### [facility] [address] [place], [address] Glucose [Mass/Vol] 146 mg/dL High 74-[address] [facility] Comment on above: Result Comment: Fast ing Glucose result greater than or equal to 126 mg/dL suggests DIABETES MELLITUS per A.D.A. criteria. Performed By: #### L 501.0900, L3890.6300, BTS, L500.4050, L501.9985, L3890.6005, L509.8000, L509.4005, L3890.6100, L100.0100 #### [facility] [address] [place], [address] Potassium [Moles/Vol] 3.6 mmol/L Normal 3.5-5.1 [facility] Comment on above: Performed By: #### L 501.0900, L3890.6300, BTS, L500.4050, L501.9985, L3890.6005, L509.8000, L509.4005, L3890.6100, L100.0100 #### [facility] [address] [place], [address] Sodium [Moles/Vol] 135 mmol/L Low 136-[address] [facility] Comment on above: Performed By: #### L 501.0900, L3890.6300, BTS, L500.4050, L501.9985, L3890.6005, L509.8000, L509.4005, L3890.6100, L100.0100 #### [facility] [address] [place], [address] T PROT 7.1 g/dL Normal 6.4-8.2 [facility] Comment on above: Performed By: #### L 501.0900, L3890.6300, BTS, L500.4050, L501.9985, L3890.6005, L509.8000, L509.4005, L3890.6100, L100.0100 #### [facility] [address] [place], [address] Urea nitrogen [Mass/Vol] 9 mg/dL Normal 7-18 [facility] Comment on above: Performed By: #### L 501.0900, L3890.6300, BTS, L500.4050, L501.9985, L3890.6005, L509.8000, L509.4005, L3890.6100, L100.0100 #### [facility] [address] [place], [address] HIV - WCHon 01-30-2024 HIV Non-Reactive Normal Nonreactive [facility] Comment on above: Order Comment: Reaso n for Exam: Performed By: #### L .1000 #### [facility] [address] [place], [address] Hemoglobin A1con 01-30-2024 HbA1c (Bld) [Mass fraction] 5.2 % Normal 3.8-5.6 [facility] Comment on above: Result Comment: Norm al < 5.7 % Prediabetic 5.7 - 6.4 % Diabetic >or= 6.5 % Please note range changes. Performed By: #### L .1000 #### [facility] [address] [place], [address] Hepatitis B Surface Antigeno n 01-30-2024 HEP B Surf Ag Non-Reactive Normal Nonreactive [facility] Comment on above: Order Comment: Reaso n for Exam: Performed By: #### L .1000 #### [facility] [address] [place], [address] Hepatitis C Antibodyon 01-29 Hepatitis C AB Non-Reactive Normal Nonreactive [facility] Comment on above: Order Comment: Reaso n for Exam: Result Comment: Non Reactive: < 0.8 Equivocal: >/= 0.8 to < 1.0 Reactive: >/= 1.[address] [facility] requires that a reactive/equivocal HCV antibody result be sent out for confirmation. HCV Quant by PCR testing. Performed By: #### L 205.1000 #### [facility] [address] [place], [address] L509.8000on 01-30-2024 Syphilis Abs Non-Reactive Normal [facility] Comment on above: Order Comment: Reaso n for Exam: Performed By: #### L 205.1000 #### [facility] [address] [place], [address] Protein+Creatinine Ratio,Uri neon 01-30-2024 PROT:CRE RATIO 166 mg/g CRE Normal 0-200 [facility] Comment on above: Performed By: #### L 501.0900, L3890.6300, BTS, L500.4050, L501.9985, L3890.6005, L509.8000, L509.4005, L3890.6100, L100.0100 #### [facility] [address] [place], [address] Protein (U) [Mass/Vol] 12.5 mg/dL High <11.9 [facility] Comment on above: Performed By: #### L 501.0900, L3890.6300, BTS, L500.4050, L501.9985, L3890.6005, L509.8000, L509.4005, L3890.6100, L100.0100 #### [facility] [address] [place], [address] UR CREAT 75.20 mg/dL Normal NO RANGE EST. [facility] Comment on above: Performed By: #### L 501.0900, L3890.6300, BTS, L500.4050, L501.9985, L3890.6005, L509.8000, L509.4005, L3890.6100, L100.0100 #### [facility] [address] [place], [address] Rubella IgGon 01-30-2024 Rubella IgG Reactive Normal Nonreactive [facility] Comment on above: Order Comment: Reaso n for Exam: Result Comment: Anti body Results Interpretation of Immune Status Non Reactive Presumed Non-Immune Equivocal Equivocal Reactive Presumed Immune Performed By: #### L 205.1000 #### [facility] [address] [place], [address] Type AND Screenon 01-30-2024 Ab SCREEN GEL Negative Normal [facility] Comment on above: Order Comment: PN Performed By: #### L 501.0900, L3890.6300, BTS, L500.4050, L501.9985, L3890.6005, L509.8000, L509.4005, L3890.6100, L100.0100 #### [facility] [address] [place], [address] Chlamydia/GC LEONARDO aptimaon CHLAMY,NUC ACID Negative Normal Negative [facility] Comment on above: Performed By: #### L 3890.6005, L509.8000, L500.4710, L100.0100 #### [facility] [address] [place], [address] GC BY NUC ACID Negative Normal Negative [facility] Comment on above: Result Comment: Perf ormed at: =G - [facility] [address] [place] [id number] Crane Crew Supervisor: Shivani Crockett MD, Phone: [phone] Performed By: #### L 3890.6005, L509.8000, L500.4710, L100.0100 #### [facility] [address] [place], [address] Urine Cultureon 01-06-2024 URC Culture exhibits no growth. Normal [facility] Comment on above: Performed By: #### L 3890.6005, L509.8000, L500.4788, L100.0100 #### [facility] [address] [place], [address] Transit Manager Office Visit Reporton 01-05-2024 Transit Manager Office Visit Report [facility] [address] [place] [address] OFFICE VISIT Date of Service: 01/05/24 MR#: [id number] Acct: [id number] Name: VICENTA BLANCHARD Rep #: [id number] : 1990 Provider: Dr. 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 Is patient in pain?: No [...] of vaginal delivery Seasonal allergies Surgical History [place] teeth extracted H/O LEEP Family History Mother Diabetes Grandmother Diabetes maternal Aunt Diabetes maternal Uncle Diabetes Maternal Father Hypertension Social History adopted: No household members: significant other number of children: 1 service: No current occupational status: employed 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 ??-?? (more content not included)... Normal [facility] Marketing Automation Manager Cytology Reporton 2022 Marketing Automation Manager Cytology Report . Pathology Reports Accession: Collected Date/Time: Received Date/Time: Pathologist: [id number] 04/07/2023 08:36 EDT 04/07/2023 18:00 EDT MD MALENA MYLES Marketing Automation Manager Cytology Report SPECIMEN: Specimen Description: Liquid Prep [...] and evaluated with the assistance of the Pelikan TechnologiesPrep Test Imaging System. Pathology Reports Accession: Collected Date/Time: Received Date/Time: Pathologist: [id number] 04/07/2023 08:36 EDT 04/07/2023 18:00 EDT MD MALENA MYLES Electronically Signed by Pathology report verified by [facility] Screened by: ESTELLE Electronically signed by MALENA MYLES MD Sign-Out Date: 04/10/2023 16:18 Performing Lab: [facility], [address] [place] [address] Pathology Dept Disclaimer The Pap test is a screening test for cervical cancer. As evidenced by published data, it is subject to both inherent false negative and false positive results. Your patient's results should be interpreted in context with pertinent clinical history including gynecological examination. Normal [facility] ([place] HPVon 04-10-2023 HPV Interp Normal See Interp HPVN [facility] [place] Comment on above: Order Comment: Order placed by AP_HPV_ORDER rule from [id number] Result Comment: High Risk HPV Typing: NEGATIVE [...] and sufficient DNA to be detected. See [facility] HPVN Performed By: #### G BSPCR #### [place] [address] HPV Source Cervix Normal [facility] ([place] Comment on above: Order Comment: Order placed by AP_HPV_ORDER rule from [id number] Performed By: #### G BSPCR #### [place] [address] LABORATORYOrdered By: Ricardo Parker on 04-07-2023 HPV [...] Ab RPR Ql (S) Non-Reactive Normal Non-Reactive [facility] [place] Comment on above: Result Comment: The RPR [...] globulins. Performed By: #### G BSPCR #### [address] [address] HHon 08-19-2022 Hematocrit (Bld) [Volume fraction] 32.8 % Low 37.0-47.0 [facility] ([place] Comment on above: Performed By: #### G BSPCR #### [address] [address] Hgb 11.1 G/dL Low 12.0-16.0 [facility] ([place] Comment on above: Performed By: #### G BSPCR #### [address] [address] LABORATORYOrdered By: Kamryn Maynard on 08-19-2022 Hematocrit (Bld) [Volume fraction] 32.8 % Invalid Interpretation Code 37.0 - 47.0 % AO Workflow SS Hemoglobin (Bld) [Mass/Vol] 11.1 G/dL Invalid Interpretation Code 12.0 - 16.0 G/dL AO Workflow SS .Auto Diffon 08-18-2022 Basophil, Absolute 0.1 10 3/mcL Normal 0.0-0.2 [facility] ([place]) Comment on above: Performed By: #### G BSPCR #### [address] [address] Basophils/100 WBC (Bld) 0.4 % Normal 0.0-2.5 A [facility] ([place]) Comment on above: Performed By: #### G BSPCR #### [address] [address] Eosinophil, Absolute 0.1 10 3/mcL Normal 0.0-0.4 [facility] ([place]) Comment on above: Performed By: #### G BSPCR #### [address] [address] Eosinophils/100 WBC (Bld) 0.9 % Normal 0.0-7.0 [facility] ([place] Comment on above: Performed By: #### G BSPCR #### [address] [address] Lymphocyte, Absolute 2.9 10 3/mcL Normal 0.8-3.9 [facility] ([place] Comment on above: Performed By: #### G BSPCR #### [address] [address] Lymphocytes/100 WBC (Bld) 18.3 % Normal 10.0-50.0 [facility] ([place] Comment on above: Performed By: #### G BSPCR #### [address] [address] Monocyte, Absolute 0.7 10 3/mcL Normal 0.2-1.0 [facility] ([place] Comment on above: Performed By: #### G BSPCR #### [address] [address] Monocytes/100 WBC (Bld) 4.4 % Normal 1.7-13.0 A [facility] ([place] Comment on above: Performed By: #### G BSPCR #### [address] [address] Neutrophils/100 WBC (Bld) 76.0 % Normal 37.0-80.0 [facility] ([place] Comment on above: Performed By: #### G BSPCR #### [address] [address] .NEUABSon 08-18-2022 Neutrophil, Absolute 11.9 10 3/mcL High 2.9-6.2 A [facility] ([place] Comment on above: Performed By: #### G BSPCR #### [address] [address] CBCon 08-18-2022 Erythrocyte distribution width (RBC) [Ratio] 14.5 % Normal 11.5-14.5 [facility] ([place] Comment on above: Performed By: #### G BSPCR #### [address] [address] Hematocrit (Bld) [Volume fraction] 37.8 % Normal 37.0-47.0 [facility] ([place] Comment on above: Performed By: #### G BSPCR #### [address] [address] Hgb 12.7 G/dL Normal 12.0-16.0 [facility] [place] Comment on above: Performed By: #### Sandra BSPCR #### [address] [address] MCH (RBC) [Entitic mass] 28.6 pg Normal 27.0-31.2 [facility] ([place] Comment on above: Performed By: #### G BSPCR #### [address] [address] MCHC 33.7 G/dL Normal 33.0-37.0 [facility] ([place] Comment on above: Performed By: #### G BSPCR #### [address] [address] MCV (RBC) [Entitic vol] 85.1 fL Normal 80.0-94.0 A [facility] ([place] Comment on above: Performed By: #### G BSPCR #### [address] [address] Platelet 203 10 3/mcL Normal 130-400 [facility] [place] Comment on above: Performed By: #### G BSPCR #### [address] [address] Platelet mean volume (Bld) [Entitic vol] 10.1 fL Normal 7.4-10.4 [facility] [place] Comment on above: Performed By: #### G BSPCR #### [address] [address] RBC 4.44 10 6/mcL Normal 4.20-5.40 [facility] [place] Comment on above: Performed By: #### G BSPCR #### [address] [address] WBC 15.7 10 3/mcL High 4.6-10.8 [facility] [place] Comment on above: Performed By: #### G BSPCR #### [address] [address] Gel ABOon 08-18-2022 ABO/Rh Interp Positive Invalid Interpretation Code [facility] [place] Comment on above: Performed By: #### G BSPCR #### [address] [address] Gel ABSon 08-18-2022 Antibody Screen Gel Negative Normal [facility] ([place] Comment on above: Performed By: #### G BSPCR #### [address] [address] LABORATORYOrdered By: Victoria Tanner on 08-18-2022 ABO/Rh [...] Group B Strep (PCR) Negative Normal Negative [facility] ([place]) Comment on above: Performed By: #### G BSPCR #### [address] [address] Group B Strep PCR Int Normal [facility] ([place]) Comment on above: Result Comment: Grou p [...] Below Performed By: #### G BSPCR #### [address] [address] .Auto Diffon 08-07-2022 Basophil, Absolute 0.0 10 3/mcL Normal 0.0-0.2 [facility] ([place] Comment on above: Performed By: #### A PO CARCAMO, CBC #### [address] [address] Basophils/100 WBC (Bld) 0.2 % Normal 0.0-2.5 [facility] ([place]) Comment on above: Performed By: #### A PO CARCAMO, CBC #### [address] [address] Eosinophil, Absolute 0.1 10 3/mcL Normal 0.0-0.4 [facility] ([place] Comment on above: Performed By: #### A PO CARCAMO, CBC #### [address] [address] Eosinophils/100 WBC (Bld) 1.1 % Normal 0.0-7.0 [facility] ([place] Comment on above: Performed By: #### A PO CARCAMO, CBC #### [address] [address] Lymphocyte, Absolute 2.1 10 3/mcL Normal 0.8-3.9 [facility] ([place] Comment on above: Performed By: #### A PO CARCAMO, CBC #### [address] [address] Lymphocytes/100 WBC (Bld) 18.0 % Normal 10.0-50.0 [facility] ([place] Comment on above: Performed By: #### A PO CARCAMO, CBC #### [address] [address] Monocyte, Absolute 0.5 10 3/mcL Normal 0.2-1.0 [facility] ([place] Comment on above: Performed By: #### A PO CARCAMO, CBC #### [address] [address] Monocytes/100 WBC (Bld) 4.1 % Normal 1.7-13.0 [facility] ([place]) Comment on above: Performed By: #### A PO CARCAMO, CBC #### [address] [address] Neutrophils/100 WBC (Bld) 76.6 % Normal 37.0-80.0 [facility] ([place] Comment on above: Performed By: #### A PO CARCAMO, CBC #### [address] [address] .NEUABSon 08-07-2022 Neutrophil, Absolute 9.0 10 3/mcL High 2.9-6.2 [facility] ([place] Comment on above: Performed By: #### A PO CARCAMO, CBC #### [address] [address] CBCon 08-07-2022 Erythrocyte distribution width (RBC) [Ratio] 14.4 % Normal 11.5-14.5 [facility] ([place] Comment on above: Performed By: #### A DONAPO, CBC #### [address] [address] Hematocrit (Bld) [Volume fraction] 36.7 % Low 37.0-47.0 [facility] ([place] Comment on above: Performed By: #### A PO CARCAMO, CBC #### [address] [address] Hgb 12.3 G/dL Normal 12.0-16.0 [facility] ([place] Comment on above: Performed By: #### A PO CARCAMO, CBC #### [address] [address] MCH (RBC) [Entitic mass] 28.8 pg Normal 27.0-31.2 [facility] ([place] Comment on above: Performed By: #### A PO CARCAMO, CBC #### [address] [address] MCHC 33.6 G/dL Normal 33.0-37.0 [facility] ([place] Comment on above: Performed By: #### A PO CARCAMO, CBC #### [address] [address] MCV (RBC) [Entitic vol] 85.8 fL Normal 80.0-94.0 A [facility] ([place] Comment on above: Performed By: #### A PO CARCAMO, CBC #### [address] [address] Platelet 222 10 3/mcL Normal 130-400 [facility] ([place] Comment on above: Performed By: #### A PO CARCAMO, CBC #### [address] [address] Platelet mean volume (Bld) [Entitic vol] 10.2 fL Normal 7.4-10.4 [facility] ([place] Comment on above: Performed By: #### A PO CARCAMO, CBC #### [address] [address] RBC 4.28 10 6/mcL Normal 4.20-5.40 [facility] ([place] Comment on above: Performed By: #### A PO CARCAMO, CBC #### [address] [address] WBC 11.8 10 3/mcL High 4.6-10.8 [facility] ([place] Comment on above: Performed By: #### A PO CARCAMO, CBC #### [address] [address] LABORATORYOrdered By: Brittany Denise on 08-07-2022 Group [...] 06-07-2022 Glucose [Mass/Vol] 255 mg/dL High 120-190 [facility] ([place] Comment on above: Performed By: #### G L3, GL1, GL2, GLF #### [place] [address] GL2on 06-07-2022 Glucose [Mass/Vol] 194 mg/dL High 70-165 [facility] ([place] Comment on above: Performed By: #### G L3, GL1, GL2, GLF #### [address] [address] GL3on 06-07-2022 Glucose [Mass/Vol] 62 mg/dL Low 70-145 [facility] ([place] Comment on above: Performed By: #### G L3, GL1, GL2, GLF #### [address] [address] GLFon 06-07-2022 Glucose [Mass/Vol] 113 mg/dL High 83-110 [facility] ([place] Comment on above: Performed By: #### G L3, GL1, GL2, GLF #### [address] [address] [id number] 05-28-2022 Glucose [Mass/Vol] 205 mg/dL High 70-140 [facility] ([place] Comment on above: Performed By: #### G LU1P #### [address] [address] LABORATORYOrdered By: Guy Salazar on 11-29-2022 Glucose [Mass/Vol] 205 mg/dL Invalid Interpretation Code 70 - 140 mg/dL AO ADM SS LABORATORYOrdered By: Brittany Denise on 01-01-2022 [place] [address].8 m[IU]/mL Invalid Interpretation Code AO ADM SS [...] height 160.02 cm Nandini WRIGHT Work Phone: [facility] 12-02-2024 11:19-0400 Body mass index (BMI) [Ratio] 30.3 kg/m2 Nandini WRIGHT Work Phone: [facility] 12-02-2024 11:19-0400 Body weight 77.73 kg Nandini WRIGHT Work Phone: [facility] 12-02-2024 11:19-040 Diastolic blood pressure 85 mm[Hg] Nandini WRIGHT Work Phone: [facility] 12-02-2024 11:19-0400 Systolic blood pressure 119 mm[Hg] Nandini WRIGHT Work Phone: [facility] 10-21-2024 11:39-0400 Body mass index (BMI) [Ratio] 30.1 kg/m2 Nandini Mayorga [employer] Work Phone: [facility] 10-21-2024 11:39-0400 Body weight 77.11 kg Nandini Mayorga [employer] Work Phone: [facility] 10-21-2024 11:39-0400 Diastolic blood pressure 85 mm[Hg] Nandini Mayorga [employer] Work Phone: [facility] 10-21-2024 11:39-0400 Systolic blood pressure 132 mm[Hg] Nandini Mayorga [employer] Work Phone: [facility] 09-08-2024 10:43-0400 Body height 160.02 cm Nandini Mayorga [employer] Work Phone: [facility] 09-08-2024 10:38-0400 Body mass index (BMI) [Ratio] 30 kg/m2 Nandini Mayorga [employer] Work Phone: [facility] 09-08-2024 10:38-0400 Body weight 76.88 kg Nandini Mayorga [employer] Work Phone: [facility] 09-08-2024 10:38-0400 Diastolic blood pressure 70 mm[Hg] Nandini Mayorga [employer] Work Phone: [facility] 09-08-2024 10:38-0400 Systolic blood pressure 126 mm[Hg] Nandini Mayorga [employer] Work Phone: [facility] 07-22-2024 08:01-0500 Body temperature 98.1 [degF] Nandini Mayorga [employer] Work Phone: [facility] 07-22-2024 08:01-0500 Diastolic blood pressure 86 mm[Hg] Nandini Mayorga [employer] Work Phone: [facility] 07-22-2024 08:01-0500 Heart rate 84 /min Nandini Mayorga [employer] Work Phone: [facility] 07-22-2024 08:01-0500 Respiratory rate 16 /min Nandini Mayorga [employer] Work Phone: [facility] 07-22-2024 08:01-0500 SaO2% (BldA) [Mass fraction] 98 % Nandini Mayorga [employer] Work Phone: [facility] 07-22-2024 08:01-0500 Systolic blood pressure 126 mm[Hg] Nandini Mayorga [employer] Work Phone: [facility] 07-20-2024 18:30-0500 Body mass index (BMI) [Ratio] 32.2 kg/m2 Nandini Mayorga [employer] Work Phone: [facility] 07-20-2024 18:30-0500 Body weight 82.55 kg Nandini Mayorga [employer] Work Phone: [facility] 07-12-2024 10:37-0500 Body mass index (BMI) [Ratio] 32.5 kg/m2 Nandini Mayorga [employer] Work Phone: [facility] 07-12-2024 10:37-0500 Body weight 83.46 kg Nandini Mayorga [employer] Work Phone: [facility] 07-12-2024 10:37-0500 Diastolic blood pressure 79 mm[Hg] Nandini Mayorga [employer] Work Phone: [facility] 07-12-2024 10:37-0500 Systolic blood pressure 134 mm[Hg] Nandini Mayorga [employer] Work Phone: [facility] 07-09-2024 13:55-0500 Body mass index (BMI) [Ratio] 31.5 kg/m2 Nandini Mayorga [employer] Work Phone: [facility] 07-09-2024 13:55-0500 Body weight 80.7 kg Nandini Mayorga [employer] Work Phone: [facility] 07-09-2024 13:34-0500 Diastolic blood pressure 74 mm[Hg] Nnadini Mayorga [employer] Work Phone: [facility] 07-09-2024 13:34-0500 Heart rate 107 /min Nandini Mayorga [employer] Work Phone: [facility] 07-09-2024 13:34-0500 SaO2% (BldA) [Mass fraction] 98 % Nandini Mayorga [employer] Work Phone: [facility] 07-09-2024 13:34-0500 Systolic blood pressure 131 mm[Hg] Nandini Mayorga [employer] Work Phone: [facility] 07-09-2024 13:30-0500 Body temperature 99 [degF] Nandini Mayorga [employer] Work Phone: [facility] 07-09-2024 13:30-0500 Respiratory rate 16 /min Nandini Mayorga [employer] Work Phone: [facility] 07-06-2024 10:09-0500 Body mass index (BMI) [Ratio] 32.6 kg/m2 Nandini Mayorga [employer] Work Phone: [facility] 07-06-2024 10:09-0500 Body weight 83.63 kg Nandini Mayorga [employer] Work Phone: [facility] 07-06-2024 10:09-0500 Diastolic blood pressure 88 mm[Hg] Nandini Mayorga [employer] Work Phone: [facility] 07-06-2024 10:09-0500 Systolic blood pressure 136 mm[Hg] Nandini Mayorga [employer] Work Phone: [facility] 07-02-2024 13:03-0500 Body mass index (BMI) [Ratio] 32.6 kg/m2 Nandini Mayorga [employer] Work Phone: [facility] 07-02-2024 13:03-0500 Body weight 83.68 kg Nandini Mayorga [employer] Work Phone: [facility] 07-02-2024 13:03-0500 Diastolic blood pressure 79 mm[Hg] Nandini Lorson [employer] Work Phone: [facility] 07-02-2024 13:03-0500 Systolic blood pressure 132 mm[Hg] Nandini Lorson [employer] Work Phone: [facility] 06-14-2024 10:37-0500 Body mass index (BMI) [Ratio] 32.4 kg/m2 Nandini Lorson [employer] Work Phone: [facility] 06-14-2024 10:37-0500 Body weight 83 kg Nandini Lorson [employer] Work Phone: [facility] 06-14-2024 10:37-0500 Diastolic blood pressure 84 mm[Hg] Nandini Lorson [employer] Work Phone: [facility] 06-14-2024 10:37-0500 Systolic blood pressure 135 mm[Hg] Nandini Lorson [employer] Work Phone: [facility] 06-03-2024 14:39-0500 Body mass index (BMI) [Ratio] 32.6 kg/m2 Nandini Lorson [employer] Work Phone: [facility] 06-03-2024 14:39-0500 Body weight 83.63 kg Nandini Lorson [employer] Work Phone: [facility] 06-03-2024 14:39-0500 Diastolic blood pressure 71 mm[Hg] Nandini Lorson [employer] Work Phone: [facility] 06-03-2024 14:39-0500 Systolic blood pressure 124 mm[Hg] Nandini Lorson [employer] Work Phone: [facility] 08-20-2022 07:46-0500 Body temperature 98.24 [degF] PAYAL ROSE MD [facility] 08-20-2022 07:46-0500 Diastolic Blood Pressure Non-Invasive 78 1 PAYAL ROSE MD [facility] 08-20-2022 07:46-0500 Heart rate 96 /min PAYAL ROSE MD [facility] 08-20-2022 07:46-0500 Respiratory rate 16 /min PAYAL ROSE MD [facility] 08-20-2022 07:46-0500 Systolic Blood Pressure Non-Invasive 145 1 PAYAL ROSE MD [facility] 08-19-2022 23:00-0500 Diastolic Blood Pressure Non-Invasive 85 1 PAYAL ROSE MD [facility] 08-19-2022 23:00-0500 Heart rate 92 /min PAYAL ROSE MD [facility] 08-19-2022 23:00-0500 Systolic Blood Pressure Non-Invasive 137 1 PAYAL ROSE MD [facility] 08-19-2022 17:43-0500 Body temperature 98.24 [degF] PAYAL ROSE MD [facility] 08-19-2022 17:43-0500 Diastolic Blood Pressure Non-Invasive 82 1 PAYAL ROSE MD [facility] 08-19-2022 17:43-0500 Heart rate 100 /min PAYAL ROSE MD [facility] 08-19-2022 17:43-0500 Respiratory rate 18 /min PAYAL ROSE MD [facility] 08-19-2022 17:43-0500 Systolic Blood Pressure Non-Invasive 140 1 PAYAL ROSE MD [facility] 08-18-2022 16:22-0500 Body height 160 cm PAYAL ROSE MD [facility] 08-18-2022 16:22-0500 Body weight 84.1 kg PAYAL ROSE MD [facility] 08-18-2022 16:22-0500 Body weight 32.85 kg/m2 PAYAL ROSE MD [facility] 07-09-2022 10:05-0500 Body height 160.02 cm JAG PHILIP MD [facility] 07-09-2022 10:05-0500 Body weight 84.54 kg JAG PHILIP MD [facility] 07-09-2022 10:05-0500 Body weight 33.02 kg/m2 JAG PHILIP MD [facility] 07-09-2022 09:38-0500 Body height 160 cm WALTER BROUSSARD MD [facility] 07-09-2022 09:38-0500 Body weight 33.01 kg/m2 WALTER BROUSSARD MD [facility] 07-09-2022 09:38-0500 Body weight 84.5 kg WALTER BROUSSARD MD [facility] 05-18-2021 15:11-0500 Diastolic Blood Pressure NBP 78 1 JAG PHILIP MD [facility] 05-18-2021 15:11-0500 Heart rate 91 /min JAG PHILIP MD [facility] 05-18-2021 15:11-0500 Systolic Blood Pressure NBP 131 1 JAG PHILIP MD [facility] 05-18-2021 14:58-0500 Heart rate 93 /min JAG PHILIP MD [facility] 05-18-2021 14:57-0500 Heart rate 98 /min JAG PHILIP MD [facility] 05-18-2021 14:43-0500 Respiratory rate 14 /min JAG PHILIP MD [facility] 05-18-2021 14:30-0500 Diastolic Blood Pressure NBP 76 1 JAG PHILIP MD [facility] 05-18-2021 14:30-0500 Respiratory rate 16 /min JAG PHILIP MD [facility] 05-18-2021 14:30-0500 Systolic Blood Pressure NBP 132 1 JAG PHILIP MD [facility] 05-18-2021 14:25-0500 Diastolic Blood Pressure NBP 75 1 JAG PHILIP MD [facility] 05-18-2021 14:25-0500 Respiratory rate 15 /min JAG PHILIP MD [facility] 05-18-2021 14:25-0500 Systolic Blood Pressure NBP 129 1 JAG PHILIP MD [facility] 05-18-2021 14:15-0500 Body temperature 98.6 [degF] JAG PHILIP MD [facility] 05-18-2021 12:14-0500 Body height 160 cm JAG PHILIP MD [facility] 05-18-2021 12:14-0500 Body temperature 99.86 [degF] JAG PHILIP MD [facility] 05-18-2021 12:14-0500 Body weight 64.9 kg JAG PHILIP MD [facility] 05-18-2021 12:14-0500 Diastolic blood pressure 85 mm[Hg] JAG PHILIP MD [facility] 05-18-2021 12:14-0500 Heart rate 90 /min JAG PHILIP MD [facility] 05-18-2021 12:14-0500 Systolic blood pressure 147 mm[Hg] JAG PHILIP MD [facility] 05-08-2021 13:12-0500 Body height 160 cm JAG PHILIP MD [facility] 05-08-2021 13:12-0500 Body weight 64.9 kg JAG PHILIP MD [facility] 05-08-2021 13:12-0500 Body weight 25.35 kg/m2 JAG PHILIP MD [facility] 05-08-2021 13:12-0500 diastolic 58 mm[Hg] JAG PHILIP MD [facility] 05-08-2021 13:12-0500 Heart rate 113 /min JAG PHILIP MD [facility] 05-08-2021 13:12-0500 systolic 154 mm[Hg] JAG PHILIP MD [facility] Encounters Encounter Date Encounter Type Care Provider Facility Start: 12-02-2024 End: 12-02-2024 Patient encounter procedure Aminata HAZEL -[facility] Work Phone: Start: 12-02-2024 End: 12-02-2024 ambulatory Nandini Mayorga NP Facility:[facility] Start: 10-21-2024 End: 10-21-2024 Patient encounter procedure Aminata Martínez [facility] -[facility] Work Phone: Start: 10-21-2024 End: 10-21-2024 ambulatory Nandini Mayorga NP Facility:[facility] Start: 09-08-2024 End: 09-08-2024 ambulatory Nandini Mayorga [employer] Work Phone: [facility] Work Phone: Start: 09-08-2024 End: 09-08-2024 Patient encounter procedure Tim Sanchez [employer] -Laboratory, Specimen Work Phone: Start: 09-08-2024 End: 09-08-2024 Patient encounter procedure Tim Sanchez [employer] -[facility] Work Phone: Start: 09-08-2024 End: 09-08-2024 ambulatory Nandini Mayorga [employer] Facility:[facility] Start: 09-08-2024 End: 09-08-2024 ambulatory Tim Sanchez [employer] Facility:[facility] Start: 07-22-2024 ambulatory Rocio Pena cility:[facility] Start: 07-22-2024 Non-patient / Non-visit Dr. Cristi Rivera DO [facility] Start: 07-21-2024 Non-patient / Non-visit Aminata Heredia [facility] Start: 07-20-2024 Non-patient / Non-visit Dr. Cristi Rivera DO [facility] Start: 07-20-2024 ambulatory Rocio Pena cility:[facility] Start: 07-20-2024 End: 07-22-2024 Evaluation and management of inpatient Dr. Rocio Rivera DO -[facility] Work Phone: Start: 07-12-2024 End: 07-12-2024 Patient encounter procedure Aminata Martínez [facility] Work Phone: Start: 07-12-2024 End: 07-12-2024 ambulatory Nandini Mayorga [employer] Facility:[facility] Start: 07-09-2024 ambulatory Jaiden Marshall Facilit y:[facility] Start: 07-09-2024 Non-patient / Non-visit Jaidenray Ansari rachel [facility] Start: 07-09-2024 End: 07-09-2024 ambulatory Jaiden Marshall Facility:[facility] Start: 07-09-2024 End: 07-09-2024 Patient encounter procedure Jaiden Rolando [facility] -[facility] Work Phone: Start: 07-08-2024 End: 07-08-2024 ambulatory JULIETA LUA [facility] Start: 07-06-2024 End: 07-06-[address] Rocio Rivera DO [facility] Work Phone: Start: 07-06-2024 End: 07-06-2024 ambulatory Rocio Rivera Facility:[facility] Start: 07-06-2024 End: 07-06-2024 ambulatory Rocio Rivera Facility:[facility] Start: 07-02-2024 End: 07-02-[address] Julieta Lua MD -[facility] Work Phone: Start: 07-02-2024 End: 07-02-2024 ambulatory Nandini Mayorga [employer] Facility:[facility] Start: 06-14-2024 End: 06-14-2024 Patient encounter procedure Aminata Martínez CNM -[facility] Work Phone: Start: 06-14-2024 End: 06-14-2024 ambulatory Nandini Mayorga [employer] Facility:[facility] Start: 06-08-2024 End: 06-08-2024 ambulatory SADIA MCKINLEYKaren [facility] Start: 06-08-2024 End: 06[facility]08[facility]: 06-03-2024 End: 06-03-[address] Rocio Rivera DO -[facility] Work Phone: Start: 06-03-2024 End: 06-03-2024 ambulatory Rocio Rivera Facility:[facility] Start: 05-17-2024 End: 05-17-2024 ambulatory Nandini Mayorga NP Facility:[facility] Start: 05-11-2024 End: 05-11-2024 ambulatory NANDINI MAYORGA [facility] Start: 2024 End: 2024 ambulatory Aminata Martínez Facility:[facility] Start: 05-04-2024 End: 05-04-2024 ambulatory Tim Sanchez NP Facility:[facility] Start: 04-02-2024 End: 04-02-2024 ambulatory Nandini Mayorga [employer] Facility:[facility] Start: 03-03-2024 End: 03-03-2024 ambulatory Nandini Mayorga [employer] Facility:[facility] Start: 03-02-2024 End: 03-02-2024 ambulatory MD NGUYEN [facility] Start: 02-02-2024 End: 02-02-2024 ambulatory Tim Sanchez AAMIR Facility:[facility] Start: 01-30-2024 End: 01-30-2024 ambulatory Rocio Rivera Facility:[facility] Start: 01-05-2024 End: 01-05-2024 ambulatory Rocio Rivera Facility:[facility] Start: 01-05-2024 End: 01-05-2024 ambulatory Rociothomas Parks Rosy Facility:[facility] Start: 04-07-2023 End: 04-12-2023 ambulatory PAYAL ROSE MD Facility:[facility] Start: 04-07-2023 End: 04-12-2023 Encounter for gynecological examination (general) (routine) without abnormal findings PAYAL ROSE MD Facility:[facility] Start: 04-07-2023 End: 04-11-2023 Outreach Lab PAYAL ROSE MD [facility] Start: 08-18-2022 End: 08-20-2022 Evaluation and management of inpatient NANDINI MAYORGA 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 Facility:[facility] Start: 08-18-2022 End: 08-20-2022 Evaluation and management of inpatient PAYAL ROSE MD [facility] Start: 08-07-2022 End: 08-12-2022 ambulatory JAG PHILIP Facility:[facility] Start: 08-07-2022 End: 08-11-2022 Outreach Lab JAG PHILIP MD [facility] Start: 08-07-2022 End: 08-08-2022 ambulatory JAG PHILIP Facility:[facility] Start: 08-06-2022 End: 08-07-2022 ambulatory WALTER BROUSSARD MD Facility:[facility] Start: 08-06-2022 End: 08-06-2022 Patient encounter procedure WALTER BROUSSARD MD [facility] Start: 07-09-2022 End: 07-10-2022 ambulatory JAG TAMERA Facility:[facility] Start: 07-09-2022 End: 07-09-2022 Patient encounter procedure JAG PHILIP MD [facility] Start: 07-08-2022 End: 07-09-2022 ambulatory MARGARET SHAW Facility:[facility] Start: 06-07-2022 End: 06-08-2022 ambulatory JAG PHILIP Facility:[facility] Start: 05-28-2022 End: 05-29-2022 ambulatory JAG TAMERA Facility:[facility] Start: 05-28-2022 End: 05-28-2022 Patient encounter procedure JAG PHILIP MD [facility] Start: 04-02-2022 End: 04-02-2022 Patient encounter procedure JAG PHILIP MD [facility] Start: 03-18-2022 End: 03-18-2022 Patient encounter procedure JAG PHILIP MD [facility] Start: 01-29-2022 End: 01-29-2022 Patient encounter procedure JAG PHILIP MD [facility] Start: 01-01-2022 End: 01-01-2022 Patient encounter procedure NANDINI MAYORGA [employer] 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 [facility] Start: 05-18-2021 End: 05-18-2021 SAME DAY STAY JAG PHILIP MD [facility] Start: 05-08-2021 End: 05-08-2021 Admission to establishment JAG PHILIP MD [facility] Procedures Date Procedure Procedure Detail Performing [...] Activity Detail Author Start: 07-22-2024 Patient discharge [facility] Start: 07-20-2024 Documentation procedure [facility] Start: 07-20-2024 Administration of medication [facility] Start: 07-20-2024 Application of ice c ollar, cap or bag [facility] Start: 07-20-2024 Catheterization of vein [facility] Start: 07-20-2024 Introduction of urin kenny catheter [facility] Start: 07-20-2024 Measuring intake and output [facility] Start: 07-20-2024 Notification of physician [facility] Start: 07-20-2024 Procedure discontinued [facility] Start: 07-20-2024 Provision of activit y privileges [facility] Start: 07-20-2024 Vital signs measurements [facility] Start: 07-20-2024 End: 07-20-2024 [facility] Start: 07-20-2024 Admission procedure [facility] Start: 07-09-2024 Iv infusion hydratio n each additional hour HYDRATE IV INFUSION ADD-ON [facility] Start: 07-09-2024 Ther proph/dx njx iv push single/1st sbst/drug THER/PROPH/DIAG INJ IV PUSH [facility] Start: 07-09-2024 Nonstress test [facility] Start: 07-09-2024 Obstetric monitoring [facility] Start: 07-09-2024 Vital signs measurements [facility] Start: 07-09-2024 [facility] Start: 07-09-2024 Catheterization of vein [facility] Start: 07-09-2024 Patient discharge [facility] Patient Education [facility] Work Phone: Patient referral [facility] Work Phone: [facility] Immunizations Immunization Date Immunization Notes Care Provider Fa cility 05-17-2024 tetanus toxoid, redu teresa diphtheria toxoid, and acellular pertussis vaccine, adsorbed Nandini WRIGHT Work Phone: [facility] 07-31-2022 tetanus toxoid, redu teresa diphtheria toxoid, and acellular pertussis vaccine, adsorbed; Translations: [Boostrix (Tdap)] WALTER BROUSSARD MD [facility] 10-30-2015 tetanus and diphther ia toxoids, adsorbed, preservative free, for adult use (5 Lf of tetanus toxoid and 2 Lf of diphtheria toxoid) JAG PHILIP MD [facility] 02-20-1995 diphtheria, tetanus toxoids and acellular pertussis vaccine JAG PHILIP MD [facility] 02-20-1995 measles/mumps/rubell a virus vaccine JAG PHILIP MD [facility] 02-20-1995 poliovirus vaccine, inactivated JAG PHILIP MD [facility] 12-02-1990 diphtheria, tetanus toxoids and acellular pertussis vaccine JAG PHILIP MD [facility] 12-02-1990 poliovirus vaccine, inactivated JAG PHILIP MD [facility] 08-20-1990 haemophilus influenz ae type b vaccine, PRP-T conjugate JAG PHILIP MD [facility] 08-20-1990 measles/mumps/rubell a virus vaccine JAG PHILIP MD [facility] 05-13-1990 haemophilus influenz ae type b vaccine, PRP-T conjugate JAG PHILIP MD [facility] 1989 diphtheria, tetanus toxoids and acellular pertussis vaccine JAG PHILIP MD [facility] 1989 diphtheria, tetanus toxoids and acellular pertussis vaccine JAG PHILIP MD [facility] 1989 poliovirus vaccine, inactivated JAG PHILIP MD [facility] 1989 diphtheria, tetanus toxoids and acellular pertussis vaccine JAG PHILIP MD [facility] 1989 poliovirus vaccine, inactivated JAG PHILIP MD [facility] Payers Date Payer Category Payer Unknown [id number] 2023 Self-pay 2016 Unknown [id number] 1989 Unknown [id number] 2.16.8 [id number] 1989 Unknown [id number] 2.16.8 40.1.271658.3.579.2.627 1989 Unknown [id number] 2.16.8 40.1.188936.3.579.2.627 1989 Unknown [id number] 2.16.8 40.1.315048.3.579.2.627 1989 Unknown [id number] 2.16.8 40.1.151249.3.579.2.627 1989 Unknown [id number] 2.16.8 40.1.481031.3.579.2.627 1989 Unknown [id number] 2.16.8 40.1.168761.3.579.2.627 1989 Unknown [id number] 2.16.8 40.1.043631.3.579.2.627 1989 Unknown [id number] 2.16.8 40.1.580130.3.579.2.627 1989 Unknown [id number] 2.16 840.1.545254.3.579.2.479 1989 Unknown [id number] 2.16 840.1.490657.3.579.2.479 1989 Unknown [id number] 2.16 840.1.684169.3.579.2.479 1989 Unknown [id number] 2.16 840.1.628426.3.579.2.479 1989 Unknown [id number] 2.16. 840.1.463200.3.579.2.479 1989 Unknown [id number] 2.16 840.1.357311.3.579.2.479 Unknown [id number] 2.16.8 40.1.474429.3.579.2.462 Unknown [id number] 2.16.8 40.1.631549.3.579.2.462 Unknown [id number] 2.16.8 40.1.099001.3.579.2.462 Unknown [id number] 2.16.8 40.1.752256.3.579.2.462 Unknown [id number] 2.16.8 40.1.669182.3.579.2.462 Unknown [id number] 2.16.8 40.1.602227.3.579.2.462 Unknown [id number] 2.16.8 40.1.260556.3.579.2.462 Unknown [id number] 2.16.8 40.1.637658.3.579.2.462 Unknown [id number] 2.16.8 40.1.438002.3.579.2.462 Unknown [id number] 2.16.8 40.1.114676.3.579.2.462 Unknown [id number] 2.16.8 40.1.935725.3.579.2.462 Unknown [id number] 2.16.8 40.1.132739.3.579.2.462 Unknown [id number] 2.16.8 40.1.208243.3.579.2.462 Unknown [id number] 2.16.8 40.1.377706.3.579.2.462 Unknown [id number] 2.16.8 40.1.190271.3.579.2.462 Unknown [id number] 2.16.8 40.1.853103.3.579.2.462 Unknown [id number] 2.16.8 40.1.460112.3.579.2.462 Unknown [id number] 2.16.8 40.1.008959.3.579.2.462 Unknown [id number] 2.16.8 40.1.364352.3.579.2.462 Unknown [id number] 2.16.8 40.1.484066.3.579.2.462 Unknown [id number] 2.16.8 40.1.750019.3.579.2.462 Unknown [id number] 2.16.8 40.1.425709.3.579.2.462 Unknown [id number] 2.16.8 40.1.986549.3.579.2.462 Unknown [id number] 2.16.8 40.1.227599.3.579.2.462 Unknown [id number] 2.16.8 40.1.272104.3.579.2.462 Unknown [id number] 2.16.8 40.1.011450.3.579.2.462 Social History Date Type Detail Facility Start: 09-19-2020 End: 07-20-2024 Never smoked tobacco (finding) [facility] Start: 1990 Sex Assigned At Female A [facility] Patient currentl y [facility] Start: 09-15-2024 Sex Female (finding) [facility] Medical Equipment Procedure Code Equipment Code Equipment Origin al Text Equipment Identifier Dates See Instructions , Dispense 100 Use 4x daily Diagnosis: Gestational Diabetes, # 100 EA, 5 Refill(s), Pharmacy: [facility] #30, 28 weeks gestation of Gestational diabetes, 161, cm, 06/11/22 9:01:00 EST, Height, 74.3 Start: 06-11-2022 See Instructions , Dispense 100 Use 4x daily Diagnosis: Gestational Diabetes, # 100 EA, 5 Refill(s), Pharmacy: [facility] #30, 28 weeks gestation of Gestational diabetes, 161, cm, 06/11/22 9:01:00 EST, Height, 74.3 Start: 06-11-2022 See Instructions , Dispense 100 Use 4x daily Diagnosis: Gestational Diabetes, # 100 EA, 5 Refill(s), Pharmacy: [facility] #[facility], 28 weeks gestation of Gestational diabetes, 161, cm, 06/11/22 9:01:00 EST, Height, 74.3 Start: 06-11-2022 See Instructions , Dispense 100 Use 4x daily Diagnosis: Gestational Diabetes, # 100 EA, 5 Refill(s), Pharmacy: [facility] #30, 28 weeks gestation of Gestational diabetes, 161, cm, 06/11/22 9:01:00 EST, Height, 74.3 Start: 06-11-2022 See Instructions , Dispense 100 Use 4x daily Diagnosis: Gestational Diabetes, # 100 EA, 5 Refill(s), Pharmacy: [facility] #30, 28 weeks gestation of Gestational diabetes, 161, cm, 06/11/22 9:01:00 EST, Height, 74.3 Start: 06-11-2022 See Instructions , Dispense 100 Use 4x daily Diagnosis: Gestational Diabetes, # 100 EA, 5 Refill(s), Pharmacy: [facility] #30, 28 weeks gestation of Gestational diabetes, 161, cm, 06/11/22 9:01:00 EST, Height, 74.3 Start: 06-11-2022 Blood Sugar Diagnostic (Blood Glucose Test) strip Start: 2024 [facility] Start: 2024 Blood Sugar Diagnostic (Blood Glucose Test) strip Start: 2024 End: 10-21-2024 [facility] Start: 2024 End: 10-21-2024 Goals Date Patient Goal Desired Activity /State Functional Status Date Assessment Result Facility 08-20-2022 Functional Status Rooming in [facility] 08-20-2022 Functional Status [facility] 08-20-2022 Functional Status [facility] 08-19-2022 Functional Status [facility] 08-18-2022 Functional Status Good [facility] Mental Status Date Assessment Result Facility 08-20-2022 Mental Status Orientation Oriented x 4 [facility] 08-19-2022 Mental Status [facility] Clinical Notes 04-11-2021 to 12-02-2024 Note Date & Type Note Facility 12-02-[address] [facility] 09-08-2024 Note [facility] Pap Smear Specimen Adequacy September 08, 2024 [...] IUD check up acute December 02 11:14am [facility] Work Phone: [phone] NoteNicole Sparr is here for consultation at the request of Melina Swain MD for: Hydronephrosis History of Presenting Problem: Visit with Mom and Dad. Hx of left hydro. First noted at 28 weeks. Amniotic fluid is normal. Anticipated due date is 07/31/24. Planning to deliver in [place]. Anticipated sex (based on US) is male. Mom is interested in in circumcision. Local OB: Tim Sanchez ([place]) Planned staff pharmacist: Maryjo Germain ([facility]) Past Medical History: Past Medical History: Diagnosis [...] PUFF BY MOUTH EVERY 24 HOURS Vit w/Ep-[id number]-[id number] (PNV PO) Take 1 Tablet by mouth [...] I personally reviewed all labs noted in [facility], as well as those listed below. No results found for this visit on 06/08/24. No results found for: CREATININE, BUN, NA, K, CL, CO2 No results found for: URINECULT Imaging: I personally reviewed and interpreted all imaging studies noted in [facility], as well as relevant imaging [...] schedule follow-up appt once baby is born ASDIA LEPE [facility] 08[facility]12[facility] Evaluation note* Diagnosis Onset Date Resolution Status [...] Follow-Up noneact piotr September 08, 2024 10:33am [facility] Work Phone: 1(963) 230-310610-12-2023 Note SATISFACTORY FOR EVALUATION Endocervical/Transformational zone component present [facility] 10-12-2023 Note SATISFACTORY FOR EVALUATION Endocervical/Transformational zone component present [facility] 10-12-2023 Note SATISFACTORY FOR EVALUATION Endocervical/Transformational zone component present [facility] 10-12-2023 Note SATISFACTORY FOR EVALUATION Endocervical/Transformational zone component present [facility] [facility] 10-12-2023 Note SATISFACTORY FOR EVALUATION Endocervical/Transformational zone component present [facility] 10-12-2023 Note SATISFACTORY FOR EVALUATION Endocervical/Transformational zone component present [facility] 10-12-2023 Note SATISFACTORY FOR EVALUATION Endocervical/Transformational zone component present [facility] 10-12-2023 Note SATISFACTORY FOR EVALUATION Endocervical/Transformational zone component present [facility] 10-12-2023 Note SATISFACTORY FOR EVALUATION Endocervical/Transformational zone component present [facility] 02-21-2023 Evaluation + Plan noteExtracted from: Title:Clinical Document Author:JAG PHILIP MD Date:08/20/22 Subjective Comfortable with oral Motrin Lochia small. Baby is nursing well. . Objective Looks very well. Independent in room. CVS: RRR Lungs: CTA B Abdomen: Soft, uterus firm at U- 2 Extremities: Nontender with 1+ edema VITALS XpvcqaEafwAVFxlpcFBKpQ5UZW1AeaiJz(kg) 08/20 07:4636.8--9616----08/18 84.1 08/19 23:0036.8--9218---- 08/19 20:54 RA 08/19 17:4336.8--39368--DE 08/19 10:0036.8--99371--OI 24 Hr Tmax: 36.8 at 08/20 07:46 [...] # of times, 08/18/22 22:51:00 EST acetaminophen-hydrocodone ([place] 325- 5 mg oral tablet) Start: 08/18/22 22:51:00 EST, Dose = 1 tab(s), Tab, Oral, q6h, PRN, Pain, scale 4-6, 08/18/22 22:51:00 EST acetaminophen-hydrocodone ([place] 325- 5 mg oral tablet) Start: 08/18/22 22:51:00 EST, Dose = 2 tab(s), Tab, Oral, q6h, PRN, Pain, scale 7-10, 08/18/22 22:51:00 EST acetaminophen (Tylenol) Start: 08/18/22 22:51:00 EST, Dose = 650 mg, = 2 tab(s), Oral, q6h, PRN, Pain, scale 1-3, 0, 08/18/22 22:51:00 EST benzocaine topical (Dermoplast topical spray) Start: 08/18/22 22:51:00 EST, Dose = 1 spray(s), [place], Perineum, q1h, PRN, Other (see order comments), [...] mL/hr, 08/18/22 22:51:00 EST Problems (7) Asthma (021607887) Chronic hypertension (4020466215) Food allergy (1001945124) Gestational diabetes, diet controlled (62963522) (106818801) Rubella non-immune (687011301) Status post vacuum-assisted vaginal delivery (417346298) ASSESSMENT/PLAN: PPD #1 after vacuum delivery. Doing well. Baby ready for discharge too. Home , Fe, Ibuprofen. Extracted from: Title:Clinical Document Author:PAYAL ROSE MD Date:08/18/22 [place] ADMISSION HISTORY AN D PHYSICIAL CHIEF COMPLAINT:Contraction [...] otherwise ROS unremarkable. ACTIVE PROBLEMS: (6) Asthma (060253667) Chronic hypertension (5769652106) Food allergy (3180474697) Gestational diabetes, diet controlled (52898118) (480595711) Rubella non-immune (112145750) MEDICATIONS: Active Inpt Meds: influenza virus vaccine, [...] home with good support. PHYSICAL EXAM: VITALS: TpeokeOtejGEYmjxhAQIyU9NWP9SwclFm(kg) 08/18 17:56----098180GS77/19 84.1 08/18 17:46----[id number] 08/18 17:0236.3--9622--RA 08/18 16:26----101----RA 08/18 16:1036.3--454890RJ 24 Hr Tmax: 36.3 at 08/18 17:02 [...] Flowsheet Hct37.8 Hgb12.7 MCH28.6 MCHC33.7 MCV85.1 MPV10.1 Kawqrxfa200 RBC4.44 RDW14.5 WBC15.7H Lymphocyte %18.3 Monocyte %4.4 Neutrophil %76.0 Eosinophil %0.9 Basophil %0.4 Neutrophil, Rmszhbmo43.9H Lymphocyte, Absolute2.9 Monocyte, Absolute0.7 Eosinophil, Absolute0.1 Basophil, [...] 01/21/22 * Urine Drug Screen 01/21/22 * [facility] Lab Send out (Blood Specimens) 01/21/22 * [facility] Lab Send out (Blood Specimens) 01/21/22 Radiology* US OB Limited/Transvaginal 01/21/22 * US OB Limited/Transvaginal 08/06/22 [facility] 02-19-2023 Note Obstetrics Progress Note: Has now been pushing for about 2 hours. Contractions q 3-4 minutes. Some progress with head at +1 station. Very comfortable with epidural though which may be hampering efforts. FHR tracing Cat 1. Will continue pushing and will assist if can bring head to +2 station. Digitally Signed by PAYAL ROSE MD on 08/18/2022 09:25 PM [facility]02-19-2023 Hospital Discharge instructions Patient Education 08/18/2022 [...] work with your health care provider or apartment leasing consultant. If you are not : ?Avoid [...] about methods of control (contraception). Medicines Take iauc-vzt-cinflus and prescription medicines only as told by [...] 04/12/2008 Document Revised: 06/19/2018 Document Reviewed: 03/30/2018 [employer] Patient Education 2020 LSAT [employer]. 08/18/2022 19:17:50 7b- Depression and Blues (03/2020)(CUSTOM) [...] psychosis. Often, a screening tool called the [place] Depression Scale is used to diagnose depression [...] music. Avoid alcohol. Ask for help with licensed nuclear operator, cooking, grocery shopping, or running errands as needed. Do nottry to do everything. Talk to people close to you about how you are feeling. Get support from your partner, family members, and friends. Try to stay positive in how you think. Think about the things you are grateful for. Do not spend a lot of time alone. Only take ntwm-icc-nvnvamk or prescription medicine as directed by your [...] not doing well or get worse. Resource: [facility] Patient Information 2015 [employer] [facility]. This information is not intended to replace [...] Follow these instructions at home: Medicines Take rfjv-piu-aswemot and prescription medicines only as told by [...] 10/11/2005 Document Revised: 03/05/2019 Document Reviewed: 06/17/2017 [employer] Patient Education 2020 LSAT [employer]. Follow Up Care 08/18/2022 16:08:24 With:ROSE MOLINA, PAYAL Cole Address: [address] [place] [address] [place] [address] [phone] When: Unknown Comments:Please schedule an initial visit in the office for three weeks after delivery. [facility] 02-19-2023 Note [place] ADMISSION HISTORY AND PHYSICIAL CHIEF COMPLAINT:Contraction pains [...] otherwise ROS unremarkable. ACTIVE PROBLEMS: (6) Asthma (095611953) Chronic hypertension (5030956081) Food allergy (6461564884) Gestational diabetes, diet controlled (08569987) (135285563) Rubella non-immune (602502589) MEDICATIONS: Active Inpt Meds: influenza virus vaccine, [...] home with good support. PHYSICAL EXAM: VITALS: QavuoaEkenQFUydvoLQGzQ0NWI5IgirBv(kg) 08/18 17:56----580704XY48/19 84.1 08/18 17:46----[id number] 08/18 17:0236.3--9622--RA 08/18 16:26----101----RA 08/18 16:1036.3--094964NG 24 Hr Tmax: 36.3 at 08/18 17:02 [...] Flowsheet Hct37.8 Hgb12.7 MCH28.6 MCHC33.7 MCV85.1 MPV10.1 Cytcstlw607 RBC4.44 RDW14.5 WBC15.7H Lymphocyte %18.3 Monocyte %4.4 Neutrophil %76.0 Eosinophil %0.9 Basophil %0.4 Neutrophil, Cxsyvocm16.9H Lymphocyte, Absolute2.9 Monocyte, Absolute0.7 Eosinophil, Absolute0.1 Basophil, Absolute0.1 DIAGNOSTICS:Cat 1 FHR tracing IMPRESSION:Active labor PLAN: Had epidural placed. Limited effect thus far. Cervix rechecked and now FD 0 station. Will start pushing efforts. Digitally Signed by PAYAL ROSE MD on 08/18/2022 06:28 PM [facility]02-19-2023 Anesthesiology Consult note Patient: VICENTA BLANCHARD Age: 32 years Sex: Female : 1990 Associated Diagnoses: None Author: SUSAN LOPEZ APRN-LOT ATTENDANT Preoperative Information Anesthesia history Patient's history: negative. [...] list: Medical Food allergy / SNOMED CT 1571173131 / Confirmed Asthma / SNOMED CT 217149386 / Confirmed Gestational diabetes, diet controlled / SNOMED CT 84480940 / Confirmed Chronic hypertension / SNOMED CT 8100347200 / Confirmed / SNOMED CT 754506353 / Confirmed Rubella non-immune / SNOMED CT 342046503 / Confirmed, Active Problems (6) Asthma Chronic hypertension Food allergy Gestational diabetes, diet controlled Rubella non-immune Histories Past Medical History: Resolved Breast pain, left (994263008): Resolved. Screening for cervical cancer (6158501311): Resolved. Well woman exam (197126492): Resolved. control counseling (968125065): Resolved. Screening for STD (sexually transmitted disease) (131357946): Resolved. Missed menses (95539406): Resolved. Gestational diabetes (20190414): Resolved. Family History: FH: Early menopause Mother Ovarian cyst Mother Diabetes mellitus Grandparent Hypertension Father Diabetes Mother Grandparent Procedure history: LEEP (29425959) in the month of 04/2021 at 31 Years. Tear duct (1492693192). Comments: 05/08/2021 13:08 Nichole Hernandez RN SX, INFANT Wrist manipulation (9830490923). Comments: 05/08/2021 13:08 Nichole Hernandez RN RIGHT [...] Oral36.3 DegC (AUG 18 17:02) Heart Rate Pgwuvtkkq51 bpm (AUG 18 17:56) Resp Rate 20 br/min (AUG 18 17:56) SCP152 mmHg (AUG 18 17:56) DBP70 mmHg (AUG 18 17:56) BMI32.85 (AUG 18 16:22) Measurements from flowsheet : Measurements 08/18/2022 16:22 EST Height 160 cm Admission Weight 84.1 kg Oneco Body Weight 52.38 kg BSA Admission 1.87 [...] with support Epidural Placed By SUSAN LOPEZ APRN-LOT ATTENDANT Epidural Test Dose Time 08/18/2022 17:54 Epidural [...] feelings, concerns Skin Temperature Warm Skin Description [place], Dry Skin Integrity Intact Sensory Perception Alfonzo No impairment Moisture Alfonzo Rarely moist Activity Alfonzo Walks frequently Mobility Alfonzo No limitations Nutrition Alfonzo Adequate Friction and [...] ABSC Designated Person #1 We May Share [facility] THEA VALDEZr - [phone] Designated Person #1 Relationship Mother Privacy Restrictions Requested None Height 160 cm Admission Weight 84.1 kg Oneco Body Weight 52.38 kg BSA Admission 1.87 [...] Baby For Adoption No Surrogate No Discharge [place] Physician addie roe [facility] Participant No Safe Sleep Environment for Baby [...] No further teaching needed Preferred Written Language Tunisian Preferred Spoken Language Tunisian Chief Complaint stated in labor since 1000 Mode of Arrival Ambulatory Information Given by Patient, Spouse Patient's Current Physicians JAIDEN MAYORGA Emergency Contact Number Thea Blanchard [phone] Belongings At Bedside None Personal Home Medications [...] of Care 7am-7pm . Assessment and Plan [place] [employer] Anesthesiologists (ASA) physical status classification: Class III. Anesthetic Preoperative Plan Anesthetic technique: Epidural. Regional: Epidural. Postoperative pain management: Per surgeon. Risks discussed: nausea, vomiting, headache, hypotension, allergic reaction, serious complications. Informed consent: signed by patient. Digitally Signed by SUSAN LOPEZ on 08/18/2022 06:09 PM [facility]01-10-2023 Note Dietitian provided medical nutrition therapy [...] goals PRN or at follow- up appointment. [id number] Note The staff educator provided diabetes self-management education via telehealth online [...] She will follow up with her provider. [facility]01-10-2023 Note Diabetes Education Telehealth Entered On: [...] Annabella Lackey RN - 07/09/2022 10:04 EST [facility]12-09-2022 Evaluation + Plan note Future Scheduled Tests Laboratory* Glucose Tolerance Test 3 Hour (AO) 06/07/22 Radiology* US OB Limited/Transvaginal 08/06/22 [facility] 11-19-2021 Hospital Discharge instructions Patient Education 05/18/2021 14:39:39 Nausea and Vomiting, Adult, Nrng-it-Jylv Nausea and Vomiting, Adult Nausea is feeling [...] fruit juice). ?Low-calorie sports drinks. Eat bland, bzub-kj-lepchh foods in small amounts as you are able, such as: ?Bananas. ?Applesauce. ?Rice. ?Low-fat (lean) meats. ?[place]. ?Crackers. Avoid drinking fluids that have a lot of sugar or caffeine in them. This includes energy drinks, sports drinks, and soda. Avoid alcohol. Avoid spicy or fatty foods. General instructions Take xkmr-xpb-ajempeh and prescription medicines only as told by your doctor. Drink enough fluid to keep your pee (urine) pale yellow. Wash your hands often with soap and water. If you cannot use soap and water, use hand shank stapler. Make sure that all people in your [...] too much water in your body. Take viat-bcl-omvteyj and prescription medicines only as told by [...] 12/02/2008 Document Revised: 10/08/2019 Document Reviewed: 11/24/2018 [employer] Patient Education 2020 LSAT [employer]. 05/18/2021 14:39:33 Hand Washing, Vdhw-zp-Ofyg Hand Washing Germs such as bacteria, viruses, [...] toys or leash. ?Touching money. ?Using household body coverer or poisonous chemicals. ?Handling dirty clothes, bedding, [...] a hand-washing wipe, spray, or gel (hand shank stapler).Use one that contains at least 60% alcohol. [...] 05/29/2009 Document Revised: 03/25/2018 Document Reviewed: 03/25/2018 [employer] Patient Education 2020 LSAT [employer]. 05/18/2021 14:39:27 Deep Vein Thrombosis Deep Vein [...] what medicines you take. General instructions Take vkeb-yhg-sbnveqm and prescription medicines only as told by [...] 06/16/2006 Document Revised: 05/29/2018 Document Reviewed: 11/14/2017 [employer] Patient Education 2020 LSAT [employer]. 05/18/2021 14:39:20 General Anesthesia, Adult, Care After [...] what activities are safe for you. Take xomk-nms-syvshoz and prescription medicines only as told by [...] 09/22/2001 Document Revised: 06/19/2018 Document Reviewed: 01/30/2018 [employer] Patient Education 2020 LSAT [employer]. 05/18/2021 14:39:14 Loop Electrosurgical Excision Procedure Loop [...] including vitamins, herbs, eye drops, creams, and hzwh-gjf-isxscha medicines. Any blood disorders you have. Any [...] provider tells you to take them. ?Taking dvtj-nev-mxbsvgo medicines, vitamins, herbs, and supplements. Your health [...] ready. Follow these instructions at home: Take oawm-vah-fwysdcc and prescription medicines only as told by [...] 09/06/2003 Document Revised: 07/09/2019 Document Reviewed: 07/09/2019 [employer] Patient Education 2020 LSAT [employer]. 05/18/2021 14:30:14 Cervical Conization, Care After Cervical [...] Follow these instructions at home: Medicines Take dvrk-jdi-ttjmvfa and prescription medicines only as told by [...] your urine clear or pale yellow. ?Take aawj-bpi-wsqaozn or prescription medicines. ?Eat foods that are [...] as youcan, and contact the DrJerrell at [phone] You have a fever. You have increasing [...] 06/16/2006 Document Revised: 05/29/2018 Document Reviewed: 06/18/2017 [employer] Patient Education [employer] Follow Up Care 04/18/2021 09:57:11 With:JAG PHILIP MD Address: [phone] When: Unknown Comments:CALL DR PHILIP WITH ANY CONCERNS OR QUESTIONS AND FOR A FOLLOW UP APPOINTMENT. GO TO THE EMERGENCY ROOM WITH ANY URGENT MATTERS. With:JAG PHILIP Address: [address] [facility] [address] [facility] [place] [address]- [phone] Business (1) When:Within 1 Week(s) [facility] 11-19-2021 Evaluation + Plan noteExtracted from: Title:Clinical Document Author:JAG PHILIP MD Date:05/18/21 [place] ADMISSION HISTORY A ND PHYSICIAL CHIEF COMPLAINT: Presenting for LEEP procedure HISTORY OF PRESENT ILLNESS: 31 y.o. 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 REVIEW OF SYSTEMS: Negative ACTIVE PROBLEMS: (7) Asthma (371924976) control counseling (075255665) Breast pain, left (921446480) Food allergy (0890662051) Screening for cervical cancer (9132535024) Screening for STD (sexually transmitted disease) (846668566) Well woman exam (109831508) MEDICATIONS: Active Inpt Meds: cefOXitin (Mefoxin) Start: [...] (2) Nuts Sesame seed Oil FAMILY HISTORY: STRIP WINDER SOCIAL HISTORY: Occasional ETOH, no tobacco. PHYSICAL EXAM: VITALS: JubdzqHzcoMDEgoacWAQdM1TMI5IvzkZd(kg) 05/18 12:1437.7147/14390307SY50/19 64.9 24 Hr Tmax: 37.7 at 05/18 [...] Scheduled Tests Laboratory* Pathology Tissue Request 04/11/21 [facility] 10-13-2021 Evaluation + Plan note Future Appointments Future Scheduled Tests Laboratory* Pathology Tissue Request 04/11/21 [facility] 10-13-2021 Evaluation + Plan note Future Scheduled Tests Laboratory* hCG, quantitative(AO) 01/03/22 * Pathology Tissue Request 04/11/21 [facility] Evaluation + Plan note Future Appointments Appointment Date:02/11/2022 11:15:00 AM Scheduled Provider:JAG PHILIP MD Location:[facility] Appointment Type: OV OB Routine Follow Up [...] Specimens) 01/21/22 Radiology* US OB Limited/Transvaginal 01/21/22 [facility] Evaluation + Plan note Future Appointments Appointment Date:03/26/2022 10:00:00 AM Scheduled Provider:JAG PHILIP MD Location:[facility] Appointment Type: OV Appointment Date:04/02/2022 07:30:00 AM Scheduled Provider: Location:[facility] Appointment Type:US OB > 14 wks Future [...] * US OB > 14 weeks 04/02/22 [facility] Evaluation + Plan note Future Appointments Appointment Date:04/30/2022 08:30:00 AM Scheduled Provider:JAG PHILIP MD Location:[facility] Appointment Type: OV Future Scheduled Tests Laboratory* Panel (AO) 01/21/22 * Pathology Tissue Request 04/11/21 * Urinalysis 01/21/22 * Urine Culture 01/21/22 * HIV 1/2 Ab 01/21/22 * Urine Drug Screen 01/21/22 * [facility] Lab Send out (Blood Specimens) 01/21/22 * [facility] Lab Send out (Blood Specimens) 01/21/22 Radiology* US OB Limited/Transvaginal 01/21/22 [facility] Evaluation + Plan note Future Appointments Appointment Date:06/11/2022 09:00:00 AM Scheduled Provider:JAG PHILIP MD Location:[facility] Appointment Type: OV OB Routine Follow Up Future Scheduled Tests Laboratory* Panel (AO) 01/21/22 * Urinalysis 01/21/22 * Urine Culture 01/21/22 * HIV 1/2 Ab 01/21/22 * Urine Drug Screen 01/21/22 * [facility] Lab Send out (Blood Specimens) 01/21/22 * [facility] Lab Send out (Blood Specimens) 01/21/22 Radiology* US OB Limited/Transvaginal 01/21/22 [facility] Evaluation + Plan note Future Appointments Appointment Date:07/17/2022 08:45:00 AM Scheduled Provider:MARGARET SHAW Location:[facility] Appointment Type: OV OB Routine Follow Up Appointment Date:08/06/2022 10:30:00 AM Scheduled Provider: Location:[facility] Appointment Type:US OB > 14 wks Future [...] * US OB > 14 weeks 08/06/22 [facility] Evaluation + Plan note Future Appointments Appointment Date:08/07/2022 11:15:00 AM Scheduled Provider:JAG PHILIP MD Location:[facility] Appointment Type:[facility] OB Routine Follow Up Future Scheduled Tests Laboratory* Glucose Tolerance Test 3 Hour (AO) 06/07/22 * Panel (AO) 01/21/22 * Urinalysis 01/21/22 * Urine Culture 01/21/22 * HIV 1/2 Ab 01/21/22 * Urine Drug Screen 01/21/22 * [facility] Lab Send out (Blood Specimens) 01/21/22 * [facility] Lab Send out (Blood Specimens) 01/21/22 Radiology* US OB Limited/Transvaginal 01/21/22 * US OB Limited/Transvaginal 08/06/22 [facility] Evaluation + Plan note Future Appointments Appointment Date:08/14/2022 08:45:00 AM Scheduled Provider:JAG PHILIP MD Location:[facility] Appointment Type:[facility] OB Routine Follow Up Future Scheduled Tests Laboratory* Glucose Tolerance Test 3 Hour (AO) 06/07/22 * Panel (AO) 01/21/22 * Urinalysis 01/21/22 * Urine Culture 01/21/22 * HIV 1/2 Ab 01/21/22 * Urine Drug Screen 01/21/22 * [facility] Lab Send out (Blood Specimens) 01/21/22 * [facility] Lab Send out (Blood Specimens) 01/21/22 Radiology* US OB Limited/Transvaginal 01/21/22 * US OB Limited/Transvaginal 08/06/22 [facility] Hospital course Narrative No data available for this section [facility] Hospital Discharge instructions No data available for this section [facility] Progress note No data available for this section [facility] Probvess note Author Aminata Martínez [facility] Note Date/Time December 02, 2024 11:[address] 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 Required: No Is patient in pain?: No [...] of vaginal delivery Seasonal allergies Surgical History [place] teeth extracted H/O LEEP Family History Mother Diabetes Grandmother Diabetes maternal Aunt Diabetes maternal Uncle Diabetes Maternal Father Hypertension Social History adopted: No household members: significant other number of children: 1 current occupational status: employed 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 Work Phone: Reason for referral (narrative)No reason for referral information availableWMercy [facility] Work Phone: Summary Purpose Family History Relationship Condition Age at Onset Recorded Date/T laura mother Diabetes mellitus Unknown grandmother Diabetes mellitus Unknown aunt Diabetes mellitus Unknown uncle Diabetes mellitus Unknown father Hypertension Unknown No Family History Records Found Advance Directives Advance Directive Response Recorded Date/ Time Living Will No November 06, 2016 3 :02pm Power of Reimbursement Liaison No November 06, 2016 3:02pm Living Will No July 20 7:18pm Power of Reimbursement Liaison No July 20, 2024 7:18pm Chief Complaint [...] Member Role: Primary Care Physician Address: Address: [address] [place] [address] [place] Care Team Related Persons Name: SPARR, THEA Care Team Personnel Name: NANDINI MAYORGA HEALTH 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 Position: P4 Advanced Practice Nurse Med Service: Active Provider Member Role: Primary Care Physician Address: Address: [address] [place] [address]- [place] Care Team Related Persons Name: SPARR, THEA Care Team Personnel Name: NANDINI MAYORGA HEALTH 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 Position: P4 Advanced Practice Nurse Med Service: Active Provider Member Role: Primary Care Physician Address: Address: [address] [place] [address]- [place] Care Team Related Persons Name: SPARR, THEA Care Team Personnel Name: NANDINI MAYORGA HEALTH 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 Position: P4 Advanced Practice Nurse Med Service: Active Provider Member Role: Primary Care Physician Address: Address: [address] [place] [address]- Care Team Related Persons Name: SPARR, THEA Care Team Personnel Name: NANDINI MAYORGA HEALTH 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 Position: P4 Advanced Practice Nurse Member Role: Primary Care Physician Address: Address: [address] [place] [address]- [place] Care Team Related Persons Name: SPARR, HTEA Care Team Personnel Name: NANDINI MAYORGA HEALTH 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 Position: P4 Advanced Practice Nurse Member Role: Primary Care Physician Address: Address: [address] [place] [phone]- [place] Care Team Related Persons Name: SPARR, THEA Care Team Personnel Name: NANDINI MAYORGA HEALTH 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 Position: P4 Advanced Practice Nurse Member Role: Primary Care Physician Address: Address: [address] [place] [address]- [place] Care Team Related Persons Name: SPARR, THEA Care Team Personnel Name: NANDINI MAYORGA HEALTH 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 Position: P4 Advanced Practice Nurse Member Role: Primary Care Physician Address: Address: [address] [id number] Care Team Related Persons Name: SPARR, THEA Care Team Personnel Name: NANDINI MAYORGA HEALTH 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 Position: P4 [employer] Biologist Member Role: Primary Care Physician Address: Address: [address] [place] [address] [facility] [place], [place] [address] Care Team Related Persons Name: JORGE BENEDICT Address: Home [address] [place] [phone] [place] Name: THEA BLANCHARD Patient Care team informatio n (unrecognized section and content) Team Status: Active Member Role Status Dates Dr. Rickie Castillo MD Family Provider Active Nandini Mayorga STRIP WINDER, STRIP WINDER-C Primary Care Provider Active Team Status: Inactive Member Role Status Dates Nandini Mayorga STRIP WINDER, STRIP WINDER-C Primary Care Provider Active Start: June 03, 2024 End: June 03, 2024 Nandini Mayorga STRIP WINDER, STRIP WINDER-C Referring Provider Active Start: June 03, 2024 End: June 03, 2024 Dr. Rocio Rivera , Attending Provider Activ e Start: June 03, 2024 End: June 03, 2024 Team Status: Inactive Member Role Status Dates Nandini Mayorga STRIP WINDER, STRIP WINDER-C Primary Care Provider Active Start: June 14, 2024 End: June 14, 2024 Nandini Mayorga STRIP WINDER, STRIP WINDER-C Referring Provider Active Start: June 14, 2024 End: June 14, 2024 Aminata Martínez CNM Attending Provider Active S tart: June 14, 2024 End: June 14, 2024 Team Status: Inactive Member Role Status Dates Nandini Mayorga NP, STRIP WINDER-C Primary Care Provider Active Start: July 02, 2024 End: July 02, 2024 Nandini Mayorga STRIP WINDER, STRIP WINDER-C Referring Provider Active Start: July 02, 2024 End: July 02, 2024 Dr. Julieta Lua MD Attending Provider Active Start: July 02, 2024 End: July 02, 2024 Team Status: Inactive Member Role Status Dates Nandini Mayorga NP, STRIP WINDER-C Primary Care Provider Active Start: July 06, 2024 End: July 06, 2024 Nandini Mayorga STRIP WINDER, STRIP WINDER-C Referring Provider Active Start: July 06, 2024 End: July 06, 2024 Dr. Rocio Rivera , Attending Provider Activ e Start: July 06, 2024 End: July 06, 2024 Team Status: Inactive Member Role Status Dates Nandini Lorson STRIP WINDER, STRIP WINDER-C Primary Care Provider Active Start: July 06, 2024 End: July 06, 2024 Dr. Rocio Rivera DO Attending Provider Activ e Start: July 06, 2024 End: July 06, 2024 Dr. Rocio Rivera DO Referring Provider Activ e Start: July 06, 2024 End: July 06, 2024 Team Status: Inactive Member Role Status Dates Nandini Mayorga STRIP WINDER, STRIP WINDER-C Primary Care Provider Active Start: July 09, 2024 End: July 09, 2024 Jaiden Marshall CNM Attending Provider Active Start: July 09, 2024 End: July 09, 2024 Jaiden Marshall CNM Referring Provider Active Start: July 09, 2024 End: July 09, 2024 Team Status: Active Member Role Status Dates Nandini Mayorga STRIP WINDER, STRIP WINDER-C Primary Care Provider Active Start: July 09, 2024 Jaiden Marshall CNM Attending Provider Active Start: July 09, 2024 Jaiden Marshall CNM Referring Provider Active Start: July 09, 2024 Jaiden Marshall CNM Other Provider Active Star t: July 09, 2024 Team Status: Inactive Member Role Status Dates Nandini Mayorga STRIP WINDER, STRIP WINDER-C Primary Care Provider Active Start: July 12, 2024 End: July 12, 2024 Nandini Mayorga STRIP WINDER, STRIP WINDER-C Referring Provider Active Start: July 12, 2024 End: July 12, 2024 Aminata Martínez CNM Attending Provider Active S tart: July 12, 2024 End: July 12, 2024 Team Status: Inactive Member Role Status Dates Nandini Mayorga NP, STRIP WINDER-C Primary Care Provider Active Start: July 20, 2024 End: July 22, 2024 Dr. Rocio Rivera , Admit Provider Active Start: July 20, 2024 End: July 22, 2024 Dr. Rocio Rivera DO Attending Provider Activ e Start: July 20, 2024 End: July 22, 2024 Team Status: Active Member Role Status Dates Nandini Mayorga STRIP WINDER, STRIP WINDER-C Primary Care Provider Active Start: July 20, 2024 Dr. Rocio Rivera DO Admit Provider Active Start: July 20, 2024 Dr. Rocio Rivera DO Attending Provider Activ e Start: July 20, 2024 Dr. Rocio Rivera DO Other Provider Active Start: July 20, 2024 Team Status: Active Member Role Status Dates Nandini Mayorga NP, STRIP WINDER-C Primary Care Provider Active Start: July 21, 2024 Dr. Rocio Rivera DO Admit Provider Active Start: July 21, 2024 Dr. Rocio Rivera DO Other Provider Active Start: July 21, 2024 Aminata Martínez CNM Attending Provider Active S tart: July 21, 2024 Team Status: Active Member Role Status Dates Nandini Mayorga NP, STRIP WINDER-C Primary Care Provider Active Start: July 22, 2024 Dr. Rocio Rivera , Admit Provider Active Start: July 22, 2024 Dr. Rocio Rivera DO Attending Provider Activ e Start: July 22, 2024 Dr. Rocio Rivera DO Other Provider Active Start: July 22, 2024 Team Status: Inactive Member Role Status Dates Nandini Mayorga STRIP WINDER, STRIP WINDER-C Primary Care Provider Active Start: September 08, 2024 End: September 08, 2024 Nandini Mayorga NP, STRIP WINDER-C Referring Provider Active Start: September 08, 2024 End: September 08, 2024 Tim Sanchez STRIP WINDER, STRIP WINDER-C Attending Provider Active Start: September 08, 2024 End: September 08, 2024 Team Status: Inactive Member Role Status Dates Nandini Mayorga NP, STRIP WINDER-C Primary Care Provider Active Start: September 08, 2024 End: September 08, 2024 Tim Sanchez STRIP WINDER, STRIP WINDER-C Attending Provider Active Start: September 08, 2024 End: September 08, 2024 Tim Sanchez STRIP WINDER, STRIP WINDER-C Referring Provider Active Start: September 08, 2024 End: September 08, 2024 Team Status: Inactive Member Role Status Dates Nandini Mayorga NP, STRIP WINDER-C Primary Care Provider Active Start: October 21, 2024 End: October 21, 2024 Nandini Mayorga NP, STRIP WINDER-C Referring Provider Active Start: October 21, 2024 End: October 21, 2024 Aminata Martínez CNM Attending Provider Active S tart: October 21, 2024 End: October 21, 2024 Team Status: Inactive Member Role Status Dates Nandini Mayorga STRIP WINDER, STRIP WINDER-C Primary Care Provider Active Start: December 02, 2024 End: December 02, 2024 Nandini Mayorga NP, STRIP WINDER-C Referring Provider Active Start: December 02, 2024 End: December 02, 2024 Aminata Martínez CNM Attending Provider Active S tart: December 02, 2024 End: December 02, 2024 INFORMATION SOURCE (unrecogn ized section and content) DATE CREATED AUTHOR 04/18/2023 [facility] ([place]) DATE CREATED AUTHOR AUTHOR'S ORGANIZ ATION 07/27/2024 [facility] DATE CREATED AUTHOR AUTHOR'S ORGANIZ ATION 12/03/2024 [facility] Goals (unrecognized section and content) Goals may [...] BE BASED ON THE PRIMARY CLINICAL RECORDS. [facility]. provides no warranty or guarantee of the accuracy or completeness of information in this document.
[2024-12-24] MEDS: Pantoprazole Sodium 40 MG in 0.9% Normal Saline (100mL MB+) 100 ML 300 MG IV (05:06)
[2024-12-24] MEDS: Piperacil/Tazobactam 3.375 GM in 0.9% Normal Saline (50mL MB+) 50 ML IV (05:28)
[2024-12-24] MEDS: 0.9% Normal Saline (1000mL) 1,000 ML 100 ML IV (05:29)
--- NOTE | 2024-12-24 06:08 | PRE.ANES_ITS ---
ASA Classification* ASA Classification ASA Classification: 2 and E Assessment & Plan Anesthesia* Anesthesia Assessment Anesthesia Assessment: Discussed sedation and/or anesthesia options, risks, benefits, and alternatives with patient/parents/legal guardian/POA. Questions invited. The patient/parents/legal guardian/POA seems to understand and agrees to proceed with anesthesia plan. Reviewed the physical assessment, medical history, allergy history and patient home medications list prior to surgery/procedure/anesthetic and documented any changes. Performed airway and anesthesia risk assessments. Anesthesia Type Anesthesia Type: General History Source History Obtained from:: Patient and Chart Anesthesia Focused Assessment* Temperature: 98.2 F Pulse Rate: 100 Blood Pressure: 133/84 Respiratory Rate: 16 Pulse Ox: 99 Oxygen Delivery Method: Room Air Airway Assessment Mouth opens: >3 cm Mallampati Score: II Teeth Condition: Intact Neck Range of motion (ROM): Full ROM Labs Anesthesia Preop lab: CBC WBC 10.0 K/mm3 (4.4-11.0) 12/24/24 01:11 12/24/24 RBC 4.12 M/mm3 (4.2-5.4) L 12/24/24 01:11 12/24/24 Hgb 11.5 g/dL (12.0-15.0) L 12/24/24 01:11 5 Hct 34.7 % (37-47) L 12/24/24 01:11 12/24/24 Plt Count 214 K/mm3 (150-450) 12/24/24 01:11 12/24/24 CHEMISTRY Potassium 4.0 mmol/L (3.3-5.1) 12/24/24 01:11 12/24/24 Sodium 139 mmol/L (133-145) 12/24/24 01:11 12/24/24 BUN 14 mg/dL (4-19) 12/24/24 01:11 12/24/24 Creatinine 0.71 mg/dL (0.70-1.20) 12/24/24 01:11 12/24/24 Glucose 102 mg/dL (70-99) H 12/24/24 01:11 12/24/24 POC Glucose 95 mg/dL (74-106) 07/21/24 05:45 07/21/24 COAG Tst Clinic Negative 10/21/24 11:40 10/21/24 Pre-Assessment Diagnosis/Proposed Procedure Planned Operative Procedure(s): Laparoscopic appendectomy. 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 When Was Last Pacemaker Check QUESTION #4 FULL TEXT: You/Your Family Experience fever (hyperthermia) with Anesthesia Last Oral Intake Last Oral intake: Last Oral Intake NPO since Meds taken in AM with sips of water? Meds patient instructed to take am of surgery Any additional information?: Yes NPO since: 18:00 PONV PONV - shellfish manager: PONV - shellfish manager Female HX of Motion Sickness HX of N/V After Surgery Non-Smoker Duration of Surgery greater than 60 minutes Number of Risk Factors PONV Score Height & Weight Height & Weight: Anesthesia: Height & Weight Height 5 ft 3 in 12/24/24 05:30 Weight: 77.111 kg 12/24/24 05:30 Body Mass Index (BMI) 30.1 12/24/24 05:30 Respiratory Assessment Respiratory Assessment - shellfish manager: Respiratory Tract Infection Hx - shellfish manager Hx Respiratory Tract Infection STOP Sleep Apnea STOP Sleep Apnea - shellfish manager: STOP Sleep Apnea - shellfish manager Hx Hypertension No 12/24/24 05:30 Hx Sleep Apnea No 12/24/24 05:30 CPAP BIPAP Do you snore loudly (louder No 12/24/24 05:30 than talking or can be heard Do you often feel tired/ No 12/24/24 05:30 fatigued/ sleepy during daytime? Has anyone observed you stop No 12/24/24 05:30 breathing during sleep? STOP Results Negative 12/24/24 05:30 QUESTION #5 FULL TEXT : Do you snore loudly (louder than talking or can be heard through closed doors)? 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 Specify any problems Hx of Preganancy in last 3 Months Nurse Filling Out Transfusion & Questions: Date: Time: Patient unable to answer at this time (ie. confused, unrespo /Reproduction History /Reproductive History - shellfish manager: /Reproductive Hx- shellfish manager Hx Now No 12/24/24 05:30 Gestational Age (in weeks): EDC: Hx Hx Para Hx Section SAB No 12/24/24 05:30 Active Medications Active Medications: Current Medications Generic Name Dose Route Start Last Admin Trade Name Freq PRN Reason Stop Dose Admin Sodium Chloride 1,000 mls @ 100 mls/hr 12/24/24 04:20 12/24/24 05:29 IV 100 mls/hr .Q10H KRISTEN Administration PFSH Medical History Cystic fibrosis carrier History of gestational hypertension History of gestational diabetes Hx of vaginal delivery Seasonal allergies Home Medications ?Medication ?Instructions ?Recorded ?Last Taken ?Type epinephrine 0.3 mg/0.3 mL 0.3 mg (0.3 mL) IM X1 food a llergy 11/06/16 Unknown Rx injection, auto-injector #2 syringes albuterol sulfate 90 mcg/actuation 2 puff inhalation Q 6H PRN asthma 12/30/23 Unknown History aerosol inhaler umeclidinium 62.5 mcg-vilanterol 1 inh inhalation JENNA Y asthma 12/30/23 07/20/24 History 25 mcg/actuation powdr for inhalation (Anoro Ellipta) Allergy/AdvReac Type Severity Reaction Status Date / Time peanut Allergy Angioedema Verified 12/24/24 00:50 sesame seed Allergy Anaphylaxis Verified 12/24/24 00:50 tree nut (tree nuts) AdvReac Severe Anaphylaxis Verified 12/24/24 00:50 Family History Mother Diabetes Grandmother Diabetes maternal Aunt Diabetes maternal Uncle Diabetes Maternal Father Hypertension Surgical History [place] teeth extracted H/O LEEP Social History adopted: No household members: significant other number of children: 1 current occupational status: employed current occupation: [employer] current occupational exposures/hazards: No pets and animals: No history of recent travel: No sexually active: Yes Smoking Status: Never smoker alcohol intake: current alcohol intake frequency: holidays/special occasions only details: Not while substance use type: does not use well-balanced diet: daily or most days caffeine: Yes Type: coffee Number of servings: 1 eating out: 1-3 times/week during the past year weight has: remained stable what type of physical activity do you participate in: none morgan/sikhism: None seatbelt use: always do you feel safe at home: Yes 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 Physical Exam Resp clear to auscultation bilaterally
--- NOTE | 2024-12-24 06:20 | APP_PTH ---
PATIENT: VICENTA BLANCHARD LOC[place] [facility] [place][id number] AGE/SX: 34/F ROOM: RE12/24/[address]: Dr. Hattie Ramos MD : 1990 BED: DIS: 12/24/2024 SPEC #: [id number] RECD: 12/24/24 09:33 STATUS: JULIO REAmy #: [id number] MAHAMED: 12/24/24 06:[address]: Hattie Ramos DEPT: SURGICAL PATHOLOGY RECD BY: José Miguel Bates ENTERED: 12/24/24 09:57 SP TYPE: APPENDIX OTHR DR: Nandini Mayorga, ADRIANA Tissues: A - Appendix, NOS Procedures: Surgery Specimen Level III HEADER OPERATION: Laparoscopic appendectomy PRE-OP DIAGNOSIS: Acute appendicitis TISSUE SUBMITTED: A- Appendix MICROSCOPIC DIAGNOSIS A. Appendix, acute appendicitis, appendectomy: - Mild acute mucositis and acute serositis. - Focal small mesothelial inclusion cyst of the serosa. - Separate nodular portion of necrotic adipose. MICROSCOPIC DESCRIPTION Slides are reviewed. GROSS DESCRIPTION A. Received in formalin labeled with the patient's name and date of . Designated as appendix is a 4.4 x 0.4-0.7 cm dee-pink appendix with up to 2.6 cm of attached mesoappendix. The stapled margin is inked black and shaved. Sectioning reveals dee-pink mucosa with semisolid fecal material within the lumen. Also within the container is a 1.3 x 1.3 x 0.4 cm yellow portion of apparent fat. Knot Borer sections are submitted in 1 cassette. NM 12/24/2024 CPT:93633
[2024-12-24] MEDS: Bupiv/Epi 0.25% 30 ML Vial (07:00)
--- NOTE | 2024-12-24 07:01 | OP.PCM_ITS ---
Operative Report (Standard) Operative Information Date of Procedure: 12/24/24 Pre-Operative Diagnosis: Acute appendicitis Post-Operative Diagnosis: Same Surgery/Procedure Performed: Laparoscopic appendectomy chief of field operations: Yes Avionics Shop Supervisor: Nam Estrada Tasks completed by news assistant: Opening & closing and Retracting Type of Anesthesia: General/Supplemental RN Documented Start/Stop Times: Operation Date: 12/24/24 06:20 Case Time Anesthesia Start 12/24/24 06:13 Into Room 12/24/24 06:13 Procedure Start 12/24/24 06:32 Procedure End 12/24/24 07:08 Anesthesia End 12/24/24 07:13 Out of Room 12/24/24 07:13 Into Recovery 12/24/24 07:15 Procedure Start Time: 06:32 Procedure Stop Time: 07:08 Select all DRAINS/GRAFTS/IMPLANTS that apply: None Special Medications: Zosyn 3.375 g IV x 1 due to acute appendicitis Estimated Blood Loss: 10 cc Specimen collected: Yes Description of specimen(s) removed: Appendix Description of surgery: Indications: 34-year-old female presented to the ER with new right lower quadrant pain last night. On workup she was found to have acute appendicitis on CT and a leukocytosis within normal limits with a left shift. Patient was started on antibiotics in the ER for acute appendicitis-Zosyn IV Description of the procedure: The patient was placed on operating table in supine position. General anesthesia was induced. A timeout was completed verifying correct patient, procedure, position and special equipment prior to beginning procedure. Abdomen was prepped and draped in usual sterile fashion. Incision was made in the natural skin line below the umbilicus with a 15 blade scalpel. The fascia was elevated and incised. Entry into the peritoneum was c onfirmed visually and no bowel was noted in the vicinity of the incision. The [place] trocar was placed under direct vision. Abdomen insufflated with a pressure of 12-15 mmHg. Patient tolerated insertion well. The scope was inserted and the abdomen inspected. No injuries from initial trocar placement were noted. Minimal amount of fluid was seen in the right lower quadrant. An direct visualization 2 -5 mm trocars were placed one above the symphysis pubis and below the hairline and one in the left lower quadrant lateral to the rectus muscle. Care is taken to avoid injury to the bladder and inferior epigastric vessels. The table was placed in Trendelenburg position with the right side elevated. The appendix was grasped with atraumatic grasper and elevated. It was noted to be inflamed at the tip. A window was developed in the mesoappendix at the point between the base of the appendix and the cecum. An endoscopic 45 mm linear cutting stapler blue load was then used to divide and staple the base of the appendix. Enseal was used to divide the mesoappendix The appendix was withdrawn into the [place] trocar after being placed endoscopically retrieval bag. Appendix was sent to pathology. The appendiceal stump was then irrigated and hemostasis was assured after applying a 5 mm clip to the staple line. Fluid was suctioned no other pathology was identified. Secondary trochars were removed under direct visualization. No bleeding was noted trocar sites. The laparoscope withdrawn and the umbilical trocar removed. The abdomen was allowed to collapse. Local anesthesia of [30] mL of 0.5% Marcaine was used at the incision sites. The umbilical trocar site was closed with the [id number] 0 Vicryl suture. The skin was closed using sutures of 4-0 Monocryl and Steri-Strips. The patient was extubated. The patient tolerated the procedure well and was taken to the postanesthesia care unit in satisfactory condition. Surgical Findings: See operative note Complications Complications: No
--- NOTE | 2024-12-24 07:03 | DCINST_ITS ---
Discharge Instructions Diet Discharge Diet: Light diet - advance as tolerated Activity Discharge Activity: May Not Drive (while taking narcotic pain medications.) May shower in (days): 1 Lifting Restrictions: no lifting >20 lbs x 2 wks, no strenuous exercise for 4 wks Dressing / Incision Call your doctor if your incision/area has: Continuous Slow Oozing, Sudden Increased Bleeding, Increased Pain/ Swelling, Increased Redness, Foul Smelling Discharge and Swelling at the incision site Call your doctor if you observe: Fever of 101 or Higher Remove Dressing in: 2 days Cleanse incision/area with: Soap & Water Additional Dressing/Incision Instructions:: Steri-Strips will fall off in 7 to 10 days, if they do not fall off okay to remove after 10 days. Follow Up Care Please Follow Up With: Hattie Ramos MD When: Call the office for a follow-up appointment 2 weeks; after 5 PM and on the weekends call [phone] with any concerns. Test Results: Test results from this visit will be discussed in further detail at your follow- up appointment, if applicable. Discharge Plan Admission Attending Provider: Hattie Ramos Primary Care Provider: Nanidni Mayorga NP Instructions Print Language: Venezuelan Discharge Orders/Prescriptions Prescriptions: New oxycodone 5 mg capsule 5 mg PO Q6H PRN (Reason: pain) 3 Days Qty: 10 0RF Continued umeclidinium-vilanterol [Anoro Ellipta] 62.5-25 mcg/actuation blister with device 1 inh inhalation DAILY albuterol sulfate 90 mcg/actuation HFA aerosol inhaler 2 puff inhalation Q6H PRN (Reason: asthma) epinephrine 0.3 MG syringe 0.3 mg IM X1 Qty: 2 2RF Referrals / Follow Up: Nandini Mayorga NP, CHECKER LOADER-C [Primary Care Provider] - Disposition Disposition (needs filled in before D/C Order can be placed): Home, Self Care
--- NOTE | 2024-12-24 07:23 | PCM.POST.ANE ---
Anesthesia: Postop Eval I Current Vital Signs Temperature: 98.1 F Pulse Rate: 113 Blood Pressure: 130/76 Respiratory Rate: 14 Pulse Ox: 99 Assessment Airway patent: Yes Spontaneous unlabored respirations: Yes nausea: No Vomiting: No Anesthesia Complication: No Fluid Hydration Crystalloid volume administer (ml): 500 Total IV fluid infused: 500 Progress Note Anesthesia document: Postop Eval 1 completed: Yes
[2024-12-24] MEDS: Ketorolac 30 MG/ML Syringe IV (07:42)
--- NOTE | 2024-12-27 09:54 | POSTOPAN2_ITS ---
Anesthesia Postop Eval I Sum Postop Eval Completion status Anesthesia document: Postop Eval 1 completed: Yes Anesthesia Postop Eval I Summary Anesthesia Postop Eval I Summary: Anesthesia Postop Eval I: Assessment Summary Airway patent Yes 12/24/24 07:23 [email or web address] [email or web address] Spontaneous unlabored Yes 12/24/24 07:23 RAILROAD [email or web address] respirations Mental status nausea No 12/24/24 07:23 RAILROAD [email or web address] Vomiting No 12/24/24 07:23 RAILROAD [email or web address] Anesthesia Postop Eval I: Fluid Summary Crystalloid volume administer 500 12/24/24 07:23 RAILROAD [email or web address] (ml) Colloids volume administered ( ml) Blood Product volume administered (ml) Total IV fluid infused 500 12/24/24 07:23 RAILROAD [email or web address] Anesthesia Postop Eval I: Summary Notes Anesthesia Complication No 12/24/24 07:23 RAILROAD [email or web address] Anesthesia Complication Comment: Post-operative progress note Anesthesia: Postop Eval II Evaluation Mental status: Awake and Calm Pain Level: 1 nausea: No Vomiting: No Complications Anesthesia Complication: No
--- NOTE | 2024-12-27 09:54 | PCM.POSTANE2 ---
Anesthesia Postop Eval I Sum Postop Eval Completion status Anesthesia document: Postop Eval 1 completed: Yes Anesthesia Postop Eval I Summary Anesthesia Postop Eval I Summary: Anesthesia Postop Eval I: Assessment Summary Airway patent Yes 12/24/24 07:23 COUNTER TOP [email or web address] Spontaneous unlabored Yes 12/24/24 07:23 COUNTER TOP [email or web address] respirations Mental status nausea No 12/24/24 07:23 COUNTER TOP [email or web address] Vomiting No 12/24/24 07:23 COUNTER TOP [email or web address] Anesthesia Postop Eval I: Fluid Summary Crystalloid volume administer 500 12/24/24 07:23 COUNTER TOP [email or web address] (ml) Colloids volume administered ( ml) Blood Product volume administered (ml) Total IV fluid infused 500 12/24/24 07:23 COUNTER TOP [email or web address] Anesthesia Postop Eval I: Summary Notes Anesthesia Complication No 12/24/24 07:23 COUNTER TOP [email or web address] Anesthesia Complication Comment: Post-operative progress note Anesthesia: Postop Eval II Evaluation Mental status: Awake and Calm Pain Level: 1 nausea: No Vomiting: No Complications Anesthesia Complication: No
== END 2024-12-24 09:56 | disposition home or self-care (01) ==
LOC: ED 01:40 → SDC 04:43 → AC 04:43
PROVIDERS: Emergency Provider Surgery; PCP Nurse Practitioner Family; Referring Provider Surgery; Visit Provider Surgery
PROC: 0DTJ4ZZ Resection of Appendix, Percutaneous Endoscopic Approach (ICD-10-PCS; CPT 44970; principal; 2024-12-24 06:00)
DX: K35.80 Unspecified acute appendicitis (principal); K29.70 Gastritis, unspecified, without bleeding; Z79.51 Long term (current) use of inhaled steroids
CPT/HCPCS: 44970; 74177; 80053; 81001; 83690; 84703; 85025; 88304; 99284; Q9967; A4216; J2405